=== PATIENT | female | born 1935 | race Caucasian/White ===

== ENCOUNTER 2018-02-04 16:42 | Observation (INO) | payer OTHER ==
--- NOTE | 2018-02-04 17:29 | PDOC ---
History of Present Illness - General Stated Complaint: ANXIETY Time Seen by Provider: 02/04/18 17:29 - History of Present Illness Initial Comments: 82 year old female with PMH of BPD (currently unmedicated) presenting with rapid breathing and generalized anxiety this morning. Stats that she woke up normally, ate some cookies and had a sparkling water. She attempted to go back to bed but noticed a rapid breathing rate along with generalized fear. She hasn' t seen a physician in 5 years because of getting similar symptoms whenever she attempt to leave her house. She has no fear of or ill event but fears that she will get a "panic attack" when she leaves her home. Denies any SI/HI/AH /VH. Denies any recent fevers,chills, nausea, vomiting, or diarrhea. However, she did vomit once while in the the ED here. 02/04/18 17:50 Past History - Past Medical History Allergies/Adverse Reactions: Allergies Allergy/AdvReac Type Severity Reaction Status Date / Time No Known Allergies Allergy Verified 02/04/18 17:19 Home Medications: Ambulatory Orders NK [No Known Home Medication] 02/04/18 Review of Systems - Review of Systems Constitutional: No: Chills, Diaphoresis HEENTM: No: Blurred Vision, Recent change in vision, Double Vision Respiratory: No: Cough, Shortness of Breath, SOB with Exertion Cardiac (ROS): No: Chest Pain, Edema, Irregular Heart Rate, Lightheadedness ABD/GI: No: Diarrhea, Nausea, Vomiting : No: Dysuria, Frequency, Hematuria Musculoskeletal: No: Back Pain, Joint Pain Integumentary: No: Bruising, Lesions, Lumps Neurological: No: Headache, Numbness, Paresthesia Psychiatric: Yes: Anxiety, Other (History of BPD). No: Depression Endocrine: No: Increased Hunger, Increased Thirst, Increased Urine Hematologic/Lymphatic: No: Anemia, Blood Clots *Physical Exam - Physical Exam General Appearance: Yes: Nourished, Appropriately Dressed. No: Apparent Distress HEENT: positive: EOMI, FABIAN, Normal ENT Inspection, Normal Voice Neck: positive: Trachea midline, Normal Thyroid, Supple. negative: Tender, Rigid Respiratory/Chest: positive: Lungs Clear, Normal Breath Sounds. negative: Chest Tender, Respiratory Distress, Accessory Muscle Use Cardiovascular: positive: Regular Rhythm, Regular Rate Gastrointestinal/Abdominal: positive: Normal Bowel Sounds, Flat, Soft. negative : Tender Musculoskeletal: positive: Normal Inspection. negative: CVA Tenderness, Decreased Range of Motion Extremity: positive: Normal Capillary Refill, Normal Inspection, Normal Range of Motion. 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 She was asymptomatic and felt well during our interview. She did not desat at any point during our exam or in the pre-hospital setting. Labs WNL including Troponin. CXR slightly abnormal demonstrating right medial basilar infiltrate; however patient afebrile, with normal white count, without cough, and otherwise well. We set up visiting home nursing with social work and will DC patient with strict return precautions and followup instructions. 02/04/18 20:11 *DC/Admit/Observation/Transfer Diagnosis at time of Disposition: Anxiety, Shortness of breath - Discharge Dispostion Disposition: HOME Condition at time of disposition: Improved Decision to Admit order: No - Referrals Referrals: [facility] [place] [Provider Group] - Patient Instructions Printed Discharge Instructions: DI for Anxiety -- Adult, Generalized Anxiety Disorder, DI for Shortness of Breath Additional Instructions: We believe that this episode was related to your anxiety. Please answer your phone when you are called by the home nursing service for your evaluation. If you can leave the house please follow up with our medical clinic on this sheet within 2-3 days. Please return to the ED if you have coughs, fevers, chills, shortness of breath, or have any new/ worsening symptoms. - Post Discharge Activity
[2018-02-04 18:07] LABS: BASO % 0.8 % (0-2.0); EOS % 1.6 % (0-4.5); HEMOGLOBIN 12.6 GM/dL (10.7-15.3); LYMPH % 17.3 % (8-40); MCHC 34.9 g/dl (32.0-36.0); MEAN CELL VOLUME 100.3 fl (80-96); MEAN PLT VOLUME 8.2 fl (7.5-11.1); MONO % 6.6 % (3.8-10.2); NEUT % 73.7 % (42.8-82.8); PLATELET COUNT 184 K/MM3 (134-434); RBC 3.59 M/mm3 (3.60-5.2); RDW 13.5 % (11.6-15.6); WHITE BLOOD COUNT 6.9 K/mm3 (4.0-10.0)
[2018-02-04 18:35] LABS: ALBUMIN 3.6 g/dl (3.4-5.0); ALK PHOS 113 U/L (45-117); ANION GAP 9 MMOL/L (8-16); BILIRUBIN,TOTAL 0.5 mg/dL (0.2-1); BLOOD UREA NITROGEN 15 mg/dL (7-18); CHLORIDE 109 mmol/L (98-107); CO2 24 mmol/L (21-32); CREATININE 0.8 mg/dL (0.55-1.3); GLUCOSE,RANDOM 148 mg/dL (74-106); POTASSIUM 3.6 mmol/L (3.5-5.1); SGOT/AST 28 U/L (15-37); SGPT/ALT 26 U/L (13-61); SODIUM 141 mmol/L (136-145)
--- NOTE | 2018-02-04 19:25 | PDOC ---
Attending Attestation - HPI HPI: 02/04/18 19:29 The patient is an 82 year old female LEXIE, with a past medical history of anxiety and bipolar disorder, who presents to the emergency department for evaluation of an anxiety attack with associated shortness of breath at 530am. The patient endorses 1 episode of emesis upon arrival to the emergency department. The patient reports not seeing a psychiatrist since 2016. She states this wan an atypical presentation of her anxiety attacks which prompted her activate EMS to visit the emergency department for further evaluation. The patient denies palpitations, diaphoresis, chest pain, abdominal pain, nausea , or vomiting. - Physicial Exam PE: Vitals: Triage Vital signs reviewed General Appearance: no acute distress, well nourished well developed, Head: Atraumatic, normocephalic Neck: Supple Chest Wall: Nontender Cardiac: Regular rate and rhythm, no murmurs, no rubs, no gallops, Lungs: Clear to auscultation bilateral, good air movement bilaterally, Abdomen: Soft, nondistended, nontender to palpation Extremities: Full range of motion to all extremities, no cyanosis, clubbing, or edema Skin: Warm and dry, no rashes or lesions, no petechiae Psych: normal mood, normal affect - Medical Decision Making The patient is an 82 year old female LEXIE, with a past medical history of anxiety and bipolar disorder, who presents to the emergency department for evaluation of an anxiety attack with associated shortness of breath at 530am. Plan: Chest X-ray Troponin Labs <Gera Jiménez - Last Filed: 02/04/18 19:29> - Resident Resident Name: Ora Patel - ED Attending Attestation I have performed the following: I have examined & evaluated the patient, The case was reviewed & discussed with the resident, I agree w/resident's findings & plan, Exceptions are as noted - Medical Decision Making Patient with long-standing history of untreated anxiety depression bipolar disorder. Presented to emergency department after apparent panic attack Labs EKG unremarkable chest x-ray with questionable findings at the right medial heart border however given no fever no cough no elevated white blood cell count no shift very low suspicion for acute infectious process Initial plan was to discharge patient home. We had contacted licensed clinical social worker for outpatient VNS visit. Patient denied any suicidality homicidality has been able to care for herself at home although she has not left her apartment in greater than 5 years and has not had any medical or psychiatric care greater than 5 years she has been eating drinking, paying her bills and is independent of ADLs After discussing discharge plan with patient patient had brief episode of catatonia stating she cannot leave from bed. This quickly resolved consistent with panic attack At this point we offered patient possible observation and psychiatric consultation. She wavered back and forth regarding this plan. We then walked patient around the emergency department while deciding and several times during this walk patient had episodes of brief panic attacks. At this point we will observe patient overnight in the emergency department for psychiatric consultation in the morning. I am unclear whether patient is at her baseline level of anxiety and depression and an unsure if patient is safe for discharge home or may required more intensive psychiatric evaluation. We'll place on observation for psychiatric evaluation. <Humberto Bonilla - Last Filed: 02/04/18 23:54> Heart Score/ECG Review - History History: Slightly suspicious - Electrocardiogram EKG: Non specific repolarization disturbance - Age Age: >/= 65 - Risk Factors Based on the list above the patient has:: No risk factors known - Troponin Troponin: </= normal limit - Score Heart Score - Total: 3 - ECG Impressions Comment:: 02/04/18 23:54 EKG performed at 1716. Temperature is normal sinus rhythm anterior fascicular block. No ST elevations biphasic T waves laterally. Interpreted by me. <Humberto Bonilla - Last Filed: 02/04/18 23:54> Attestations - Attestations Documentation prepared by Gera Jiménez, acting as medical delivery driver for Humberto Bonilla MD. <Gera Jiménez - Last Filed: 02/04/18 19:29>
--- NOTE | 2018-02-04 21:06 | PDOC ---
*Physical Exam - Vital Signs Last Vital Signs Temp Pulse Resp BP Pulse Ox 98.1 F 86 20 177/99 94 L 02/04/18 20:23 02/04/18 20:23 02/04/18 20:23 02/04/18 20:23 02/04/18 20:23 <Ora Patel - Last Filed: 02/05/18 01:56> - Vital Signs Last Vital Signs Temp Pulse Resp BP Pulse Ox 98.5 F 70 18 132/56 L 96 02/06/18 10:00 02/06/18 10:00 02/06/18 10:00 02/06/18 10:00 02/06/18 08:00 <Humberto Bonilla - Last Filed: 02/07/18 02:28> ED Treatment Course - LABORATORY CBC & Chemistry Diagram: 02/04/18 17:51 02/04/18 17:51 - ADDITIONAL ORDERS Additional order review: Laboratory Results 02/04/18 02/04/18 18:20 17:51 Sodium 141 Potassium 3.6 Chloride 109 H Carbon Dioxide 24 Anion Gap 9 BUN 15 Creatinine 0.8 Creat Clearance w eGFR > 60 Random Glucose 148 H Calcium 9.0 Total Bilirubin 0.5 AST 28 ALT 26 Alkaline Phosphatase 113 Troponin I < 0.02 Total Protein 7.0 Albumin 3.6 TSH 1.17 02/04/18 17:51 RBC 3.59 L MCV 100.3 H MCHC 34.9 RDW 13.5 MPV 8.2 Neutrophils % 73.7 Lymphocytes % 17.3 Monocytes % 6.6 Eosinophils % 1.6 Basophils % 0.8 - RADIOLOGY Radiology Studies Ordered: Category Date Time Status CXRPORT [CHEST X-RAY PORTABLE*] [RAD] Stat Radiology 02/04/18 19:27 Completed <Ora Patel - Last Filed: 02/05/18 01:56> - LABORATORY CBC & Chemistry Diagram: 02/05/18 06:30 02/05/18 06:30 - ADDITIONAL ORDERS Additional order review: 02/04/18 17:51 RBC 3.59 L MCV 100.3 H MCHC 34.9 RDW 13.5 MPV 8.2 Neutrophils % 73.7 Lymphocytes % 17.3 Monocytes % 6.6 Eosinophils % 1.6 Basophils % 0.8 - Medications Given in the ED: ED Medications Discontinued Medications Generic Name Dose Route Start Last Admin Trade Name Rory PRN Reason Stop Dose Admin Amlodipine Besylate 2.5 mg 02/05/18 10:00 02/06/18 10:34 Norvasc - PO 2.5 mg DAILY FERNANDO Administration Heparin Sodium (Porcine) 5,000 unit 02/05/18 06:00 02/06/18 05:13 Heparin - SQ 5,000 unit TID FERNANDO Administration Ceftriaxone Sodium 1,000 mg/ 50 mls @ 100 mls/hr 02/04/18 21:50 02/04/18 22: 04 Dextrose IVPB 02/04/18 22:19 100 mls/hr ONCE ONE Administration Azithromycin 500 mg/ Dextrose 250 mls @ 250 mls/hr 02/04/18 21:50 02/04/18 22 :35 IVPB 02/04/18 22:49 250 mls/hr ONCE ONE Administration Insulin Aspart 1 vial 02/05/18 07:00 02/06/18 12:02 Novolog Vial Sliding Scale - SQ 2 units ACHS FERNANDO Administration Protocol Lisinopril 20 mg 02/05/18 01:52 02/05/18 09:21 Prinivil PO 20 mg DAILY FERNANDO Administration Lorazepam 2 mg 02/05/18 00:42 02/05/18 00:54 Ativan Injection - IVPUSH 02/05/18 00:43 Not Given ONCE ONE Lorazepam 1 mg 02/05/18 00:45 02/05/18 00:54 Ativan Injection - IVPUSH 02/05/18 00:46 1 mg ONCE ONE Administration Lorazepam 2 mg 02/05/18 00:59 02/06/18 01:04 Ativan - PO 2 mg BID PRN Administration ANXIETY <Humberto Bonilla - Last Filed: 02/07/18 02:28> Medical Decision Making - Medical Decision Making Upon discharge, patient was stating that she was unable to walk. I eventually was able to walk her but she was very short of breath with general tremulousness. Unclear if her SOB was due to anxiety or a harbinger of PNA. Regardless, patient does not feel well enough to go home and was nauseas/ vomiting continuously during our walk. Will treat with abx for PNA and admit for obs. 02/04/18 21:04 After speaking with medicine attending, we consulted psych and they will see her in the morning. Patient OK with this plan. Patient is an ED Obs pending psych eval. 02/04/18 23:35 While talking to the patient again she began making passive suicidal comments " I just want to end it all. I'm tired of it all." She does have a previous attempt 40 years ago during some post depression. She attempted to take her life via medication overdose. She began to become slightly agitateed as well and refused to sit back in her bed, perseverating about animals and their abilities to "lay down and just end it all". When asked if she wanted to kill herself, she said no. She also denied HI. Given 1 MG ativan. Patient over 8 hours in our ED so will convert to full Obs and psych eval pending with Des Moreno. 02/05/18 01:56 <Ora Patel - Last Filed: 02/05/18 01:56> *DC/Admit/Observation/Transfer - Discharge Dispostion Decision to Admit order: Yes <Ora Patel - Last Filed: 02/05/18 01:56> <Humberto Bonilla - Last Filed: 02/07/18 02:28> Diagnosis at time of Disposition: Anxiety, Shortness of breath - Discharge Dispostion Disposition: VNS/HOME HEALTH CARE Condition at time of disposition: Stable
[2018-02-04] MEDS ORDERED: AZITHROMYCIN IVPB 500 MG in DEXTROSE 5%-WATER - 250 ML IVPB ONE (21:50)
[2018-02-04] MEDS ORDERED: CEFTRIAXONE 1,000 MG in DEXTROSE 5%-WATER - 50 ML IVPB ONE (21:50)
[2018-02-04] MEDS ORDERED: CEFTRIAXONE 1 GM/50 ML BAG ONE (21:55)
[2018-02-04] MEDS ORDERED: AZITHROMYCIN IVPB 250 ML IVPB ONE (21:55)
[2018-02-05] MEDS ORDERED: LORazepam 2 MG/ML SDV VIAL ONE (00:48)
[2018-02-05] MEDS ORDERED: LORazepam 1 MG TABLET PO PRN (00:59)
--- NOTE | 2018-02-05 01:10 | PN ---
Teaching Attending Note Name of Resident: Erum Faith ATTENDING PHYSICIAN STATEMENT I saw and evaluated the patient. CHart, data, imaging reviewed. I reviewed the resident's note and discussed the case with the resident. I agree with the resident's findings and plan as documented. SUBJECTIVE: 82 year old female LEXIE, with a past history of anxiety and bipolar disorder who presented for anxiety attack with associated shortness of breath at 530am . Associated with multiple episodes of emesis. She was has not left her house in 5 years due to anxiety. Food was delivered to her. Denied pain, cough, or sputum production. OBJECTIVE: Last Vital Signs Temp Pulse Resp BP Pulse Ox 97.5 F L 76 18 172/92 99 02/04/18 23:49 02/04/18 23:49 02/04/18 23:49 02/04/18 23:49 02/04/18 23:49 general -appears anxious, nontoxic appearing heent- atraumatic, normocephalic neck supple cv -s1+s2+ rrr chest clear, no crackles or rales appreciated abdomen -soft, nt skin- multiple nevi on back noted Abnormal Lab Results 02/04/18 02/04/18 17:51 17:51 RBC 3.59 L MCV 100.3 H MCH 35.0 H Chloride 109 H Random Glucose 148 H cxr- reviewed ASSESSMENT AND PLAN: 82yo woman with severe anxiety disorder, bipolar disorder. Uncontrolled hypertension. -observation -psych consult -ativan 2mg po if severe anxiety -zofran for nausea/vomiting #HTN - uncontrolled -amlodipine, lisinopril -2g Na diet #Multiple Nevi on back -derm clinic referral dvt ppx -heparin sc
--- NOTE | 2018-02-05 01:22 | HP ---
CHIEF COMPLAINT: PCP: PSYCHIATRIST: Dr. Faith (In [facility], last seen in March 2016) HISTORY OF PRESENT ILLNESS: 82 y/o F with a PMHx of Bipolar Disorder with psychotic tendencies (Not on medication, Does not follow with Psych) presents with "Feeling Lousy." This morning when she went to lay down on the couch after drinking some coffee, she felt tired and started crying. She is not sure why she started crying but she was unable to stop and could not catch her breath. This is the first time this has happened to her so she called EMS. She has not been able to identify any triggers or relieving factors. During my interview, she was calm and very pleasant. Since arriving in the ED she has Vomited twice; It was brown, non bloody. Patient says she went to bed feeling fine after eating dinner yesterday. During her ED stay, patient was told she was going to be discharged, and shortly after complained she was unable to walk. She eventually was able to walk however, but complained of being very short of breath and did not feel well enough to go home. Psych (Dr. Sharp) was consulted and patient will be seen in the morning. Patient has not seen a physician in many years bc she states leaving her home triggers symptoms of Rapid breathing and anxiety which she feels will lead to panic attack. Denies any recent falls, Medication changes, infections, bug bites, new sexual partners. Denies any suicidal or homicidal ideations at this time. Denies any recent changes in mood, energy level, amount she sleeps nightly, speech pattern. 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71 Residence: Apartment with 3 cats Ambulation: has a can and walker perscribed, but refuses to use Family History: Dad: Malaria Mom: Negative Brother: Lung Cancer Allergies No Known Allergies Allergy (Verified 02/04/18 17:19) HOME MEDICATIONS: Home Medications Medication Instructions Recorded NK [No Known Home Medication] 02/04/18 REVIEW OF SYSTEMS CONSTITUTIONAL: Absent: fever, chills, diaphoresis, generalized weakness, malaise, loss of appetite, weight change HEENT: Absent: rhinorrhea, nasal congestion, throat pain, throat swelling, difficulty swallowing, mouth swelling, ear pain, eye pain, visual changes CARDIOVASCULAR: Absent: chest pain, syncope, palpitations, irregular heart rate, lightheadedness , peripheral edema RESPIRATORY: Absent: cough, shortness of breath, dyspnea with exertion, orthopnea, wheezing, stridor, hemoptysis GASTROINTESTINAL: Present: nausea, vomiting Absent: abdominal pain, abdominal distension, diarrhea, constipation, melena, hematochezia GENITOURINARY: Absent: dysuria, frequency, urgency, hesitancy, hematuria, flank pain, genital pain MUSCULOSKELETAL: Absent: myalgia, arthralgia, joint swelling, back pain, neck pain SKIN: Absent: rash, itching, pallor HEMATOLOGIC/IMMUNOLOGIC: Absent: easy bleeding, easy bruising, lymphadenopathy, frequent infections ENDOCRINE: Absent: unexplained weight gain, unexplained weight loss, heat intolerance, cold intolerance NEUROLOGIC: Present: bladder incontinence Absent: headache, focal weakness or paresthesias, dizziness, unsteady gait, seizure, mental status changes PSYCHIATRIC: Present: anxiety, Absent: depression, suicidal or homicidal ideation, hallucinations. PHYSICAL EXAMINATION Vital Signs - 24 hr 02/04/18 02/04/18 02/04/18 17:31 20:23 23:49 Temperature 98.1 F 98.1 F 97.5 F L Pulse Rate 96 H Pulse Rate [ 86 76 Right] Respiratory 20 20 18 Rate Blood Pressure 167/130 Blood Pressure 177/99 [Left Arm] Blood Pressure 172/92 [Right Arm] O2 Sat by Pulse 97 94 L 99 Oximetry (%) GENERAL: Awake, alert, and fully oriented, in no acute distress, lying comfortably. HEAD: NCAT EYES: PERRL, EOMI THROAT: Oropharynx clear without exudates. Moist mucous membranes. NECK: No JVD. LUNGS: Breath sounds equal, clear to auscultation bilaterally. No wheezes. HEART: Regular rate and rhythm, normal S1 and S2 without murmur. ABDOMEN: Soft, nontender, not distended, normoactive bowel sounds, no guarding. BACK: No CVA tenderness. EXTREMITIES: 2+ pulses. No calf tenderness. No peripheral edema. NEUROLOGICAL: Cranial nerves II-XII intact. Normal speech. PSYCHIATRIC: Cooperative. Good eye contact. Appropriate mood and affect. SKIN: Warm, dry, no rashes, Multiple nevi present throughout. Laboratory Results - last 24 hr 02/04/18 02/04/18 02/04/18 17:51 17:51 18:20 WBC 6.9 RBC 3.59 L Hgb 12.6 Hct 36.0 MCV 100.3 H MCH 35.0 H MCHC 34.9 RDW 13.5 Plt Count 184 MPV 8.2 Absolute Neuts (auto) 5.1 Neutrophils % 73.7 Lymphocytes % 17.3 Monocytes % 6.6 Eosinophils % 1.6 Basophils % 0.8 Nucleated RBC % 0 Sodium 141 Potassium 3.6 Chloride 109 H Carbon Dioxide 24 Anion Gap 9 BUN 15 Creatinine 0.8 Creat Clearance w eGFR > 60 Random Glucose 148 H Calcium 9.0 Total Bilirubin 0.5 AST 28 ALT 26 Alkaline Phosphatase 113 Troponin I < 0.02 Total Protein 7.0 Albumin 3.6 TSH 1.17 ASSESSMENT/PLAN: 82 y/o F with a PMHx of Bipolar Disorder with psychotic tendencies presents with Anxiety accompanied by vomiting. BP was 177/99 and she had multiple Nevi over her back on exam. BG was elevated at 148, Trop < 0.02, TSH 1.17. EKG was NSR. CXR revealed a Possible developing Right basilar infiltrate. 1. Anxiety - Psychiatry (Dr. Sharp) consulted - UTox, RPR, B12 pending - Ativan 2mg BID PRN for severe anxiety - Zofran 4mg Q6H PRN for nausea 2. Uncontrolled HTN - Started on Lisinopril 20mg, Norvasc 2.5mg - Lipid profile pending 3. Nevi - Would likely benefit from outpatient derm follow up 4. Elevated Blood Glucose - BGMs ISS ACHS - A1c pending - Continue to Monitor 5. FEN - PO Fluids - Lytes wnl, continue to monitor - Sodium controlled diet 6. PPx - DVT: Heparin TID Dispo: Med-Surg Obs Visit type - Emergency Visit Emergency Visit: Yes ED Registration Date: 02/04/18 Care time: The patient presented to the Emergency Department on the above date and was hospitalized for further evaluation of their emergent condition. - New Patient This patient is new to me today: Yes Date on this admission: 02/08/18 - Critical Care Critical Care patient: No Hospitalist Screening - Colonoscopy Questionnaire Colonoscopy Questionnaire: Colonoscopy Questionnaire - Patient: 50 - 75 years old and never had a screening colonoscopy: Unknown History of colon or rectal polyps, or CA: Unknown History of IBD, Crohn's disease or UC: Unknown History of abdominal radiation therapy as a child: Unknown - Relative: 1 with colon or rectal CA, or polyps at age 60 or younger: Unknown Colon or rectal CA diagnosed at age 45 or younger: Unknown Multiple relatives with colon or rectal CA: Unknown - Outcome: Screening Result: Negative Screen
[2018-02-05] MEDS ORDERED: LISINOPRIL 20 MG TABLET (FP) PO SCH ×2 (01:52→10:00)
[2018-02-05] MEDS ORDERED: ONDANSETRON 4 MG/2 ML VIAL IVPUSH PRN (01:59)
[2018-02-05] MEDS: HEPARIN NA (PORCINE) 5,000 UNITS/ML 1ML VIAL SQ SCH ×3 (06:52→22:11)
[2018-02-05] MEDS: INSULIN SLIDING SCALE (NOVOLOG) 1 VIAL SQ SCH ×4 (06:53→22:17)
[2018-02-05 07:16] LABS: BASO % 0.4 % (0-2.0); EOS % 0.4 % (0-4.5); HEMATOCRIT 35.3 % (32.4-45.2); HEMOGLOBIN 12.2 GM/dL (10.7-15.3); LYMPH % 21.8 % (8-40); MCH 34.7 pg (25.7-33.7); MCHC 34.5 g/dl (32.0-36.0); MEAN CELL VOLUME 100.4 fl (80-96); MEAN PLT VOLUME 8.3 fl (7.5-11.1); MONO % 7.5 % (3.8-10.2); NEUT % 69.9 % (42.8-82.8); PLATELET COUNT 166 K/MM3 (134-434); RBC 3.51 M/mm3 (3.60-5.2); RDW 13.1 % (11.6-15.6); WHITE BLOOD COUNT 8.5 K/mm3 (4.0-10.0)
--- NOTE | 2018-02-05 09:00 | CON.PSY ---
Psychiatry Consult Chief Complaint: Asked to see this patient, a 82 year old female who was brought to ER for an episode of panic attack. History of Present Problem: Patient states that she lives alone with her cats and has not ventured outside x 5 years. Groceries etc are delivered to her home. She has a hx of Bipolar disorder coexisting with panic attacks with agoraphobia Ms. Bradford recalls one hospitalization at [facility] when she was around 71 years of age for what she called' nervousness' She was last seen by a psychiatrist in 2016 but did not follow up due to her agoraphobia. She cries easily, admits to feeling 'depressed' as allher friends have , and she has a strained relationship with her daughter. Denies suicidal/homicidal ideation. No hx of suicidal attempt in the past. She wants to go home to take care of her pets. Symptoms: reports: Depressed Mood - Previous Psychiatric Treatment Outpatient: None, More than 6 mos ago Inpatient: None - Previous Substance Abuse Treatment Outpatient: None - Reason for Previous Treatment Reason for Previous Treatment: Biploar Illness, Anxiety or Panic Disorder - Family History Family History: Unable to Obtain - Current Medications Current Medications: Active Medications Amlodipine Besylate (Norvasc -) 2.5 mg PO DAILY [facility] Heparin Sodium (Porcine) (Heparin -) 5,000 unit SQ TID [facility] Last Admin: 02/05/18 06:52 Dose: Not Given Insulin Aspart (Novolog Vial Sliding Scale -) 1 vial SQ ACHS [facility]; Protocol Last Admin: 02/05/18 06:53 Dose: Not Given Lisinopril (Prinivil) 20 mg PO DAILY [facility] Lorazepam (Ativan -) 2 mg PO BID PRN PRN Reason: ANXIETY Ondansetron HCl (Zofran Injection) 4 mg IVPUSH Q6H PRN PRN Reason: NAUSEA AND/OR VOMITING - Allergies Allergies: Allergies Allergy/AdvReac Type Severity Reaction Status Date / Time No Known Allergies Allergy Verified 02/04/18 17:19 - Current Living Status Usual Living Arrangement: Alone - Current Mental Status Evaluation Appearance: Other (appropriate for the setting) - Affect Affect: Labile - Mood Mood: Depressed - Speech/Language Expressive: Coherent Receptive: Age Appropriate Comprehension of Spoken Words - Psychomotor Activity Psychomotor Activity: Normal - Thought Process Thought Process: Intact - Thought Content Hallucinations: Absent Delusions: Absent - Self Perception Self Perception: No Impairment - Cognition Attention: Alert Orientation: Time, Person, Place Memory, Immediate Recall: Impaired - Concentration Simple Calculations Intact: Yes - Insight Insight: Intact - Impulse Control Impulse Control: Good Control - Suicidal Ideation Suicidal Ideation: No - Homicidal Ideation Homicidal Ideation: No Assessment/Plan DX Bipolar illness Coexisting wth panic attacks/agoraphobia Loneliness Rec Agree with plan to have VNS services Patient needs mental health follow up She is psychiatrically stable for discharge
[2018-02-05] MEDS: amLODIPine BESYLATE 2.5 MG TABLET (FP) PO SCH (09:21)
[2018-02-05 09:43] LABS: ALBUMIN 3.4 g/dl (3.4-5.0); ALK PHOS 103 U/L (45-117); ANION GAP 10 MMOL/L (8-16); BILIRUBIN,TOTAL 0.5 mg/dL (0.2-1); BLOOD UREA NITROGEN 13 mg/dL (7-18); CALCIUM 9.2 mg/dL (8.5-10.1); CHLORIDE 108 mmol/L (98-107); CHOLESTEROL 205 mg/dL (50-200); CO2 24 mmol/L (21-32); CREATININE 0.7 mg/dL (0.55-1.3); GLUCOSE,RANDOM 107 mg/dL (74-106); HDL CHOLESTEROL 56 mg/dL (40-60); POTASSIUM 3.5 mmol/L (3.5-5.1); SGOT/AST 30 U/L (15-37); SGPT/ALT 24 U/L (13-61); SODIUM 142 mmol/L (136-145); TOT PROT 6.6 g/dl (6.4-8.2); TRIGLYCERIDES 76 mg/dL (0-150)
--- NOTE | 2018-02-05 12:10 | EKG ---
Test Reason : Blood Pressure : / mmHG Vent. Rate : 091 BPM Atrial Rate : 091 BPM P-R Int : 170 ms QRS Dur : 084 ms QT Int : 340 ms P-R-T Axes : 050 -54 083 degrees QTc Int : 418 ms NORMAL SINUS RHYTHM LEFT ANTERIOR FASCICULAR BLOCK MODERATE VOLTAGE CRITERIA FOR LVH, MAY BE NORMAL VARIANT NONSPECIFIC ST AND T WAVE ABNORMALITY ABNORMAL ECG WHEN COMPARED WITH ECG OF 05-SEP-2006 01:44, NO SIGNIFICANT CHANGE WAS FOUND Confirmed by LANCE ESCAMILLA, KELLE ([id number]) on 02/05/2018 12:10:01 PM Referred By: Confirmed By:KELLE LUCAS MD
[2018-02-05] MEDS ORDERED: HEMOQUE TEST 1 EACH EACH ONE (16:48)
--- NOTE | 2018-02-05 18:01 | PN ---
Teaching Attending Note Name of Resident: Malvin Branham ATTENDING PHYSICIAN STATEMENT I saw and evaluated the patient. I reviewed the resident's note and discussed the case with the resident. I agree with the resident's findings and plan as documented. SUBJECTIVE: no fever or chills. no pain, reports having high Bp in hospital setting . denies SI OBJECTIVE: NAD CV: RRR Lungs: CTAB Ext : no edema Abd: soft, NT, ND , NL BS ASSESSMENT AND PLAN: Unfortunate 82 y/o lady with h/o bipolar, depression, anxiety, and agoraphobia, who presented with SOb and palpitations , and vomiting 1- panic attack 2- depression 3- anxiety 4- agoraphobia 5- HTN plan : - case was d/w psych. no indication for inpatient psych - she was offered SSRI , she reported sensitivity to a lot of meds. in addition worry about compliance and abrupt cessation of those meds. - rn social services was notified to arrange for services - for HTN, she declined meds due to artificial increase in BP in public setting . will prescribe a BP cuff for monitoring - referral to PCP and psych
--- NOTE | 2018-02-05 20:57 | DS ---
Physical Exam: SUBJECTIVE: Patient seen and examined at bedside. Blunted affect, monotone, slow to respond to questions. Complains of inability to breathe inconsistent with presentation. OBJECTIVE: Vital Signs Period Temp Pulse Resp BP Sys/Mcmullen Pulse Ox Last 24 Hr 97.5 F-98.6 F 69-84 18-18 132-172/66-92 95-100 PHYSICAL EXAM GENERAL: The patient is awake, alert, and fully oriented, in no acute distress. HEAD: Normal with no signs of trauma. EYES: PERRL, extraocular movements intact, sclera anicteric, conjunctiva clear. ENT: Ears normal, nares patent, oropharynx clear without exudates, moist mucous membranes. NECK: Trachea midline, full range of motion, supple. LUNGS: Breath sounds equal, clear to auscultation bilaterally, no wheezes, no crackles, no accessory muscle use. HEART: Regular rate and rhythm, S1, S2 without murmur, rub or gallop. ABDOMEN: Soft, nontender, nondistended, normoactive bowel sounds, no guarding, no rebound, no hepatosplenomegaly, no masses. EXTREMITIES: 2+ pulses, warm, well-perfused, no edema. NEUROLOGICAL: Cranial nerves II through XII grossly intact. Normal speech, gait not observed. PSYCH: Normal mood, normal affect. SKIN: Warm, dry, normal turgor, no rashes or lesions noted. LABS Laboratory Results - last 24 hr 02/05/18 02/05/18 02/05/18 06:30 06:30 06:30 WBC 8.5 RBC 3.51 L Hgb 12.2 Hct 35.3 MCV 100.4 H MCH 34.7 H MCHC 34.5 RDW 13.1 Plt Count 166 MPV 8.3 Absolute Neuts (auto) 5.9 Neutrophils % 69.9 Lymphocytes % 21.8 D Monocytes % 7.5 Eosinophils % 0.4 Basophils % 0.4 Nucleated RBC % 0 Sodium 142 Potassium 3.5 Chloride 108 H Carbon Dioxide 24 Anion Gap 10 BUN 13 Creatinine 0.7 Creat Clearance w eGFR > 60 POC Glucometer Random Glucose 107 H Hemoglobin A1c % 5.9 Calcium 9.2 Phosphorus 3.0 Magnesium 2.0 Total Bilirubin 0.5 AST 30 ALT 24 Alkaline Phosphatase 103 Total Protein 6.6 Albumin 3.4 Triglycerides 76 Cholesterol 205 H Total LDL Cholesterol 138 H HDL Cholesterol 56 Vitamin B12 573 RPR Titer 02/05/18 02/05/18 02/05/18 06:30 06:30 06:51 WBC RBC Hgb Hct MCV MCH MCHC RDW Plt Count MPV Absolute Neuts (auto) Neutrophils % Lymphocytes % Monocytes % Eosinophils % Basophils % Nucleated RBC % Sodium Potassium Chloride Carbon Dioxide Anion Gap BUN Creatinine Creat Clearance w eGFR POC Glucometer 113.28087 Random Glucose Hemoglobin A1c % Calcium Phosphorus Magnesium Total Bilirubin AST ALT Alkaline Phosphatase Total Protein Albumin Triglycerides Cholesterol Total LDL Cholesterol HDL Cholesterol Vitamin B12 Cancelled RPR Titer Nonreactive 02/05/18 02/05/18 11:07 16:50 WBC RBC Hgb Hct MCV MCH MCHC RDW Plt Count MPV Absolute Neuts (auto) Neutrophils % Lymphocytes % Monocytes % Eosinophils % Basophils % Nucleated RBC % Sodium Potassium Chloride Carbon Dioxide Anion Gap BUN Creatinine Creat Clearance w eGFR POC Glucometer 144.71509 139.28173 Random Glucose Hemoglobin A1c % Calcium Phosphorus Magnesium Total Bilirubin AST ALT Alkaline Phosphatase Total Protein Albumin Triglycerides Cholesterol Total LDL Cholesterol HDL Cholesterol Vitamin B12 RPR Titer HOSPITAL COURSE: Date of Admission:02/04/18 82 y/o F with a PMHx of Bipolar Disorder with psychotic tendencies (Not on medication, Does not follow with Psych) presents with "Feeling Lousy." This morning when she went to lay down on the couch after drinking some coffee, she felt tired and started crying. She is not sure why she started crying but she was unable to stop and could not catch her breath. This is the first time this has happened to her so she called EMS. She has not been able to identify any triggers or relieving factors. Patient has not seen a physician in many years bc she states leaving her home triggers symptoms of rapid breathing and anxiety which she feels will lead to panic attack. Denies any suicidal/homicidal ideation. Psychiatry was consulted and deemed patient stable for discharge from their standpoint. PT was consulted and cleared patient for safe ambulation at home. Noted to have moderate hypertension on evaluation but refused any medications. Offered and accepted prescription of blood pressure cuff with instructions to measure at home and return to ED if systolic BP>160. Otherwise thorough evaluation including CXR, labs, EKG and clinical exam revealed no treatable organic medical conditions. Discharged with instructions for outpt primary care and psychiatry f/u. Date of Discharge: 09/21/18 Minutes to complete discharge: 40 Discharge Summary Reason For Visit: ANXIETY SHORTNESS OF BREATH (SHORT STAY) Current Active Problems Anxiety (Acute) Shortness of breath (Acute) Condition: Stable - Instructions Diet, Activity, Other Instructions: You were hospitalized for shortness of breath and palpitations. You were evaluated and underwent lab studies, imaging, and EKG which determined that your symptoms were not the result of a problem that can be treated medically in a hospital setting. We believe that this episode was related to your anxiety and depression. However, it was observed that your blood pressure was high, but you indicated that you did not want medication for it. Referrals/medical recommendations. We are arranging for you to have visiting nurse services including psychiatric care. Please answer your phone when you are called by the home nursing service for your evaluation. If you can leave the house, please follow up with our medical clinic and also with the psychiatrist on your discharge packet as soon as possible. Referrals have been made on your behalf. Additionally, we are prescribing you a blood pressure cuff to monitor your blood pressure at home. If the upper number is above 160 please come into the emergency room. Please return to the ED if you have coughs, fevers, chills, shortness of breath , or have any new/ worsening symptoms. Referrals: [facility] [place] [facility] [place] [Provider Group] - 1 Week Tayo Sharp MD [Staff Physician] - 1 Week Disposition: VNS/HOME HEALTH CARE - Home Medications Comprehensive Discharge Medication List: Ambulatory Orders Miscellaneous Medical Supply [Outpatient Order] [place] [facility] [place] new to me today: Yes Date on this admission: 02/05/18 Emergency Visit: Yes ED Registration Date: 02/04/18 Care time: The patient presented to the Emergency Department on the above date and was hospitalized for further evaluation of their emergent condition. Critical Care patient: No - Discharge Referral Referred to [facility] Med P.C.: No
[2018-02-05 21:23] LABS: COCAINE, UR NEGATIVE ng/ml (CUTOFF=300); METHADONE, UR NEGATIVE ng/ml (CUTOFF=300); OPIATES, URI NEGATIVE ng/ml (CUTOFF=300); PHENCYCLIDINE,URINE NEGATIVE ng/ml (CUTOFF=25); URINE AMPHETAMINES NEGATIVE ng/ml (CUTOFF=500); URINE BARBITURATES NEGATIVE ng/ml (CUTOFF=200); URINE BENZODIAZEPINES NEGATIVE ng/ml (CUTOFF=200)
[2018-02-05 21:45] VITALS: BMI 24.0
[2018-02-06] MEDS: HEPARIN NA (PORCINE) 5,000 UNITS/ML 1ML VIAL SQ SCH (05:13)
[2018-02-06] MEDS: INSULIN SLIDING SCALE (NOVOLOG) 1 VIAL SQ SCH ×2 (06:41→12:02)
[2018-02-06] MEDS: amLODIPine BESYLATE 2.5 MG TABLET (FP) PO SCH (10:34)
[2018-02-06 10:46] VITALS: BP 132/56; PULSE 70; TEMP 98.5
== END 2018-02-06 13:00 | disposition home health service (06) ==
LOC: JER 16:42 → JERBED 21:15 → UNDOADMOB 02-05 01:21 → J7W 02-05 18:45
PROVIDERS: ADMIT Internal Medicine; ATTEND Internal Medicine
PROC: 3E03329 Introduction of Other Anti-infective into Peripheral Vein, Percutaneous Approach (ICD-10-PCS; principal; 2018-02-04)
PROC: 3E03329 Introduction of Other Anti-infective into Peripheral Vein, Percutaneous Approach (ICD-10-PCS; 2018-02-04)
PROC: 3E033NZ Introduction of Analgesics, Hypnotics, Sedatives into Peripheral Vein, Percutaneous Approach (ICD-10-PCS; 2018-02-04)
PROC: 3E013VG Introduction of Insulin into Subcutaneous Tissue, Percutaneous Approach (ICD-10-PCS; 2018-02-04)
PROC: 3E033GC Introduction of Other Therapeutic Substance into Peripheral Vein, Percutaneous Approach (ICD-10-PCS; 2018-02-04)
DX: F41.9 Anxiety disorder, unspecified (principal); F31.9 Bipolar disorder, unspecified; F40.01 Agoraphobia with panic disorder; I10 Essential (primary) hypertension; D22.5 Melanocytic nevi of trunk; R73.9 Hyperglycemia, unspecified; J18.9 Pneumonia, unspecified organism; R45.851 Suicidal ideations
CPT/HCPCS: 36415; 71045-TC-FY; 80053; 80061; 80307; 82607; 82962; 83036; 83721; 83735; 84100; 84443; 84484; 85025; 86593; 93005; 93010; 96365; 96367; 96372; 96375; 97116-GP; 97161-GP; 99285-25; G0378; J1644

== ENCOUNTER 2018-02-15 09:55 | Emergency (ER) | payer OTHER ==
[2018-02-15 10:07] VITALS: BP 172/116; PULSE 109; TEMP 99; BMI 24.0
[2018-02-15] MEDS ORDERED: ALPRAZolam 0.25 MG TABLET PO ONE (11:14)
[2018-02-15] MEDS ORDERED: ALPRAZolam 0.25 MG TABLET ONE ×2 (12:00→12:27)
--- NOTE | 2018-02-15 13:13 | PDOC ---
Attending Attestation - Resident Resident Name: Marisa Jay - ED Attending Attestation I have performed the following: I have examined & evaluated the patient, The case was reviewed & discussed with the resident, I agree w/resident's findings & plan - HPI HPI: 02/15/18 13:08 82 YOF, with a significant past medical history of bipolar disorder (unmedicated ), anxiety, depression, agoraphobia, HTN, who presents to the emergency department with, anxiety. As per patient, her second telephone at home was not working thus, she called EMS for assistance when she could not get through with the company. She notes upon the arrival of EMS she was anxious and short of breath thus, EMS advised her to report to the ED for further evaluation. The patient was recently worked up at [facility] for her mood disorder, while in the ED she notes to be asymptomatic without any complaints. however did make threats to "tear down the ED" due to frustration from her nonworking phone, with aggressive gestures to staff members. no SI or HI. no VH or AH. She denies recent fevers, chills, headache or dizziness. She denies recent nausea, vomit, diarrhea or constipation. She denies recent dysuria, frequency, urgency or hematuria. She denies recent chest pain. Allergies: NKA Past surgical history: None reported. Social history: Nonsmoker. Denies EtOH use and recreational drug use. - Physicial Exam PE: 02/15/18 13:09 anxious. agitated, tangential. MMM, nl conjunctiva, anicteric; neck supple. lungs clear, tachy, abdomen soft nontender. HAYS x4, no focal neuro deficits. No peripheral edema. normal color for ethnicity, WWP. no SI or HI, cooperative and able to calm down. 02/15/18 13:13 - Medical Decision Making 02/15/18 13:10 Corrine Bradford 82 y/o F with a PMHx of Bipolar Disorder with psychotic tendencies (Not on medication, Does not follow with Psych), anxiety, depression , agoraphobia, HTN presenting with Was last seen and admitted 02/05/18 for evaluation and similar sx, no psych admission and offered meds/services vitals with hypertension and tachycardia, likely from anxiety . no fevers. however no meds, c/o bipolar flare and exacerbation due to her phone. did make verbal threat and aggressive gestures in ED, "to tear down the emergency department." no SI or HI, VH or AH. not safe to leave or get cleared, as she is tangential and extensive psych history with poor compliance or followup. will need psych clearance and assessment. gave dose of xanax for anxiety 1:00pm Call placed to Dr. Sharp, psychiatry commissioned defence [employer] officer, case was discussed. will come to see. EKG normal sinus rhythm, no interval abnormalities, narrow QRS, ST and T wave segments and morphology normal. Nonspecific T wave abnormalities in lateral leads, unchanged. normal QT interval. psych saw patient, no acute admission. f/u [facility] psych [facility]. compliance discussed SW involved, arrange for visits at home. referrals given. stable for discharge. as no acute pathology or emergent admit/requirements. 02/15/18 18:27
--- NOTE | 2018-02-15 13:25 | PDOC ---
History of Present Illness - General Chief Complaint: Psychiatric Stated Complaint: EVALUATION Time Seen by Provider: 02/15/18 10:10 History Source: Patient Exam Limitations: No Limitations - History of Present Illness Initial Comments: 02/15/18 13:11 Pt is an 82yo F with PMH of Bipolar disorder BIBA to ED. When asked what brings her to the ED pt states "absolutely nothing". Pt says she lives alone and has anxiety when she goes outside, so she is homebound. Pt said that she has 2 phones, they were both fully charged but one of them could not make calls (black ) and the other one could only make emergency calls (Red). This has been going on for about 2 weeks. When pt stepped outside on her balcony to use the black phone to call the [employer] to fix the red phone but for some reason it would not make the call. She then used the red phone which called 911. She states that when she told the dispatch she has bipolar they said they would send an ambulance and hung up. Pt then waited outside for the ambulance and when she told them she has bipolar, they advised her to be seen in the ED. She was at [facility] 3 days ago on Thursday and had workup done which came back fine. Pt says she has been having anxiety because she was recently seen here in the ED on 02/04 for an anxiety attack and was told that she would get home visits but her phone had not been working and she was not sure as to whether she was getting calls. She also looked at her dc paperwork and noticed that the contact number listed for her was wrong. She feels as if she is "going to go ballistic and start throwing things". She denies suiciidal and homicidal ideations and denies visual/auditory hallucinations. She admits to some SOB but denies chest pain, mayer, changes in vision, back pain, neck pain, abdominal pain, n/v/d, numbness/tingling, urinary symptoms. She has not seen a PCP in 5 years. She is not taking any medications. Pt says she just wants to get her phones fixed, go back home and pet her cats to calm her down. PMH: see hpi PSH: none Meds: none Allergies: nkda Social: denies Past History - Past Medical History Allergies/Adverse Reactions: Allergies Allergy/AdvReac Type Severity Reaction Status Date / Time No Known Allergies Allergy Verified 02/15/18 09:58 Home Medications: Ambulatory Orders Miscellaneous Medical Supply [Outpatient Order] [place] [facility] [place]emia: No Asthma: No Cancer: No CVA: No COPD: Yes CHF: No Dementia: No Diabetes: No GI Disorders: No Disorders: No HTN: Yes Hypercholesterolemia: Yes Liver Disease: No Psychiatric Problems: Yes (bipolar) Seizures: No Thyroid Disease: Yes - Surgical History Abdominal Surgery: No Appendectomy: No Cardiac Surgery: No Cholecystectomy: No Lung Surgery: No Neurologic Surgery: No Orthopedic Surgery: No - Immunization History Immunization Up to Date: Yes - Suicide/Smoking/Psychosocial Hx Smoking History: Never smoked Have you smoked in the past 12 months: No Hx Alcohol Use: No Drug/Substance Use Hx: No Substance Use Type: None Hx Substance Use Treatment: No Review of Systems - Review of Systems Constitutional: No: Chills, Fever, Loss of Appetite HEENTM: No: Eye Pain, Recent change in vision, Double Vision, Throat Pain, Mouth Pain Respiratory: Yes: Shortness of Breath. No: Cough, Hemoptysis Cardiac (ROS): No: Chest Pain, Lightheadedness, Palpitations, Syncope ABD/GI: No: Constipated, Diarrhea, Nausea, Vomiting, Abdominal cramping, Tarry Stools : No: Burning, Dysuria Musculoskeletal: No: Back Pain, Joint Pain, Joint Swelling, Muscle Weakness, Neck Pain Integumentary: No: Bruising, Erythema Neurological: No: Headache, Numbness, Tingling, Tremors, Weakness Psychiatric: Yes: Anxiety, Other (feeling like she is going to become combative) *Physical Exam - Vital Signs Last Vital Signs Temp Pulse Resp BP Pulse Ox 99.0 F 109 H 18 172/116 H 98 02/15/18 09:58 02/15/18 09:58 02/15/18 09:58 02/15/18 09:58 02/15/18 09:58 - Physical Exam General Appearance: Yes: Nourished, Appropriately Dressed. No: Apparent Distress, Alcohol on Breath, Intoxicated HEENT: positive: EOMI, FABIAN, Hearing Grossly Normal. negative: Pale Conjunctivae, Scleral Icterus (R), Scleral Icterus (L), Pharyngeal Erythema Neck: positive: Trachea midline, Supple. negative: Carotid bruit, Lymphadenopathy (R), Lymphadenopathy (L) Respiratory/Chest: positive: Lungs Clear, Normal Breath Sounds. negative: Decreased Breath Sounds, Crackles, Rales, Rhonchi Cardiovascular: positive: Regular Rhythm, S1, S2, Tachycardia. negative: Edema , JVD, Systolic Murmur Vascular Pulses: Carotid (R): 2+, Carotid (L): 2+, Dorsalis-Pedis (R): 2+, Doralis-Pedis (L): 2+ Gastrointestinal/Abdominal: positive: Normal Bowel Sounds, Soft. negative: Distended, Guarding, Rebound, Tenderness, Hernia Musculoskeletal: negative: CVA Tenderness, CVA Tenderness (R), CVA Tenderness (L ), Muscle Spasm, Vertebral Tenderness Extremity: positive: Normal Capillary Refill. negative: Coldness, Cyanosis, Swelling, Calf Tenderness, Erythema Integumentary: positive: Normal Color, Dry, Warm. negative: Cyanotic, Erythema , Pale, Cold, Swelling Neurologic: positive: environmental science professor II-XII NML intact, Fully Oriented, Alert, Normal Response, Motor Strength 5/5. negative: Normal Mood/Affect (pt anxious and becoming increasingly impatient), Sensory Deficit Deep Tendon Reflexes: Ankle (L): 2+, Ankle (R): 2+, Knee (L): 2+, Knee (R): 2+ ED Treatment Course - Medications Given in the ED: ED Medications Discontinued Medications Generic Name Dose Route Start Last Admin Trade Name Freq PRN Reason Stop Dose Admin Alprazolam 0.5 mg 02/15/18 11:14 02/15/18 12:30 Xanax - PO 02/15/18 11:15 0.5 mg ONCE ONE Administration Medical Decision Making - Medical Decision Making 02/15/18 20:20 82yo f with PMH of bipolar presenting to ED because she was brought here by ambulance. Vitals: hypertensive, tachycardic PE: benign DDx: anxiety, acs, lung pathology. Pt refusing testing however agreed to ekg. EKG: nsr, no amirah or depressions, no prolonged pr or qt. normal qrs, inverted t in v3-v6. Pt stated that she was going to start yelling at people and throwing things and advised me to leave the room. Pt started to throw things at nursing staff and Dr. Turner. Sitter and security were called and were talking to patient. Psychiatry was consulted due to patient's erratic behavior. Psychiatry cleared pt for d/c, stated that she did not have a psychiatric emergency. Pt hemodynamically stable and cleared for d/c home. phones started working again. given strict return precautions. *DC/Admit/Observation/Transfer Diagnosis at time of Disposition: Well adult - Discharge Dispostion Disposition: HOME Condition at time of disposition: Improved - Referrals - Patient Instructions - Post Discharge Activity
--- NOTE | 2018-02-15 14:49 | CON.PSY ---
Psychiatry Consult Chief Complaint: Patient known to Er, called Ambulance because [email or web address] Phone was not working. she apparantky became aggressive with staff. HAS BIPOLAR HISTORY AND APPEARS NOT TO FOLLOW UP WITH TRATMENT AT [facility]. Symptoms: reports: Irritability - Previous Psychiatric Treatment Outpatient: More than 6 mos ago Inpatient: One prior admission - Previous Substance Abuse Treatment Outpatient: None Inpatient: None - Reason for Previous Treatment Reason for Previous Treatment: Biploar Illness - Allergies Allergies: Allergies Allergy/AdvReac Type Severity Reaction Status Date / Time No Known Allergies Allergy Verified 02/15/18 09:58 - Current Living Status Usual Living Arrangement: Alone - Current Mental Status Evaluation Appearance: Well Groomed Attitude: Cooperative - Affect Affect: Full Range Appropriateness: Appropriate to Content - Mood Mood: Irritable - Speech/Language Expressive: Coherent - Psychomotor Activity Psychomotor Activity: Normal - Thought Process Thought Process: Intact - Thought Content Hallucinations: Absent Delusions: Absent - Self Perception Self Perception: No Impairment - Cognition Attention: Alert Orientation: Time Memory, Immediate Recall: Intact Memory, Remote with Promptin/3 - Concentration Serial Sevens Intact: No Simple Calculations Intact: Yes - Abstraction Proverb Interpretation: Intact Judgement: Minimally Impaired - Insight Insight: Intact - Impulse Control Impulse Control: Minimally Impaired - Suicidal Ideation Suicidal Ideation: No - Homicidal Ideation Homicidal Ideation: No Assessment/Plan 1) patient is not acutly manic or Depressed. 2) Does not need In patient psych admission. 3)Return Home. 4) [facility] at [facility]. 4) have cargo worker refer patient to office Of aging.
--- NOTE | 2018-02-16 10:45 | EKG ---
Test Reason : Blood Pressure : / mmHG Vent. Rate : 063 BPM Atrial Rate : 063 BPM P-R Int : 174 ms QRS Dur : 092 ms QT Int : 396 ms P-R-T Axes : 012 -43 -57 degrees QTc Int : 405 ms SINUS RHYTHM WITH PREMATURE ATRIAL COMPLEXES LEFT AXIS DEVIATION MINIMAL VOLTAGE CRITERIA FOR LVH, MAY BE NORMAL VARIANT ABNORMAL ECG Confirmed by Napoleon Solorzano MD ([id number]) on 02/16/2018 10:45:02 AM Referred By: Confirmed By:Napoleon Solorzano MD
== END 2018-02-15 15:20 | disposition home or self-care (01) ==
LOC: JER 09:55
DX: I10 Essential (primary) hypertension (principal); F31.9 Bipolar disorder, unspecified; F40.01 Agoraphobia with panic disorder
CPT/HCPCS: 93005; 93010; 99281-25

== ENCOUNTER 2018-05-18 14:39 | Emergency (ER) | payer OTHER ==
--- NOTE | 2018-05-18 14:53 | PDOC ---
History of Present Illness <Rosenda Card - Last Filed: 05/18/18 16:55> - General History Source: Patient Exam Limitations: No Limitations - History of Present Illness Initial Comments: 05/18/18 15:21 82 year old female with PMH bipolar disorder (non-compliant with medication) presented to ED for mechanical fall. Pt stated she was feeding the birds, walked over to the trash can, stepped in a puddle of water, and slipped and fell. She stated she hit her left mid back and left hip on a concrete wall. Pt denied head injury, LOC, vomiting, prodromal symptoms. Pt stated she was able to get her self off the ground without assistance and ambulated without assistance after the event. Pt complained of left lateral thoracic pain, left hip pain. Pt denied current chest pain, shortness of breath, midline back pain, neck pain, headache, laceration, ecchymoses. <Michelle Sawyer - Last Filed: 05/20/18 05:14> - General Chief Complaint: Injury Stated Complaint: FALL Time Seen by Provider: 05/18/18 14:53 Past History <Rosenda Card - Last Filed: 05/18/18 16:55> - Past Medical History Anemia: No Asthma: No Cancer: No CVA: No COPD: Yes CHF: No Dementia: No Diabetes: No GI Disorders: No Disorders: No HTN: Yes Hypercholesterolemia: Yes Liver Disease: No Psychiatric Problems: Yes (bipolar) Seizures: No Thyroid Disease: Yes - Surgical History Abdominal Surgery: No Appendectomy: No Cardiac Surgery: No Cholecystectomy: No Lung Surgery: No Neurologic Surgery: No Orthopedic Surgery: No - Immunization History Immunization Up to Date: Yes - Suicide/Smoking/Psychosocial Hx Smoking History: Never smoked Have you smoked in the past 12 months: No Hx Alcohol Use: No Drug/Substance Use Hx: No Substance Use Type: None Hx Substance Use Treatment: No <Michelle Sawyer - Last Filed: 05/20/18 05:14> - Past Medical History Allergies/Adverse Reactions: Allergies Allergy/AdvReac Type Severity Reaction Status Date / Time No Known Allergies Allergy Verified 02/15/18 09:58 Home Medications: Ambulatory Orders Miscellaneous Medical Supply [Outpatient Order] 1 each ASDIR #1 [facility] [place] 18 Review of Systems - Review of Systems Able to Perform ROS?: Yes Comments:: 05/18/18 15:25 General: denied fever, chills, night sweats, generalized weakness. HEENT: denied sore throat, rhinorrhea, ear pain. Heart: denied chest pain, palpitations, syncope, lower extremity swelling, diaphoresis. Respiratory: denied shortness of breath, cough, sputum production, hemoptysis. Abdomen: denied abdominal pain, nausea, vomiting, diarrhea, constipation, blood in stool. : denied dysuria, increased urinary frequency, hematuria, urinary incontinence , flank pain. Back: admitted to back pain. Hips: admitted to left hip pain. Musculoskeletal: denied joint pain, muscle pain, joint swelling. Neurological: denied headache, dizziness, numbness, tingling, weakness. Skin: denied rash, laceration, abrasion. <Michelle Sawyer - Last Filed: 05/20/18 05:14> *Physical Exam - Physical Exam Comments: 05/18/18 15:27 Constitutional: Well-nourished, Well-developed, appearing stated age. HEENT: head is normocephalic, atraumatic. no scalp hematoma. no facial tenderness. EOMI. PERRLA. Neck: supple. Full ROM. no midline c-spine tenderness. Heart: regular rhythm. no murmurs, rubs or gallops. Lungs: clear to auscultation bilaterally. no crackles, rhonchi or wheezing. no stridor. Abdomen: soft, nontender. normal bowel sounds. no rebound, guarding, masses. Back: tenderness to palpation of left lateral thoracic area. no midline t-spine or L-spine tenderness. Hips: no hip tenderness to palpation. pelvis stable. LE equal in length. no external rotation of LE. pt ambulated well without assistance. Extremities: Peripheral pulses intact. No lower extremity edema. Neurological: CN 2-12 grossly intact. Moves all four extremities. Psych: awake, alert, oriented x3. Follows commands. Answers questions appropriately. <Michelle Sawyer - Last Filed: 05/20/18 05:14> ED Treatment Course - Medications Given in the ED: ED Medications Discontinued Medications Generic Name Dose Route Start Last Admin Trade Name Freq PRN Reason Stop Dose Admin Acetaminophen 975 mg 05/18/18 15:30 05/18/18 15:46 Tylenol - PO 05/18/18 15:31 975 mg ONCE ONE Administration <Rosenda Card - Last Filed: 05/18/18 16:55> Medical Decision Making - Medical Decision Making 05/18/18 15:29 82 year old female with above PMH presented to ED for mechanical fall, complaining of left lateral back pain and left hip pain. Afebrile. No tachycardia. Mild hypertension. No hypoxia on room air. No tachypnea. Labs ordered: pt refused. Medications ordered: tylenol 975 mg PO Imaging ordered: CXR, left rib series, pelvix XR 05/18/18 16:57 No evidence of acute fracture on XRs. No evidence of pnuemothorax. No evidence of hip dislocation or pelvic fracture. - Pending official overread. Pt very anxious about not being home. Pt to be discharged. 05/20/18 05:13 Offical CXR read: deformity to left 7th rib Officail rib series report: deformity to left 7th rib, likely not acute. Official pelvis XR: negative for fracture/dislocation. <Michelle Sawyer - Last Filed: 05/20/18 05:14> *DC/Admit/Observation/Transfer - Discharge Dispostion Decision to Admit order: No <Rosenda Card - Last Filed: 05/18/18 16:55> - Discharge Dispostion Decision to Admit order: No <Michelle Sawyer - Last Filed: 05/20/18 05:14> Diagnosis at time of Disposition: Contusion, chest wall Qualifiers: Encounter type: initial encounter Laterality: left Qualified Code(s): S20.212A - Contusion of left front wall of thorax, initial encounter - Discharge Dispostion Disposition: HOME Condition at time of disposition: Good - Patient Instructions Printed Discharge Instructions: DI for Rib Contusion, How to Prevent Falls Additional Instructions: You were seen for a fall. Your X-rays did not show any fractures. A radiologist will read them officially tomorrow, if there are any concerns you will be called. Follow up with your primary care doctor in 1-2 days. Take ibuprofen over the counter for your pain, take as advised on labels. You can add tylenol for your pain, take as advised on over the counter label. Tylenol and ibuprofen are not the same medication. Return to the Emergency Department for shortness of breath, increasing pain, coughing up blood, chest pain, fever, increased coughing, coughing up phlegm or any other new, worsening or concerning symptoms.
[2018-05-18] MEDS ORDERED: ACETAMINOPHEN 325 MG TABLET (FP) PO ONE (15:30)
[2018-05-18] MEDS ORDERED: ACETAMINOPHEN 325 MG TABLET (FP) ONE (15:44)
== END 2018-05-18 17:00 | disposition home or self-care (01) ==
LOC: JER 14:39
DX: S20.222A Contusion of left back wall of thorax, initial encounter (principal); S20.212A Contusion of left front wall of thorax, initial encounter; M25.552 Pain in left hip; W01.0XXA Fall on same level from slipping, tripping and stumbling without subsequent striking against object, initial encounter; Y93.K9 Activity, other involving animal care; Y92.89 Other specified places as the place of occurrence of the external cause; Y99.8 Other external cause status; I10 Essential (primary) hypertension; J44.9 Chronic obstructive pulmonary disease, unspecified; F41.9 Anxiety disorder, unspecified
CPT/HCPCS: 71045-TC-FY; 71101-TC-LT-FY; 72170-TC-FY; 99281-25

== ENCOUNTER 2020-01-15 13:18 | Inpatient (IN) | payer OTHER ==
[2020-01-15] MEDS ORDERED: SODIUM CHLORIDE 1,796 ML IV ONE (14:02)
[2020-01-15] MEDS ORDERED: ACETAMINOPHEN 1000 MG/100 ML VIAL (NON FORMULARY) IVPB ONE (14:10)
[2020-01-15 14:23] LABS: BASO % 0.3 % (0-2.0); EOS % 4.3 % (0-4.5); HEMATOCRIT 38.3 % (32.4-45.2); LYMPH % 3.4 % (8-40); MCH 34.9 pg (25.7-33.7); MCHC 33.8 g/dl (32.0-36.0); MEAN CELL VOLUME 103.1 fl (80-96); MEAN PLT VOLUME 11.2 fl (7.5-11.1); MONO % 1.7 % (3.8-10.2); NEUT % 90.3 % (42.8-82.8); RBC 3.72 M/mm3 (3.60-5.2); RDW 14.6 % (11.6-15.6); WHITE BLOOD COUNT 22.9 K/mm3 (4.0-10.0)
[2020-01-15] MEDS ORDERED: ACETAMINOPHEN INJECTION 100 ML IVPB ONE (14:23)
[2020-01-15] MEDS ORDERED: VANCOMYCIN 1 GM in D5W (PRE-DOCKED) 1,000 MG/250 ML IVPB ONE (14:32)
[2020-01-15] MEDS ORDERED: PIPERACILLIN/TAZOB 3.375 GM 3.375 GM in DEXTROSE 5%-WATER - 50 ML IVPB ONE (14:32)
[2020-01-15 14:34] LABS: EPI CELLS >36 /uL (0-25.1); HYALINE CASTS 27 /uL (0-3.1); PH,URINE >= 9.0 (5.0-8.0); URINE APPEARANCE TURBID; URINE BACTERIA >9,000 /uL (0-1359); URINE BILIRUBIN 2+ (NEGATIVE); URINE COLOR ORANGE; URINE GLUCOSE (UA) NEGATIVE (NEGATIVE); URINE KETONE NEGATIVE (NEGATIVE); URINE LEUK ESTERASE 3+ (NEGATIVE); URINE NITRITE NEGATIVE (NEGATIVE); URINE PROTEIN 3+ (NEGATIVE); URINE WBC 9121 /uL (0-25.8)
[2020-01-15 14:41] LABS: VENOUS BASE EXCESS -0.1 mmol/L (-2-2); VENOUS PCO2 35.7 mmHg (38-52); VENOUS PH 7.438 (7.310-7.410)
[2020-01-15 14:46] LABS: ALBUMIN 2.1 g/dl (3.4-5.0); BILIRUBIN,TOTAL 1.4 mg/dL (0.2-1); BLOOD UREA NITROGEN 95.4 mg/dL (7-18); CALCIUM 9.1 mg/dL (8.5-10.1); CREATININE 2.9 mg/dL (0.55-1.3); PLATELET COUNT 27 K/MM3 (134-434); POTASSIUM 4.1 mmol/L (3.5-5.1)
[2020-01-15 14:50] LABS: ANISOCYTOSIS 1+; MACROCYTOSIS 1+; PLATELET ESTIMATE DECREASED
[2020-01-15 14:55] LABS: YEAST NON SEEN (NEGATIVE)
[2020-01-15] MEDS ORDERED: VANCOMYCIN 1 GRAM (PRE-DOCKED) 1,000 MG/250 ML BAG IVPB ONE (15:03)
[2020-01-15] MEDS ORDERED: PIPERACILLIN/TAZOB 3.375 GM 3.375 GM/50 ML BAG IVPB ONE (15:05)
--- NOTE | 2020-01-15 15:07 | PDOC ---
Documentation entered by Lucian Gunn SCRIBE, acting as scribe for Morgan Turner MD. Morgan Turner MD: This documentation has been prepared by the Velia ray Angel, SCRIBE, under my direction and personally reviewed by me in its entirety. I confirm that the documentation accurately reflects all work, treatment, procedures, and medical decision making performed by me. Attending Attestation - Resident Resident Name: [email or web address] - ED Attending Attestation I have performed the following: I have examined & evaluated the patient, The case was reviewed & discussed with the resident, I agree w/resident's findings & plan, Exceptions are as noted - HPI HPI: 01/15/20 14:38 84y F hx of bipolar disorder (non compliant) presented to the ED from [place] for hypoxia, fever, AMS. The patient is usually alert and speaks, however she was nonresponsive, history is limited due to her clinical status. Upon arrival, pt noted to be febrile. Pt unable to give a history. Information taken from [place] paperwork. - Physicial Exam PE: 01/15/20 14:50 GENERAL: The patient eyes closed, tremulous HEAD: Normocephalic, atraumatic. EYES: pupil 2-3mm symmetrically ENT: dry mucous membranes. NECK: Normal range of motion, supple LUNGS: rales of L base HEART: Regular rate and rhythm, normal S1 and S2 without murmur, rub or gallop. ABDOMEN: Soft, mild lower abdominal tenderness EXTREMITIES: cogwheel rigidty, tremulous, hyperreflexia, no LE edema NEUROLOGICAL: No facial assymetry, PSYCH: unable to assess SKIN: hot to touch, Dry, normal turgor, - Critical Care Time Total Critical Care Time: 45 Critical Care Statement: The care of this patient involved high complexity decision making to prevent further life threatening deterioration of the patient's condition and/or to evaluate & treat vital organ system(s) failure or risk of failure. - Medical Decision Making 01/15/20 14:51 ddx includes possible sepsis, ?NMS vs serotinin syndrome 01/15/20 14:53 Patient's blood work reviewed noted for a leukocytosis and thrombocytopenia with a platelet of 27 Patient's chemistry noted for DK, hypernatremia likely secondary to dehydration LA elevated w ill recheck after hydration/fluid resusitation trop elevated to 10 01/15/20 15:06 ct head pending for eval of AMS/bleed as pt is altered/plt 27 Discharge - Discharge Information Problems reviewed: Yes Clinical Impression/Diagnosis: NSTEMI (non-ST elevated myocardial infarction), Thrombocytopenia, Elevated liver enzymes Sepsis Qualifiers: Sepsis type: sepsis due to unspecified organism Sepsis acute organ dysfunction status: with acute organ dysfunction Severe sepsis acute organ dysfunction type: acute renal failure Acute renal failure type: unspecified Severe sepsis shock status: without septic shock Qualified Code(s): A41.9 - Sepsis, unspecified organism Pneumonia Qualifiers: Pneumonia type: due to unspecified organism Laterality: left Lung location: lower lobe of lung Qualified Code(s): J18.9 - Pneumonia, unspecified organism UTI (urinary tract infection) Qualifiers: Urinary tract infection type: site unspecified Hematuria presence: with hematuria Qualified Code(s): N39.0 - Urinary tract infection, site not specified Condition: Critical - Admission Yes - Follow up/Referral - Patient Discharge Instructions - Post Discharge Activity
--- NOTE | 2020-01-15 15:44 | PDOC ---
History of Present Illness - General Chief Complaint: SIRS, Suspected/Possible Stated Complaint: FEVER/AMS Time Seen by Provider: 01/15/20 14:02 - History of Present Illness Initial Comments: 84 yo female with PMH of HTN, Bipolar on Aripiprazole, Fluoxetine, Mirtazapine BIBEMS from [facility] for AMS. Patient is not alert and not oriented. Her halfway said she is wheelchair bound, tremulous, witha baseline of AOx1 with minimal verbal ability. Past History - Medical History Allergies/Adverse Reactions: Allergies Allergy/AdvReac Type Severity Reaction Status Date / Time No Known Allergies Allergy Verified 01/15/20 13:46 Home Medications: Ambulatory Orders Acetaminophen [Tylenol] 650 mg PO QID PRN 01/15/20 Amlodipine Besylate [Norvasc -] 10 mg PO DAILY 01/15/20 Aripiprazole [Abilify -] 5 mg PO DAILY 01/15/20 Fluoxetine HCl [Prozac -] 40 mg PO DAILY 01/15/20 Mirtazapine 23 mg PO HS 01/15/20 Anemia: No Asthma: No Cancer: No CVA: No COPD: Yes CHF: No Dementia: No Diabetes: No GI Disorders: No Disorders: No HTN: Yes Hypercholesterolemia: Yes Liver Disease: No Psychiatric Problems: Yes (bipolar) Seizures: No Thyroid Disease: Yes - Surgical History Abdominal Surgery: No Appendectomy: No Cardiac Surgery: No Cholecystectomy: No Lung Surgery: No Neurologic Surgery: No Orthopedic Surgery: No - Reproductive History Is Patient Now?: No - Immunization History Immunization Up to Date: Yes - Psycho-Social/Smoking History Smoking History: Smoker current status UNK Have you smoked in the past 12 months: No Information on smoking cessation initiated: No - Substance Abuse Hx (Audit-C & DAST Scrn) How often the patient has a drink containing alcohol: Never Score: In Men: 4 or > Positive; In Women: 3 or > Positive: 0 Screen Result (Pos requires Nsg. Audit-10AR): Negative In the last yr the pt used illegal drug/Rx for NonMed reason: No Score: Yes response is considered Positive: 0 Screen Result (Positive result requires Nsg. DAST-10): Negative Review of Systems - Review of Systems Able to Perform ROS?: No *Physical Exam - Vital Signs Last Vital Signs Temp Pulse Resp BP Pulse Ox 102.4 F H 91 H 22 H 119/94 91 L 01/15/20 13:43 01/15/20 13:43 01/15/20 13:43 01/15/20 13:43 01/15/20 13:43 - Physical Exam General Appearance: Yes: Nourished, Appropriately Dressed HEENT: positive: FABIAN. negative: Rhinorrhea Neck: positive: Rigid. negative: Tender Respiratory/Chest: positive: Lungs Clear, Normal Breath Sounds. negative: Chest Tender, Respiratory Distress, Crackles, Wheezing, Dullness Cardiovascular: positive: Regular Rhythm, Regular Rate, S1, S2. negative: Edema, JVD, Murmur, Bradycardia, Tachycardia, Irregularly Irregular Gastrointestinal/Abdominal: positive: Flat, Soft, Other (diffuse tenderness througout abdomen). negative: Tender Musculoskeletal: positive: Decreased Range of Motion, Other (tremulous and rigid) Extremity: positive: Normal Capillary Refill, Normal Inspection, Normal Range of Motion. negative: Pedal Edema, Swelling, Calf Tenderness, Erythema, Inflam mation Integumentary: positive: Normal Color, Dry, Warm Neurologic: positive: Respond to painful stimul. negative: Fully Oriented, Alert, Disoriented ED Treatment Course - LABORATORY CBC & Chemistry Diagram: 01/15/20 13:45 01/15/20 13:45 - ADDITIONAL ORDERS Additional order review: Laboratory Results 01/15/20 01/15/20 01/15/20 13:45 13:45 13:45 VBG pH 7.438 H POC VBG pCO2 35.7 L POC VBG pO2 62.9 H VBG HCO3 23.6 VBG O2 Sat ([place]anga) 93.0 H VBG Base Excess -0.1 Sodium Potassium Chloride Carbon Dioxide Anion Gap BUN Creatinine Est GFR (CKD-EPI)AfAm Est GFR (CKD-EPI)NonAf Random Glucose Lactic Acid 3.9 H* Calcium Ferritin 994.2 H Total Bilirubin AST ALT Alkaline Phosphatase LD Total 321 H Creatine Kinase 362 H Creatine Kinase Index 0.4 CK-MB (CK-2) 1.8 Troponin I C-Reactive Protein 26.9 H Total Protein Albumin Urine Color Urine Appearance Urine pH Ur Specific [place] Urine Protein Urine Glucose (UA) Urine Ketones Urine Blood Urine Nitrite Urine Bilirubin Urine Urobilinogen Ur Leukocyte Esterase Urine WBC (Auto) Urine Casts (Auto) U Pathogenic Cast Auto U Epithel Cells (Auto) Urine Bacteria (Auto) Urine Yeast (Auto) 01/15/20 01/15/20 13:45 13:05 VBG pH POC VBG pCO2 POC VBG pO2 VBG HCO3 VBG O2 Sat ([place]anga) VBG Base Excess Sodium 148 H Potassium 4.1 Chloride 115 H Carbon Dioxide 24 Anion Gap 9 BUN 95.4 H Creatinine 2.9 H Est GFR (CKD-EPI)AfAm 16.77 Est GFR (CKD-EPI)NonAf 14.47 Random Glucose 168 H Lactic Acid Calcium 9.1 Ferritin Total Bilirubin 1.4 H AST 50 H ALT 30 Alkaline Phosphatase 204 H LD Total Creatine Kinase Creatine Kinase Index CK-MB (CK-2) Troponin I 10.90 H* C-Reactive Protein Total Protein 6.0 L Albumin 2.1 L Urine Color [place] Urine Appearance Turbid Urine pH >= 9.0 H Ur Specific [place] 1.021 Urine Protein 3+ H Urine Glucose (UA) Negative Urine Ketones Negative Urine Blood 3+ H Urine Nitrite Negative Urine Bilirubin 2+ H Urine Urobilinogen 1.0 Ur Leukocyte Esterase 3+ H Urine WBC (Auto) 9121 Urine Casts (Auto) 27 U Pathogenic Cast Auto Non seen U Epithel Cells (Auto) >36 Urine Bacteria (Auto) >9,000 Urine Yeast (Auto) Non seen 01/15/20 13:45 RBC 3.72 MCV 103.1 H MCHC 33.8 RDW 14.6 D MPV 11.2 H D Neutrophils % 90.3 H Lymphocytes % 3.4 L D Monocytes % 1.7 L Eosinophils % 4.3 D Basophils % 0.3 - RADIOLOGY Radiology Studies Ordered: Category Date Time Status ABDOMEN & PELVIS CT W/O CONTR [CT] Stat CT Scan 01/15/20 14:[address] WITHOUT CONTRAST [CT] Stat CT Scan 01/15/20 14:[address] WITHOUT CONTRAST [CT] Stat CT Scan 01/15/20 14:34 Ordered - Medications Given in the ED: ED Medications Discontinued Medications Generic Name Dose Route Start Last Admin Trade Name Freq PRN Reason Stop Dose Admin Acetaminophen 1,000 mg 01/15/20 14:10 01/15/20 14:29 Ofirmev Injection - IVPB 01/15/20 14:11 1,000 mg ONCE ONE Administration Piperacillin Sod/Tazobactam 50 mls @ 100 mls/hr 01/15/20 14:32 01/15/20 15:11 Sod 3.375 gm/ Dextrose IVPB 01/15/20 15:01 100 mls/hr ONCE ONE Administration Protocol Vancomycin HCl 1,000 mg 01/15/20 14:32 01/15/20 15:11 Vancomycin (Pre-Docked) IVPB 01/15/20 14:33 1,000 mg ONCE ONE Administration Protocol Medical Decision Making - Medical Decision Making 84 yo female with PMH of HTN, Bipolar on Aripiprazole, Fluoxetine, Mirtazapine BIBEMS from [facility] for AMS. Vitals: febrile, tachycardic, tachypenic, 90% on RA PE: not alert, not oriented, rigid Labs WBC 22.9 LA 3.9 Troponin 10.9 Creatinine .9 Elevated CRP and Ferritin UA is positive bacteria, LE, protein, blood, WBC CT - Head- normal - Chest shows left lower lobe consolidation - Abd/Pelvis shows 1.4 cm stone and 0.5 cm stone in the right renal pelvis with partial obstruction Dr. Gustafson (neuro) consulted for Neuroleptic Malignant Syndrome vs Serotonin Syndrome and recommended treating the sepsis first before teasing out those diagnosis Dr. Bush (cardio)consulted and recommended not to place the pt on anti- coagulation due to thrombocytopenia Dr. Megan Patel consulted and said place patient NPO after midnight and he will see her in the morning. ICU will accept the patient. Discharge - Discharge Information Problems reviewed: Yes Clinical Impression/Diagnosis: NSTEMI (non-ST elevated myocardial infarction), Thrombocytopenia, Elevated liver enzymes Sepsis Qualifiers: Sepsis type: sepsis due to unspecified organism Sepsis acute organ dysfunction status: with acute organ dysfunction Severe sepsis acute organ dysfunction type: acute renal failure Acute renal failure type: unspecified Severe sepsis shock status: without septic shock Qualified Code(s): A41.9 - Sepsis, unspecified organism Pneumonia Qualifiers: Pneumonia type: due to unspecified organism Laterality: left Lung location: lower lobe of lung Qualified Code(s): J18.9 - Pneumonia, unspecified organism UTI (urinary tract infection) Qualifiers: Urinary tract infection type: site unspecified Hematuria presence: with hematuria Qualified Code(s): N39.0 - Urinary tract infection, site not specified Condition: Critical - Follow up/Referral - Patient Discharge Instructions - Post Discharge Activity
--- NOTE | 2020-01-15 18:23 | CONSULT ---
Consultation: REQUESTING PROVIDER: Dr. Helms CONSULT REQUEST: We have been asked to medically evaluate this patient for sepsis 2/2 infected R renal stone for further ICU monitoring. HISTORY OF PRESENT ILLNESS: 84F w/ pmhx of HTN, Bipolar on Aripiprazole, Fluoxetine, Mirtazapine BIBEMS from [facility] for AMS. History taken as per ED staff as pt does not communicate due to illness. Per ED, pt was seen by nursing staff at [place] unresponsive. At baseline, she is awake, alert to person and usually responds "yes" or "no". Her ability to converse is limited secondary to her underlying illness. Of note, pt is currently on Aripiprazole, Mirtazipine, and Fluoxetine which she takes at night. Upon arrival, pt was desatting to ~90s and placed on 3L NC. Rest of VS were wnl. Labs showed leukocytosis, thrombocytopenia (Pl 27), lactate 3.9, trops 10. CTAP showed 1.4 cm R renal pelvis calculus w/ partial obstruction; dilated rectum with stool. CT chest showed LLL bronchiectasis and consolidation, cannot r/o pna. CT head neg. Pt was given empiric IV abx coverage with Vanc/Zosyn. Uro made aware with recommendation to make NPO after midnight. Cardio was consulted, awaiting callback regarding need for AC for elevated trops in setting of low platelets. Additionally, neuro was consulted in setting of possible NMS vs. serotonin syndrome, although recommendation was to treat sepsis first. REVIEW OF SYSTEMS: Unable to obtain 2/2 acute illness. PHYSICAL EXAMINATION Vital Signs - 24 hr 01/15/20 01/15/20 01/15/20 13:43 14:02 17:00 Temperature 102.4 F H 102.4 F H Pulse Rate 91 H Pulse Rate [ 90 Right Radial] Respiratory 22 H 23 H Rate Blood Pressure 119/94 Blood Pressure 140/78 [Left Arm] O2 Sat by Pulse 91 L 95 Oximetry (%) 01/15/20 17:11 Temperature Pulse Rate Pulse Rate [ Right Radial] Respiratory Rate Blood Pressure Blood Pressure [Left Arm] O2 Sat by Pulse 94 L Oximetry (%) GENERAL: Tremulous. Eyes closed, non-responsive, withdraws to pain. HEENT: AT/NC. EOMI. Dry mucus membranes. NECK: Normal range of motion, supple without lymphadenopathy, JVD, or masses. LUNGS: Scattered rhonchi. HEART: RRR, normal S1, S2. ABDOMEN: Soft, mildly distended, +TTP in suprapubic region. Hypoactive BS. MUSCULOSKELETAL: Rigid, difficulty in passive ROM in b/l elbow/knee flexion. EXTREMITIES: No peripheral edema noted. NEUROLOGICAL: Cranial nerves II-XII intact. Normal speech. Normal gait. SKIN: Warm, dry, normal turgor, no rashes or lesions noted. Laboratory Results - last 24 hr 01/15/20 01/15/20 01/15/20 13:05 13:45 13:45 WBC 22.9 H RBC 3.72 Hgb 13.0 Hct 38.3 MCV 103.1 H MCH 34.9 H MCHC 33.8 RDW 14.6 D Plt Count 27 L* D MPV 11.2 H D Absolute Neuts (auto) 20.7 H Neutrophils % 90.3 H Neutrophils % (Manual) 84.0 H Band Neutrophils % 6.4 Lymphocytes % 3.4 L D Lymphocytes % (Manual) 6.4 L Monocytes % 1.7 L Monocytes % (Manual) 3 L Eosinophils % 4.3 D Eosinophils % (Manual) 0.0 Basophils % 0.3 Basophils % (Manual) 0.0 Myelocytes % (Man) 0 Promyelocytes % (Man) 0 Blast Cells % (Manual) 0 Nucleated RBC % 0 Metamyelocytes 0 Hypochromia 0 Platelet Estimate Decreased Polychromasia 0 Poikilocytosis 0 Anisocytosis 1+ Microcytosis 0 Macrocytosis 1+ VBG pH POC VBG pCO2 POC VBG pO2 VBG HCO3 VBG O2 Sat (Ganga) VBG Base Excess Sodium 148 H Potassium 4.1 Chloride 115 H Carbon Dioxide 24 Anion Gap 9 BUN 95.4 H Creatinine 2.9 H Est GFR (CKD-EPI)AfAm 16.77 Est GFR (CKD-EPI)NonAf 14.47 Random Glucose 168 H Lactic Acid Calcium 9.1 Ferritin Total Bilirubin 1.4 H AST 50 H ALT 30 Alkaline Phosphatase 204 H LD Total Creatine Kinase Creatine Kinase Index CK-MB (CK-2) Troponin I 10.90 H* C-Reactive Protein Total Protein 6.0 L Albumin 2.1 L Urine Color [place] Urine Appearance Turbid Urine pH >= 9.0 H Ur Specific Campbell 1.021 Urine Protein 3+ H Urine Glucose (UA) Negative Urine Ketones Negative Urine Blood 3+ H Urine Nitrite Negative Urine Bilirubin 2+ H Urine Urobilinogen 1.0 Ur Leukocyte Esterase 3+ H Urine WBC (Auto) 9121 Urine Casts (Auto) 27 U Pathogenic Cast Auto Non seen U Epithel Cells (Auto) >36 Urine Bacteria (Auto) >9,000 Urine Yeast (Auto) Non seen 01/15/20 01/15/20 01/15/20 13:45 13:45 13:45 WBC RBC Hgb Hct MCV MCH MCHC RDW Plt Count MPV Absolute Neuts (auto) Neutrophils % Neutrophils % (Manual) Band Neutrophils % Lymphocytes % Lymphocytes % (Manual) Monocytes % Monocytes % (Manual) Eosinophils % Eosinophils % (Manual) Basophils % Basophils % (Manual) Myelocytes % (Man) Promyelocytes % (Man) Blast Cells % (Manual) Nucleated RBC % Metamyelocytes Hypochromia Platelet Estimate Polychromasia Poikilocytosis Anisocytosis Microcytosis Macrocytosis VBG pH 7.438 H POC VBG pCO2 35.7 L POC VBG pO2 62.9 H VBG HCO3 23.6 VBG O2 Sat (Ganga) 93.0 H VBG Base Excess -0.1 Sodium Potassium Chloride Carbon Dioxide Anion Gap BUN Creatinine Est GFR (CKD-EPI)AfAm Est GFR (CKD-EPI)NonAf Random Glucose Lactic Acid 3.9 H* Calcium Ferritin 994.2 H Total Bilirubin AST ALT Alkaline Phosphatase LD Total 321 H Creatine Kinase 362 H Creatine Kinase Index 0.4 CK-MB (CK-2) 1.8 Troponin I C-Reactive Protein 26.9 H Total Protein Albumin Urine Color Urine Appearance Urine pH Ur Specific Campbell Urine Protein Urine Glucose (UA) Urine Ketones Urine Blood Urine Nitrite Urine Bilirubin Urine Urobilinogen Ur Leukocyte Esterase Urine WBC (Auto) Urine Casts (Auto) U Pathogenic Cast Auto U Epithel Cells (Auto) Urine Bacteria (Auto) Urine Yeast (Auto) ASSESSMENT/PLAN: 84F w/ pmhx of HTN, Bipolar on Aripiprazole, Fluoxetine, Mirtazapine BIBEMS from [facility] for AMS. Neuro #Acute Metabolic Encephalopathy 2/2 infection -Non-verbal, non-responsive, but withdraws to pain -Head CT neg for acute bleed/mass/fx -Neuro checks Pulm -No acute issues; satting at 99% on 3L NC Cardio #Elevated Troponins; trops ~10 #HTN -HD stable; given 2L IVf in ED; will cont with IV hydration in setting of sepsis -Cardio consulted for further mgmt of troponinemia -Will hold off on AC for now given significant thrombocytopenia -Hold home BP med Amlodipine 10 ID #Sepsis 2/2 Infected R Renal Pelvic stone; UA 3+ LE, WBC 9121 #Pneumonia -Given Vanc 1gm and Zosyn 3.375 in ED -Will continue Zosyn 3.375 Q6H IV; will check random Vanc level in AM given renal fxn -ID consulted -BCx/UCx ordered -CT chest findings showed LLL bronchiectasis and consolidation, cannot r/o pna Renal #Lactic Acidosis; 3.5 #DK, Cr 2.9 #Rhabdomyolysis; elevated CPK -IV hydration -recheck lactate, CPK, Cr Heme #Thrombocytopenia; ? etiology -PT/PTT/INR ordered -Will need IV Pl transfusion given severity Prophylaxis DVT: SCDs, hold AC for now in setting of thrombocytopenia GI: Protonix 40 IV FEN -NS @ 100 -recheck lytes in AM -NPO FULL CODE Dispo: We will continue to follow the patient. Thank you for this consultative opportunity. Visit type - Medication Review Med list reviewed for High Risk Meds patients 65 and older: Yes - Emergency Visit Emergency Visit: Yes ED Registration Date: 01/15/20 Care time: The patient presented to the Emergency Department on the above date and was hospitalized for further evaluation of their emergent condition. - New Patient This patient is new to me today: Yes Date on this admission: 01/15/20 - Critical Care Critical Care patient: Yes Total Critical Care Time (in minutes): 40 Critical Care Statement: The care of this patient involved high complexity decision making to prevent further life threatening deterioration of the patient's condition and/or to evaluate & treat vital organ system(s) failure or risk of failure. ATTENDING PHYSICIAN STATEMENT I saw and evaluated the patient. I reviewed the resident's note and discussed the case with the resident. I agree with the resident's findings and plan as documented. SUBJECTIVE: OBJECTIVE: ASSESSMENT AND PLAN:
--- NOTE | 2020-01-15 18:28 | CONSULT ---
Consult Consult Specialty:: UROLOGY Reason for Consultation:: Rt Renal stone - History of Present Illness Chief Complaint: 84 Y/O Female patient with Bipolar disease from [facility]. She is presented into ER with confusion fatigue fever 102.4. WBC 22.9 HB 13. BUN 95.[address]-Scan Rt Renal pelvis stone 1.4 cm with partial obstruction - Past Medical History ...: No - Alcohol/Substance Use Hx Alcohol Use: No - Smoking History Smoking history: Smoker current status UNK Have you smoked in the past 12 months: No - Social History Usual Living Arrangement: Alone Home Medications - Allergies Allergies/Adverse Reactions: Allergies Allergy/AdvReac Type Severity Reaction Status Date / Time No Known Allergies Allergy Verified 01/15/20 13:46 - Home Medications Home Medications: Ambulatory Orders Acetaminophen [Tylenol] 650 mg PO QID PRN 01/15/20 Amlodipine Besylate [Norvasc -] 10 mg PO DAILY 01/15/20 Aripiprazole [Abilify -] 5 mg PO DAILY 01/15/20 Fluoxetine HCl [Prozac -] 40 mg PO DAILY 01/15/20 Mirtazapine 23 mg PO HS 01/15/20 Physical Exam Vital Signs: Vital Signs Temperature 102.4 F H 01/15/20 14:02 Pulse Rate 90 01/15/20 17:00 Respiratory Rate 23 H 01/15/20 17:00 Blood Pressure 140/78 01/15/20 17:00 O2 Sat by Pulse Oximetry (%) 94 L 01/15/20 17:11 Labs: CBC, BMP 01/15/20 13:45 01/15/20 13:45 Assessment/Plan Rt Renal pelvis stone with partial obstruction complicated UTI-Urosepsis Plan: keep Zosyn and Vancomycin IVF ID consult Nephrology and cardiology consult NPO after midnight for Rt URS, LASER and jj stent insertion if her medical condition allow
[2020-01-15] MEDS: SODIUM CHLORIDE 1,000 ML IV SCH (18:43)
[2020-01-15 19:10] LABS: INR 1.15 (0.83-1.09); PROTHROMBIN TIME (PATIENT) 13.6 SEC (9.7-13.0)
[2020-01-15 19:13] LABS: ACTIVATED PTT 28.6 SECONDS (25.2-36.5)
[2020-01-15] MEDS ORDERED: ACETAMINOPHEN 1000 MG/100 ML VIAL (NON FORMULARY) IVPB PRN (23:10)
[2020-01-16] MEDS ORDERED: PIPERACILLIN/TAZOBACTAM 2.25 GM VIAL IVPB ONE ×4 (00:13→21:05)
[2020-01-16] MEDS ORDERED: DEXTROSE 5%-WATER - 50 ML IVPB ONE ×4 (00:13→21:05)
[2020-01-16] MEDS: PIPERACILLIN/TAZOB 2.25 GM 2.25 GM in DEXTROSE 5%-WATER - 50 ML IVPB SCH ×6 (00:16→21:05)
[2020-01-16] MEDS ORDERED: METOPROLOL TARTRATE 5 MG/5 ML VIAL IVPUSH ONE (04:32)
[2020-01-16 07:47] LABS: ALBUMIN 1.7 g/dl (3.4-5.0); BILIRUBIN,TOTAL 1.2 mg/dL (0.2-1); BLOOD UREA NITROGEN 86.9 mg/dL (7-18); CREATININE 1.8 mg/dL (0.55-1.3); MAGNESIUM 2.5 mg/dL (1.8-2.4); PHOSPHOROUS 3.3 mg/dL (2.5-4.9); POTASSIUM 4.6 mmol/L (3.5-5.1); TOT PROT 5.5 g/dl (6.4-8.2)
--- NOTE | 2020-01-16 09:12 | CON.CARD ---
Consult Consult Specialty:: Cardiology Referred by:: Pre-procedure CV evaluation Reason for Consultation:: Rapid afib, pre-procedure CV evaluation - History of Present Illness Chief Complaint: Sepsis source, infected stone History of Present Illness: 84 Y/O Female patient with Bipolar disease, HTN from [facility]. She is presented into ER with confusion fever 102.4, hypoxic respiratory failure WBC 22.9 HB 13. Plt 27 BUN 95.4 Creat 2.9, lactate 3.9, trops 10 CT-Scan Rt Renal pelvis stone 1.4 cm with partial obstruction Pt was given empiric IV abx coverage with Vanc/Zosyn. Uro made aware with r ecommendation to make NPO after midnight, now in rapid afib. - History Source History Provided By: Medical Record Limitations to Obtaining History: Clinical Condition - Past Medical History ...: No - Alcohol/Substance Use Hx Alcohol Use: No - Smoking History Smoking history: Smoker current status UNK Have you smoked in the past 12 months: No - Social History Usual Living Arrangement: Alone Home Medications - Allergies Allergies/Adverse Reactions: Allergies Allergy/AdvReac Type Severity Reaction Status Date / Time No Known Allergies Allergy Verified 01/15/20 13:46 - Home Medications Home Medications: Ambulatory Orders Acetaminophen [Tylenol] 650 mg PO QID PRN 01/15/20 Amlodipine Besylate [Norvasc -] 10 mg PO DAILY 01/15/20 Aripiprazole [Abilify -] 5 mg PO DAILY 01/15/20 Fluoxetine HCl [Prozac -] 40 mg PO DAILY 01/15/20 Mirtazapine 23 mg PO HS 01/15/20 Review of Systems Unable to obtain ROS, reason: Dementia, MS changes - Review of Systems Constitutional: reports: Fever Neurological: reports: Confusion Vital Signs: Vital Signs Temperature 97.6 F 01/16/20 06:00 Pulse Rate 106 H 01/16/20 06:00 Respiratory Rate 19 01/16/20 06:00 Blood Pressure 108/68 01/16/20 06:00 O2 Sat by Pulse Oximetry (%) 99 01/16/20 06:00 Constitutional: Yes: No Distress, Calm, Thin Neck: Yes: Supple Respiratory: Yes: Regular, Diminished, On Nasal O2 Gastrointestinal: Yes: Soft, Hypoactive Bowel Sounds Cardiovascular: Yes: Tachycardia, Pulse Irregular JVD: No Carotid Bruit: No Heart Sounds: Yes: S1, S2 Edema: No - Other Data Labs, Other Data: CBC, BMP 01/15/20 13:45 01/16/20 06:35 INR, PTT INR 1.15 (0.83-1.09) H 01/15/20 18:37 Troponin, BNP 01/15/20 01/15/20 01/16/20 13:45 18:20 00:00 Troponin I 10.90 H* 10.40 H* 6.99 H* 01/16/20 06:35 Troponin I 4.43 H* Troponin, BNP 01/15/20 01/15/20 01/16/20 13:45 18:20 00:00 Troponin I 10.90 H* 10.40 H* 6.99 H* 01/16/20 06:35 Troponin I 4.43 H* ECG: ST @ 101, LAD, PRWP Imaging - Results Cat Scan: Report Reviewed (LLL bronchiectasis vs PNA, 1.4 cm partially obstructing renal stone) Problem List - Problems (1) Paroxysmal atrial fibrillation with RVR Code(s): I48.0 - PAROXYSMAL ATRIAL FIBRILLATION (2) NSTEMI (non-ST elevated myocardial infarction) Code(s): I21.4 - NON-ST ELEVATION (NSTEMI) MYOCARDIAL INFARCTION (3) Pneumonia Code(s): J18.9 - PNEUMONIA, UNSPECIFIED ORGANISM Qualifiers: Pneumonia type: due to unspecified organism Laterality: left Lung location: lower lobe of lung Qualified Code(s): J18.9 - Pneumonia, unspecified organism (4) Sepsis Code(s): A41.9 - SEPSIS, UNSPECIFIED ORGANISM Qualifiers: Sepsis type: sepsis due to unspecified organism Sepsis acute organ dysfunction status: with acute organ dysfunction Severe sepsis acute organ dysfunction type: acute renal failure Acute renal failure type: unspecified Severe sepsis shock status: without septic shock Qualified Code(s): A41.9 - Sepsis, unspecified organism; R65.20 - Severe sepsis without septic shock; N17.9 - Acute kidney failure, unspecified (5) Thrombocytopenia Code(s): D69.6 - THROMBOCYTOPENIA, UNSPECIFIED (6) UTI (urinary tract infection) Code(s): N39.0 - URINARY TRACT INFECTION, SITE NOT SPECIFIED Qualifiers: Urinary tract infection type: site unspecified Hematuria presence: with hematuria Qualified Code(s): N39.0 - Urinary tract infection, site not specified; R31.9 - Hematuria, unspecified Assessment/Plan 1. CAD NSTEMI in context of 2. Paroxysmal afib with RVR 3. Sepsis source with partially obstructive right renal pelvis stone, possible LLL PNA 4. Toxic metabolic encephelopathy 5. Acute on CKD 6. HTN 1. Trops are declining with supportive care, IV Lopressor as hemodynamics tolerate for rate-control, check ECG 2. Given obstructive nature of renal stone and ongoing sepsis source, would prefer percutaneous nephrostomy by IR as less invasive option if possible once rate-controlled with Rt URS, LASER and jj stent insertion once clinically stable 3. Continue empiric abx per C&S 4. Echo to assess ventricular and valve fxn 5. Antiplatelets and anticoagulation on hold pending recovery of PLT>50 6. FIO2 to maintain saO2>90% 7. Thank you for consultative opportunity
[2020-01-16 09:33] LABS: BASO % 0.3 % (0-2.0); HEMATOCRIT 42.1 % (32.4-45.2); HEMOGLOBIN 13.6 GM/dL (10.7-15.3); LYMPH % 5.6 % (8-40); MCHC 32.4 g/dl (32.0-36.0); MEAN CELL VOLUME 108.1 fl (80-96); MEAN PLT VOLUME 10.1 fl (7.5-11.1); MONO % 3.7 % (3.8-10.2); NEUT % 89.4 % (42.8-82.8); RDW 15.6 % (11.6-15.6); WHITE BLOOD COUNT 15.9 K/mm3 (4.0-10.0)
--- NOTE | 2020-01-16 09:44 | PN ---
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 (short form) - Note 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: ID consult dictated Problem List - Problems (1) Sepsis Code(s): A41.9 - SEPSIS, UNSPECIFIED ORGANISM Qualifiers: Sepsis type: sepsis due to unspecified organism Sepsis acute organ dysfunction status: with acute organ dysfunction Severe sepsis acute organ dysfunction type: acute renal failure Acute renal failure type: unspecified Severe sepsis shock status: without septic shock Qualified Code(s): A41.9 - Sepsis, unspecified organism; R65.20 - Severe sepsis without septic shock; N17.9 - Acute kidney failure, unspecified (2) Gram-negative bacteremia Code(s): R78.81 - BACTEREMIA (3) UTI (urinary tract infection) Code(s): N39.0 - URINARY TRACT INFECTION, SITE NOT SPECIFIED Qualifiers: Urinary tract infection type: site unspecified Hematuria presence: with hematuria Qualified Code(s): N39.0 - Urinary tract infection, site not specified; R31.9 - Hematuria, unspecified (4) Obstructive uropathy Code(s): N13.9 - OBSTRUCTIVE AND REFLUX UROPATHY, UNSPECIFIED (5) Pneumonia Code(s): J18.9 - PNEUMONIA, UNSPECIFIED ORGANISM Qualifiers: Pneumonia type: due to unspecified organism Laterality: left Lung location: lower lobe of lung Qualified Code(s): J18.9 - Pneumonia, unspecified organism (6) Thrombocytopenia Code(s): D69.6 - THROMBOCYTOPENIA, UNSPECIFIED (7) Paroxysmal atrial fibrillation with RVR Code(s): I48.0 - PAROXYSMAL ATRIAL FIBRILLATION (8) Elevated troponin Code(s): R79.89 - OTHER SPECIFIED ABNORMAL FINDINGS OF BLOOD CHEMISTRY
[2020-01-16] MEDS ORDERED: PANTOPRAZOLE SODIUM 40 MG VIAL IVPUSH SCH (10:00)
[2020-01-16] MEDS ORDERED: PNEUMOC 13-VAL CONJ-DIP CRM/PF 0.5 ML DISP.SYRIN IM ONE (10:00)
[2020-01-16] MEDS: MUPIROCIN 2% TOPICAL OINTMENT FOR DECOLONIZATION NS SCH ×2 (10:00→21:06)
--- NOTE | 2020-01-16 10:12 | PN ---
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 (short form) - Note 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: UROLOGY NOTE 84 Y/O F with Rt Renal stone and sepsis. WBC 15.9 HB 13.6 BUN 86 S.Creat 1.8 Platelet 13 very low Plan: will do jj stent insertion OR PCN when her medical condition allow.
[2020-01-16] MEDS ORDERED: PT OWN MED DRAWER 7, Y5N ONE (10:23)
--- NOTE | 2020-01-16 10:26 | CONSULT ---
Admitting History and Physical - Admission History of Present Illness: Per EMR- 84 yo female with PMH of HTN, Bipolar on Aripiprazole, Fluoxetine, Mirtazapine BIBEMS from [facility] for AMS. Patient is not alert and not oriented. Her halfway said she is wheelchair bound, tremulous, witha baseline of AOx1 with minimal verbal ability. Per nursing note-Received patient from the ED s/p urosepsis/PNA and elevated troponins, patient asleep, non-verbal at baseline, wheelchair bound, localizes to pain, not opening eyes or following commands Selected Entries 01/15/20 01/15/20 01/15/20 13:43 14:02 16:52 Breakfast Temperature 102.4 F H 102.4 F H 98.9 F Pulse Rate 91 H 96 H Pulse Rate [ Right Radial] Blood Pressure 119/94 116/57 L Blood Pressure [Left Arm] 01/15/20 01/15/20 01/16/20 17:00 18:27 00:00 Breakfast Temperature 100.8 F H Pulse Rate 77 Pulse Rate [ 90 96 H Right Radial] Blood Pressure 116/57 L Blood Pressure 140/78 138/92 [Left Arm] 01/16/20 01/16/20 01/16/20 02:00 04:00 04:37 Breakfast Temperature 97.5 F L Pulse Rate 70 140 H 140 H Pulse Rate [ Right Radial] Blood Pressure 105/72 115/68 115/68 Blood Pressure [Left Arm] 01/16/20 01/16/20 05:44 06:00 Breakfast NPO Temperature 97.6 F Pulse Rate 106 H Pulse Rate [ Right Radial] Blood Pressure 108/68 Blood Pressure [Left Arm] Laboratory Tests 01/15/20 01/15/20 01/16/20 13:45 14:00 09:00 WBC 22.9 H 15.9 H COVID-19 (KATHARINA) Not detected NPO Pt on reg diet/thin liquid at mo. ID imp-gram negative bacteremia secondary to UTI obstructive uropathy possible pneumonia thrombocytopenia secondary to infection most likely This is my first consult with this pt. History Source: Medical Record Limitations to Obtaining History: Clinical Condition - Past Medical History ...: No - Smoking History Smoking history: Smoker current status UNK Have you smoked in the past 12 months: No - Alcohol/Substance Use Hx Alcohol Use: No History - Admission Reason For Visit: SEPSIS,PNEUMONIA - Diagnostics CT Scan: Report Reviewed - General Mental Status: Confused Attention: Moderate Impairment Head/Neck Control: Fair - Hearing Hearing: Functional Speech Evaluation - Communication Primary Language: BELARUSIAN Communication: Yes: Non-Communicable Oral Expression Ability: Yes: Non-Verbal - Language/Auditory Comprehension Follows: Yes: 1 Stage Simple Commands (follows occasional commands, intermittently eg stick out tongue) Observation: Able to respond to yes/no queries: Yes (occasional nod) - Swallow Evaluation/Bedside Assessment Oral Secretions: Yes: Dryness (tonue coated, dry) Dentition: Yes: Edentulous Lingual Movement: Symmetric, Reduced Protrusion Laryngeal Movement: Able to Palpate, Labored,delay initiation Rate of Intake: Slow/Holding Labial Seal: WFL Oral Prep Time: Increased Coughing/Throat Clear: Yes (water) Recommendations - Speech Evaluation, Impression/Plan Impression: Delayed swallow onset. Cough response with water. Swallow fairly brisk, once triggered, but untimely, with aspiration on thin liquids - Disposition Discharge to: Longterm Facility - Dysphagia Impressions/Plan Swallowing Skills: Impaired Dysphagia Impressions: Moderate Impairment, Ongoing Evaluation, Suspect Aspiration *Silent aspiration: cannot be R/O at bedside Dysphagia Treatment Plan: Small Bites, Chin Tuck/Down, Clear Pocket Food, Trial Feedings, Facilitative Feeding, Safe Rate, 1/2 tsp. at a time, Elevate HOB during feed, Other (feed slowly, 1/2 tsp at a time) Recommendations: Modified Barium Swallow (if cough, congestion fever), Other (mouth care) - Recommendations Diet Consistency: Dysphagia Pureed Medication Administration: Crushed with applesauce Liquids: [place] Thick Supplement: Magic Cup, Ensure Pudding
[2020-01-16 10:28] LABS: ANISOCYTOSIS 2+; MACROCYTOSIS 2+; PLATELET ESTIMATE DECREASED
--- NOTE | 2020-01-16 10:40 | PN ---
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 (short form) - Note 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: ID consult dictated imp/reccd gram negative bacteremia secondary to UTI obstructive uropathy possible pneumonia thrombocytopenia secondary to infection most likely DK positive troponins new afib schizo-affective disorder would continue zosyn adjusted for DK continue IVF urology to see- need to relieve obstruction-?PCN cardiology evaluation
[2020-01-16] MEDS ORDERED: METOPROLOL TARTRATE 5 MG/5 ML VIAL IVPUSH PRN (10:47)
[2020-01-16 10:50] LABS: PLATELET COUNT 13 K/MM3 (134-434)
--- NOTE | 2020-01-16 11:18 | EKG ---
Test Reason : Blood Pressure : / mmHG Vent. Rate : 101 BPM Atrial Rate : 101 BPM P-R Int : 150 ms QRS Dur : 080 ms QT Int : 334 ms P-R-T Axes : 052 -53 021 degrees QTc Int : 433 ms SINUS TACHYCARDIA POSSIBLE LEFT ATRIAL ENLARGEMENT LEFT AXIS DEVIATION INFERIOR INFARCT , AGE UNDETERMINED ANTERIOR INFARCT , AGE UNDETERMINED ABNORMAL ECG WHEN COMPARED WITH ECG OF 15-FEB-2018 11:41, VENT. RATE HAS INCREASED Confirmed by JAILENE ESCAMILLA, SARAH ([id number]) on 01/16/2020 11:17:55 AM Referred By: Confirmed By:SARAH DENT MD
--- NOTE | 2020-01-16 13:09 | PN ---
Teaching Attending Note Name of Resident: Quinn Garcia ATTENDING PHYSICIAN STATEMENT I saw and evaluated the patient. I reviewed the resident's note and discussed the case with the resident. I agree with the resident's findings and plan as documented. SUBJECTIVE: Pt seen and examined in the ICU. Urine and blood cultures growing gram negative rods. No pressors. Platelets low. OBJECTIVE: Vital Signs Period Temp Pulse Resp BP Sys/Mcmullen Pulse Ox Last 24 Hr 97.5 F-102.4 F 70-140 14-23 105-140/57-94 91-99 Intake & Output 01/13/20 01/14/20 01/15/20 01/16/20 23:59 23:59 23:59 23:59 Intake Total 2095 750 Balance 2095 750 Weight 57.776 kg 57.776 kg Gen: lethargic Heart: RRR Lung: decreased breath sounds at the bases Abd: soft, TTP R abdomen Ext: no edema CBC, BMP 01/16/20 09:00 01/16/20 06:35 Active Medications Acetaminophen (Ofirmev Injection -) 1,000 mg IVPB Q6H PRN PRN Reason: PAIN LEVEL 7 - 10 Stop: 01/16/20 23:11 Chlorhexidine Gluconate (Hibiclens For Decolonization -) 1 applic TP HS FERNANDO Sodium Chloride (Normal Saline -) 1,000 mls @ 100 mls/hr IV ASDIR FERNANDO Last Admin: 01/15/20 18:43 Dose: 100 mls/hr Documented by: Piperacillin Sod/Tazobactam (Sod 2.25 gm/ Dextrose) 50 mls @ 100 mls/hr IVPB Q6H-IV FERNANDO; Protocol Last Admin: 01/16/20 10:38 Dose: 100 mls/hr Documented by: Metoprolol Tartrate (Lopressor Injection -) 5 mg IVPUSH Q4H PRN PRN Reason: TACHYCARDIA Mupirocin (Bactroban Ointment (For Decolonization) -) 1 applic NS BID [facility] Stop: 01/21/20 09:59 Last Admin: 01/16/20 10:00 Dose: 1 applic Documented by: Pantoprazole Sodium (Protonix Iv) 40 mg IVPUSH DAILY FERNANDO Last Admin: 01/16/20 10:38 Dose: 40 mg Documented by: Pneumococcal 13-Valent Conj Vacc (Prevnar 13 Syringe -) 0.5 ml IM .ONCE ONE Stop: 01/16/20 10:01 ASSESSMENT AND PLAN: UTI/Nephrolithiasis Gram Negative Bacteremia Sepsis Acute on Chronic Renal Failure Thrombocytopenia Acute NSTEMI Paroxysmal Atrial Fibrillation HTN - IV antibiotics - f/u cultures - IVF - monitor urine output, creatinine - transfuse PRBC - monitor CBC, coags, fibrinogen level - rate control - DVT prophylaxis - continue ICU monitoring
[2020-01-16 13:44] LABS: BASO % 0.1 % (0-2.0); EOS % 0.3 % (0-4.5); HEMATOCRIT 39.4 % (32.4-45.2); HEMOGLOBIN 12.8 GM/dL (10.7-15.3); LYMPH % 3.7 % (8-40); MCH 34.2 pg (25.7-33.7); MCHC 32.5 g/dl (32.0-36.0); MEAN PLT VOLUME 9.8 fl (7.5-11.1); MONO % 3.2 % (3.8-10.2); NEUT % 92.7 % (42.8-82.8); RBC 3.75 M/mm3 (3.60-5.2); RDW 15.2 % (11.6-15.6); WHITE BLOOD COUNT 14.8 K/mm3 (4.0-10.0)
[2020-01-16 14:29] LABS: PLATELET COUNT 14 K/MM3 (134-434)
[2020-01-16 15:16] LABS: ANISOCYTOSIS 1+; MACROCYTOSIS 1+; PLATELET ESTIMATE DECREASED
--- NOTE | 2020-01-16 17:49 | EKG ---
Test Reason : Blood Pressure : / mmHG Vent. Rate : 107 BPM Atrial Rate : 084 BPM P-R Int : 000 ms QRS Dur : 078 ms QT Int : 302 ms P-R-T Axes : 000 -49 -03 degrees QTc Int : 403 ms ATRIAL FIBRILLATION WITH RAPID VENTRICULAR RESPONSE LEFT AXIS DEVIATION INFERIOR INFARCT (CITED ON OR BEFORE 15-JAN-2020) ANTERIOR INFARCT (CITED ON OR BEFORE 15-JAN-2020) ABNORMAL ECG WHEN COMPARED WITH ECG OF 15-JAN-2020 15:02, ATRIAL FIBRILLATION HAS REPLACED SINUS RHYTHM Confirmed by SARAH DENT MD ([id number]) on 01/16/2020 5:49:02 PM Referred By: [facility] Confirmed By:SARAH DENT MD
--- NOTE | 2020-01-16 18:45 | PN ---
Physical Exam: SUBJECTIVE: Patient seen and examined. Plts 2 units transfused. NPO after midnight for possible intervention OBJECTIVE: Vital Signs Period Temp Pulse Resp BP Sys/Mcmullen Pulse Ox Last 24 Hr 97.5 F-100.8 F 70-140 14-23 105-138/57-92 94-100 GENERAL: somnolent. non-verbal, non-responsive. withdraws to pain HEENT: NC/AT, PERRL, Dry mucus membranes. LUNGS: decreased breath sounds b/l bases, no wheezes, no crackles, no accessory muscle use. HEART: Regular rate and rhythm, S1, S2 without murmur, rub or gallop. ABDOMEN: Soft, nondistended, normoactive bowel sounds, TTP in suprapubic region EXTREMITIES: 2+ pulses, warm, well-perfused, no edema. Laboratory Results - last 24 hr 01/15/20 01/15/20 01/15/20 14:00 18:20 18:20 WBC RBC Hgb Hct MCV MCH MCHC RDW Plt Count MPV Absolute Neuts (auto) Neutrophils % Neutrophils % (Manual) Band Neutrophils % Lymphocytes % Lymphocytes % (Manual) Monocytes % Monocytes % (Manual) Eosinophils % Eosinophils % (Manual) Basophils % Basophils % (Manual) Myelocytes % (Man) Promyelocytes % (Man) Blast Cells % (Manual) Nucleated RBC % Metamyelocytes Hypochromia Platelet Estimate Polychromasia Poikilocytosis Anisocytosis Microcytosis Macrocytosis PT with INR INR PTT (Actin FS) Fibrinogen Sodium Potassium Chloride Carbon Dioxide Anion Gap BUN Creatinine Est GFR (CKD-EPI)AfAm Est GFR (CKD-EPI)NonAf Random Glucose Lactic Acid 2.0 Calcium Phosphorus Magnesium Total Bilirubin AST ALT Alkaline Phosphatase Creatine Kinase Creatine Kinase Index CK-MB (CK-2) Troponin I 10.40 H* Total Protein Albumin Random Vancomycin COVID-19 (KATHARINA) Not detected Blood Type Antibody Screen 01/15/20 01/16/20 01/16/20 18:37 00:00 00:00 WBC RBC Hgb Hct MCV MCH MCHC RDW Plt Count MPV Absolute Neuts (auto) Neutrophils % Neutrophils % (Manual) Band Neutrophils % Lymphocytes % Lymphocytes % (Manual) Monocytes % Monocytes % (Manual) Eosinophils % Eosinophils % (Manual) Basophils % Basophils % (Manual) Myelocytes % (Man) Promyelocytes % (Man) Blast Cells % (Manual) Nucleated RBC % Metamyelocytes Hypochromia Platelet Estimate Polychromasia Poikilocytosis Anisocytosis Microcytosis Macrocytosis PT with INR 13.60 H INR 1.15 H PTT (Actin FS) 28.6 Fibrinogen Sodium Potassium Chloride Carbon Dioxide Anion Gap BUN Creatinine Est GFR (CKD-EPI)AfAm Est GFR (CKD-EPI)NonAf Random Glucose Lactic Acid 2.0 Calcium Phosphorus Magnesium Total Bilirubin AST ALT Alkaline Phosphatase Creatine Kinase 356 H Creatine Kinase Index 1.1 CK-MB (CK-2) 4.1 H Troponin I 6.99 H* Total Protein Albumin Random Vancomycin COVID-19 (KATHARINA) Blood Type Antibody Screen 01/16/20 01/16/20 01/16/20 06:35 09:00 09:50 WBC 15.9 H RBC 3.90 Hgb 13.6 Hct 42.1 MCV 108.1 H MCH 35.0 H MCHC 32.4 RDW 15.6 Plt Count 13 L* D MPV 10.1 Absolute Neuts (auto) 14.2 H Neutrophils % 89.4 H Neutrophils % (Manual) 84.6 H Band Neutrophils % 9.6 Lymphocytes % 5.6 L D Lymphocytes % (Manual) 3.9 L D Monocytes % 3.7 L D Monocytes % (Manual) 0 L D Eosinophils % 1.0 Eosinophils % (Manual) 0.0 Basophils % 0.3 Basophils % (Manual) 0.0 Myelocytes % (Man) 0 Promyelocytes % (Man) 0 Blast Cells % (Manual) 0 Nucleated RBC % 0 Metamyelocytes 2 D Hypochromia 0 Platelet Estimate Decreased Polychromasia 1+ Poikilocytosis 0 Anisocytosis 2+ Microcytosis 0 Macrocytosis 2+ PT with INR INR PTT (Actin FS) Fibrinogen Sodium 149 H Potassium 4.6 Chloride 120 H Carbon Dioxide 21 Anion Gap 8 BUN 86.9 H Creatinine 1.8 H Est GFR (CKD-EPI)AfAm 29.85 Est GFR (CKD-EPI)NonAf 25.76 Random Glucose 126 H Lactic Acid Calcium 8.0 L Phosphorus 3.3 Magnesium 2.5 H Total Bilirubin 1.2 H AST 44 H ALT 26 Alkaline Phosphatase 151 H Creatine Kinase 259 H Creatine Kinase Index 1.5 CK-MB (CK-2) 4.1 H Troponin I 4.43 H* Total Protein 5.5 L Albumin 1.7 L Random Vancomycin 9.6 COVID-19 (KATHARINA) Blood Type Antibody Screen 01/16/20 01/16/20 01/16/20 11:30 11:30 13:14 WBC RBC Hgb Hct MCV MCH MCHC RDW Plt Count MPV Absolute Neuts (auto) Neutrophils % Neutrophils % (Manual) Band Neutrophils % Lymphocytes % Lymphocytes % (Manual) Monocytes % Monocytes % (Manual) Eosinophils % Eosinophils % (Manual) Basophils % Basophils % (Manual) Myelocytes % (Man) Promyelocytes % (Man) Blast Cells % (Manual) Nucleated RBC % Metamyelocytes Hypochromia Platelet Estimate Polychromasia Poikilocytosis Anisocytosis Microcytosis Macrocytosis PT with INR INR PTT (Actin FS) Fibrinogen > 500.0 H Sodium Potassium Chloride Carbon Dioxide Anion Gap BUN Creatinine Est GFR (CKD-EPI)AfAm Est GFR (CKD-EPI)NonAf Random Glucose Lactic Acid Calcium Phosphorus Magnesium Total Bilirubin AST ALT Alkaline Phosphatase Creatine Kinase Creatine Kinase Index CK-MB (CK-2) Troponin I Total Protein Albumin Random Vancomycin COVID-19 (KATHARINA) Blood Type A POSITIVE A POSITIVE Antibody Screen Negative 01/16/20 13:14 WBC 14.8 H RBC 3.75 Hgb 12.8 Hct 39.4 MCV 105.0 H MCH 34.2 H MCHC 32.5 RDW 15.2 Plt Count 14 L* MPV 9.8 Absolute Neuts (auto) 13.7 H Neutrophils % 92.7 H Neutrophils % (Manual) 88.2 H Band Neutrophils % 6.9 Lymphocytes % 3.7 L D Lymphocytes % (Manual) 2.0 L D Monocytes % 3.2 L Monocytes % (Manual) 3 L D Eosinophils % 0.3 Eosinophils % (Manual) 0.0 Basophils % 0.1 Basophils % (Manual) 0.0 Myelocytes % (Man) 0 Promyelocytes % (Man) 0 Blast Cells % (Manual) 0 Nucleated RBC % 0 Metamyelocytes 0 D Hypochromia 0 Platelet Estimate Decreased Polychromasia 0 Poikilocytosis 0 Anisocytosis 1+ Microcytosis 0 Macrocytosis 1+ PT with INR INR PTT (Actin FS) Fibrinogen Sodium Potassium Chloride Carbon Dioxide Anion Gap BUN Creatinine Est GFR (CKD-EPI)AfAm Est GFR (CKD-EPI)NonAf Random Glucose Lactic Acid Calcium Phosphorus Magnesium Total Bilirubin AST ALT Alkaline Phosphatase Creatine Kinase Creatine Kinase Index CK-MB (CK-2) Troponin I Total Protein Albumin Random Vancomycin COVID-19 (KATHARINA) Blood Type Antibody Screen Active Medications Generic Name Dose Route Start Last Admin Trade Name Rory PRN Reason Stop Dose Admin Acetaminophen 1,000 mg 01/15/20 23:10 Ofirmev Injection - IVPB 01/16/20 23:11 Q6H PRN PAIN LEVEL 7 - 10 Chlorhexidine Gluconate 1 applic 01/16/20 22:00 Hibiclens For Decolonization - TP HS FERNANDO Sodium Chloride 1,000 mls @ 100 mls/hr 01/15/20 18:30 01/15/20 18:43 Normal Saline - IV 100 mls/hr ASDIR FERNANDO Administration Piperacillin Sod/Tazobactam 50 mls @ 100 mls/hr 01/16/20 10:30 01/16/20 16:00 Sod 2.25 gm/ Dextrose IVPB 100 mls/hr Q6H-IV FERNANDO Administration Protocol Metoprolol Tartrate 5 mg 01/16/20 10:47 Lopressor Injection - IVPUSH Q4H PRN TACHYCARDIA Mupirocin 1 applic 01/16/20 10:00 01/16/20 10:00 Bactroban Ointment (For Decolonization) - NS 01/21/20 09:59 1 applic BID FERNANDO Administration Pantoprazole Sodium 40 mg 01/16/20 10:00 01/16/20 10:38 Protonix Iv IVPUSH 40 mg DAILY FERNANDO Administration Pneumococcal 13-Valent Conj Vacc 0.5 ml 01/16/20 10:00 Prevnar 13 Syringe - IM 01/16/20 10:01 .ONCE ONE ASSESSMENT/PLAN: 84 F PMH HTN & Bipolar disorder (Aripiprazole, Fluoxetine, Mirtazapine) was brought in by EMS from [facility] for AMS. Neuro #Acute Metabolic Encephalopathy 2/2 UTI -somnolent. Non-verbal/responsive. Minimal withdrawal to pain -CTH: no acute findings; cerebral atrophy; old LEFT parietal infarct; chronic deepw bird matter periventricular ischemic changes -Neuro checks Pulm -No acute issues -Chest CT: Left lower lobe bronchiectasis and consolidation Cardio #Elevated Troponins; trops ~10 #HTN #paroxysmal afib w/ RVR #NSTEMI -EKG: afib w/ RVR, L axis deviation. Inferior & anterior infract (cited on/before 01/15/2020). ST & T wave abnormality, consider lateral ischemia -trops downtrending from 10.9 to 4.43 -IV lopressor for rate control as BP can tolerate -defer AC currently given thrombocytopenia -continue holding home Amlodipine 10 -cardio consult appreciated. Echo to assess ventricular and valve function ID #Sepsis 2/2 Infected R Renal Pelvic stone; UA 3+ LE, WBC 9121, >9000 bacteria #Pneumonia: -Chest CT: Left lower lobe bronchiectasis and consolidation -CTAP: 1.4 cm partially obstructing calculus Right renal pelvis -s/p Vanc 1gm and Zosyn 3.375 in ED. -ID consult appreciated. c/w Zosyn 3.375 Q6H IV -ucx: proteus species, >100.000 CFU -blood culture pending. gram negative bacilli Renal #Lactic Acidosis resolved #DK. Improving Cr downtrended from 2.9 to 1.8 #Rhabdomyolysis: CPK downtrended. continue IV hydration #Nephrolithiasis: CTAP: 1.4 cm partially obstructing calculus Right renal pelvis -consulted IR for evaluation for percutaneous nephrostomy Heme #Thrombocytopenia. 2 units platelets given today. Repeat Plt: 94 Prophylaxis DVT: SCDs, hold AC in setting of thrombocytopenia GI: Protonix 40 IV FEN -NS @ 100 -recheck lytes in AM -NPO for possible procedure in AM DISPO maintain ICU FULL CODE ATTENDING PHYSICIAN STATEMENT I saw and evaluated the patient. I reviewed the resident's note and discussed the case with the resident. I agree with the resident's findings and plan as documented. SUBJECTIVE: OBJECTIVE: ASSESSMENT AND PLAN:
--- NOTE | 2020-01-16 18:59 | CONS ---
DATE OF CONSULTATION: DATE OF DICTATION: 01/16/2020 INFECTIOUS DISEASE CONSULTATION HISTORY OF PRESENT ILLNESS: This is an 84-year-old woman who was admitted from the group home where she was found unresponsive. She was brought to the ER, where she had a fever of 102.4. At baseline, she is awake and alert and answers questions intermittently. She was noted to have obstructive uropathy. She had a CAT scan of her chest, abdomen, and pelvis. Questions of possibility of pneumonia was noted on the CAT scan of the chest which showed a left lower lobe bronchiectasis consolidation. She has 1.4-cm partially obstructing in the right renal pelvis. Urinalysis was noted. She was noted to have pyuria. She was started on vancomycin and Zosyn and admitted to the ICU. I am asked to see her for further evaluation. PAST MEDICAL HISTORY: She is currently awake. She opens her eyes, but she is not speaking. Her past medical history is notable for psychiatric illness which is notable schizoaffective disorder, and she has a history of hypertension. Her smoking status is unknown. Her medications include amlodipine, Abilify, Prozac, and mirtazapine at the group home. She has no known drug allergies. REVIEW OF SYSTEMS: Limited by the fact that the patient is nonverbal. PHYSICAL EXAMINATION: Vital Signs: Current temperature is 97.6, T-max was 102.4, pulse of 106, blood pressure 108/68, respiratory rate 19. She is saturating 99% on room air. HEENT: Normocephalic. Eyes are anicteric. She has some tremor throughout her body. Heart: Regular rate and rhythm. Lungs: Diminished breath sounds at the bases. Abdomen: Soft, nontender. Extremities: Without edema. LABORATORY: Notable for admission white count of 22.9, this morning was 15.9, platelets of 13,000. She has an INR of 1. Her BUN and creatinine are 86 and 1.8 on admission, were 95 and 2.9. She had troponins that peaked at 10.9, and this morning are 4.4. She has evidence as well of a CK that is elevated at 259. Mildly elevated LFTs with AST of 44, ALT of 26, and alkaline phosphatase of 151. Her albumin is 1.7. Blood cultures are growing gram-negative bacillus and urine culture is growing proteus. IMPRESSION: In summary, this is an 84-year-old woman admitted with gram-negative bacteremia secondary to urinary tract infection, obstructive uropathy, possible pneumonia, thrombocytopenia secondary to infection, most likely acute kidney injury positive troponins, new atrial fibrillation and schizoaffective disorder. Would continue Zosyn adjusted for her acute kidney injury. Would continue intravenous fluids. She appears hemodynamically stable and does not require pressors. Urology to see, do we need to relieve her obstruction with percutaneous nephrostomy. Cardiology evaluation pending. Patient was seen in the intensive care unit. MARGUERITE SIMON M.D. [id number]
[2020-01-16] MEDS: SODIUM CHLORIDE 1,000 ML IV SCH (19:00)
[2020-01-16] MEDS ORDERED: CHLORHEXIDINE GLUCONATE 4% CLEANSER FOR DECOLONIZATION TP SCH (22:00)
[2020-01-16 22:10] LABS: BASO % 0.2 % (0-2.0); EOS % 1.4 % (0-4.5); HEMATOCRIT 32.9 % (32.4-45.2); HEMOGLOBIN 10.9 GM/dL (10.7-15.3); LYMPH % 5.1 % (8-40); MCH 34.4 pg (25.7-33.7); MEAN CELL VOLUME 104.1 fl (80-96); MEAN PLT VOLUME 9.7 fl (7.5-11.1); MONO % 3.2 % (3.8-10.2); NEUT % 90.1 % (42.8-82.8); PLATELET COUNT 94 K/MM3 (134-434); RBC 3.16 M/mm3 (3.60-5.2); WHITE BLOOD COUNT 11.4 K/mm3 (4.0-10.0)
[2020-01-16 22:40] LABS: ANISOCYTOSIS 1+; MACROCYTOSIS 1+; PLATELET ESTIMATE DECREASED
[2020-01-17] MEDS ORDERED: DEXTROSE 5%-WATER - 50 ML IVPB ONE ×4 (01:02→23:01)
[2020-01-17] MEDS ORDERED: PIPERACILLIN/TAZOBACTAM 2.25 GM VIAL IVPB ONE ×4 (01:02→23:00)
[2020-01-17] MEDS: PIPERACILLIN/TAZOB 2.25 GM 2.25 GM in DEXTROSE 5%-WATER - 50 ML IVPB SCH ×5 (01:18→23:03)
[2020-01-17] MEDS ORDERED: VANCOMYCIN 750 MG in DEXTROSE 5%-WATER - 250 ML IVPB ONE (01:40)
--- NOTE | 2020-01-17 04:45 | HOSP ---
Physical Examination Vital Signs: Vital Signs Temperature 98 F 01/17/20 02:00 Pulse Rate 81 01/17/20 02:00 Respiratory Rate 20 01/17/20 02:00 Blood Pressure 130/90 01/17/20 02:00 O2 Sat by Pulse Oximetry (%) 95 01/17/20 02:00 Eyes: Yes: Conjunctiva Clear, PERRL HENT: Yes: Atraumatic, Normocephalic Neck: Yes: Supple Cardiovascular: Yes: Regular Rate and Rhythm, S1, S2 Respiratory: Yes: Regular, Diminished, On Nasal O2 Gastrointestinal: Yes: WNL, Soft Renal/: Yes: العلي Present Extremities: Yes: WNL Edema: No Labs: CBC, BMP 01/16/20 21:15 01/16/20 06:35 Hospitalist Encounter Assessment: 84 F PMH HTN & Bipolar disorder (Aripiprazole, Fluoxetine, Mirtazapine) was b rought in by EMS from [facility] for AMS. Admitted to ICU for acute metabolic encephalopathy 2/2 sepsis. Patient is being treated for urosepsis with R Renal Pelvic stone and DK, urine cultures + for proteus; also for possible LL PNA. Patient on IV Zosyn and being followed by ID. Patient is going for percutaneous nephrostomy with IR tomorrow morning and currently NPO. Patient has had bouts of Afib with RVR, cardiology on board, being given IV lopressor q4 for rate control. Patient is now stable for transfer to [facility] for further monitoring and care. Visit type - Medication Review Med list reviewed for High Risk Meds patients 65 and older: Yes - Emergency Visit Emergency Visit: Yes ED Registration Date: 01/15/20 Care time: The patient presented to the Emergency Department on the above date and was hospitalized for further evaluation of their emergent condition. - New Patient This patient is new to me today: No - Critical Care Critical Care patient: Yes Total Critical Care Time (in minutes): 35 Critical Care Statement: The care of this patient involved high complexity decision making to prevent further life threatening deterioration of the patient's condition and/or to evaluate & treat vital organ system(s) failure or risk of failure.
[2020-01-17] MEDS ORDERED: METOPROLOL TARTRATE 5 MG/5 ML VIAL IVPUSH PRN (05:02)
[2020-01-17] MEDS: SODIUM CHLORIDE 1,000 ML IV SCH ×2 (06:47→18:41)
--- NOTE | 2020-01-17 08:09 | PN ---
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 (short form) - Note 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: 84F w/ pmhx of HTN, Bipolar on Aripiprazole, Fluoxetine, Mirtazapine BIBEMS from [facility] for AMS and sepsis 2/2 infected R renal stone- patient currently on IV zosyn going for percutaneous nephrostomy tube today gen: NAD; AOx2 CV: RRR s1 s2 no MRG LUNGS CTA B/L no rales, rhonchi wheezing abd; soft nt nd +BS : kline draining clear urine patient is currently;y rate controlled on abx- and is medically stable for downgrade to tele
[2020-01-17] MEDS: PANTOPRAZOLE SODIUM 40 MG VIAL IVPUSH SCH (09:37)
[2020-01-17] MEDS: MUPIROCIN 2% TOPICAL OINTMENT FOR DECOLONIZATION NS SCH ×2 (09:38→23:03)
--- NOTE | 2020-01-17 11:28 | PN ---
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, [employer] - Note 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: Selected Entries 01/16/20 01/16/20 01/16/20 00:00 02:00 04:00 Supper Temperature 97.5 F L Pulse Rate 77 70 140 H Blood Pressure 116/57 L 105/72 115/68 01/16/20 01/16/20 01/16/20 04:37 06:00 08:00 Supper Temperature 97.6 F 98.6 F Pulse Rate 140 H 106 H 105 H Blood Pressure 115/68 108/68 108/91 01/16/20 01/16/20 01/16/20 10:00 12:00 14:00 Supper Temperature Pulse Rate 120 H 108 H 110 H Blood Pressure 117/73 112/87 124/68 01/16/20 01/16/20 01/16/20 14:15 16:00 19:07 Supper Temperature Pulse Rate 112 H 106 H 102 H Blood Pressure 117/72 93/59 L 117/68 01/16/20 01/16/20 01/16/20 20:07 20:19 22:00 Supper NPO Temperature 97.7 F Pulse Rate 79 77 Blood Pressure 130/67 117/58 L 01/17/20 01/17/20 01/17/20 00:00 02:00 04:00 Supper Temperature 98 F Pulse Rate 72 81 74 Blood Pressure 120/65 130/90 133/70 01/17/20 05:43 Supper Temperature 98.4 F Pulse Rate 82 Blood Pressure 139/81 Laboratory Tests 01/15/20 13:45 WBC 22.9 H Pt remains NPO Seen on telemetry,pending nephrostomy tube placement More alert, said luis Consider puree/omayraar once alert and stable after tube placement To reassess tomorrow
--- NOTE | 2020-01-17 12:23 | PN ---
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 (short form) - Note 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: PULMONARY Pt nonverbal. No fevers recorded. Vital Signs Period Temp Pulse Resp BP Sys/Mcmullen Pulse Ox Last 24 Hr 97.7 F-98.4 F 72-112 12-21 93-139/58-90 93-100 Gen: more alert, awake Heart: RRR Lung: scattered rhonchi Abd: soft, nontender Ext: no edema CBC, BMP 01/16/20 21:15 01/16/20 06:35 Active Medications Chlorhexidine Gluconate (Hibiclens For Decolonization -) 1 applic TP HS FERNANDO Sodium Chloride (Normal Saline -) 1,000 mls @ 100 mls/hr IV ASDIR FERNANDO Last Admin: 01/17/20 06:47 Dose: 100 mls/hr Documented by: Piperacillin Sod/Tazobactam (Sod 2.25 gm/ Dextrose) 50 mls @ 100 mls/hr IVPB Q6H-IV FERNANDO; Protocol Last Admin: 01/17/20 09:38 Dose: 100 mls/hr Documented by: Metoprolol Tartrate (Lopressor Injection -) 5 mg IVPUSH Q4H PRN PRN Reason: TACHYCARDIA Mupirocin (Bactroban Ointment (For Decolonization) -) 1 applic NS BID [facility] Stop: 01/21/20 09:59 Last Admin: 01/17/20 09:38 Dose: 1 applic Documented by: Pantoprazole Sodium (Protonix Iv) 40 mg IVPUSH DAILY [facility] Last Admin: 01/17/20 09:37 Dose: 40 mg Documented by: A/P UTI/Nephrolithiasis Gram Negative Bacteremia Sepsis Acute on Chronic Renal Failure Thrombocytopenia Acute NSTEMI Paroxysmal Atrial Fibrillation HTN - continue antibiotics - for nephrostomy tube placement - IVF - monitor urine output, creatinine - monitor CBC, coags - rate control - DVT prophylaxis
--- NOTE | 2020-01-17 12:30 | ECHO ---
Version: 1 Name: RUY ROMO Exam: Adult Echocardiogram Study Date: 01/17/2020, 10:36 AM Age: 84 Years MMode/2D Measurements & Calculations IVSd: 0.94 cm LVIDs: 2.47 cm LVIDd: 3.8 cm LVPWd: 0.97 cm LAV (MOD-bp): 36.0 ml ACS: 1.32 cm Ao root diam: 2.38 cm LVOT diam: 1.98 cm LA dimension: 2.7 cm Doppler Measurements & Calculations MV E max dread: 75.0 cm/sec Med E/e': 14.0 MV A max dread: 106.6 cm/sec Med Peak E' Dread: 5.4 cm/sec MV E/A: 0.70 Lat E/e': 11.2 Lat Peak E' Dread: 6.7 cm/sec Ao max P.4 mmHg HEVER(I,D): 2.6 cm Ao mean P.2 mmHg LV V1 mean: 64.2 cm/sec Ao V2 max: 126.2 cm/sec LV V1 mean P.92 mmHg Procedure A complete two-dimensional transthoracic echocardiogram was performed (2D, M-mode, Doppler and color flow Doppler). Left Ventricle The left ventricular size, thickness and function are normal. Ejection Fraction = 60%. The transmitr al spectral Doppler flow pattern is suggestive of impaired LV relaxation. The left ventricular wall mot ion is normal. Right Ventricle The right ventricle is normal in size and function. Atria Normal left and right atrial size and function. Mitral Valve The mitral valve is normal in structure and function. There is trace to mild mitral regurgitation. Tricuspid Valve The tricuspid valve is normal in structure and function. There is trace tricuspid regurgitation. The re was insufficient TR detected to calculate RV systolic pressure. Aortic Valve The aortic valve is normal in structure and function. Pulmonic Valve The pulmonic valve is normal in structure and function. Great Vessels The aortic root is normal size. Pericardium/Pleura There is no pericardial effusion. There is no pleural effusion. Tech Comments TDS. Patient unresponsive to commands. Scanned supine. Summary Statements The left ventricular size, thickness and function are normal Ejection Fraction = 60%. There is trace to mild mitral regurgitation. There is trace tricuspid regurgitation. MD Napoleon Solorzano 01/17/2020, 12:29 PM Ordering Physician: Juan Garcia Referring Physician: JUAN GARCIA Performed By: Glendy Wood
--- NOTE | 2020-01-17 14:48 | PN ---
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, Physician History of Present Illness: 84 Y/O Female patient with Bipolar disease, HTN from [facility]. She is presented into ER with confusion fever 102.4, hypoxic respiratory failure WBC 22.9 HB 13. Plt 27 BUN 95.4 Creat 2.9, lactate 3.9, trops 10 CT-Scan Rt Renal pelvis stone 1.4 cm with partial obstruction Pt was given empiric IV abx coverage with Vanc/Zosyn. Uro made aware with recommendation to make NPO after midnight, now in rapid afib. - Current Medication List Current Medications: Active Medications Chlorhexidine Gluconate (Hibiclens For Decolonization -) 1 applic TP HS FERNANDO Sodium Chloride (Normal Saline -) 1,000 mls @ 100 mls/hr IV ASDIR [facility] Last Admin: 01/17/20 06:47 Dose: 100 mls/hr Documented by: Piperacillin Sod/Tazobactam (Sod 2.25 gm/ Dextrose) 50 mls @ 100 mls/hr IVPB Q6H-IV FERNANDO; Protocol Last Admin: 01/17/20 09:38 Dose: 100 mls/hr Documented by: Metoprolol Tartrate (Lopressor Injection -) 5 mg IVPUSH Q4H PRN PRN Reason: TACHYCARDIA Mupirocin (Bactroban Ointment (For Decolonization) -) 1 applic NS BID [facility] Stop: 01/21/20 09:59 Last Admin: 01/17/20 09:38 Dose: 1 applic Documented by: Pantoprazole Sodium (Protonix Iv) 40 mg IVPUSH DAILY [facility] Last Admin: 01/17/20 09:37 Dose: 40 mg Documented by: - Objective Vital Signs: Vital Signs Temperature 98.4 F 01/17/20 05:43 Pulse Rate 94 H 01/17/20 14:26 Respiratory Rate 22 H 01/17/20 14:26 Blood Pressure 149/63 01/17/20 14:26 O2 Sat by Pulse Oximetry (%) 92 L 01/17/20 14:26 Eyes: Yes: WNL, Conjunctiva Clear, EOM Intact HENT: Yes: WNL, Atraumatic, Normocephalic Neck: Yes: WNL, Supple, Trachea Midline Cardiovascular: Yes: WNL, Regular Rate and Rhythm Respiratory: Yes: WNL, Regular, CTA Bilaterally Gastrointestinal: Yes: WNL, Normal Bowel Sounds Genitourinary: Yes: WNL Musculoskeletal: Yes: WNL Extremities: Yes: WNL Edema: No Integumentary: Yes: WNL Labs: CBC, BMP 01/16/20 21:15 01/16/20 06:35 INR, PTT INR 1.15 (0.83-1.09) H 01/15/20 18:37 Fibrinogen > 500.0 mg/dL (238-498) H 01/16/20 13:14 Problem List - Problems (1) Elevated liver enzymes Code(s): R74.8 - ABNORMAL LEVELS OF OTHER SERUM ENZYMES (2) NSTEMI (non-ST elevated myocardial infarction) Code(s): I21.4 - NON-ST ELEVATION (NSTEMI) MYOCARDIAL INFARCTION (3) Paroxysmal atrial fibrillation with RVR Code(s): I48.0 - PAROXYSMAL ATRIAL FIBRILLATION (4) Pneumonia Code(s): J18.9 - PNEUMONIA, UNSPECIFIED ORGANISM Qualifiers: Pneumonia type: due to unspecified organism Laterality: left Lung location: lower lobe of lung Qualified Code(s): J18.9 - Pneumonia, unspecified organism (5) Sepsis Code(s): A41.9 - SEPSIS, UNSPECIFIED ORGANISM Qualifiers: Sepsis type: sepsis due to unspecified organism Sepsis acute organ d ysfunction status: with acute organ dysfunction Severe sepsis acute organ dysfunction type: acute renal failure Acute renal failure type: unspecified Severe sepsis shock status: without septic shock Qualified Code(s): A41.9 - Sepsis, unspecified organism; R65.20 - Severe sepsis without septic shock; N17.9 - Acute kidney failure, unspecified (6) Thrombocytopenia Code(s): D69.6 - THROMBOCYTOPENIA, UNSPECIFIED (7) UTI (urinary tract infection) Code(s): N39.0 - URINARY TRACT INFECTION, SITE NOT SPECIFIED Qualifiers: Urinary tract infection type: site unspecified Hematuria presence: with hematuria Qualified Code(s): N39.0 - Urinary tract infection, site not specified; R31.9 - Hematuria, unspecified (8) Anxiety Code(s): F41.9 - ANXIETY DISORDER, UNSPECIFIED (9) Contusion, chest wall Code(s): S20.219A - CONTUSION OF UNSPECIFIED FRONT WALL OF THORAX, INIT ENCNTR Qualifiers: Encounter type: initial encounter Laterality: left Qualified Code(s): S20.212A - Contusion of left front wall of thorax, initial encounter (10) Shortness of breath Code(s): R06.02 - SHORTNESS OF BREATH (11) Well adult Code(s): HUP5129 - Assessment/Plan Assessment/Plan 1. CAD NSTEMI in context of 2. Paroxysmal afib with RVR 3. Sepsis source with partially obstructive right renal pelvis stone, possible LLL PNA 4. Toxic metabolic encephelopathy 5. Acute on CKD 6. HTN 1. Trops are declining with supportive care, IV Lopressor as hemodynamics tolerate for rate-control, check ECG 2. Given obstructive nature of renal stone and ongoing sepsis source, would prefer percutaneous nephrostomy by IR as less invasive option if possible once rate-controlled with Rt URS, LASER and jj stent insertion once clinically stable 3. Continue empiric abx per C&S 4. Echo to assess ventricular and valve fxn 5. Antiplatelets and anticoagulation on hold pending recovery of PLT>50 6. FIO2 to maintain saO2>90% cc time spent 36 min
--- NOTE | 2020-01-17 17:09 | PN ---
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 (short form) - Note 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: alert nonverbal Vital Signs Period Temp Pulse Resp BP Sys/Mcmullen Pulse Ox Last 24 Hr 97.7 F-98.4 F 72-102 12-22 117-149/58-94 92-100 cor-rrr llulngs decreased bs at bases abd soft,nt ext no edema +PCN with bloody urine kline with bloody urine CBC, BMP 01/16/20 21:15 01/16/20 06:35 Microbiology 01/16/20 20:49 Urine For Antigen Detection Legionella Antigen - Final 01/16/20 20:49 Urine For Antigen Detection Streptococcus pneumoniae Antigen (M - Final 01/15/20 13:05 Urine - Urine - Catheterized Urine Culture - Final Proteus Mirabilis 01/15/20 13:45 Blood - Peripheral Venous Blood Culture - Preliminary Proteus Species 01/15/20 13:55 Blood - Peripheral Venous Blood Culture - Preliminary Proteus Species imp/reccd gram negative bacteremia secondary to UTI-proteus- awaiting sensitivities obstructive uropathy possible pneumonia thrombocytopenia secondary to infection most likely DK positive troponins new afib schizo-affective disorder continue zosyn s/p pcn today f/u labs in am f/u cultures in am
[2020-01-17] MEDS: CHLORHEXIDINE GLUCONATE 4% CLEANSER FOR DECOLONIZATION TP SCH (23:03)
--- NOTE | 2020-01-18 00:23 | PN ---
DATE OF VISIT: DATE OF DICTATION: 01/17/2020 The patient is an 84-year-old female who came in urosepsis secondary to right hydronephrosis caused by a large right mid ureteral stone. The CAT scan had revealed a 1.4-cm obstructing right upper ureteral stone. The patient's urine and blood cultures were both positive for Proteus mirabilis. Due to the patient's very Graves condition, an interventional radiology consultation was called, and a right percutaneous nephrostomy tube was placed. The patient presently feels better. Now that the obstruction is relieved, will able to perform the laser lithotripsy when patient is medically stable. Will follow with you. Delmy [id number]
[2020-01-18] MEDS ORDERED: PIPERACILLIN/TAZOBACTAM 2.25 GM VIAL IVPB ONE ×2 (03:17→09:38)
[2020-01-18] MEDS ORDERED: DEXTROSE 5%-WATER - 50 ML IVPB ONE ×2 (03:17→09:38)
[2020-01-18] MEDS: PIPERACILLIN/TAZOB 2.25 GM 2.25 GM in DEXTROSE 5%-WATER - 50 ML IVPB SCH ×2 (04:01→09:45)
[2020-01-18] MEDS: PANTOPRAZOLE SODIUM 40 MG VIAL IVPUSH SCH (09:45)
[2020-01-18] MEDS: SODIUM CHLORIDE 1,000 ML IV SCH (09:46)
[2020-01-18] MEDS: MUPIROCIN 2% TOPICAL OINTMENT FOR DECOLONIZATION NS SCH ×2 (09:46→21:43)
[2020-01-18 10:33] LABS: HEMATOCRIT 34.7 % (32.4-45.2); HEMOGLOBIN 11.7 GM/dL (10.7-15.3); MCH 35.3 pg (25.7-33.7); MCHC 33.8 g/dl (32.0-36.0); MEAN CELL VOLUME 104.5 fl (80-96); PLATELET COUNT 52 K/MM3 (134-434); RBC 3.32 M/mm3 (3.60-5.2); RDW 15.2 % (11.6-15.6); WHITE BLOOD COUNT 9.4 K/mm3 (4.0-10.0)
--- NOTE | 2020-01-18 10:55 | PN ---
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, NEUROLOGY DIRECTOR - Note 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: Selected Entries 01/17/20 01/17/20 01/18/20 15:49 22:44 02:00 Lunch NPO Supper 0 Temperature 98.7 F Pulse Rate 85 Blood Pressure 130/95 01/18/20 05:36 Lunch Supper Temperature 98.9 F Pulse Rate 105 H Blood Pressure 148/94 Laboratory Tests 01/16/20 01/18/20 09:00 10:00 WBC 15.9 H 9.4 Puree/nectar ordered
[2020-01-18 11:07] LABS: ALBUMIN 1.8 g/dl (3.4-5.0); BILIRUBIN,TOTAL 2.3 mg/dL (0.2-1); BLOOD UREA NITROGEN 54.1 mg/dL (7-18); CALCIUM 8.2 mg/dL (8.5-10.1); MAGNESIUM 2.1 mg/dL (1.8-2.4); PHOSPHOROUS 2.7 mg/dL (2.5-4.9); TOT PROT 5.3 g/dl (6.4-8.2)
--- NOTE | 2020-01-18 11:28 | PN ---
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, Physician History of Present Illness: 84 Y/O Female patient with Bipolar disease, HTN from [facility]. She is presented into ER with confusion fever 102.4, hypoxic respiratory failure WBC 22.9 HB 13. Plt 27 BUN 95.4 Creat 2.9, lactate 3.9, trops 10 CT-Scan Rt Renal pelvis stone 1.4 cm with partial obstruction Pt was given empiric IV abx coverage with Vanc/Zosyn. Uro made aware with recommendation to make NPO after midnight, now in rapid afib. - Current Medication List Current Medications: Active Medications Chlorhexidine Gluconate (Hibiclens For Decolonization -) 1 applic TP HS [facility] Last Admin: 01/17/20 23:03 Dose: Not Given Documented by: Sodium Chloride (Normal Saline -) 1,000 mls @ 100 mls/hr IV ASDIR [facility] Last Admin: 01/18/20 09:46 Dose: 100 mls/hr Documented by: Piperacillin Sod/Tazobactam (Sod 2.25 gm/ Dextrose) 50 mls @ 100 mls/hr IVPB Q6H-IV [facility]ERNANDO; Protocol Last Admin: 01/18/20 09:45 Dose: 100 mls/hr Documented by: Metoprolol Tartrate (Lopressor Injection -) 5 mg IVPUSH Q4H PRN PRN Reason: TACHYCARDIA Mupirocin (Bactroban Ointment (For Decolonization) -) 1 applic NS BID [facility] Stop: 01/21/20 09:59 Last Admin: 01/18/20 09:46 Dose: Not Given Documented by: Pantoprazole Sodium (Protonix Iv) 40 mg IVPUSH DAILY [facility] Last Admin: 01/18/20 09:45 Dose: 40 mg Documented by: - Objective Vital Signs: Vital Signs Temperature 98.9 F 01/18/20 05:36 Pulse Rate 105 H 01/18/20 05:36 Respiratory Rate 20 01/18/20 05:36 Blood Pressure 148/94 01/18/20 05:36 O2 Sat by Pulse Oximetry (%) 95 01/18/20 05:36 Eyes: Yes: WNL, Conjunctiva Clear, EOM Intact HENT: Yes: WNL, Atraumatic, Normocephalic Neck: Yes: WNL, Supple, Trachea Midline Cardiovascular: Yes: Pulse Irregular Respiratory: Yes: WNL, Regular, CTA Bilaterally Gastrointestinal: Yes: WNL, Normal Bowel Sounds Genitourinary: Yes: WNL Musculoskeletal: Yes: WNL Extremities: Yes: WNL Edema: No Integumentary: Yes: WNL Labs: CBC, BMP 01/18/20 10:00 01/18/20 10:00 INR, PTT INR 1.15 (0.83-1.09) H 01/15/20 18:37 Fibrinogen > 500.0 mg/dL (238-498) H 01/16/20 13:14 Problem List - Problems (1) Elevated liver enzymes Code(s): R74.8 - ABNORMAL LEVELS OF OTHER SERUM ENZYMES (2) NSTEMI (non-ST elevated myocardial infarction) Code(s): I21.4 - NON-ST ELEVATION (NSTEMI) MYOCARDIAL INFARCTION (3) Paroxysmal atrial fibrillation with RVR Code(s): I48.0 - PAROXYSMAL ATRIAL FIBRILLATION (4) Pneumonia Code(s): J18.9 - PNEUMONIA, UNSPECIFIED ORGANISM Qualifiers: Pneumonia type: due to unspecified organism Laterality: left Lung loca tion: lower lobe of lung Qualified Code(s): J18.9 - Pneumonia, unspecified organism (5) Sepsis Code(s): A41.9 - SEPSIS, UNSPECIFIED ORGANISM Qualifiers: Sepsis type: sepsis due to unspecified organism Sepsis acute organ dysfunction status: with acute organ dysfunction Severe sepsis acute organ dysfunction type: acute renal failure Acute renal failure type: unspecified Severe sepsis shock status: without septic shock Qualified Code(s): A41.9 - Sepsis, unspecified organism; R65.20 - Severe sepsis without septic shock; N17.9 - Acute kidney failure, unspecified (6) Thrombocytopenia Code(s): D69.6 - THROMBOCYTOPENIA, UNSPECIFIED (7) UTI (urinary tract infection) Code(s): N39.0 - URINARY TRACT INFECTION, SITE NOT SPECIFIED Qualifiers: Urinary tract infection type: site unspecified Hematuria presence: with hematuria Qualified Code(s): N39.0 - Urinary tract infection, site not specified; R31.9 - Hematuria, unspecified (8) Anxiety Code(s): F41.9 - ANXIETY DISORDER, UNSPECIFIED (9) Contusion, chest wall Code(s): S20.219A - CONTUSION OF UNSPECIFIED FRONT WALL OF THORAX, INIT ENCNTR Qualifiers: Encounter type: initial encounter Laterality: left Qualified Code(s): S20.212A - Contusion of left front wall of thorax, initial encounter (10) Shortness of breath Code(s): R06.02 - SHORTNESS OF BREATH (11) Well adult Code(s): [id number] - Assessment/Plan Assessment/Plan 1. CAD NSTEMI in context of 2. Paroxysmal afib with RVR 3. Sepsis source with partially obstructive right renal pelvis stone, possible LLL PNA 4. Toxic metabolic encephelopathy 5. Acute on CKD 6. HTN 7.ECHO nl EF 8.Schizo affective ds, Non-verbal 1. Trops are declining with supportive care, IV Lopressor as hemodynamics tolerate for rate-control, check ECG 2. Given obstructive nature of renal stone and ongoing sepsis source, would prefer percutaneous nephrostomy by IR as less invasive option if possible once rate-controlled with Rt URS, LASER and jj stent insertion once clinically stable 3. Continue empiric abx per C&S 4. Antiplatelets and anticoagulation on hold pending recovery of PLT>50 5. Due to Schizo affective ds, and patient being non-verbal she is a poor candidate for invasive cardiac w/u e.g. stress test c. cath.
[2020-01-18 11:38] LABS: ANISOCYTOSIS 2+; MACROCYTOSIS 2+; PLATELET ESTIMATE DECREASED
[2020-01-18] MEDS ORDERED: SODIUM CHLORIDE 0.45% 1,000 ML IV SCH ×2 (12:15→12:32)
--- NOTE | 2020-01-18 12:28 | PN ---
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, Physician History of Present Illness: PULMONARY AWAKE,COMFORTABLE,-RESP DISTRESS - Current Medication List Current Medications: Active Medications Chlorhexidine Gluconate (Hibiclens For Decolonization -) 1 applic TP HS [facility] Last Admin: 01/17/20 23:03 Dose: Not Given Documented by: Piperacillin Sod/Tazobactam (Sod 2.25 gm/ Dextrose) 50 mls @ 100 mls/hr IVPB Q6H-IV FERNANDO; Protocol Last Admin: 01/18/20 09:45 Dose: 100 mls/hr Documented by: Sodium Chloride (1/2 Normal Saline) 1,000 mls @ 100 mls/hr IV ASDIR FERNANDO Metoprolol Tartrate (Lopressor Injection -) 5 mg IVPUSH Q4H PRN PRN Reason: TACHYCARDIA Mupirocin (Bactroban Ointment (For Decolonization) -) 1 applic NS BID [facility] Stop: 01/21/20 09:59 Last Admin: 01/18/20 09:46 Dose: Not Given Documented by: Pantoprazole Sodium (Protonix Iv) 40 mg IVPUSH DAILY [facility] Last Admin: 01/18/20 09:45 Dose: 40 mg Documented by: - Objective Vital Signs: Vital Signs Temperature 99.1 F 01/18/20 10:00 Pulse Rate 89 01/18/20 10:00 Respiratory Rate 01/18/20 10:00 Blood Pressure 137/78 01/18/20 10:00 O2 Sat by Pulse Oximetry (%) 95 01/18/20 10:00 Constitutional: Yes: Well Nourished, Calm Eyes: Yes: WNL HENT: Yes: WNL Neck: Yes: WNL Cardiovascular: Yes: Pulse Irregular, S1, S2 Respiratory: Yes: Rhonchi (SCATTERED RHONCHI) Gastrointestinal: Yes: Normal Bowel Sounds, Soft Extremities: Yes: WNL Edema: No Labs: CBC, BMP 01/18/20 10:00 01/18/20 10:00 INR, PTT INR 1.15 (0.83-1.09) H 01/15/20 18:37 Fibrinogen > 500.0 mg/dL (238-498) H 01/16/20 13:14 Assessment/Plan A/P UTI/Nephrolithiasis Gram Negative Bacteremia Sepsis Acute on Chronic Renal Failure Thrombocytopenia Acute NSTEMI Paroxysmal Atrial Fibrillation HTN - antibiotics - S/P nephrostomy tube placement - IVF - monitor urine output, creatinine - monitor CBC, coags - rate control - DVT prophylaxis DR CARBAJAL
--- NOTE | 2020-01-18 12:32 | PN ---
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, Physician - Current Medication List Current Medications: Active Medications Chlorhexidine Gluconate (Hibiclens For Decolonization -) 1 applic TP HS [facility] Last Admin: 01/17/20 23:03 Dose: Not Given Documented by: Piperacillin Sod/Tazobactam (Sod 2.25 gm/ Dextrose) 50 mls @ 100 mls/hr IVPB Q6H-IV FERNANDO; Protocol Last Admin: 01/18/20 09:45 Dose: 100 mls/hr Documented by: Sodium Chloride (1/2 Normal Saline) 1,000 mls @ 100 mls/hr IV ASDIR [facility] Metoprolol Tartrate (Lopressor Injection -) 5 mg IVPUSH Q4H PRN PRN Reason: TACHYCARDIA Mupirocin (Bactroban Ointment (For Decolonization) -) 1 applic NS BID [facility] Stop: 01/21/20 09:59 Last Admin: 01/18/20 09:46 Dose: Not Given Documented by: Pantoprazole Sodium (Protonix Iv) 40 mg IVPUSH DAILY [facility] Last Admin: 01/18/20 09:45 Dose: 40 mg Documented by: - Objective Vital Signs: Vital Signs Temperature 99.1 F 01/18/20 10:00 Pulse Rate 89 01/18/20 10:00 Respiratory Rate 20 01/18/20 10:00 Blood Pressure 137/78 01/18/20 10:00 O2 Sat by Pulse Oximetry (%) 95 01/18/20 10:00 Labs: CBC, BMP 01/18/20 10:00 01/18/20 10:00 INR, PTT INR 1.15 (0.83-1.09) H 01/15/20 18:37 Fibrinogen > 500.0 mg/dL (238-498) H 01/16/20 13:14 Assessment/Plan A/P UTI/Nephrolithiasis Gram Negative Bacteremia Sepsis Acute on Chronic Renal Failure Thrombocytopenia Acute NSTEMI Paroxysmal Atrial Fibrillation HTN - continue antibiotics - for nephrostomy tube placement - IVF - monitor urine output, creatinine - monitor CBC, coags - rate control - DVT prophylaxis
[2020-01-18] MEDS ORDERED: ACETAMINOPHEN 1000 MG/100 ML VIAL (NON FORMULARY) IVPB ONE (12:33)
--- NOTE | 2020-01-18 13:06 | PN ---
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 (short form) - Note 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: 84 y/o F w/ pmhx of HTN, Bipolar on Aripiprazole, Fluoxetine, Mirtazapine BIBEMS from [facility] for AMS and sepsis 2/2 infected R renal stone- patient currently on IV zosyn and is s/p percutaneous nephrostomy tube called for ICU evaluation of patient for close monitoring of hypernatremia. Upon examination, pt's vital signs were stable, afebrile, satting 94% on 2L NC. Patient initially seen in ICU for mgmt of septic stone requiring perc nephrost guanako given thrombocytopenia but subsequently was downgraded to tele once pt's Afib w rvr was rate controlled. Patient AO X 2 Chest exam: b/l crackles at bases, irregular rhythm on cardio exam Abd- tender to deep palpation of lower abdomen b/l, nephrostomy tube draining Ext- trace pitting edema b/l Plan: Hypernatremia- likely 2/2 IV NS resuscitation - will switch to 1/2NS @ 100/hr, will obtain stat BMP, spoke with renal (Dr. Murphy) who will see patient and agrees with plan. Can rpt BMP q6h. Ordered CXR to eval for worsening fluid overload vs PNA. F/u cxr showing new Lt infiltrate with fluid and atelectasis at left base. Increased markings at Rt base with pulm and pleural findings increased on Lt >Rt. Pt is on zosyn for her pneumonia
--- NOTE | 2020-01-18 13:17 | PN ---
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, KAIAKO KURA TUARUA - Note 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: Selected Entries 01/18/20 01/18/20 01/18/20 02:00 05:36 10:00 Breakfast Diet Tolerated Temperature 98.7 F 98.9 F 99.1 F Pulse Rate 85 105 H 89 Blood Pressure 130/95 148/94 137/78 01/18/20 12:23 Breakfast 25% Diet Tolerated Fair Temperature Pulse Rate Blood Pressure Laboratory Tests 01/16/20 01/18/20 01/18/20 09:00 10:00 10:00 WBC 15.9 H 9.4 Sodium 162 H* On puree/nectar. Accepted little for breakfastr, mainly liquids, with good tolerance
--- NOTE | 2020-01-18 13:36 | CONSULT ---
Consult Consult Specialty:: Nephrology Reason for Consultation:: hypernatremia - History of Present Illness Chief Complaint: initially presented with altered mental status History of Present Illness: Pt is an 84 year old female with pmhx of htn and bipolar who presented with altered mental status. She was found to have sepsis secondary to and infected ri [facility] kidney stone. She is s/p right nephrostmy. SHe was found to be hypernatremic on her bloodwork and I was called to evaluate her. She is unable to give history. I reviewed the chart. She did have gram neg bacteremia and an NSTEMI. - History Source History Provided By: Medical Record - Past Medical History Cardio/Vascular: Yes: HTN ...: No Psych: Yes: Bipolar - Alcohol/Substance Use Hx Alcohol Use: No - Smoking History Smoking history: Smoker current status UNK Have you smoked in the past 12 months: No - Social History Usual Living Arrangement: Alone Home Medications - Allergies Allergies/Adverse Reactions: Allergies Allergy/AdvReac Type Severity Reaction Status Date / Time No Known Allergies Allergy Verified 01/15/20 13:46 - Home Medications Home Medications: Ambulatory Orders Acetaminophen [Tylenol] 650 mg PO QID PRN 01/15/20 Amlodipine Besylate [Norvasc -] 10 mg PO DAILY 01/15/20 Aripiprazole [Abilify -] 5 mg PO DAILY 01/15/20 Fluoxetine HCl [Prozac -] 40 mg PO DAILY 01/15/20 Mirtazapine 23 mg PO HS 01/15/20 Family Medical History Family History: Unable to Obtain Review of Systems Unable to obtain ROS, reason: not verbal Physical Exam Vital Signs: Vital Signs Temperature 99.1 F 01/18/20 10:00 Pulse Rate 89 01/18/20 10:00 Respiratory Rate 20 01/18/20 10:00 Blood Pressure 137/78 01/18/20 10:00 O2 Sat by Pulse Oximetry (%) 95 01/18/20 10:00 Constitutional: Yes: Calm Eyes: Yes: Conjunctiva Clear HENT: Yes: Atraumatic Cardiovascular: Yes: S1, S2 Respiratory: Yes: On Nasal O2 Gastrointestinal: Yes: Soft Renal/: Yes: العلي Present, Other (right nephrostomy) Musculoskeletal: Yes: Muscle Weakness Edema: No Neurological: Yes: Other (awake, non verbal) Labs: CBC, BMP 01/18/20 10:00 01/18/20 10:00 Imaging - Results Chest X-ray: Report Reviewed Problem List - Problems (1) DK (acute kidney injury) Code(s): N17.9 - ACUTE KIDNEY FAILURE, UNSPECIFIED (2) Hypernatremia Code(s): E87.0 - HYPEROSMOLALITY AND HYPERNATREMIA (3) NSTEMI (non-ST elevated myocardial infarction) Code(s): I21.4 - NON-ST ELEVATION (NSTEMI) MYOCARDIAL INFARCTION Assessment/Plan Current Medications Generic Name Dose Route Start Last Admin Trade Name Freq PRN Reason Stop Dose Admin Chlorhexidine Gluconate 1 applic 01/17/20 22:00 01/17/20 23:03 Hibiclens For Decolonization - TP Not Given HS FERNANDO Piperacillin Sod/Tazobactam 50 mls @ 100 mls/hr 01/17/20 09:00 01/18/20 09:45 Sod 2.25 gm/ Dextrose IVPB 100 mls/hr Q6H-IV FERNANDO Administration Protocol Sodium Chloride 1,000 mls @ 42 mls/hr 01/18/20 12:32 1/2 Normal Saline IV ASDIR FERNANDO Metoprolol Tartrate 5 mg 01/17/20 05:02 Lopressor Injection - IVPUSH Q4H PRN TACHYCARDIA Mupirocin 1 applic 01/17/20 10:00 01/18/20 09:46 Bactroban Ointment (For Decolonization) - NS 01/21/20 09:59 Not Given BID FERNANDO Pantoprazole Sodium 40 mg 01/17/20 10:00 01/18/20 09:45 Protonix Iv IVPUSH 40 mg DAILY FERNANDO Administration Laboratory Tests 02/05/18 01/15/20 01/16/20 06:30 13:45 06:35 Sodium 149 H BUN 86.9 H Creatinine 0.7 2.9 H 1.8 H 01/18/20 10:00 Sodium 162 H* BUN 54.1 H Creatinine 1.0 Microbiology 01/15/20 13:55 Blood - Peripheral Venous Blood Culture - Final Proteus Mirabilis 01/15/20 13:45 Blood - Peripheral Venous Blood Culture - Final Proteus Mirabilis 01/15/20 13:05 Urine - Urine - Catheterized Urine Culture - Final Proteus Mirabilis Impression 1. dk 2. hypernatremia 3. hypokalemia 4. sepsis 5. nstemi 6. gram neg bacteremia 7. htn 8. a-fib 9. thrombocytopenia Plan - change fluids to 1/2 ns - repeat bmp now to confirm findings - cont to monito rbp - cont oxygen - call with repeat labs - renal function improving - cont to follow repeat cultures - check mag - add potassium to fluids
--- NOTE | 2020-01-18 13:46 | PN ---
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 (short form) - Note 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: alert speaking today! Vital Signs Period Temp Pulse Resp BP Sys/Mcmullen Pulse Ox Last 24 Hr 98.1 F-99.1 F 72-105 19-22 130-149/63-95 92-100 cor-rrr lungs clear abd soft,nt kline clear urine PCN bloody urine ext no edema CBC, BMP 01/18/20 10:00 01/18/20 10:00 Microbiology 01/15/20 13:45 Blood - Peripheral Venous Blood Culture - Final Proteus Mirabilis 01/15/20 13:55 Blood - Peripheral Venous Blood Culture - Final Proteus Mirabilis 01/16/20 20:49 Urine For Antigen Detection Legionella Antigen - Final 01/16/20 20:49 Urine For Antigen Detection Streptococcus pneumoniae Antigen (M - Final 01/15/20 13:05 Urine - Urine - Catheterized Urine Culture - Final Proteus Mirabilis imp/reccd PROTEUS bacteremia secondary to UTI- obstructive uropathy -s/p PCN p thrombocytopenia secondary to infection DK resolved positive troponins new afib schizo-affective disorder switch to ceftriaxone
--- NOTE | 2020-01-18 13:49 | PN ---
Teaching Attending Note Name of Resident: Herbert Page ATTENDING PHYSICIAN STATEMENT I saw and evaluated the patient. I reviewed the resident's note and discussed the case with the resident. I agree with the resident's findings and plan as documented. SUBJECTIVE: Seen and examined at bedside. Patient is alert and oriented x0 and is making n onsensical speech. Bibasilar crackles bilaterally. No labs were drawn yesterday. This morning patient noted to be saturating 80% on room air, tachycardic to 105 with stable blood pressure. Labs this morning significant for sodium of 162 in the setting of normal saline running for the last several days, potassium of 3, improving white count and creatinine, and platelets of 52 down from 94. Nephrostomy tube placed yesterday without complication. ICU consulted due to worsening hypernatremia. OBJECTIVE Last Vital Signs Temp Pulse Resp BP Pulse Ox 99.1 F 89 20 137/78 95 01/18/20 10:00 01/18/20 10:00 01/18/20 10:00 01/18/20 10:00 01/18/20 10:00 PE: Per resident note Labs/Imaging: reviewed ASSESSMENT/PLAN 84-year-old male history of hypertension bipolar disorder admitted for severe sepsis to ICU in the setting of infected kidney stone and possible pneumonia. #Severe sepsis: Proteus bacteremia In setting of infected obstructing kidney stone 1.4cm and possible pneumonia. Patient is now hemodynamically stable with improving white count status post Zosyn, right nephrostomy, and العلي catheter. Troponin downtrending, DK resolved, continuing thrombocytopenia Switch fluids to D5 half NS given hypernatremia Urology on board, stent when stable #hypoxia Given bibasilar crackles suspects patient is fluid overloaded Switching to D5 half NS due to hypernatremia Check chest x-ray Patient may require Lasix now the creatinine improved and blood pressure stabilized #Hypernatremia Likely iatrogenic due to normal saline in setting of impaired kidney function due to sepsis and obstructive uropathy Every 4 hour basic metabolic panel ICU consulted for readmission Switch to D5 half NS Nephrology on board: Pending recommendations #Thrombocytopenia Likely in the setting of severe sepsis. Patient's platelets were normal in 2018 Trend CBC Platelet transfusion to greater than 50 may be required prior to stent placement #New onset atrial fibrillation In the setting of sepsis PRN IV metoprolol May require outpatient Holter monitoring to determine need for anticoagulation in the future #Prerenal and postrenal DK: Resolved
--- NOTE | 2020-01-18 14:22 | PN ---
Physical Exam: SUBJECTIVE: Patient seen and examined. Pt. able to answer yes and no at baseline but currently only saying "yes" to certain questions. It appears Pt. does understand questions and follows some commands. Events over the last 48 hours noted. Attempted to wean O2 this AM from 1.5 L NC, per RN Pt. desaturated to ~80% and O2 had to be titrated up to 4 L. OBJECTIVE: Vital Signs Period Temp Pulse Resp BP Sys/Mcmullen Pulse Ox Last 24 Hr 98.1 F-99.1 F 72-105 19-22 130-149/63-95 92-100 GENERAL: The patient is awake, alert, in no acute distress. HEAD: Normal with no signs of trauma. EYES: PERRL, sclera anicteric, conjunctiva clear. ENT: Ears normal, nares patent, oropharynx clear without exudates, dry mucous membranes. NECK: Trachea midline, full range of motion, supple. LUNGS: Breath sounds equal, clear to auscultation bilaterally, no wheezes, no crackles, no accessory muscle use. HEART: Regular rate and rhythm, S1, S2 without murmur, rub or gallop. ABDOMEN: Soft, nontender, nondistended, normoactive bowel sounds, no guarding, no rebound. العلي noted to have red urine and clots. Nephrostomy tube noted to have 100ml of serosanguinous drainage EXTREMITIES: 2+ dorsal pedal pulses, warm, no calf tendernesswell-perfused, no edema. NEUROLOGICAL: Limited as Pt. did not follow commands, gait not observed. PSYCH: Normal mood, normal affect. SKIN: Warm, dry Laboratory Results - last 24 hr 01/18/20 01/18/20 10:00 10:00 WBC 9.4 RBC 3.32 L Hgb 11.7 Hct 34.7 MCV 104.5 H MCH 35.3 H MCHC 33.8 RDW 15.2 Plt Count 52 L D MPV 11.0 D Neutrophils % No Result Required. Neutrophils % (Manual) 87.0 H Band Neutrophils % 4.0 Lymphocytes % No Result Required. Lymphocytes % (Manual) 8.0 D Monocytes % (Manual) 1 L Eosinophils % (Manual) 0.0 D Basophils % (Manual) 0.0 Myelocytes % (Man) 0 Promyelocytes % (Man) 0 Blast Cells % (Manual) 0 Nucleated RBC % 0 Metamyelocytes 0 Hypochromia 0 Platelet Estimate Decreased Polychromasia 1+ Poikilocytosis 0 Anisocytosis 2+ Microcytosis 0 Macrocytosis 2+ Sodium 162 H* Potassium 3.0 L Chloride 132 H Carbon Dioxide 23 Anion Gap 8 BUN 54.1 H Creatinine 1.0 Est GFR (CKD-EPI)AfAm 60.76 Est GFR (CKD-EPI)NonAf 52.42 Random Glucose 136 H Calcium 8.2 L Phosphorus 2.7 Magnesium 2.1 Total Bilirubin 2.3 H AST 36 ALT 24 Alkaline Phosphatase 113 Total Protein 5.3 L Albumin 1.8 L Active Medications Generic Name Dose Route Start Last Admin Trade Name Freq PRN Reason Stop Dose Admin Chlorhexidine Gluconate 1 applic 01/17/20 22:00 01/17/20 23:03 Hibiclens For Decolonization - TP Not Given HS FERNANDO Potassium Chloride 10 meq/ 1,005 mls @ 65 mls/hr 01/18/20 13:40 Sodium Chloride IVPB ASDIR FERNANDO Potassium Chloride 10 meq in 100 mls @ 100 mls/hr 01/18/20 13:45 Potassium Chloride 10 Meq Premix Ivpb - IVPB 01/18/20 14:44 Q60M FERNANDO Ceftriaxone Sodium 2 gm in 50 mls @ 100 mls/hr 01/18/20 14:00 Ceftriaxone 2 Gm-D5w Bag IVPB DAILY [facility] Protocol Metoprolol Tartrate 5 mg 01/17/20 05:02 Lopressor Injection - IVPUSH Q4H PRN TACHYCARDIA Mupirocin 1 applic 01/17/20 10:00 01/18/20 09:46 Bactroban Ointment (For Decolonization) - NS 01/21/20 09:59 Not Given BID FERNANDO Pantoprazole Sodium 40 mg 01/17/20 10:00 01/18/20 09:45 Protonix Iv IVPUSH 40 mg DAILY FERNANDO Administration ASSESSMENT/PLAN: Pt. is an 84 y.o. F w/ PMHx. of HTN, Major Depression, and Schizoaffective disorder (Aripiprazole, Fluoxetine, Mirtazapine) was brought in by EMS from [facility] for AMS. #Acute Metabolic Encephalopathy 2/2 Severe Sepsis 2/2 UTI -CTH: no acute findings; cerebral atrophy; old LEFT parietal infarct; chronic periventricular ischemic changes -Neuro checks -c/w Ceftriaxone -D/c IVF as Pt. is volume overloaded -CTAP: 1.4 cm partially obstructing calculus Right renal pelvis -s/p Vanc 1gm and Zosyn 3.375 in ED. -ID consult appreciated -ucx: proteus species, >100.000 CFU -blood culture growing Proteus in 2 sets, f/u Rpt. BCx. #Hypoxia 2/2/ Aspiration PNA? -c/w supplemental O2 to keep saturation above 90% -Chest CT: Left lower lobe bronchiectasis and consolidation -CXR showing small left pleural effusion and Left Lobe consolidaiton -will consider switching to Zosyn in AM, ID consult appreciated. #New Onset Paroxysmal afib w/ RVR #NSTEMI #HTN -Troponin down trending -will d/w CArdiology restarting AC and antiplatelets in AM -Platelets were less than 50k therefore they were not started. Pt. had platelets at 52 k yesterday, but there was hematuria and serosangiunous drainage in the nephrostomy bag therefore AC was not restarted. -EKG: afib w/ RVR, L axis deviation. Inferior & anterior infract (cited on/before 01/15/2020). ST & T wave abnormality, consider lateral ischemia -trops downtrending from 10.9 to 4.43, f/u AM -IV lopressor for rate control as BP can tolerate -defer AC currently given thrombocytopenia -continue holding home Amlodipine 10 -cardio consult appreciated--> not a candidate for stress or cardiac cath\\ #Hypernatremia Iatrogenic in etiology. DC IVF Placed NGT to give free water. Given 500cc bolus x 1, as Pt. is volume overloaded we decided not to give more IVF fluids to correct sodium BMP Q8-12H, correct Na by no more than 8 points/24 period NA: 163 Renal consult appreciated #DK- now resolved s/p IVF #Thrombocytopenia. 2 units platelets given today. Repeat Plt: 94 -->54k today likely secondary to severe sepsis. Will do hepatic workup if Platelets continue to downtrend. Prophylaxis DVT: SCDs, hold AC in setting of thrombocytopenia GI: Protonix 40 IV FEN -D/c IVF, encourage PO intake via NGT. -releted potassium, check magnesium and replete if needed -Dysphagia puree DISPO Telemetry, Pt. rejected as readmission to ICU c/w monitor on TELE Visit type - Emergency Visit Emergency Visit: Yes ED Registration Date: 01/15/20 Care time: The patient presented to the Emergency Department on the above date and was hospitalized for further evaluation of their emergent condition. - New Patient This patient is new to me today: Yes Date on this admission: 01/18/20 - Critical Care Critical Care patient: No - Discharge Referral Referred to [facility] Med P.C[facility] No - Medication Review Med list reviewed for High Risk Meds patients 65 and older: Yes ATTENDING PHYSICIAN STATEMENT I saw and evaluated the patient. I reviewed the resident's note and discussed the case with the resident. I agree with the resident's findings and plan as documented. SUBJECTIVE: OBJECTIVE: ASSESSMENT AND PLAN:
[2020-01-18 14:26] LABS: BLOOD UREA NITROGEN 54.1 mg/dL (7-18); CALCIUM 8.1 mg/dL (8.5-10.1)
[2020-01-18 14:32] LABS: POTASSIUM 2.9 mmol/L (3.5-5.1)
[2020-01-18] MEDS ORDERED: KCL 10 MEQ IVPB 10 MEQ/100 ML INFUS.BAG IVPB SCH (15:00)
[2020-01-18] MEDS ORDERED: POTASSIUM CHLORIDE 10 MEQ in SODIUM CHLORIDE 0.45% 1,000 ML IVPB SCH (15:00)
[2020-01-18] MEDS ORDERED: DEXTROSE 5%-WATER 100 ML IVPB ONE (15:21)
[2020-01-18] MEDS: CEFTRIAXONE 2 GM in DEXTROSE 5%-WATER 100 ML IVPB SCH (15:21)
[2020-01-18 15:45] VITALS: BMI 25.0
[2020-01-18] MEDS ORDERED: POTASSIUM CHLORIDE ORAL LIQUID 20 MEQ/15 ML PO ONE (16:18)
[2020-01-18 17:19] LABS: ALBUMIN 1.6 g/dl (3.4-5.0); BILIRUBIN,TOTAL 2.6 mg/dL (0.2-1); BLOOD UREA NITROGEN 55.7 mg/dL (7-18); CALCIUM 8.2 mg/dL (8.5-10.1); CREATININE 1.1 mg/dL (0.55-1.3); TOT PROT 4.9 g/dl (6.4-8.2)
[2020-01-18 17:30] LABS: POTASSIUM 2.9 mmol/L (3.5-5.1)
[2020-01-18 20:02] LABS: BLOOD UREA NITROGEN 53.4 mg/dL (7-18); CALCIUM 7.9 mg/dL (8.5-10.1); CREATININE 1.1 mg/dL (0.55-1.3); POTASSIUM 3.9 mmol/L (3.5-5.1)
[2020-01-18] MEDS: CHLORHEXIDINE GLUCONATE 4% CLEANSER FOR DECOLONIZATION TP SCH (21:43)
[2020-01-18 22:10] LABS: BLOOD UREA NITROGEN 53.9 mg/dL (7-18); CALCIUM 8.1 mg/dL (8.5-10.1); CREATININE 1.2 mg/dL (0.55-1.3); POTASSIUM 3.7 mmol/L (3.5-5.1)
[2020-01-19 00:13] LABS: ALBUMIN 1.6 g/dl (3.4-5.0); BILIRUBIN,TOTAL 2.2 mg/dL (0.2-1); BLOOD UREA NITROGEN 50.1 mg/dL (7-18); CALCIUM 8.4 mg/dL (8.5-10.1); CREATININE 1.1 mg/dL (0.55-1.3); POTASSIUM 3.7 mmol/L (3.5-5.1); TOT PROT 4.9 g/dl (6.4-8.2)
[2020-01-19 03:43] LABS: BLOOD UREA NITROGEN 48.4 mg/dL (7-18); CALCIUM 8.2 mg/dL (8.5-10.1); POTASSIUM 3.5 mmol/L (3.5-5.1)
[2020-01-19] MEDS ORDERED: POTASSIUM CHLORIDE 10 MEQ in SODIUM CHLORIDE 0.45% 1,000 ML IVPB SCH (05:00)
[2020-01-19 06:52] LABS: BASO % 0.3 % (0-2.0); EOS % 0.6 % (0-4.5); HEMOGLOBIN 10.5 GM/dL (10.7-15.3); LYMPH % 7.8 % (8-40); MCH 34.1 pg (25.7-33.7); MCHC 32.9 g/dl (32.0-36.0); MEAN CELL VOLUME 103.4 fl (80-96); MEAN PLT VOLUME 10.9 fl (7.5-11.1); MONO % 3.3 % (3.8-10.2); PLATELET COUNT 56 K/MM3 (134-434); RBC 3.09 M/mm3 (3.60-5.2); RDW 15.2 % (11.6-15.6); WHITE BLOOD COUNT 11.2 K/mm3 (4.0-10.0)
--- NOTE | 2020-01-19 07:14 | EKG ---
Test Reason : Blood Pressure : / mmHG Vent. Rate : 094 BPM Atrial Rate : 094 BPM P-R Int : 154 ms QRS Dur : 084 ms QT Int : 334 ms P-R-T Axes : 037 -59 005 degrees QTc Int : 417 ms SINUS RHYTHM WITH PREMATURE VENTRICULAR COMPLEXES LEFT AXIS DEVIATION INFERIOR INFARCT (CITED ON OR BEFORE 15-JAN-2020) CANNOT RULE OUT ANTERIOR INFARCT (CITED ON OR BEFORE 15-JAN-2020) ABNORMAL ECG WHEN COMPARED WITH ECG OF 16-JAN-2020 11:32, SINUS RHYTHM HAS REPLACED ATRIAL FIBRILLATION Confirmed by MD SOLOMON, CHRIS ([id number]) on 01/18/2020 1:09:35 PM Referred By: Keya STAUFFER Confirmed By:CHRIS CARBAJAL MD
[2020-01-19 07:20] LABS: ALBUMIN 1.7 g/dl (3.4-5.0); BILIRUBIN,TOTAL 2.5 mg/dL (0.2-1); CALCIUM 8.2 mg/dL (8.5-10.1); MAGNESIUM 1.9 mg/dL (1.8-2.4); PHOSPHOROUS 2.9 mg/dL (2.5-4.9); POTASSIUM 3.4 mmol/L (3.5-5.1)
--- NOTE | 2020-01-19 07:48 | PN ---
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, Physician History of Present Illness: pulmonary awake,alert,comfortable,+cough - Current Medication List Current Medications: Active Medications Chlorhexidine Gluconate (Hibiclens For Decolonization -) 1 applic TP HS [facility] Last Admin: 01/18/20 21:43 Dose: Not Given Documented by: Ceftriaxone Sodium 2 gm/ (Dextrose) 100 mls @ 200 mls/hr IVPB DAILY [facility]; Protocol Last Admin: 01/18/20 15:21 Dose: 200 mls/hr Documented by: Potassium Chloride 10 meq/ (Sodium Chloride) 1,005 mls @ 100 mls/hr IVPB Q13H [facility] Metoprolol Tartrate (Lopressor Injection -) 5 mg IVPUSH Q4H PRN PRN Reason: TACHYCARDIA Mupirocin (Bactroban Ointment (For Decolonization) -) 1 applic NS BID [facility] Stop: 01/21/20 09:59 Last Admin: 01/18/20 21:43 Dose: Not Given Documented by: Pantoprazole Sodium (Protonix Iv) 40 mg IVPUSH DAILY [facility] Last Admin: 01/18/20 09:45 Dose: 40 mg Documented by: - Objective Vital Signs: Vital Signs Temperature 99 F 01/19/20 06:00 Pulse Rate 90 01/19/20 06:00 Respiratory Rate 20 01/19/20 06:00 Blood Pressure 136/66 01/19/20 06:00 O2 Sat by Pulse Oximetry (%) 89 L 01/19/20 06:00 Constitutional: Yes: Well Nourished, Calm Eyes: Yes: WNL HENT: Yes: WNL Neck: Yes: WNL Cardiovascular: Yes: Regular Rate and Rhythm, S1, S2 Respiratory: Yes: Rales (crackles on left) Gastrointestinal: Yes: Normal Bowel Sounds, Soft Extremities: Yes: WNL Edema: No Labs: CBC, BMP 01/19/20 05:30 INR, PTT INR 1.15 (0.83-1.09) H 01/15/20 18:37 Fibrinogen > 500.0 mg/dL (238-498) H 01/16/20 13:14 - ....Imaging Chest X-ray: Report Reviewed, Image Reviewed Assessment/Plan Assessment/Plan A/P UTI/Nephrolithiasis Gram Negative Bacteremia Sepsis Acute on Chronic Renal Failure Thrombocytopenia Acute NSTEMI Paroxysmal Atrial Fibrillation HTN Pneumonia Hypernatremia - O2 as needed - antibiotics - S/P nephrostomy tube placement - IVF - monitor urine output, creatinine - monitor CBC, coags,lytes,na - rate control - DVT prophylaxis - f/u chest x-rays DR CARBAJAL
--- NOTE | 2020-01-19 07:50 | PN ---
Physical Exam: SUBJECTIVE: Patient seen and examined at bedside. Pt found to be desatting in the 80s this afternoon. Pt oxygen therapy escalated to ventimask. Daughter notified. OBJECTIVE: Vital Signs Period Temp Pulse Resp BP Sys/Mcmullen Pulse Ox Last 24 Hr 97.8 F-100.2 F 74-91 20-22 129-150/63-90 89-95 GENERAL: The patient is awake, alert, in no acute distress. HEAD: Normal with no signs of trauma. EYES: PERRL, sclera anicteric, conjunctiva clear. ENT: Ears normal, nares patent, oropharynx clear without exudates, dry mucous membranes. NECK: Trachea midline, full range of motion, supple. LUNGS: Breath sounds equal, clear to auscultation bilaterally, no wheezes, no crackles, no accessory muscle use. HEART: Regular rate and rhythm, S1, S2 without murmur, rub or gallop. ABDOMEN: Soft, nontender, nondistended, normoactive bowel sounds, no guarding, no rebound. العلي noted to have red urine and clots. Nephrostomy tube noted to have 100ml of serosanguinous drainage EXTREMITIES: 2+ dorsal pedal pulses, warm, no calf tendernesswell-perfused, no edema. NEUROLOGICAL: Limited as Pt. did not follow commands, gait not observed. PSYCH: Normal mood, normal affect. SKIN: Warm, dry Laboratory Results - last 24 hr 01/18/20 01/18/20 01/18/20 10:00 10:00 13:50 WBC 9.4 RBC 3.32 L Hgb 11.7 Hct 34.7 MCV 104.5 H MCH 35.3 H MCHC 33.8 RDW 15.2 Plt Count 52 L D MPV 11.0 D Neutrophils % No Result Required. Neutrophils % (Manual) 87.0 H Band Neutrophils % 4.0 Lymphocytes % No Result Required. Lymphocytes % (Manual) 8.0 D Monocytes % (Manual) 1 L Eosinophils % (Manual) 0.0 D Basophils % (Manual) 0.0 Myelocytes % (Man) 0 Promyelocytes % (Man) 0 Blast Cells % (Manual) 0 Nucleated RBC % 0 Metamyelocytes 0 Hypochromia 0 Platelet Estimate Decreased Polychromasia 1+ Poikilocytosis 0 Anisocytosis 2+ Microcytosis 0 Macrocytosis 2+ Sodium 162 H* 163 H* Potassium 3.0 L 2.9 L* Chloride 132 H 133 H Carbon Dioxide 23 24 Anion Gap 8 6 L BUN 54.1 H 54.1 H Creatinine 1.0 1.0 Est GFR (CKD-EPI)AfAm 60.76 60.76 Est GFR (CKD-EPI)NonAf 52.42 52.42 Random Glucose 136 H 120 H Calcium 8.2 L 8.1 L Phosphorus 2.7 Magnesium 2.1 Total Bilirubin 2.3 H AST 36 ALT 24 Alkaline Phosphatase 113 Total Protein 5.3 L Albumin 1.8 L 01/18/20 01/18/20 01/18/20 16:00 18:15 21:00 WBC RBC Hgb Hct MCV MCH MCHC RDW Plt Count MPV Neutrophils % Neutrophils % (Manual) Band Neutrophils % Lymphocytes % Lymphocytes % (Manual) Monocytes % (Manual) Eosinophils % (Manual) Basophils % (Manual) Myelocytes % (Man) Promyelocytes % (Man) Blast Cells % (Manual) Nucleated RBC % Metamyelocytes Hypochromia Platelet Estimate Polychromasia Poikilocytosis Anisocytosis Microcytosis Macrocytosis Sodium 161 H* 160 H 161 H* Potassium 2.9 L* 3.9 3.7 Chloride 132 H 131 H 132 H Carbon Dioxide 25 24 25 Anion Gap 4 L 5 L 5 L BUN 55.7 H 53.4 H 53.9 H Creatinine 1.1 1.1 1.2 Est GFR (CKD-EPI)AfAm 54.15 54.15 48.74 Est GFR (CKD-EPI)NonAf 46.72 46.72 42.05 Random Glucose 109 H 118 H 108 H Calcium 8.2 L 7.9 L 8.1 L Phosphorus Magnesium 2.0 Total Bilirubin 2.6 H AST 47 H ALT 27 Alkaline Phosphatase 120 H Total Protein 4.9 L Albumin 1.6 L 01/18/20 01/19/20 01/19/20 22:54 03:00 05:30 WBC RBC Hgb Hct MCV MCH MCHC RDW Plt Count MPV Neutrophils % Neutrophils % (Manual) Band Neutrophils % Lymphocytes % Lymphocytes % (Manual) Monocytes % (Manual) Eosinophils % (Manual) Basophils % (Manual) Myelocytes % (Man) Promyelocytes % (Man) Blast Cells % (Manual) Nucleated RBC % Metamyelocytes Hypochromia Platelet Estimate Polychromasia Poikilocytosis Anisocytosis Microcytosis Macrocytosis Sodium 159 H 160 H 157 H Potassium 3.7 3.5 3.4 L Chloride 130 H 131 H 128 H Carbon Dioxide 24 23 24 Anion Gap 5 L 6 L 5 L BUN 50.1 H 48.4 H 47.0 H Creatinine 1.1 1.0 1.0 Est GFR (CKD-EPI)AfAm 54.15 60.76 60.76 Est GFR (CKD-EPI)NonAf 46.72 52.42 52.42 Random Glucose 104 108 H 103 Calcium 8.4 L 8.2 L 8.2 L Phosphorus 2.9 Magnesium 1.9 Total Bilirubin 2.2 H 2.5 H AST 52 H 53 H ALT 30 33 Alkaline Phosphatase 125 H 123 H Total Protein 4.9 L 5.0 L Albumin 1.6 L 1.7 L Active Medications Generic Name Dose Route Start Last Admin Trade Name Freq PRN Reason Stop Dose Admin Chlorhexidine Gluconate 1 applic 01/17/20 22:00 01/18/20 21:43 Hibiclens For Decolonization - TP Not Given HS FERNANDO Ceftriaxone Sodium 2 gm/ 100 mls @ 200 mls/hr 01/18/20 15:15 01/18/20 15:21 Dextrose IVPB 200 mls/hr DAILY FERNANDO Administration Protocol Potassium Chloride 10 meq/ 1,005 mls @ 100 mls/hr 01/19/20 05:00 Sodium Chloride IVPB Q13H FERNANDO Metoprolol Tartrate 5 mg 01/17/20 05:02 Lopressor Injection - IVPUSH Q4H PRN TACHYCARDIA Mupirocin 1 applic 01/17/20 10:00 01/18/20 21:43 Bactroban Ointment (For Decolonization) - NS 01/21/20 09:59 Not Given BID FERNANDO Pantoprazole Sodium 40 mg 01/17/20 10:00 01/18/20 09:45 Protonix Iv IVPUSH 40 mg DAILY FERNANDO Administration ASSESSMENT/PLAN: 84 y.o. F w/ PMHx. of HTN, Major Depression, and Schizoaffective disorder (Aripiprazole, Fluoxetine, Mirtazapine) was brought in by EMS from [facility] for AMS. #Acute Metabolic Encephalopathy; in setting of UTI infection -CTH: no acute findings; cerebral atrophy; old LEFT parietal infarct; chronic periventricular ischemic changes -Neuro checks -Per ID, cont with Ceftriaxone 2gm QD (received IV Vanc/Zosyn in ED) -CTAP: 1.4 cm partially obstructing calculus Right renal pelvis -BCx/UCx +Proteus mirabilis; repeat cultures pending #Hypoxia 2/2 Aspiration PNA vs. ? PE -Pt found to be hypoxic today on NC and ventimask; escalated to NRB and now satting well at 97-98% -Given pt is hypoxic and not currently on AC due to thrombocytopenia; will obtain CTA chest to r/o PE. If CTA+ for PE, will need to consult heme regarding AC recommendation in setting of thrombocytopenia (Lovenox vs. Heparin gtt, which can be easily discontinued in case of spontaneous bleed) -Chest CT: Left lower lobe bronchiectasis and consolidation -CXR showing small left pleural effusion and Left Lobe consolidation #Hypernatremia; likely iatrogenic -Placed NGT to give free water. Given 500cc bolus x 1, will continue with 250cc q4h -BMP Q8H, correct Na by no more than 8 points/24 period -Na today 157 -Per renal, change to D5W w/ IV KCl #New Onset Paroxysmal afib w/ RVR; Now NSR. Cont to monitor on tele. Metoprolol 5 mg Q4H IVP PRN for rate control. #NSTEMI; Trops trending down. Not currently on AC in setting of thrombocytopenia. Cardio recs appreciated. #HTN -EKG: afib w/ RVR, L axis deviation. Inferior & anterior infract (cited on/before 01/15/2020). ST & T wave abnormality, consider lateral ischemia -trops downtrending from 10.9 to 4.43, f/u AM -IV lopressor for rate control as BP can tolerate -defer AC currently given thrombocytopenia -continue holding home Amlodipine 10 -cardio consult appreciated--> not a candidate for stress or cardiac cath #DK; Resolved. #Thrombocytopenia; Stable. Pl 56k today (up from 52k yesterday) -s/p 2 units platelets this admission -likely 2/2 severe sepsis. Will do hepatic workup if Platelets continue to downtrend. #Prophylaxis DVT: SCDs, hold AC in setting of thrombocytopenia GI: Protonix 40 IV #FEN -250cc q4h of free water -recheck lytes in AM -Dysphagia puree Dispo -Telemetry, Pt. rejected as readmission to ICU -c/w monitor on TELE Visit type - Emergency Visit Emergency Visit: Yes ED Registration Date: 01/15/20 Care time: The patient presented to the Emergency Department on the above date and was hospitalized for further evaluation of their emergent condition. - New Patient This patient is new to me today: No - Critical Care Critical Care patient: No - Discharge Referral Referred to [facility] Med [facility] No - Medication Review Med list reviewed for High Risk Meds patients 65 and older: Yes ATTENDING PHYSICIAN STATEMENT I saw and evaluated the patient. I reviewed the resident's note and discussed the case with the resident. I agree with the resident's findings and plan as documented. SUBJECTIVE: OBJECTIVE: ASSESSMENT AND PLAN:
[2020-01-19] MEDS ORDERED: POTASSIUM CHLORIDE ORAL LIQUID 20 MEQ/15 ML PO ONE (08:15)
[2020-01-19] MEDS ORDERED: DEXTROSE 5%-WATER 100 ML IVPB ONE (09:33)
--- NOTE | 2020-01-19 09:59 | PN ---
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, OUTSIDE [employer]ES REPRESENTATIVE - Note 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: Selected Entries 01/18/20 01/18/20 01/18/20 02:00 05:36 09:00 Breakfast Supper 0 Temperature Pulse Rate Blood Pressure O2 Sat by Pulse 92 L 95 95 Oximetry (%) Oxygen Delivery Nasal Cannula Method Oxygen Flow 3 Rate 01/18/20 01/18/20 01/18/20 10:00 12:23 15:00 Breakfast 25% 25% Supper Temperature Pulse Rate Blood Pressure O2 Sat by Pulse 95 Oximetry (%) Oxygen Delivery Method Oxygen Flow Rate 01/18/20 01/18/20 01/19/20 21:00 22:00 02:00 Breakfast Supper Temperature 99 F Pulse Rate 91 H Blood Pressure 150/90 O2 Sat by Pulse 95 95 90 L Oximetry (%) Oxygen Delivery Nasal Cannula Method Oxygen Flow 5 Rate 01/19/20 06:00 Breakfast Supper Temperature 99 F Pulse Rate 90 Blood Pressure 136/66 O2 Sat by Pulse 89 L Oximetry (%) Oxygen Delivery Method Oxygen Flow Rate Laboratory Tests 01/18/20 01/19/20 10:00 05:30 WBC 9.4 11.2 H Alert, Pt pulled out ngt, wehich was used for free water only. Pt readily accepted liquids via cup, cough response with thin water, c/w aspiration. However, accepted/tolerated 2 ahsan hn without difficulty. Educated nursing/manager rail/rd re feeding recommendations REC-2 ahsan HN 4 daily, nectar thick liquid, encourage po intake/sufficient hydration po monitor tolerance
[2020-01-19] MEDS: MUPIROCIN 2% TOPICAL OINTMENT FOR DECOLONIZATION NS SCH ×2 (10:12→21:41)
[2020-01-19] MEDS: PANTOPRAZOLE SODIUM 40 MG VIAL IVPUSH SCH (11:11)
[2020-01-19] MEDS: CEFTRIAXONE 2 GM in DEXTROSE 5%-WATER 100 ML IVPB SCH (11:12)
--- NOTE | 2020-01-19 12:31 | PN ---
Teaching Attending Note Name of Resident: Lisbet Bullard ATTENDING PHYSICIAN STATEMENT I saw and evaluated the patient. I reviewed the resident's note and discussed the case with the resident. I agree with the resident's findings and plan as documented. SUBJECTIVE: Seen and examined at bedside. Patient is alert and oriented x0. Sodium down to 157. Nursing reports NG tube has come out. Will replace. Platelets have started to trend up. OBJECTIVE Last Vital Signs Temp Pulse Resp BP Pulse Ox 99 F 90 20 136/66 89 L 01/19/20 06:00 01/19/20 06:00 01/19/20 06:00 01/19/20 06:00 01/19/20 06:00 PE: Per resident note Labs/Imaging: reviewed ASSESSMENT/PLAN 84-year-old male history of hypertension bipolar disorder admitted for severe sepsis to ICU in the setting of infected kidney stone and possible pneumonia. #Severe sepsis: Proteus bacteremia In setting of infected obstructing kidney stone 1.4cm and possible pneumonia. Patient is now hemodynamically stable with improving white count status post Zosyn, right nephrostomy, and العلي catheter. Troponin downtrending, DK resolved, continuing thrombocytopenia Switch fluids to D5 half NS given hypernatremia Urology on board, stent when stable #Hypernatremia Likely iatrogenic due to normal saline in setting of impaired kidney function due to sepsis and obstructive uropathy Every 8 hour basic metabolic panel free water via NGT 250mL q4h standing Nephrology on board: Pending recommendations #hypoxia Given bibasilar crackles suspects patient is fluid overloaded now receiving free water via NGT rather than IVF #Thrombocytopenia: improving Likely in the setting of severe sepsis. Patient's platelets were normal in 2018 Trend CBC Platelet transfusion to greater than 50 may be required prior to stent placement #New onset atrial fibrillation In the setting of sepsis PRN IV metoprolol May require outpatient Holter monitoring to determine need for anticoagulation in the future #Prerenal and postrenal DK: Resolved
--- NOTE | 2020-01-19 13:43 | PN ---
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, Physician History of Present Illness: 84 Y/O Female patient with Bipolar disease, HTN from [facility]. She is presented into ER with confusion fever 102.4, hypoxic respiratory failure WBC 22.9 HB 13. Plt 27 BUN 95.4 Creat 2.9, lactate 3.9, trops 10 CT-Scan Rt Renal pelvis stone 1.4 cm with partial obstruction Pt was given empiric IV abx coverage with Vanc/Zosyn. Uro made aware with recommendation to make NPO after midnight, now in rapid afib. - Current Medication List Current Medications: Active Medications Chlorhexidine Gluconate (Hibiclens For Decolonization -) 1 applic TP HS [facility] Last Admin: 01/18/20 21:43 Dose: Not Given Documented by: Ceftriaxone Sodium 2 gm/ (Dextrose) 100 mls @ 200 mls/hr IVPB DAILY [facility]; Protocol Last Admin: 01/19/20 11:12 Dose: 200 mls/hr Documented by: Potassium Chloride 10 meq/ (Sodium Chloride) 1,005 mls @ 100 mls/hr IVPB Q13H [facility] Last Admin: 01/19/20 09:11 Dose: 100 mls/hr Documented by: Metoprolol Tartrate (Lopressor Injection -) 5 mg IVPUSH Q4H PRN PRN Reason: TACHYCARDIA Mupirocin (Bactroban Ointment (For Decolonization) -) 1 applic NS BID [facility] Stop: 01/21/20 09:59 Last Admin: 01/19/20 10:12 Dose: Not Given Documented by: Pantoprazole Sodium (Protonix Iv) 40 mg IVPUSH DAILY [facility] Last Admin: 01/19/20 11:11 Dose: 40 mg Documented by: - Objective Vital Signs: Vital Signs Temperature 98.8 F 01/19/20 09:00 Pulse Rate 90 01/19/20 09:00 Respiratory Rate 20 01/19/20 09:00 Blood Pressure 140/64 01/19/20 09:00 O2 Sat by Pulse Oximetry (%) 92 L 01/19/20 09:00 Eyes: Yes: WNL, Conjunctiva Clear, EOM Intact HENT: Yes: WNL, Atraumatic, Normocephalic Neck: Yes: WNL, Supple, Trachea Midline Cardiovascular: Yes: WNL, Regular Rate and Rhythm Respiratory: Yes: WNL, Regular, CTA Bilaterally Gastrointestinal: Yes: WNL, Normal Bowel Sounds Genitourinary: Yes: WNL Musculoskeletal: Yes: WNL Extremities: Yes: WNL Edema: No Integumentary: Yes: WNL Labs: CBC, BMP 01/19/20 05:30 01/19/20 05:30 INR, PTT INR 1.15 (0.83-1.09) H 01/15/20 18:37 Fibrinogen > 500.0 mg/dL (238-498) H 01/16/20 13:14 Problem List - Problems (1) Elevated liver enzymes Code(s): R74.8 - ABNORMAL LEVELS OF OTHER SERUM ENZYMES (2) NSTEMI (non-ST elevated myocardial infarction) Code(s): I21.4 - NON-ST ELEVATION (NSTEMI) MYOCARDIAL INFARCTION (3) Paroxysmal atrial fibrillation with RVR Code(s): I48.0 - PAROXYSMAL ATRIAL FIBRILLATION (4) Pneumonia Code(s): J18.9 - PNEUMONIA, UNSPECIFIED ORGANISM Qualifiers: Pneumonia type: due to unspecified organism Laterality: left Lung location: lower lobe of lung Qualified Code(s): J18.9 - Pneumonia, unspecified organism (5) Sepsis Code(s): A41.9 - SEPSIS, UNSPECIFIED ORGANISM Qualifiers: Sepsis type: sepsis due to unspecified organism Sepsis acute organ dysfunction status: with acute organ dysfunction Severe sepsis acute organ dysfunction type: acute renal failure Acute renal failure type: unspecified Severe sepsis shock status: without septic shock Qualified Code(s): A41.9 - Sepsis, unspecified organism; R65.20 - Severe sepsis without septic shock; N17.9 - Acute kidney failure, unspecified (6) Thrombocytopenia Code(s): D69.6 - THROMBOCYTOPENIA, UNSPECIFIED (7) UTI (urinary tract infection) Code(s): N39.0 - URINARY TRACT INFECTION, SITE NOT SPECIFIED Qualifiers: Urinary tract infection type: site unspecified Hematuria presence: with hematuria Qualified Code(s): N39.0 - Urinary tract infection, site not specified; R31.9 - Hematuria, unspecified (8) Anxiety Code(s): F41.9 - ANXIETY DISORDER, UNSPECIFIED (9) Contusion, chest wall Code(s): S20.219A - CONTUSION OF UNSPECIFIED FRONT WALL OF THORAX, INIT ENCNTR Qualifiers: Encounter type: initial encounter Laterality: left Qualified Code(s): S20.212A - Contusion of left front wall of thorax, initial encounter (10) Shortness of breath Code(s): R06.02 - SHORTNESS OF BREATH (11) Well adult Code(s): [id number] - Assessment/Plan Assessment/Plan 1. CAD NSTEMI in context of 2. Paroxysmal afib with RVR 3. Sepsis source with partially obstructive right renal pelvis stone, possible LLL PNA 4. Toxic metabolic encephelopathy 5. Acute on CKD 6. HTN 7.ECHO nl EF 8.Schizo affective ds, Non-verbal 1. Trops are declining with supportive care, IV Lopressor as hemodynamics tolerate for rate-control, check ECG 2. Given obstructive nature of renal stone and ongoing sepsis source, would prefer percutaneous nephrostomy by IR as less invasive option if possible once rate-controlled with Rt URS, LASER and jj stent insertion once clinically stable 3. Continue empiric abx per C&S 4. Antiplatelets and anticoagulation on hold pending recovery of PLT>50 5. Due to Schizo affective ds, and patient being non-verbal she is a poor candidate for invasive cardiac w/u e.g. stress test c. cath. Will d/c telemetry
--- NOTE | 2020-01-19 15:29 | EKG ---
Test Reason : Blood Pressure : / mmHG Vent. Rate : 089 BPM Atrial Rate : 089 BPM P-R Int : 164 ms QRS Dur : 078 ms QT Int : 364 ms P-R-T Axes : 050 -55 -42 degrees QTc Int : 442 ms NORMAL SINUS RHYTHM LEFT AXIS DEVIATION INFERIOR INFARCT (CITED ON OR BEFORE 15-JAN-2020) POSSIBLE ANTERIOR INFARCT (CITED ON OR BEFORE 15-JAN-2020) ABNORMAL ECG WHEN COMPARED WITH ECG OF 18-JAN-2020 11:56, PREMATURE VENTRICULAR COMPLEXES ARE NO LONGER PRESENT INVERTED T WAVES HAVE REPLACED NONSPECIFIC T WAVE ABNORMALITY IN INFERIOR LEADS NONSPECIFIC T WAVE ABNORMALITY, IMPROVED IN LATERAL LEADS Confirmed by MISTY CANTU MD ([id number]) on 01/19/2020 3:28:41 PM Referred By: Confirmed By:MISTY CANTU MD
--- NOTE | 2020-01-19 16:17 | PN ---
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, Physician History of Present Illness: Pt seen and examined at bedside. She remains confused. - Current Medication List Current Medications: Active Medications Chlorhexidine Gluconate (Hibiclens For Decolonization -) 1 applic TP HS [facility] Last Admin: 01/18/20 21:43 Dose: Not Given Documented by: Ceftriaxone Sodium 2 gm/ (Dextrose) 100 mls @ 200 mls/hr IVPB DAILY [facility]; Protocol Last Admin: 01/19/20 11:12 Dose: 200 mls/hr Documented by: Potassium Chloride 10 meq/ (Sodium Chloride) 1,005 mls @ 100 mls/hr IVPB Q13H [facility] Last Admin: 01/19/20 09:11 Dose: 100 mls/hr Documented by: Metoprolol Tartrate (Lopressor Injection -) 5 mg IVPUSH Q4H PRN PRN Reason: TACHYCARDIA Mupirocin (Bactroban Ointment (For Decolonization) -) 1 applic NS BID [facility] Stop: 01/21/20 09:59 Last Admin: 01/19/20 10:12 Dose: Not Given Documented by: Pantoprazole Sodium (Protonix Iv) 40 mg IVPUSH DAILY [facility] Last Admin: 01/19/20 11:11 Dose: 40 mg Documented by: - Objective Vital Signs: Vital Signs Temperature 97.9 F 01/19/20 13:42 Pulse Rate 103 H 01/19/20 13:42 Respiratory Rate 24 H 01/19/20 13:42 Blood Pressure 140/74 01/19/20 13:42 O2 Sat by Pulse Oximetry (%) 96 01/19/20 13:42 Constitutional: Yes: Calm Eyes: Yes: Conjunctiva Clear HENT: Yes: Atraumatic Neck: Yes: Supple Cardiovascular: Yes: S1, S2 Respiratory: Yes: On Venti-Mask Gastrointestinal: Yes: Soft Genitourinary: Yes: العلي Present, Other (nephrostomy) Musculoskeletal: Yes: Muscle Weakness Edema: No Neurological: Yes: Confusion Labs: CBC, BMP 01/19/20 05:30 01/19/20 05:30 INR, PTT INR 1.15 (0.83-1.09) H 01/15/20 18:37 Fibrinogen > 500.0 mg/dL (238-498) H 01/16/20 13:14 Problem List - Problems (1) DK (acute kidney injury) Code(s): N17.9 - ACUTE KIDNEY FAILURE, UNSPECIFIED (2) Hypernatremia Code(s): E87.0 - HYPEROSMOLALITY AND HYPERNATREMIA (3) NSTEMI (non-ST elevated myocardial infarction) Code(s): I21.4 - NON-ST ELEVATION (NSTEMI) MYOCARDIAL INFARCTION Assessment/Plan Current Medications Generic Name Dose Route Start Last Admin Trade Name Freq PRN Reason Stop Dose Admin Chlorhexidine Gluconate 1 applic 01/17/20 22:00 01/18/20 21:43 Hibiclens For Decolonization - TP Not Given HS [facility]ERNANDO Ceftriaxone Sodium 2 gm/ 100 mls @ 200 mls/hr 01/18/20 15:15 01/19/20 11:12 Dextrose IVPB 200 mls/hr DAILY [facility]ERNA[facility]O Administration Protocol Potassium Chloride 10 meq/ 1,005 mls @ 100 mls/hr 01/19/20 05:00 01/19/20 09:11 Sodium Chloride IVPB 100 mls/hr Q13H [facility] Administration Metoprolol Tartrate 5 mg 01/17/20 05:02 Lopressor Injection - IVPUSH Q4H PRN TACHYCARDIA Mupirocin 1 applic 01/17/20 10:00 01/19/20 10:12 Bactroban Ointment (For Decolonization) - NS 01/21/20 09:59 Not Given BID FERNANDO Pantoprazole Sodium 40 mg 01/17/20 10:00 01/19/20 11:11 Protonix Iv IVPUSH 40 mg DAILY [facility] Administration Impression 1. dk 2. hypernatremia 3. hypokalemia 4. sepsis 5. nstemi 6. gram neg bacteremia 7. htn 8. a-fib 9. thrombocytopenia Plan - cont with free water - avoid saline - change fluids to d5w with potassium - replace potassium - monitor volume status - cont abx - renal function improved - no evidence of polyuria - cont to monitor sodium
[2020-01-19] MEDS ORDERED: DEXTROSE 5%-WATER - 1,000 ML with POTASSIUM CHLORIDE 20 MEQ IVPB SCH (17:00)
[2020-01-19] MEDS ORDERED: POTASSIUM CHLORIDE 20 MEQ in DEXTROSE 5%-WATER - 1,000 ML IVPB SCH (17:00)
[2020-01-19] MEDS: ZINC SULFATE 220 MG CAPSULE (FP) PO SCH (18:47)
[2020-01-19 20:14] LABS: BLOOD UREA NITROGEN 47.4 mg/dL (7-18); CALCIUM 7.8 mg/dL (8.5-10.1); CREATININE 1.1 mg/dL (0.55-1.3); POTASSIUM 4.2 mmol/L (3.5-5.1)
[2020-01-19] MEDS: CHLORHEXIDINE GLUCONATE 4% CLEANSER FOR DECOLONIZATION TP SCH (21:41)
[2020-01-19] MEDS: ASCORBIC ACID 250 MG TABLET (FP) PO SCH (21:47)
--- NOTE | 2020-01-20 08:00 | PN ---
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, Physician History of Present Illness: PULMONARY DYSPNEIC,TACHYPNEIC,HYPOXIC ON 1OO%NRM,. CHEST CT EXTENSIVE BILATERAL GROUND GLASS INFILTRATES. TMAX 100.3 - Current Medication List Current Medications: Active Medications Ascorbic Acid (Vitamin C -) 250 mg PO BID [facility] Last Admin: 01/19/20 21:47 Dose: 250 mg Documented by: Chlorhexidine Gluconate (Hibiclens For Decolonization -) 1 applic TP HS [facility] Last Admin: 01/19/20 21:41 Dose: Not Given Documented by: Ceftriaxone Sodium 2 gm/ (Dextrose) 100 mls @ 200 mls/hr IVPB DAILY [facility]; Protocol Last Admin: 01/19/20 11:12 Dose: 200 mls/hr Documented by: Potassium Chloride 20 meq/ (Dextrose) 1,010 mls @ 50 mls/hr IVPB Q20H [facility] Last Admin: 01/19/20 18:44 Dose: 50 mls/hr Documented by: Azithromycin (Zithromax 500mg Ivpb (Pre-Docked)) 500 mg in 250 mls @ 250 mls/hr IVPB DAILY [facility] Metoprolol Tartrate (Lopressor Injection -) 5 mg IVPUSH Q4H PRN PRN Reason: TACHYCARDIA Mupirocin (Bactroban Ointment (For Decolonization) -) 1 applic NS BID [facility] Stop: 01/21/20 09:59 Last Admin: 01/19/20 21:41 Dose: Not Given Documented by: Pantoprazole Sodium (Protonix Iv) 40 mg IVPUSH DAILY [facility] Last Admin: 01/19/20 11:11 Dose: 40 mg Documented by: Zinc Sulfate (Orazinc -) 220 mg PO DAILY [facility] Last Admin: 01/19/20 18:47 Dose: Not Given Documented by: - Objective Vital Signs: Vital Signs Temperature 100.3 F H 01/20/20 06:00 Pulse Rate 89 01/20/20 06:00 Respiratory Rate 20 01/20/20 06:00 Blood Pressure 143/66 01/20/20 06:00 O2 Sat by Pulse Oximetry (%) 96 01/20/20 06:00 Constitutional: Yes: Well Nourished, Moderate Distress Eyes: Yes: WNL HENT: Yes: WNL Neck: Yes: WNL Cardiovascular: Yes: Regular Rate and Rhythm, S1, S2 Respiratory: Yes: Rales, Tachypnea, Other (PAXTON CRACKLES) Gastrointestinal: Yes: Normal Bowel Sounds, Soft Extremities: Yes: WNL Edema: No Labs: Laboratory Tests 01/20/20 08:10 Sodium 153 H BUN 38.9 H Creatinine 0.9 Ferritin 1698.3 H LD Total 248 H C-Reactive Protein 12.6 H Assessment/Plan Assessment/Plan A/P acute hypoxemic respiratory failure BILATERAL PNEUMONIA Suspected COVID-19 UTI/Nephrolithiasis Gram Negative Bacteremia Sepsis Acute on Chronic Renal Failure Thrombocytopenia Acute NSTEMI Paroxysmal Atrial Fibrillation HTN Pneumonia Hypernatremia improving - O2to maintainn O2sat 90% or greater - HFOT - antibiotics as per ID - medrol - monitor inflammatory markers - S/P nephrostomy tube placement - IVF - monitor urine output, creatinine - monitor CBC, coags,lytes,na - rate control - DVT prophylaxis - f/u chest x-rays - icu evaluation - Covid pcr pending DR CARBAJAL
[2020-01-20] MEDS ORDERED: DEXTROSE 5%-WATER 100 ML IVPB ONE ×3 (09:15→20:33)
[2020-01-20 09:35] LABS: BASO % 0.2 % (0-2.0); EOS % 0.8 % (0-4.5); HEMATOCRIT 26.7 % (32.4-45.2); HEMOGLOBIN 8.8 GM/dL (10.7-15.3); LYMPH % 5.6 % (8-40); MCH 33.9 pg (25.7-33.7); MCHC 32.8 g/dl (32.0-36.0); MEAN CELL VOLUME 103.4 fl (80-96); MONO % 2.3 % (3.8-10.2); NEUT % 91.1 % (42.8-82.8); PLATELET COUNT 55 K/MM3 (134-434); RBC 2.58 M/mm3 (3.60-5.2); WHITE BLOOD COUNT 11.8 K/mm3 (4.0-10.0)
[2020-01-20] MEDS: ASCORBIC ACID 250 MG TABLET (FP) PO SCH ×2 (09:50→21:45)
[2020-01-20] MEDS: PANTOPRAZOLE SODIUM 40 MG VIAL IVPUSH SCH (09:50)
[2020-01-20] MEDS: ZINC SULFATE 220 MG CAPSULE (FP) PO SCH (09:50)
[2020-01-20] MEDS: MUPIROCIN 2% TOPICAL OINTMENT FOR DECOLONIZATION NS SCH ×2 (09:50→21:44)
[2020-01-20] MEDS: CEFTRIAXONE 2 GM in DEXTROSE 5%-WATER 100 ML IVPB SCH (09:50)
[2020-01-20] MEDS ORDERED: AZITHROMYCIN IVPB 500 MG/250 ML BAG IVPB SCH (10:00)
[2020-01-20 10:04] LABS: ALBUMIN 1.4 g/dl (3.4-5.0); BILIRUBIN,TOTAL 2.4 mg/dL (0.2-1); BLOOD UREA NITROGEN 38.9 mg/dL (7-18); CALCIUM 7.7 mg/dL (8.5-10.1); CREATININE 0.9 mg/dL (0.55-1.3); MAGNESIUM 1.8 mg/dL (1.8-2.4); PHOSPHOROUS 2.7 mg/dL (2.5-4.9); POTASSIUM 3.8 mmol/L (3.5-5.1); TOT PROT 4.5 g/dl (6.4-8.2)
--- NOTE | 2020-01-20 10:47 | PN ---
Teaching Attending Note Name of Resident: Erum Faith ATTENDING PHYSICIAN STATEMENT I saw and evaluated the patient. I reviewed the resident's note and discussed the case with the resident. I agree with the resident's findings and plan as documented. SUBJECTIVE: Seen and examined at bedside. Remains ANO x0 with muffled speech. Temperature increasing to 100 and 0.3 this morning. Now on nonrebreather. CT scan from yesterday shows no PE but multiple bilateral upper lobe infiltrates possibly concerning for COVID as well as small pleural effusion. Given thrombocytopenia and fluid overload will not give steroids or anticoagulation at this time. Pending COVID test. Will give 20 IV Lasix to address fluid overload OBJECTIVE Last Vital Signs Temp Pulse Resp BP Pulse Ox 97.8 F 83 17 127/62 96 01/20/20 10:00 01/20/20 10:01/20/20 10:01/20/20 10:01/20/20 06:00 PE: Per resident note Labs/Imaging: reviewed ASSESSMENT/PLAN 84-year-old male history of hypertension bipolar disorder admitted for severe sepsis to ICU in the setting of infected kidney stone and possible pneumonia. #Severe sepsis: Proteus bacteremia In setting of infected obstructing kidney stone 1.4cm and possible pneumonia. Patient is now hemodynamically stable with improving white count status post Zosyn, right nephrostomy, and العلي catheter. Fevers are increasing since patient was downgraded to ceftriaxone from Zosyn. There may be a component of aspiration pneumonia. Will discuss switching back to Zosyn with ID -Troponin downtrending, DK resolved, continuing thrombocytopenia Urology on board, stent when stable #Hypernatremia Likely iatrogenic due to normal saline in setting of impaired kidney function due to sepsis and obstructive uropathy Every 8 hour basic metabolic panel free water via NGT 250mL q4h standing Nephrology on board: appreciate recs -lasix IV 20mg daily #hypoxia Given bibasilar crackles suspects patient is fluid overloaded start lasix IV 20mg daily #Thrombocytopenia: improving Likely in the setting of severe sepsis. Patient's platelets were normal in 2018 Trend CBC Platelet transfusion to greater than 50 may be required prior to stent placement #New onset atrial fibrillation In the setting of sepsis PRN IV metoprolol May require outpatient Holter monitoring to determine need for anticoagulation in the future #Prerenal and postrenal DK: Resolved
--- NOTE | 2020-01-20 10:48 | PN ---
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, SHOE DESIGNER - Note 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: Selected Entries 01/18/20 01/18/20 01/18/20 02:00 05:36 09:00 Breakfast Supper 0 Temperature Pulse Rate Blood Pressure O2 Sat by Pulse 92 L 95 95 Oximetry (%) Oxygen Delivery Nasal Cannula Method Oxygen Flow 3 Rate 01/18/20 01/18/20 01/18/20 10:00 12:23 15:00 Breakfast 25% 25% Supper Temperature Pulse Rate Blood Pressure O2 Sat by Pulse 95 Oximetry (%) Oxygen Delivery Method Oxygen Flow Rate 01/18/20 01/18/20 01/19/20 21:00 22:00 02:00 Breakfast Supper Temperature 99 F Pulse Rate 91 H Blood Pressure 150/90 O2 Sat by Pulse 95 95 90 L Oximetry (%) Oxygen Delivery Nasal Cannula Method Oxygen Flow 5 Rate 01/19/20 06:00 Breakfast Supper Temperature 99 F Pulse Rate 90 Blood Pressure 136/66 O2 Sat by Pulse 89 L Oximetry (%) Oxygen Delivery Method Oxygen Flow Rate Laboratory Tests 01/18/20 01/19/20 10:00 05:30 WBC 9.4 11.2 H Alert, Pt pulled out ngt, which was used for free water only. Yesterday, pt readily accepted liquids via cup, cough response with thin water, c/w aspiration. However, accepted/tolerated 2 ahsan hn without difficulty. 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 loss insurance claim adjuster/rd re feeding recommendations REC-2 ahsan HN 4 daily, nectar thick liquid, encourage po intake/sufficient hydration po monitor tolerance Selected Entries 01/19/20 01/19/20 01/19/20 02:00 06:00 09:00 Breakfast Diet Tolerated Lunch Temperature 99 F 99 F 98.8 F Pulse Rate 91 H 90 90 Blood Pressure 150/90 136/66 140/64 01/19/20 01/19/20 01/19/20 10:50 13:42 15:39 Breakfast 0 Diet Tolerated Refused Well Lunch 75% Temperature 97.9 F Pulse Rate 103 H Blood Pressure 140/74 01/19/20 01/19/20 01/20/20 18:13 22:00 02:00 Breakfast Diet Tolerated Lunch Temperature 100.4 F H 100 F H 99.8 F H Pulse Rate 96 H 94 H 91 H Blood Pressure 121/64 125/56 L 01/20/20 01/20/20 06:00 10:00 Breakfast Diet Tolerated Lunch Temperature 100.3 F H 97.8 F Pulse Rate 89 83 Blood Pressure Laboratory Tests 01/18/20 01/19/20 01/20/20 10:00 05:30 08:10 WBC 9.4 11.2 H 11.8 H Dysphagia puree/nectar ordered. Tolerated puree well yesterday lunchtime Per nursing notes-ngt tube replaced by resident Anitagotalib,awaiting cxr results,in afternoon pt o2 sat low on 5lo2 pt placed on 100% non breather ,o2 sat in 98- 100%. Placement of NGT confirmed and free water 250ml given.Remained HOB 30 degree. o2 sat 98% with 100% NRB. CXR noted Continue trial of puree, nectar, 2 calHN. Educated staff re: better acceptance of thick liquid and aspiration risk on thin
[2020-01-20] MEDS: FUROSEMIDE 40 MG/4 ML INJECTABLE VIAL IVPUSH SCH (10:53)
[2020-01-20 11:31] LABS: ANISOCYTOSIS 1+; MACROCYTOSIS 1+; PLATELET ESTIMATE DECREASED
--- NOTE | 2020-01-20 12:06 | PN ---
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, Physician History of Present Illness: 84 Y/O Female patient with Bipolar disease, HTN from [facility]. She is presented into ER with confusion fever 102.4, hypoxic respiratory failure WBC 22.9 HB 13. Plt 27 BUN 95.4 Creat 2.9, lactate 3.9, trops 10 CT-Scan Rt Renal pelvis stone 1.4 cm with partial obstruction Pt was given empiric IV abx coverage with Vanc/Zosyn. Uro made aware with recommendation to make NPO after midnight, now in rapid afib. - Current Medication List Current Medications: Active Medications Ascorbic Acid (Vitamin C -) 250 mg PO BID [facility] Last Admin: 01/20/20 09:50 Dose: 250 mg Documented by: Chlorhexidine Gluconate (Hibiclens For Decolonization -) 1 applic TP HS [facility] Last Admin: 01/19/20 21:41 Dose: Not Given Documented by: Furosemide (Lasix Injection -) 20 mg IVPUSH DAILY [facility] Last Admin: 01/20/20 10:53 Dose: 20 mg Documented by: Ceftriaxone Sodium 2 gm/ (Dextrose) 100 mls @ 200 mls/hr IVPB DAILY [facility]; Protocol Last Admin: 01/20/20 09:50 Dose: 200 mls/hr Documented by: Potassium Chloride 20 meq/ (Dextrose) 1,010 mls @ 50 mls/hr IVPB Q20H [facility] Last Admin: 01/19/20 18:44 Dose: 50 mls/hr Documented by: Azithromycin (Zithromax 500mg Ivpb (Pre-Docked)) 500 mg in 250 mls @ 250 mls/hr IVPB DAILY [facility] Last Admin: 01/20/20 10:52 Dose: 250 mls/hr Documented by: Metoprolol Tartrate (Lopressor Injection -) 5 mg IVPUSH Q4H PRN PRN Reason: TACHYCARDIA Mupirocin (Bactroban Ointment (For Decolonization) -) 1 applic NS BID [facility] Stop: 01/21/20 09:59 Last Admin: 01/20/20 09:50 Dose: Not Given Documented by: Pantoprazole Sodium (Protonix Iv) 40 mg IVPUSH DAILY [facility] Last Admin: 01/20/20 09:50 Dose: 40 mg Documented by: Zinc Sulfate (Orazinc -) 220 mg PO DAILY [facility] Last Admin: 01/20/20 09:50 Dose: 220 mg Documented by: - Objective Vital Signs: Vital Signs Temperature 97.8 F 01/20/20 10:00 Pulse Rate 83 01/20/20 10:00 Respiratory Rate 17 01/20/20 10:00 Blood Pressure 127/62 01/20/20 10:00 O2 Sat by Pulse Oximetry (%) 93 L 01/20/20 09:00 Eyes: Yes: WNL, Conjunctiva Clear, EOM Intact HENT: Yes: WNL, Atraumatic, Normocephalic Neck: Yes: WNL, Supple, Trachea Midline Cardiovascular: Yes: WNL, Regular Rate and Rhythm Respiratory: Yes: WNL, Regular, CTA Bilaterally Gastrointestinal: Yes: WNL, Normal Bowel Sounds Genitourinary: Yes: WNL Musculoskeletal: Yes: WNL Extremities: Yes: WNL Edema: No Integumentary: Yes: WNL Labs: CBC, BMP 01/20/20 08:10 01/20/20 08:10 INR, PTT INR 1.15 (0.83-1.09) H 01/15/20 18:37 Fibrinogen > 500.0 mg/dL (238-498) H 01/16/20 13:14 Problem List - Problems (1) Elevated liver enzymes Code(s): R74.8 - ABNORMAL LEVELS OF OTHER SERUM ENZYMES (2) NSTEMI (non-ST elevated myocardial infarction) Code(s): I21.4 - NON-ST ELEVATION (NSTEMI) MYOCARDIAL INFARCTION (3) Paroxysmal atrial fibrillation with RVR Code(s): I48.0 - PAROXYSMAL ATRIAL FIBRILLATION (4) Pneumonia Code(s): J18.9 - PNEUMONIA, UNSPECIFIED ORGANISM Qualifiers: Pneumonia type: due to unspecified organism Laterality: left Lung location: lower lobe of lung Qualified Code(s): J18.9 - Pneumonia, unspecified organism (5) Sepsis Code(s): A41.9 - SEPSIS, UNSPECIFIED ORGANISM Qualifiers: Sepsis type: sepsis due to unspecified organism Sepsis acute organ dysfunction status: with acute organ dysfunction Severe sepsis acute organ dysfunction type: acute renal failure Acute renal failure type: unspecified Severe sepsis shock status: without septic shock Qualified Code(s): A41.9 - Sepsis, unspecified organism; R65.20 - Severe sepsis without septic shock; N17.9 - Acute kidney failure, unspecified (6) Thrombocytopenia Code(s): D69.6 - THROMBOCYTOPENIA, UNSPECIFIED (7) UTI (urinary tract infection) Code(s): N39.0 - URINARY TRACT INFECTION, SITE NOT SPECIFIED Qualifiers: Urinary tract infection type: site unspecified Hematuria presence: with hematuria Qualified Code(s): N39.0 - Urinary tract infection, site not specified; R31.9 - Hematuria, unspecified (8) Anxiety Code(s): F41.9 - ANXIETY DISORDER, UNSPECIFIED (9) Contusion, chest wall Code(s): S20.219A - CONTUSION OF UNSPECIFIED FRONT WALL OF THORAX, INIT ENCNTR Qualifiers: Encounter type: initial encounter Laterality: left Qualified Code(s): S20.212A - Contusion of left front wall of thorax, initial encounter (10) Shortness of breath Code(s): R06.02 - SHORTNESS OF BREATH (11) Well adult Code(s): [id number] - Assessment/Plan Assessment/Plan 1. CAD NSTEMI in context of 2. Paroxysmal afib with RVR 3. Sepsis source with partially obstructive right renal pelvis stone, possible LLL PNA 4. Toxic metabolic encephelopathy 5. Acute on CKD 6. HTN 7.ECHO nl EF 8.Schizo affective ds, Non-verbal 1. Trops are declining with supportive care, IV Lopressor as hemodynamics tolerate for rate-control, check ECG 2. Given obstructive nature of renal stone and ongoing sepsis source, would prefer percutaneous nephrostomy by IR as less invasive option if possible once rate-controlled with Rt URS, LASER and jj stent insertion once clinically stable 3. Continue empiric abx per C&S 4. Antiplatelets and anticoagulation on hold pending recovery of PLT>50 5. Due to Schizo affective ds, and patient being non-verbal she is a poor candidate for invasive cardiac w/u e.g. stress test c. cath. Will d/c telemetry
[2020-01-20] MEDS ORDERED: methylPREDNISolone NA SUCC 40 MG/1 ML VIAL IVPUSH ONE ×2 (12:21→12:45)
--- NOTE | 2020-01-20 12:53 | PN ---
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, Physician History of Present Illness: Pt seen and examined at bedside. She remains confused. Her oxygen requirements have increased. - Current Medication List Current Medications: Active Medications Ascorbic Acid (Vitamin C -) 250 mg PO BID [facility] Last Admin: 01/20/20 09:50 Dose: 250 mg Documented by: Chlorhexidine Gluconate (Hibiclens For Decolonization -) 1 applic TP HS [facility] Last Admin: 01/19/20 21:41 Dose: Not Given Documented by: Furosemide (Lasix Injection -) 20 mg IVPUSH DAILY [facility] Last Admin: 01/20/20 10:53 Dose: 20 mg Documented by: Ceftriaxone Sodium 2 gm/ (Dextrose) 100 mls @ 200 mls/hr IVPB DAILY [facility]; Protocol Last Admin: 01/20/20 09:50 Dose: 200 mls/hr Documented by: Potassium Chloride 20 meq/ (Dextrose) 1,010 mls @ 50 mls/hr IVPB Q20H [facility] Last Admin: 01/19/20 18:44 Dose: 50 mls/hr Documented by: Azithromycin (Zithromax 500mg Ivpb (Pre-Docked)) 500 mg in 250 mls @ 250 mls/hr IVPB DAILY [facility] Last Admin: 01/20/20 10:52 Dose: 250 mls/hr Documented by: Methylprednisolone Sodium Succinate (Solu-Medrol -) 32 mg IVPUSH BID [facility] Metoprolol Tartrate (Lopressor Injection -) 5 mg IVPUSH Q4H PRN PRN Reason: TACHYCARDIA Mupirocin (Bactroban Ointment (For Decolonization) -) 1 applic NS BID [facility] Stop: 01/21/20 09:59 Last Admin: 01/20/20 09:50 Dose: Not Given Documented by: Pantoprazole Sodium (Protonix Iv) 40 mg IVPUSH DAILY [facility] Last Admin: 01/20/20 09:50 Dose: 40 mg Documented by: Zinc Sulfate (Orazinc -) 220 mg PO DAILY [facility] Last Admin: 01/20/20 09:50 Dose: 220 mg Documented by: - Objective Vital Signs: Vital Signs Temperature 97.8 F 01/20/20 10:00 Pulse Rate 83 01/20/20 10:00 Respiratory Rate 17 01/20/20 10:00 Blood Pressure 127/62 01/20/20 10:00 O2 Sat by Pulse Oximetry (%) 93 L 01/20/20 09:00 Constitutional: Yes: Calm Eyes: Yes: Conjunctiva Clear HENT: Yes: Atraumatic Neck: Yes: Supple Cardiovascular: Yes: S1, S2 Respiratory: Yes: On Venti-Mask Gastrointestinal: Yes: Soft Genitourinary: Yes: العلي Present, Other (right nephrostomy) Musculoskeletal: Yes: Muscle Weakness Edema: Yes Edema: LLE: Trace, RLE: Trace Neurological: Yes: Confusion, Lethargy Labs: CBC, BMP 01/20/20 08:10 01/20/20 08:10 INR, PTT INR 1.15 (0.83-1.09) H 01/15/20 18:37 Fibrinogen > 500.0 mg/dL (238-498) H 01/16/20 13:14 Problem List - Problems (1) DK (acute kidney injury) Code(s): N17.9 - ACUTE KIDNEY FAILURE, UNSPECIFIED (2) Hypernatremia Code(s): E87.0 - HYPEROSMOLALITY AND HYPERNATREMIA (3) NSTEMI (non-ST elevated myocardial infarction) Code(s): I21.4 - NON-ST ELEVATION (NSTEMI) MYOCARDIAL INFARCTION Assessment/Plan Current Medications Generic Name Dose Route Start Last Admin Trade Name Freq PRN Reason Stop Dose Admin Ascorbic Acid 250 mg 01/19/20 22:00 01/20/20 09:50 Vitamin C - PO 250 mg BID [facility] Administration Chlorhexidine Gluconate 1 applic 01/17/20 22:00 01/19/20 21:41 Hibiclens For Decolonization - TP Not Given HS [facility] Furosemide 20 mg 01/20/20 10:45 01/20/20 10:53 Lasix Injection - IVPUSH 20 mg DAILY [facility] Administration Ceftriaxone Sodium 2 gm/ 100 mls @ 200 mls/hr 01/18/20 15:15 01/20/20 09:50 Dextrose IVPB 200 mls/hr DAILY [facility] Administration Protocol Potassium Chloride 20 meq/ 1,010 mls @ 50 mls/hr 01/19/20 17:00 01/19/20 18:44 Dextrose IVPB 50 mls/hr Q20H [facility] Administration Azithromycin 500 mg in 250 mls @ 250 mls/hr 01/20/20 10:00 01/20/20 10:52 Zithromax 500mg Ivpb (Pre-Docked) IVPB 250 mls/hr DAILY [facility] Administration Methylprednisolone Sodium Succinate 32 mg 01/21/20 10:00 Solu-Medrol - IVPUSH BID [facility] Metoprolol Tartrate 5 mg 01/17/20 05:02 Lopressor Injection - IVPUSH Q4H PRN TACHYCARDIA Mupirocin 1 applic 01/17/20 10:00 01/20/20 09:50 Bactroban Ointment (For Decolonization) - NS 01/21/20 09:59 Not Given BID [facility] Pantoprazole Sodium 40 mg 01/17/20 10:00 01/20/20 09:50 Protonix Iv IVPUSH 40 mg DAILY [facility] Administration Zinc Sulfate 220 mg 01/19/20 18:15 01/20/20 09:50 Orazinc - PO 220 mg DAILY [facility] Administration Impression 1. dk 2. hypernatremia 3. hypokalemia 4. sepsis 5. nstemi 6. gram neg bacteremia 7. htn 8. a-fib 9. thrombocytopenia Plan - cont free water via ng tube - d/c all fluids - replace potassium - can start lasix and monitor lytes - check covid pcr and igm - discussed with medical team - monitor pulse ox - cont abx - renal function improved - no evidence of polyuria
[2020-01-20] MEDS ORDERED: POTASSIUM CHLORIDE ORAL LIQUID 20 MEQ/15 ML PO ONE (12:54)
--- NOTE | 2020-01-20 13:05 | PN ---
Physical Exam: SUBJECTIVE: Patient seen and examined this AM. Alerted os desaturation to 82% this afternoon, placed on hiflo + NRB. OBJECTIVE: Vital Signs Period Temp Pulse Resp BP Sys/Mcmullen Pulse Ox Last 24 Hr 97.8 F-100.4 F 83-103 17-24 121-150/56-74 93-96 GENERAL: Awake, NAD, minimally verbal HEAD: NCAT ENT: dry mucous membranes NECK: Supple LUNGS: Diminished breath sounds at the bases, Crackles in the lower lobes L>R, no wheezes,s HEART: Regular rate and rhythm, S1, S2 ABDOMEN: Soft, nontender, nondistended, + bowel sounds, no guarding EXTREMITIES: no edema. NEUROLOGICAL: Awake but does not follow commands SKIN: Warm, dry Laboratory Results - last 24 hr 01/19/20 01/20/20 01/20/20 18:00 08:10 08:10 WBC 11.8 H RBC 2.58 L Hgb 8.8 L Hct 26.7 L D MCV 103.4 H MCH 33.9 H MCHC 32.8 RDW 15.0 Plt Count 55 L MPV 10.0 Absolute Neuts (auto) 10.8 H Neutrophils % 91.1 H Neutrophils % (Manual) 92.0 H Band Neutrophils % 0.0 Lymphocytes % 5.6 L D Lymphocytes % (Manual) 6.0 L D Monocytes % 2.3 L Monocytes % (Manual) 0 L D Eosinophils % 0.8 Eosinophils % (Manual) 2.0 D Basophils % 0.2 Basophils % (Manual) 0.0 Myelocytes % (Man) 0 Promyelocytes % (Man) 0 Blast Cells % (Manual) 0 Nucleated RBC % 0 Metamyelocytes 0 Hypochromia 0 Platelet Estimate Decreased Polychromasia 0 Poikilocytosis 0 Anisocytosis 1+ Microcytosis 0 Macrocytosis 1+ Sodium 155 H 153 H Potassium 4.2 3.8 Chloride 128 H 125 H Carbon Dioxide 21 24 Anion Gap 6 L 4 L BUN 47.4 H 38.9 H Creatinine 1.1 0.9 Est GFR (CKD-EPI)AfAm 54.15 69.01 Est GFR (CKD-EPI)NonAf 46.72 59.55 Random Glucose 159 H 150 H Calcium 7.8 L 7.7 L Phosphorus 2.7 Magnesium 1.8 Ferritin 1698.3 H Total Bilirubin 2.4 H AST 52 H ALT 38 Alkaline Phosphatase 140 H LD Total 248 H C-Reactive Protein 12.6 H Total Protein 4.5 L Albumin 1.4 L Microbiology 01/18/20 10:05 Blood - Peripheral Venous Blood Culture - Preliminary NO GROWTH OBTAINED AFTER 48 HOURS, INCUBATION TO CONTINUE FOR 3 DAYS. 01/18/20 10:00 Blood - Peripheral Venous Blood Culture - Preliminary NO GROWTH OBTAINED AFTER 48 HOURS, INCUBATION TO CONTINUE FOR 3 DAYS. 01/17/20 14:58 Urine - Urine Nephrostomy Tube Right Urine Culture - Final NO GROWTH OBTAINED 01/15/20 13:45 Blood - Peripheral Venous Blood Culture - Final Proteus Mirabilis 01/15/20 13:55 Blood - Peripheral Venous Blood Culture - Final Proteus Mirabilis 01/16/20 20:49 Urine For Antigen Detection Legionella Antigen - Final 01/16/20 20:49 Urine For Antigen Detection Streptococcus pneumoniae Antigen (M - Final 01/15/20 13:05 Urine - Urine - Catheterized Urine Culture - Final Proteus Mirabilis Active Medications Ascorbic Acid (Vitamin C -) 250 mg PO BID [facility] Last Admin: 01/20/20 09:50 Dose: 250 mg Documented by: Chlorhexidine Gluconate (Hibiclens For Decolonization -) 1 applic TP HS [facility] Last Admin: 01/19/20 21:41 Dose: Not Given Documented by: Furosemide (Lasix Injection -) 20 mg IVPUSH DAILY [facility] Last Admin: 01/20/20 10:53 Dose: 20 mg Documented by: Ceftriaxone Sodium 2 gm/ (Dextrose) 100 mls @ 200 mls/hr IVPB DAILY [facility]; Protocol Last Admin: 01/20/20 09:50 Dose: 200 mls/hr Documented by: Potassium Chloride 20 meq/ (Dextrose) 1,010 mls @ 50 mls/hr IVPB Q20H [facility] Last Admin: 01/19/20 18:44 Dose: 50 mls/hr Documented by: Azithromycin (Zithromax 500mg Ivpb (Pre-Docked)) 500 mg in 250 mls @ 250 mls/hr IVPB DAILY [facility] Last Admin: 01/20/20 10:52 Dose: 250 mls/hr Documented by: Methylprednisolone Sodium Succinate (Solu-Medrol -) 32 mg IVPUSH BID [facility] Metoprolol Tartrate (Lopressor Injection -) 5 mg IVPUSH Q4H PRN PRN Reason: TACHYCARDIA Mupirocin (Bactroban Ointment (For Decolonization) -) 1 applic NS BID [facility] Stop: 01/21/20 09:59 Last Admin: 01/20/20 09:50 Dose: Not Given Documented by: Pantoprazole Sodium (Protonix Iv) 40 mg IVPUSH DAILY [facility] Last Admin: 01/20/20 09:50 Dose: 40 mg Documented by: Zinc Sulfate (Orazinc -) 220 mg PO DAILY [facility] Last Admin: 01/20/20 09:50 Dose: 220 mg Documented by: ASSESSMENT/PLAN: 84 y.o. F w/ PMHx. of HTN, Major Depression, and Schizoaffective disorder (Aripiprazole, Fluoxetine, Mirtazapine) was brought in by EMS from [facility] for A[facility]. #Hypoxia -In the setting of CT findings suggestive of covid-19 pneumonitis -Desaturation while on NRB, Escalated to Hiflo + NRB -Give IV Lasix 20mg for concerns of fluid overload -Start Medrol 1mg/kg today only, 0.5mg/kg BID starting tmrw -Reconsult ICU -Will hold off on AC give concerns for thrombocytopenia -Palliative care consult #Acute Metabolic Encephalopathy; in setting of Severe sepsis from proteus bacteremia -CTH: no acute findings; cerebral atrophy; old LEFT parietal infarct; chronic periventricular ischemic changes -Neuro checks -Will discuss broadening ABx coverage to cover HCAPs with ID -Urology consulted, appreciate rec's #Hypernatremia; likely iatrogenic -NGT for free water 250cc q4h -BMP Q8H, correct Na by no more than 8 points/24 period -Na today down trending -Nephrology consulted, appreciate rec's #New Onset Paroxysmal afib w/ RVR; Now NSR -In the setting of sepsis -Continue IV Metoprolol 5mg Q4H PRN for rate control. -AC held in the setting of thrombocytopenia -Cardio Consulted, appreciate rec's #NSTEMI -Trops trending down. #HTN -Home dose antihypertensives held #DK; Resolved. #Thrombocytopenia; Stable -s/p 2 units platelets this admission -likely 2/2 severe sepsis. Will do hepatic workup if Platelets continue to downtrend. #Prophylaxis DVT: SCDs, hold AC in setting of thrombocytopenia GI: Protonix 40 IV #FEN -250cc q4h of free water -recheck lytes in AM -Dysphagia puree Dispo -Tele Visit type - Emergency Visit Emergency Visit: Yes ED Registration Date: 01/15/20 Care time: The patient presented to the Emergency Department on the above date and was hospitalized for further evaluation of their emergent condition. - New Patient This patient is new to me today: Yes Date on this admission: 01/20/20 - Critical Care Critical Care patient: No - Discharge Referral Referred to [facility] No - Medication Review Med list reviewed for High Risk Meds patients 65 and older: Yes ATTENDING PHYSICIAN STATEMENT I saw and evaluated the patient. I reviewed the resident's note and discussed the case with the resident. I agree with the resident's findings and plan as documented. SUBJECTIVE: OBJECTIVE: ASSESSMENT AND PLAN:
[2020-01-20] MEDS ORDERED: VANCOMYCIN 1 GRAM (PRE-DOCKED) 1,000 MG/250 ML BAG IVPB SCH (13:45)
[2020-01-20] MEDS ORDERED: PIPERACILLIN/TAZOBACTAM 4.5 GM VIAL IVPB ONE ×2 (14:17→20:33)
--- NOTE | 2020-01-20 15:22 | PN ---
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 (short form) - Note 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: S: ICU consulted for patient due to profound hypoxia to 80's on NRB. Spoke with IM seniore resident prior to seeing patient and recommended high flow o2 with NRB for profound hypoxia until I arrive to see patient. Upon presentation to bedside, pt having labored breathing satting 100% on HF/NRB combo. O: Pt is AOX0 which is unchanged from time of admission. Cardio- RRR, nl s1,s2 crackles b/l upper lobes and lower lobe decreased breaths sounds no leg edema b/l A: Acute worsening hypoxia 2/2 HCAP vs COVID PNA P: - reswab for covid pending - continue BIPAP/HF combo to maintain Sa02 >90% - CXR ordered - changed abx to Vanc/zosyn renally dosed to Rx HCAP and dc'd cef/azithro. ID agrees with these changes. - Spoke with daughter who is in [place] but is on her way here. She would like patient to be DNR/DNI and just to keep her comfortable. Signed paper is in chart. - Given pt's change in code status will keep patient on tele - Thank you for this consultative opportunity.
[2020-01-20] MEDS: PIPERACILLIN/TAZOB 4.5 GM 4.5 GM in DEXTROSE 5%-WATER 100 ML IVPB SCH ×2 (15:56→20:49)
--- NOTE | 2020-01-20 16:57 | PN ---
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 (short form) - Note 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: d/w ICU resident now profoundly hypoxic chest cta no PE but multifocal pneumonia, ?covid changes pcr repeated Vital Signs Period Temp Pulse Resp BP Sys/Mcmullen Pulse Ox Last 24 Hr 97.8 F-100.4 F 83-106 17-20 120-150/56-66 93-99 cor-rrr lungs bilateral rhonchi abd firm, distended +PCN +kline ext no edema CBC, BMP 01/20/20 08:10 01/20/20 08:10 Microbiology 01/18/20 10:05 Blood - Peripheral Venous Blood Culture - Preliminary NO GROWTH OBTAINED AFTER 48 HOURS, INCUBATION TO CONTINUE FOR 3 DAYS. 01/18/20 10:00 Blood - Peripheral Venous Blood Culture - Preliminary NO GROWTH OBTAINED AFTER 48 HOURS, INCUBATION TO CONTINUE FOR 3 DAYS. 01/17/20 14:58 Urine - Urine Nephrostomy Tube Right Urine Culture - Final NO GROWTH OBTAINED 01/15/20 13:45 Blood - Peripheral Venous Blood Culture - Final Proteus Mirabilis 01/15/20 13:55 Blood - Peripheral Venous Blood Culture - Final Proteus Mirabilis 01/16/20 20:49 Urine For Antigen Detection Legionella Antigen - Final 01/16/20 20:49 Urine For Antigen Detection Streptococcus pneumoniae Antigen (M - Final 01/15/20 13:05 Urine - Urine - Catheterized Urine Culture - Final Proteus Mirabilis Active Medications Ascorbic Acid (Vitamin C -) 250 mg PO BID [facility] Last Admin: 01/20/20 09:50 Dose: 250 mg Documented by: Chlorhexidine Gluconate (Hibiclens For Decolonization -) 1 applic TP HS [facility] Last Admin: 01/19/20 21:41 Dose: Not Given Documented by: Furosemide (Lasix Injection -) 20 mg IVPUSH DAILY [facility] Last Admin: 01/20/20 10:53 Dose: 20 mg Documented by: Vancomycin HCl 1,000 mg/ (Dextrose) 250 mls @ 200 mls/hr IVPB Q24H [facility]; Protocol Piperacillin Sod/Tazobactam (Sod 4.5 gm/ Dextrose) 100 mls @ 200 mls/hr IVPB Q6H-IV [facility]; Protocol Last Admin: 01/20/20 15:56 Dose: 200 mls/hr Documented by: Methylprednisolone Sodium Succinate (Solu-Medrol -) 32 mg IVPUSH BID [facility] Metoprolol Tartrate (Lopressor Injection -) 5 mg IVPUSH Q4H PRN PRN Reason: TACHYCARDIA Mupirocin (Bactroban Ointment (For Decolonization) -) 1 applic NS BID [facility] Stop: 01/21/20 09:59 Last Admin: 01/20/20 09:50 Dose: Not Given Documented by: Pantoprazole Sodium (Protonix Iv) 40 mg IVPUSH DAILY [facility] Last Admin: 01/20/20 09:50 Dose: 40 mg Documented by: Zinc Sulfate (Orazinc -) 220 mg PO DAILY [facility] Last Admin: 01/20/20 09:50 Dose: 220 mg Documented by: imp/reccd resp failure- agree with coverage for HAP vanco/zosyn covid pcr pending steroids added PROTEUS bacteremia secondary to UTI- obstructive uropathy -s/p PCN p thrombocytopenia secondary to infection DK resolved positive troponins new afib schizo-affective disorder dnr/dni noted continue current antibiotic management overall prognosis is poor
--- NOTE | 2020-01-20 17:57 | PN ---
DATE OF VISIT: DATE OF DICTATION: 01/20/2020 She is an 84-year-old female who came in with urosepsis due to an obstructing right renal stone. She underwent an emergency percutaneous nephrostomy. She improved medically. This is a right side 1.5 cm obstructing right ureteral stone. The percutaneous is patent, the urine is clear presently. Her urine cultures rule out Proteus mirabilis. Her latest labs reveal a white count of 11.8, hemoglobin and hematocrit 8.8 over 26.7. Her PT/INR are 13.6/1.15. Her BUN and creatinine are 38.9 over 0.9. Her T-max 100.3, blood pressure 127/62, respirations 17. Presently the patient appears to be comfortable. Will need a cystoscopy and a laser lithotripsy when medically stable. This could be done while in the hospital or as an outpatient. Will follow with you. Recommend repeating the ultrasound prior to any discharge. Delmy [id number] MTDD
[2020-01-20] MEDS: CHLORHEXIDINE GLUCONATE 4% CLEANSER FOR DECOLONIZATION TP SCH (21:44)
[2020-01-21] MEDS ORDERED: PIPERACILLIN/TAZOBACTAM 4.5 GM VIAL IVPB ONE ×4 (00:47→22:35)
[2020-01-21] MEDS ORDERED: DEXTROSE 5%-WATER 100 ML IVPB ONE ×4 (00:47→22:35)
[2020-01-21] MEDS: PIPERACILLIN/TAZOB 4.5 GM 4.5 GM in DEXTROSE 5%-WATER 100 ML IVPB SCH ×4 (02:08→22:47)
--- NOTE | 2020-01-21 06:38 | PN ---
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, Physician History of Present Illness: PULMONARY MORE ALERT,COMFORTABLE ON 100%NRM,HFOT,O2 SAT 94% - Current Medication List Current Medications: Active Medications Ascorbic Acid (Vitamin C -) 250 mg PO BID [facility] Last Admin: 01/20/20 21:45 Dose: 250 mg Documented by: Chlorhexidine Gluconate (Hibiclens For Decolonization -) 1 applic TP HS [facility] Last Admin: 01/20/20 21:44 Dose: Not Given Documented by: Furosemide (Lasix Injection -) 20 mg IVPUSH DAILY [facility] Last Admin: 01/20/20 10:53 Dose: 20 mg Documented by: Vancomycin HCl 1,000 mg/ (Dextrose) 250 mls @ 200 mls/hr IVPB Q24H [facility]; Protocol Piperacillin Sod/Tazobactam (Sod 4.5 gm/ Dextrose) 100 mls @ 200 mls/hr IVPB Q6H-IV [facility]; Protocol Last Admin: 01/21/20 02:08 Dose: 200 mls/hr Documented by: Methylprednisolone Sodium Succinate (Solu-Medrol -) 32 mg IVPUSH BID [facility] Metoprolol Tartrate (Lopressor Injection -) 5 mg IVPUSH Q4H PRN PRN Reason: TACHYCARDIA Mupirocin (Bactroban Ointment (For Decolonization) -) 1 applic NS BID [facility] Stop: 01/21/20 09:59 Last Admin: 01/20/20 21:44 Dose: Not Given Documented by: Pantoprazole Sodium (Protonix Iv) 40 mg IVPUSH DAILY [facility] Last Admin: 01/20/20 09:50 Dose: 40 mg Documented by: Zinc Sulfate (Orazinc -) 220 mg PO DAILY [facility] Last Admin: 01/20/20 09:50 Dose: 220 mg Documented by: - Objective Vital Signs: Vital Signs Temperature 98.2 F 01/21/20 05:28 Pulse Rate 87 01/21/20 05:28 Respiratory Rate 22 H 01/21/20 05:28 Blood Pressure 136/69 01/21/20 05:28 O2 Sat by Pulse Oximetry (%) 93 L 01/21/20 05:36 Constitutional: Yes: Well Nourished, Calm Eyes: Yes: WNL HENT: Yes: WNL Neck: Yes: WNL Cardiovascular: Yes: Regular Rate and Rhythm, S1, S2 Respiratory: Yes: Rales (BILATERAL CRACKLES) Gastrointestinal: Yes: Normal Bowel Sounds, Soft Extremities: Yes: WNL Edema: No Labs: Laboratory Tests 01/21/20 01/21/20 05:42 05:42 D-Dimer 3958 H Ferritin 2120.2 H C-Reactive Protein 17.3 H Assessment/Plan Assessment/Plan A/P acute hypoxemic respiratory failure BILATERAL PNEUMONIA Suspected COVID-19 UTI/Nephrolithiasis Gram Negative Bacteremia Sepsis Acute on Chronic Renal Failure Thrombocytopenia Acute NSTEMI Paroxysmal Atrial Fibrillation HTN Pneumonia Hypernatremia improving - O2to maintainn O2sat 90% or greater - HFOT - antibiotics as per ID - medrol - monitor inflammatory markers - S/P nephrostomy tube placement - IVF - monitor urine output, creatinine - monitor CBC, coags,lytes,na - rate control - DVT prophylaxis - f/u chest x-rays - Covid pcr pending - AC DR CARBAJAL
[2020-01-21 07:52] LABS: BASO % 0.1 % (0-2.0); HEMATOCRIT 29.3 % (32.4-45.2); HEMOGLOBIN 9.8 GM/dL (10.7-15.3); LYMPH % 5.1 % (8-40); MCH 35.3 pg (25.7-33.7); MCHC 33.4 g/dl (32.0-36.0); MEAN CELL VOLUME 105.7 fl (80-96); MEAN PLT VOLUME 11.8 fl (7.5-11.1); MONO % 1.3 % (3.8-10.2); NEUT % 93.5 % (42.8-82.8); PLATELET COUNT 57 K/MM3 (134-434); RBC 2.78 M/mm3 (3.60-5.2); RDW 14.9 % (11.6-15.6); WHITE BLOOD COUNT 12.5 K/mm3 (4.0-10.0)
[2020-01-21 08:15] LABS: ALBUMIN 1.3 g/dl (3.4-5.0); BILIRUBIN,TOTAL 1.7 mg/dL (0.2-1); BLOOD UREA NITROGEN 37.6 mg/dL (7-18); CALCIUM 7.8 mg/dL (8.5-10.1); CREATININE 1.1 mg/dL (0.55-1.3); MAGNESIUM 2.1 mg/dL (1.8-2.4); PHOSPHOROUS 3.9 mg/dL (2.5-4.9)
[2020-01-21] MEDS ORDERED: methylPREDNISolone NA SUCC 40 MG/1 ML VIAL IVPUSH SCH (10:00)
--- NOTE | 2020-01-21 10:26 | PN ---
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, Physician History of Present Illness: 84 Y/O Female patient with Bipolar disease, HTN from [facility]. She is presented into ER with confusion fever 102.4, hypoxic respiratory failure WBC 22.9 HB 13. Plt 27 BUN 95.4 Creat 2.9, lactate 3.9, trops 10 CT-Scan Rt Renal pelvis stone 1.4 cm with partial obstruction Pt was given empiric IV abx coverage with Vanc/Zosyn. Uro made aware with recommendation to make NPO after midnight, now in rapid afib. - Current Medication List Current Medications: Active Medications Ascorbic Acid (Vitamin C -) 250 mg PO BID [facility] Last Admin: 01/20/20 21:45 Dose: 250 mg Documented by: Chlorhexidine Gluconate (Hibiclens For Decolonization -) 1 applic TP HS [facility] Last Admin: 01/20/20 21:44 Dose: Not Given Documented by: Furosemide (Lasix Injection -) 20 mg IVPUSH DAILY [facility] Last Admin: 01/20/20 10:53 Dose: 20 mg Documented by: Vancomycin HCl 1,000 mg/ (Dextrose) 250 mls @ 200 mls/hr IVPB Q24H [facility]; Protocol Piperacillin Sod/Tazobactam (Sod 4.5 gm/ Dextrose) 100 mls @ 200 mls/hr IVPB Q6H-IV [facility]; Protocol Last Admin: 01/21/20 02:08 Dose: 200 mls/hr Documented by: Methylprednisolone Sodium Succinate (Solu-Medrol -) 32 mg IVPUSH BID [facility] Metoprolol Tartrate (Lopressor Injection -) 5 mg IVPUSH Q4H PRN PRN Reason: TACHYCARDIA Pantoprazole Sodium (Protonix Iv) 40 mg IVPUSH DAILY [facility] Last Admin: 01/20/20 09:50 Dose: 40 mg Documented by: Zinc Sulfate (Orazinc -) 220 mg PO DAILY [facility] Last Admin: 01/20/20 09:50 Dose: 220 mg Documented by: - Objective Vital Signs: Vital Signs Temperature 98.2 F 01/21/20 05:28 Pulse Rate 73 01/21/20 08:46 Respiratory Rate 22 H 01/21/20 05:28 Blood Pressure 136/69 01/21/20 05:28 O2 Sat by Pulse Oximetry (%) 98 01/21/20 08:46 Eyes: Yes: WNL, Conjunctiva Clear, EOM Intact HENT: Yes: WNL, Atraumatic, Normocephalic Neck: Yes: WNL, Supple, Trachea Midline Cardiovascular: Yes: WNL, Regular Rate and Rhythm Respiratory: Yes: Diminished Gastrointestinal: Yes: WNL, Normal Bowel Sounds Genitourinary: Yes: WNL Musculoskeletal: Yes: WNL Extremities: Yes: WNL Edema: No Integumentary: Yes: WNL Labs: CBC, BMP 01/21/20 05:42 01/21/20 05:42 INR, PTT INR 1.15 (0.83-1.09) H 01/15/20 18:37 Fibrinogen > 500.0 mg/dL (238-498) H 01/16/20 13:14 Problem List - Problems (1) Elevated liver enzymes Code(s): R74.8 - ABNORMAL LEVELS OF OTHER SERUM ENZYMES (2) NSTEMI (non-ST elevated myocardial infarction) Code(s): I21.4 - NON-ST ELEVATION (NSTEMI) MYOCARDIAL INFARCTION (3) Paroxysmal atrial fibrillation with RVR Code(s): I48.0 - PAROXYSMAL ATRIAL FIBRILLATION (4) Pneumonia Code(s): J18.9 - PNEUMONIA, UNSPECIFIED ORGANISM Qualifiers: Pneumonia type: due to unspecified organism Laterality: left Lung location: lower lobe of lung Qualified Code(s): J18.9 - Pneumonia, unspecified organism (5) Sepsis Code(s): A41.9 - SEPSIS, UNSPECIFIED ORGANISM Qualifiers: Sepsis type: sepsis due to unspecified organism Sepsis acute organ dysfunction status: with acute organ dysfunction Severe sepsis acute organ dysfunction type: acute renal failure Acute renal failure type: unspecified Severe sepsis shock status: without septic shock Qualified Code(s): A41.9 - Sepsis, unspecified organism; R65.20 - Severe sepsis without septic shock; N17.9 - Acute kidney failure, unspecified (6) Thrombocytopenia Code(s): D69.6 - THROMBOCYTOPENIA, UNSPECIFIED (7) UTI (urinary tract infection) Code(s): N39.0 - URINARY TRACT INFECTION, SITE NOT SPECIFIED Qualifiers: Urinary tract infection type: site unspecified Hematuria presence: with hematuria Qualified Code(s): N39.0 - Urinary tract infection, site not specified; R31.9 - Hematuria, unspecified (8) Anxiety Code(s): F41.9 - ANXIETY DISORDER, UNSPECIFIED (9) Contusion, chest wall Code(s): S20.219A - CONTUSION OF UNSPECIFIED FRONT WALL OF THORAX, INIT ENCNTR Qualifiers: Encounter type: initial encounter Laterality: left Qualified Code(s): S20.212A - Contusion of left front wall of thorax, initial encounter (10) Shortness of breath Code(s): R06.02 - SHORTNESS OF BREATH (11) Well adult Code(s): [id number] - Assessment/Plan Assessment/Plan 1. CAD NSTEMI in context of 2. Paroxysmal afib with RVR 3. Sepsis source with partially obstructive right renal pelvis stone, possible LLL PNA 4. Toxic metabolic encephelopathy 5. Acute on CKD 6. HTN 7.ECHO nl EF 8.Schizo affective ds, Non-verbal 1. Trops are declining with supportive care, IV Lopressor as hemodynamics tolerate for rate-control, check ECG 2. Given obstructive nature of renal stone and ongoing sepsis source, would prefer percutaneous nephrostomy by IR as less invasive option if possible once r ate-controlled with Rt URS, LASER and jj stent insertion once clinically stable 3. Continue empiric abx per C&S 4. Antiplatelets and anticoagulation on hold pending recovery of PLT>50 5. Due to Schizo affective ds, and patient being non-verbal she is a poor candidate for invasive cardiac w/u e.g. stress test c. cath. Will d/c telemetry
[2020-01-21] MEDS: FUROSEMIDE 40 MG/4 ML INJECTABLE VIAL IVPUSH SCH (10:40)
[2020-01-21] MEDS: ZINC SULFATE 220 MG CAPSULE (FP) PO SCH (10:40)
[2020-01-21] MEDS: PANTOPRAZOLE SODIUM 40 MG VIAL IVPUSH SCH (10:41)
[2020-01-21] MEDS: ASCORBIC ACID 250 MG TABLET (FP) PO SCH ×2 (10:44→22:47)
[2020-01-21 11:32] LABS: ANISOCYTOSIS 0; MACROCYTOSIS 0; PLATELET ESTIMATE DECREASED
--- NOTE | 2020-01-21 12:01 | PN ---
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 (short form) - Note 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: sitting ullp in bed alert smiling +conversant today still with high flow oxygen Vital Signs Period Temp Pulse Resp BP Sys/Mcmullen Pulse Ox Last 24 Hr 97.6 F-100.5 F 73-106 20-22 110-136/50-75 91-99 cor-rrr lungs decreased bs at bases abd soft,nt +PCN ext no edema CBC, BMP 01/21/20 05:42 01/21/20 05:42 Microbiology 01/18/20 10:00 Blood - Peripheral Venous Blood Culture - Preliminary NO GROWTH OBTAINED AFTER 72 HOURS, INCUBATION TO CONTINUE FOR 2 DAYS. 01/18/20 10:05 Blood - Peripheral Venous Blood Culture - Preliminary NO GROWTH OBTAINED AFTER 72 HOURS, INCUBATION TO CONTINUE FOR 2 DAYS. 01/17/20 14:58 Urine - Urine Nephrostomy Tube Right Urine Culture - Final NO GROWTH OBTAINED 01/15/20 13:45 Blood - Peripheral Venous Blood Culture - Final Proteus Mirabilis 01/15/20 13:55 Blood - Peripheral Venous Blood Culture - Final Proteus Mirabilis 01/16/20 20:49 Urine For Antigen Detection Legionella Antigen - Final 01/16/20 20:49 Urine For Antigen Detection Streptococcus pneumoniae Antigen (M - Final 01/15/20 13:05 Urine - Urine - Catheterized Urine Culture - Final Proteus Mirabilis imp/reccd resp failure- pneumonia vanco/zosyn covid pcr pending steroids added PROTEUS bacteremia secondary to UTI- obstructive uropathy -s/p PCN thrombocytopenia secondary to infection DK resolved positive troponins new afib schizo-affective disorder dnr/dni noted cllinically ilmproved today f/u covid pcr
--- NOTE | 2020-01-21 13:39 | PN ---
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, Physician History of Present Illness: Seen and examined at the bedside awake and alert on high flow O2 no complaints denies any pain, fever, chills, N/V/D - Current Medication List Current Medications: Active Medications Ascorbic Acid (Vitamin C -) 250 mg PO BID [facility] Last Admin: 01/21/20 10:44 Dose: 250 mg Documented by: Chlorhexidine Gluconate (Hibiclens For Decolonization -) 1 applic TP HS [facility] Last Admin: 01/20/20 21:44 Dose: Not Given Documented by: Furosemide (Lasix Injection -) 20 mg IVPUSH DAILY [facility] Last Admin: 01/21/20 10:40 Dose: 20 mg Documented by: Vancomycin HCl 1,000 mg/ (Dextrose) 250 mls @ 200 mls/hr IVPB Q24H [facility]; Protocol Piperacillin Sod/Tazobactam (Sod 4.5 gm/ Dextrose) 100 mls @ 200 mls/hr IVPB Q6H-IV [facility]; Protocol Last Admin: 01/21/20 09:39 Dose: 200 mls/hr Documented by: Methylprednisolone Sodium Succinate (Solu-Medrol -) 35 mg IVPUSH BID [facility] Metoprolol Tartrate (Lopressor Injection -) 5 mg IVPUSH Q4H PRN PRN Reason: TACHYCARDIA Pantoprazole Sodium (Protonix Iv) 40 mg IVPUSH DAILY [facility] Last Admin: 01/21/20 10:41 Dose: 40 mg Documented by: Zinc Sulfate (Orazinc -) 220 mg PO DAILY [facility] Last Admin: 01/21/20 10:40 Dose: 220 mg Documented by: - Objective Vital Signs: Vital Signs Temperature 97.6 F 01/21/20 10:00 Pulse Rate 96 H 01/21/20 10:00 Respiratory Rate 01/21/20 10:00 Blood Pressure 130/74 01/21/20 10:00 O2 Sat by Pulse Oximetry (%) 94 L 01/21/20 10:00 Constitutional: Yes: No Distress HENT: Yes: Atraumatic Neck: Yes: Supple Cardiovascular: Yes: Regular Rate and Rhythm Respiratory: Yes: On Nasal O2 Gastrointestinal: Yes: Soft Extremities: No: Cyanosis Edema: Yes Labs: CBC, BMP 01/21/20 05:42 01/21/20 05:42 INR, PTT INR 1.15 (0.83-1.09) H 01/15/20 18:37 Fibrinogen > 500.0 mg/dL (238-498) H 01/16/20 13:14 Assessment/Plan Impression 1. sebastien 2. hypernatremia 3. hypokalemia 4. sepsis 5. nstemi 6. gram neg bacteremia 7. htn 8. a-fib 9. thrombocytopenia Plan Renal function improved and stable. Continue 1500cc of free water divided throughout the day via NGT Continue lasix daily for edema management. Continue antibiotics as per primary team Trend renal function and electrolytes daily Adithya Ovalles DO
--- NOTE | 2020-01-21 14:03 | PN ---
Physical Exam: SUBJECTIVE: Patient seen and examined at bedside, on NRB/HFOT, COVID pending, high concern. On Abx coverage. VSS. OBJECTIVE: Vital Signs Period Temp Pulse Resp BP Sys/Mcmullen Pulse Ox Last 24 Hr 97.6 F-100.5 F 73-106 20-22 110-136/50-75 91-98 GENERAL: Awake, mild distress, Cannot talk due to HFOT/Aerosol mask HEENT NC/AT, neck supple, EOMI, no JVD LUNGS: no accessory M use, decreased air entry b/l, poor inspiratory effort HEART: Regular rate and rhythm, S1, S2 without murmur, rub or gallop. ABDOMEN: Soft, NT, mildly distended, BS+ EXTREMITIES: no LE edema PSYCH: Flat affect. SKIN: Warm, dry, normal turgor, no rashes or lesions noted Laboratory Results - last 24 hr 01/21/20 01/21/20 01/21/20 05:42 05:42 05:42 WBC 12.5 H RBC 2.78 L Hgb 9.8 L Hct 29.3 L MCV 105.7 H MCH 35.3 H MCHC 33.4 RDW 14.9 Plt Count 57 L MPV 11.8 H D Absolute Neuts (auto) 11.7 H Neutrophils % 93.5 H Neutrophils % (Manual) 95.0 H Band Neutrophils % 2.0 Lymphocytes % 5.1 L Lymphocytes % (Manual) 3.0 L D Monocytes % 1.3 L Monocytes % (Manual) 0 L Eosinophils % 0.0 D Eosinophils % (Manual) 0.0 D Basophils % 0.1 Basophils % (Manual) 0.0 Myelocytes % (Man) 0 Promyelocytes % (Man) 0 Blast Cells % (Manual) 0 Nucleated RBC % 0 Metamyelocytes 0 Hypochromia 0 Platelet Estimate Decreased Platelet Comment Present Polychromasia 0 Poikilocytosis 0 Anisocytosis 0 Microcytosis 0 Macrocytosis 0 D-Dimer Sodium 149 H Potassium 4.0 Chloride 119 H Carbon Dioxide 21 Anion Gap 8 BUN 37.6 H Creatinine 1.1 Est GFR (CKD-EPI)AfAm 54.15 Est GFR (CKD-EPI)NonAf 46.72 Random Glucose 178 H Calcium 7.8 L Phosphorus 3.9 Magnesium 2.1 Ferritin 2120.2 H Total Bilirubin 1.7 H AST 32 ALT 27 Alkaline Phosphatase 123 H LD Total 302 H C-Reactive Protein 17.3 H Total Protein 5.0 L Albumin 1.3 L 01/21/20 05:42 WBC RBC Hgb Hct MCV MCH MCHC RDW Plt Count MPV Absolute Neuts (auto) Neutrophils % Neutrophils % (Manual) Band Neutrophils % Lymphocytes % Lymphocytes % (Manual) Monocytes % Monocytes % (Manual) Eosinophils % Eosinophils % (Manual) Basophils % Basophils % (Manual) Myelocytes % (Man) Promyelocytes % (Man) Blast Cells % (Manual) Nucleated RBC % Metamyelocytes Hypochromia Platelet Estimate Platelet Comment Polychromasia Poikilocytosis Anisocytosis Microcytosis Macrocytosis D-Dimer 3958 H Sodium Potassium Chloride Carbon Dioxide Anion Gap BUN Creatinine Est GFR (CKD-EPI)AfAm Est GFR (CKD-EPI)NonAf Random Glucose Calcium Phosphorus Magnesium Ferritin Total Bilirubin AST ALT Alkaline Phosphatase LD Total C-Reactive Protein Total Protein Albumin Active Medications Generic Name Dose Route Start Last Admin Trade Name Freq PRN Reason Stop Dose Admin Ascorbic Acid 250 mg 01/19/20 22:00 01/21/20 10:44 Vitamin C - PO 250 mg BID [facility] Administration Chlorhexidine Gluconate 1 applic 01/17/20 22:00 01/20/20 21:44 Hibiclens For Decolonization - TP Not Given HS [facility] Furosemide 20 mg 01/20/20 10:45 01/21/20 10:40 Lasix Injection - IVPUSH 20 mg DAILY [facility] Administration Vancomycin HCl 1,000 mg/ 250 mls @ 200 mls/hr 01/20/20 13:30 Dextrose IVPB Q24H [facility] Protocol Piperacillin Sod/Tazobactam 100 mls @ 200 mls/hr 01/20/20 15:00 01/21/20 09:39 Sod 4.5 gm/ Dextrose IVPB 200 mls/hr Q6H-IV [facility] Administration Protocol Methylprednisolone Sodium Succinate 35 mg 01/21/20 10:52 Solu-Medrol - IVPUSH BID [facility] Metoprolol Tartrate 5 mg 01/17/20 05:02 Lopressor Injection - IVPUSH Q4H PRN TACHYCARD[facility] Pantoprazole Sodium 40 mg 01/17/20 10:00 01/21/20 10:41 Protonix Iv IVPUSH 40 mg DAILY [facility] Administration Zinc Sulfate 220 mg 01/19/20 18:15 01/21/20 10:40 Orazinc - PO 220 mg DAILY [facility] Administration ASSESSMENT/PLAN: 84 F Acute hypoxemic respiratory failure BILATERAL PNEUMONIA Suspected COVID-19 pneumonitis Sepsis 2/2 UTI Gram Negative Bacteremia DK on CKD Thrombocytopenia Acute NSTEMI Paroxysmal Atrial Fibrillation HTN Pneumonia Hypernatremia improving Plan: Continue HFOT/NRB as needed to titrate sat >92% HOB elevation, Lasix PRN for dyspnea, follow COVID Cont. Zosyn, IV steroids added for cytokine storm If COVID positive discuss overall prognosis with family/NOK DVT ppx: SCD for now d/t thrombocytopenia Visit type - Emergency Visit Emergency Visit: Yes ED Registration Date: 01/15/20 Care time: The patient presented to the Emergency Department on the above date and was hospitalized for further evaluation of their emergent condition. - New Patient This patient is new to me today: Yes Date on this admission: 01/21/20 - Critical Care Critical Care patient: No - Discharge Referral Referred to [facility] No - Medication Review Med list reviewed for High Risk Meds patients 65 and older: Yes
[2020-01-21] MEDS: CHLORHEXIDINE GLUCONATE 4% CLEANSER FOR DECOLONIZATION TP SCH (22:38)
[2020-01-21] MEDS: methylPREDNISolone NA SUCC 40 MG/1 ML VIAL IVPUSH SCH (22:47)
[2020-01-21] MEDS: VANCOMYCIN 1 GRAM (PRE-DOCKED) 1,000 MG/250 ML BAG IVPB SCH (23:41)
[2020-01-22] MEDS ORDERED: PIPERACILLIN/TAZOBACTAM 4.5 GM VIAL IVPB ONE ×4 (03:17→21:39)
[2020-01-22] MEDS ORDERED: DEXTROSE 5%-WATER 100 ML IVPB ONE ×4 (03:17→21:39)
[2020-01-22] MEDS: PIPERACILLIN/TAZOB 4.5 GM 4.5 GM in DEXTROSE 5%-WATER 100 ML IVPB SCH ×4 (03:30→22:09)
--- NOTE | 2020-01-22 07:00 | PN ---
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, Physician History of Present Illness: pulmonary awake,comfortable on hfot,o2 sat 95% - Current Medication List Current Medications: Active Medications Ascorbic Acid (Vitamin C -) 250 mg PO BID [facility] Last Admin: 01/21/20 22:47 Dose: 250 mg Documented by: Chlorhexidine Gluconate (Hibiclens For Decolonization -) 1 applic TP HS [facility] Last Admin: 01/21/20 22:38 Dose: Not Given Documented by: Furosemide (Lasix Injection -) 20 mg IVPUSH DAILY [facility] Last Admin: 01/21/20 10:40 Dose: 20 mg Documented by: Vancomycin HCl (Vancomycin (Pre-Docked)) 1,000 mg in 250 mls @ 166.667 mls/hr IVPB Q24H [facility]; Protocol Last Admin: 01/21/20 23:41 Dose: 166.667 mls/hr Documented by: Piperacillin Sod/Tazobactam (Sod 4.5 gm/ Dextrose) 100 mls @ 200 mls/hr IVPB Q6H-IV [facility]; Protocol Last Admin: 01/22/20 03:30 Dose: 200 mls/hr Documented by: Methylprednisolone Sodium Succinate (Solu-Medrol -) 35 mg IVPUSH BID [facility] Last Admin: 01/21/20 22:47 Dose: 35 mg Documented by: Metoprolol Tartrate (Lopressor Injection -) 5 mg IVPUSH Q4H PRN PRN Reason: TACHYCARDIA Pantoprazole Sodium (Protonix Iv) 40 mg IVPUSH DAILY [facility] Last Admin: 01/21/20 10:41 Dose: 40 mg Documented by: Zinc Sulfate (Orazinc -) 220 mg PO DAILY [facility] Last Admin: 01/21/20 10:40 Dose: 220 mg Documented by: - Objective Vital Signs: Vital Signs Temperature 97.5 F L 01/22/20 06:00 Pulse Rate 77 01/22/20 06:00 Respiratory Rate 20 01/22/20 06:00 Blood Pressure 143/74 01/22/20 06:00 O2 Sat by Pulse Oximetry (%) 97 01/22/20 06:00 Constitutional: Yes: Well Nourished, Calm Eyes: Yes: WNL HENT: Yes: WNL Neck: Yes: WNL Cardiovascular: Yes: Pulse Irregular, S1, S2 Respiratory: Yes: Rhonchi (few rhonchi) Gastrointestinal: Yes: Normal Bowel Sounds, Soft Extremities: Yes: WNL Edema: Yes Labs: CBC, BMP 01/21/20 05:42 01/21/20 05:42 INR, PTT INR 1.15 (0.83-1.09) H 01/15/20 18:37 Fibrinogen > 500.0 mg/dL (238-498) H 01/16/20 13:14 Assessment/Plan Assessment/Plan A/P acute hypoxemic respiratory failure BILATERAL PNEUMONIA Suspected COVID-19 UTI/Nephrolithiasis Gram Negative Bacteremia Sepsis Acute on Chronic Renal Failure Thrombocytopenia Acute NSTEMI Paroxysmal Atrial Fibrillation HTN Pneumonia Hypernatremia improving - O2to maintainn O2sat 90% or greater - HFOT - antibiotics as per ID - medrol - monitor inflammatory markers - S/P nephrostomy tube placement - IVF - monitor urine output, creatinine - monitor CBC, coags,lytes,na - rate control - DVT prophylaxis - f/u chest x-rays - Covid pcr negative - AC DR CARBAJAL
--- NOTE | 2020-01-22 08:42 | PN ---
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, Physician History of Present Illness: 84 Y/O Female patient with Bipolar disease, HTN from [facility]. She is presented into ER with confusion fever 102.4, hypoxic respiratory failure WBC 22.9 HB 13. Plt 27 BUN 95.4 Creat 2.9, lactate 3.9, trops 10 CT-Scan Rt Renal pelvis stone 1.4 cm with partial obstruction Pt was given empiric IV abx coverage with Vanc/Zosyn. Uro made aware with recommendation to make NPO after midnight, now in rapid afib. - Current Medication List Current Medications: Active Medications Ascorbic Acid (Vitamin C -) 250 mg PO BID [facility] Last Admin: 01/21/20 22:47 Dose: 250 mg Documented by: Chlorhexidine Gluconate (Hibiclens For Decolonization -) 1 applic TP HS [facility] Last Admin: 01/21/20 22:38 Dose: Not Given Documented by: Furosemide (Lasix Injection -) 20 mg IVPUSH DAILY [facility] Last Admin: 01/21/20 10:40 Dose: 20 mg Documented by: Vancomycin HCl (Vancomycin (Pre-Docked)) 1,000 mg in 250 mls @ 166.667 mls/hr IVPB Q24H [facility]; Protocol Last Admin: 01/21/20 23:41 Dose: 166.667 mls/hr Documented by: Piperacillin Sod/Tazobactam (Sod 4.5 gm/ Dextrose) 100 mls @ 200 mls/hr IVPB Q6H-IV [facility]; Protocol Last Admin: 01/22/20 03:30 Dose: 200 mls/hr Documented by: Methylprednisolone Sodium Succinate (Solu-Medrol -) 35 mg IVPUSH BID [facility] Last Admin: 01/21/20 22:47 Dose: 35 mg Documented by: Metoprolol Tartrate (Lopressor Injection -) 5 mg IVPUSH Q4H PRN PRN Reason: TACHYCARDIA Pantoprazole Sodium (Protonix Iv) 40 mg IVPUSH DAILY [facility] Last Admin: 01/21/20 10:41 Dose: 40 mg Documented by: Zinc Sulfate (Orazinc -) 220 mg PO DAILY [facility] Last Admin: 01/21/20 10:40 Dose: 220 mg Documented by: - Objective Vital Signs: Vital Signs Temperature 97.5 F L 01/22/20 06:00 Pulse Rate 67 01/22/20 08:10 Respiratory Rate 20 20 06:00 Blood Pressure 143/74 01/22/20 06:00 O2 Sat by Pulse Oximetry (%) 95 01/22/20 08:10 Eyes: Yes: WNL, Conjunctiva Clear, EOM Intact HENT: Yes: WNL, Atraumatic, Normocephalic Neck: Yes: WNL, Supple, Trachea Midline Cardiovascular: Yes: WNL, Regular Rate and Rhythm Respiratory: Yes: WNL, Regular, CTA Bilaterally Gastrointestinal: Yes: WNL, Normal Bowel Sounds Genitourinary: Yes: WNL Musculoskeletal: Yes: WNL Extremities: Yes: WNL Edema: No Integumentary: Yes: WNL Labs: CBC, BMP 01/21/20 05:42 01/21/20 05:42 INR, PTT INR 1.15 (0.83-1.09) H 01/15/20 18:37 Fibrinogen > 500.0 mg/dL (238-498) H 01/16/20 13:14 Problem List - Problems (1) Elevated liver enzymes Code(s): R74.8 - ABNORMAL LEVELS OF OTHER SERUM ENZYMES (2) NSTEMI (non-ST elevated myocardial infarction) Code(s): I21.4 - NON-ST ELEVATION (NSTEMI) MYOCARDIAL INFARCTION (3) Paroxysmal atrial fibrillation with RVR Code(s): I48.0 - PAROXYSMAL ATRIAL FIBRILLATION (4) Pneumonia Code(s): J18.9 - PNEUMONIA, UNSPECIFIED ORGANISM Qualifiers: Pneumonia type: due to unspecified organism Laterality: left Lung location: lower lobe of lung Qualified Code(s): J18.9 - Pneumonia, unspecified organism (5) Sepsis Code(s): A41.9 - SEPSIS, UNSPECIFIED ORGANISM Qualifiers: Sepsis type: sepsis due to unspecified organism Sepsis acute organ dysfunc tion status: with acute organ dysfunction Severe sepsis acute organ dysfu nction type: acute renal failure Acute renal failure type: unspecified Severe sepsis shock status: without septic shock Qualified Code(s): A41.9 - Sepsis, unspecified organism; R65.20 - Severe sepsis without septic shock; N17.9 - Acute kidney failure, unspecified (6) Thrombocytopenia Code(s): D69.6 - THROMBOCYTOPENIA, UNSPECIFIED (7) UTI (urinary tract infection) Code(s): N39.0 - URINARY TRACT INFECTION, SITE NOT SPECIFIED Qualifiers: Urinary tract infection type: site unspecified Hematuria presence: with hematuria Qualified Code(s): N39.0 - Urinary tract infection, site not specified; R31.9 - Hematuria, unspecified (8) Anxiety Code(s): F41.9 - ANXIETY DISORDER, UNSPECIFIED (9) Contusion, chest wall Code(s): S20.219A - CONTUSION OF UNSPECIFIED FRONT WALL OF THORAX, INIT ENCNTR Qualifiers: Encounter type: initial encounter Laterality: left Qualified Code(s): S20.212A - Contusion of left front wall of thorax, initial encounter (10) Shortness of breath Code(s): R06.02 - SHORTNESS OF BREATH (11) Well adult Code(s): [id number] - Assessment/Plan Assessment/Plan 1. CAD NSTEMI in context of 2. Paroxysmal afib with RVR 3. Sepsis source with partially obstructive right renal pelvis stone, possible LLL PNA 4. Toxic metabolic encephelopathy 5. Acute on CKD 6. HTN 7.ECHO nl EF 8.Schizo affective ds, Non-verbal 1. Trops are declining with supportive care, IV Lopressor as hemodynamics tolerate for rate-control, check ECG 2. Given obstructive nature of renal stone and ongoing sepsis source, would prefer percutaneous nephrostomy by IR as less invasive option if possible once rate-controlled with Rt URS, LASER and jj stent insertion once clinically stable 3. Continue empiric abx per C&S 4. Antiplatelets and anticoagulation on hold pending recovery of PLT>50 5. Due to Schizo affective ds, and patient being non-verbal she is a poor candidate for invasive cardiac w/u e.g. stress test c. cath. Will d/c telemetry
--- NOTE | 2020-01-22 09:27 | PN ---
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 (short form) - Note 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: sitting up in bed alert +conversant today still with high flow oxygen Vital Signs Period Temp Pulse Resp BP Sys/Mcmullen Pulse Ox Last 24 Hr 97.5 F-97.7 F 67-86 18-20 115-143/60-74 95-100 cor-rrr lungs decreased bs at bases abd soft, kline and dpcn clear urine ext no edema CBC, BMP 01/22/20 12:34 01/22/20 12:34 Microbiology 01/18/20 10:05 Blood - Peripheral Venous Blood Culture - Preliminary NO GROWTH OBTAINED AFTER 96 HOURS, INCUBATION TO CONTINUE FOR 1 DAYS. 01/18/20 10:00 Blood - Peripheral Venous Blood Culture - Preliminary NO GROWTH OBTAINED AFTER 96 HOURS, INCUBATION TO CONTINUE FOR 1 DAYS. 01/17/20 14:58 Urine - Urine Nephrostomy Tube Right Urine Culture - Final NO GROWTH OBTAINED 01/15/20 13:45 Blood - Peripheral Venous Blood Culture - Final Proteus Mirabilis 01/15/20 13:55 Blood - Peripheral Venous Blood Culture - Final Proteus Mirabilis 01/16/20 20:49 Urine For Antigen Detection Legionella Antigen - Final 01/16/20 20:49 Urine For Antigen Detection Streptococcus pneumoniae Antigen (M - Final 01/15/20 13:05 Urine - Urine - Catheterized Urine Culture - Final Proteus Mirabilis covid pcr negative covid antibody -positive Active Medications Ascorbic Acid (Vitamin C -) 250 mg PO BID [facility] Last Admin: 01/22/20 09:57 Dose: 250 mg Documented by: Chlorhexidine Gluconate (Hibiclens For Decolonization -) 1 applic TP HS [facility] Last Admin: 01/21/20 22:38 Dose: Not Given Documented by: Furosemide (Lasix Injection -) 20 mg IVPUSH DAILY [facility] Last Admin: 01/22/20 09:58 Dose: 20 mg Documented by: Vancomycin HCl (Vancomycin (Pre-Docked)) 1,000 mg in 250 mls @ 166.667 mls/hr IVPB Q24H [facility]; Protocol Last Admin: 01/21/20 23:41 Dose: 166.667 mls/hr Documented by: Piperacillin Sod/Tazobactam (Sod 4.5 gm/ Dextrose) 100 mls @ 200 mls/hr IVPB Q6H-IV [facility]; Protocol Last Admin: 01/22/20 14:02 Dose: 200 mls/hr Documented by: Methylprednisolone Sodium Succinate (Solu-Medrol -) [address] [facility] Last Admin: 01/22/20 09:57 Dose: 35 mg Documented by: Metoprolol Tartrate (Lopressor Injection -) 5 mg IVPUSH Q4H PRN PRN Reason: TACHYCARDIA Pantoprazole Sodium (Protonix Iv) [address] [facility] Last Admin: 01/22/20 09:57 Dose: 40 mg Documented by: Zinc Sulfate (Orazinc -) [address] [facility] Last Admin: 01/22/20 09:57 Dose: 220 mg Documented by: imp/reccd resp failure- pneumonia vanco/zosyn covid pcr pending steroids added PROTEUS bacteremia secondary to UTI- obstructive uropathy -s/p PCN thrombocytopenia secondary to infection DK resolved positive troponins new afib schizo-affective disorder dnr/dni noted suspect leukocytosis is due to steroids as she is clinically improving
[2020-01-22] MEDS: methylPREDNISolone NA SUCC 40 MG/1 ML VIAL IVPUSH SCH ×2 (09:57→22:09)
[2020-01-22] MEDS: ASCORBIC ACID 250 MG TABLET (FP) PO SCH ×2 (09:57→22:10)
[2020-01-22] MEDS: ZINC SULFATE 220 MG CAPSULE (FP) PO SCH (09:57)
[2020-01-22] MEDS: PANTOPRAZOLE SODIUM 40 MG VIAL IVPUSH SCH (09:57)
[2020-01-22] MEDS: FUROSEMIDE 40 MG/4 ML INJECTABLE VIAL IVPUSH SCH (09:58)
[2020-01-22 12:50] LABS: BASO % 0.3 % (0-2.0); EOS % 0.1 % (0-4.5); HEMATOCRIT 30.2 % (32.4-45.2); HEMOGLOBIN 9.9 GM/dL (10.7-15.3); LYMPH % 2.4 % (8-40); MCH 34.8 pg (25.7-33.7); MEAN CELL VOLUME 105.6 fl (80-96); MEAN PLT VOLUME 11.6 fl (7.5-11.1); MONO % 1.5 % (3.8-10.2); NEUT % 95.7 % (42.8-82.8); PLATELET COUNT 83 K/MM3 (134-434); RBC 2.86 M/mm3 (3.60-5.2); RDW 14.9 % (11.6-15.6); WHITE BLOOD COUNT 22.2 K/mm3 (4.0-10.0)
--- NOTE | 2020-01-22 13:12 | PN ---
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, Physician History of Present Illness: Seen and examined at the bedside awake and alert on high flow O2 no overnight events - Current Medication List Current Medications: Active Medications Ascorbic Acid (Vitamin C -) 250 mg PO BID [facility] Last Admin: 01/22/20 09:57 Dose: 250 mg Documented by: Chlorhexidine Gluconate (Hibiclens For Decolonization -) 1 applic TP HS [facility] Last Admin: 01/21/20 22:38 Dose: Not Given Documented by: Furosemide (Lasix Injection -) 20 mg IVPUSH DAILY [facility] Last Admin: 01/22/20 09:58 Dose: 20 mg Documented by: Vancomycin HCl (Vancomycin (Pre-Docked)) 1,000 mg in 250 mls @ 166.667 mls/hr IVPB Q24H [facility]; Protocol Last Admin: 01/21/20 23:41 Dose: 166.667 mls/hr Documented by: Piperacillin Sod/Tazobactam (Sod 4.5 gm/ Dextrose) 100 mls @ 200 mls/hr IVPB Q6H-IV [facility]; Protocol Last Admin: 01/22/20 09:57 Dose: 200 mls/hr Documented by: Methylprednisolone Sodium Succinate (Solu-Medrol -) 35 mg IVPUSH BID [facility] Last Admin: 01/22/20 09:57 Dose: 35 mg Documented by: Metoprolol Tartrate (Lopressor Injection -) 5 mg IVPUSH Q4H PRN PRN Reason: TACHYCARDIA Pantoprazole Sodium (Protonix Iv) 40 mg IVPUSH DAILY [facility] Last Admin: 01/22/20 09:57 Dose: 40 mg Documented by: Zinc Sulfate (Orazinc -) 220 mg PO DAILY [facility] Last Admin: 01/22/20 09:57 Dose: 220 mg Documented by: - Objective Vital Signs: Vital Signs Temperature 97.6 F 01/22/20 10:00 Pulse Rate 73 01/22/20 10:00 Respiratory Rate 18 01/22/20 10:00 Blood Pressure 136/71 01/22/20 10:00 O2 Sat by Pulse Oximetry (%) 98 01/22/20 12:38 Constitutional: Yes: No Distress, Calm HENT: Yes: Atraumatic Neck: Yes: Supple Cardiovascular: Yes: Regular Rate and Rhythm Respiratory: Yes: Regular, Diminished Extremities: No: Cyanosis Edema: Yes Labs: CBC, BMP 01/22/20 12:34 INR, PTT INR 1.15 (0.83-1.09) H 01/15/20 18:37 Fibrinogen > 500.0 mg/dL (238-498) H 01/16/20 13:14 Assessment/Plan Impression 1. sebastien 2. hypernatremia 3. hypokalemia 4. sepsis 5. nstemi 6. gram neg bacteremia 7. htn 8. a-fib 9. thrombocytopenia Plan Todays labs pending Continue 1500cc of free water divided throughout the day via NGT Continue lasix daily for edema management. Continue antibiotics as per primary team Trend renal function and electrolytes daily Adithya Ovalles DO
[2020-01-22 13:15] LABS: ALBUMIN 1.4 g/dl (3.4-5.0); BILIRUBIN,TOTAL 1.1 mg/dL (0.2-1); BLOOD UREA NITROGEN 43.8 mg/dL (7-18); CALCIUM 7.8 mg/dL (8.5-10.1); CREATININE 1.2 mg/dL (0.55-1.3); POTASSIUM 3.6 mmol/L (3.5-5.1); TOT PROT 5.4 g/dl (6.4-8.2)
[2020-01-22 13:55] LABS: ANISOCYTOSIS 0; MACROCYTOSIS 0; PLATELET ESTIMATE DECREASED; TOXIC GRANULATION 2+
--- NOTE | 2020-01-22 14:35 | PN ---
Physical Exam: SUBJECTIVE: Patient seen and examined at bedside, O2 req. improving off NRB, COVID neg. x2 but antibodies positive, ?prev. exposure. VSS. OBJECTIVE: Vital Signs Period Temp Pulse Resp BP Sys/Mcmullen Pulse Ox Last 24 Hr 97.6 F-100.5 F 73-106 20-22 110-136/50-75 91-98 GENERAL: Awake, no distress, Aerosol mask attached HEENT NC/AT, neck supple, EOMI, no JVD LUNGS: no accessory M use, decreased air entry b/l, poor inspiratory effort HEART: Regular rate and rhythm, S1, S2 without murmur, rub or gallop. ABDOMEN: Soft, NT, mildly distended, BS+ EXTREMITIES: no LE edema PSYCH: Flat affect. SKIN: Warm, dry, normal turgor, no rashes or lesions noted Laboratory Results - last 24 hr 01/20/20 01/20/20 01/21/20 09:00 15:11 15:11 WBC RBC Hgb Hct MCV MCH MCHC RDW Plt Count MPV Absolute Neuts (auto) Neutrophils % Neutrophils % (Manual) Band Neutrophils % Lymphocytes % Lymphocytes % (Manual) Monocytes % Monocytes % (Manual) Eosinophils % Eosinophils % (Manual) Basophils % Basophils % (Manual) Myelocytes % (Man) Promyelocytes % (Man) Blast Cells % (Manual) Nucleated RBC % Metamyelocytes Hypochromia Toxic Granulation Platelet Estimate Polychromasia Poikilocytosis Anisocytosis Microcytosis Macrocytosis D-Dimer 2539 H Sodium Potassium Chloride Carbon Dioxide Anion Gap BUN Creatinine Est GFR (CKD-EPI)AfAm Est GFR (CKD-EPI)NonAf Random Glucose Calcium Magnesium Total Bilirubin AST ALT Alkaline Phosphatase Total Protein Albumin COVID-19 (KATHARINA) Not detected SARS-CoV-2 Ab Interp Reactive 01/22/20 01/22/20 12:34 12:34 WBC 22.2 H RBC 2.86 L Hgb 9.9 L Hct 30.2 L MCV 105.6 H MCH 34.8 H MCHC 33.0 RDW 14.9 Plt Count 83 L D MPV 11.6 H Absolute Neuts (auto) 21.2 H Neutrophils % 95.7 H Neutrophils % (Manual) 96.0 H Band Neutrophils % 0.0 Lymphocytes % 2.4 L D Lymphocytes % (Manual) 2.0 L D Monocytes % 1.5 L Monocytes % (Manual) 2 L D Eosinophils % 0.1 D Eosinophils % (Manual) 0.0 Basophils % 0.3 Basophils % (Manual) 0.0 Myelocytes % (Man) 0 Promyelocytes % (Man) 0 Blast Cells % (Manual) 0 Nucleated RBC % 0 Metamyelocytes 0 Hypochromia 0 Toxic Granulation 2+ Platelet Estimate Decreased Polychromasia 0 Poikilocytosis 0 Anisocytosis 0 Microcytosis 0 Macrocytosis 0 D-Dimer Sodium 142 Potassium 3.6 Chloride 111 H Carbon Dioxide 20 L Anion Gap 11 BUN 43.8 H Creatinine 1.2 Est GFR (CKD-EPI)AfAm 48.74 Est GFR (CKD-EPI)NonAf 42.05 Random Glucose 228 H Calcium 7.8 L Magnesium 2.0 Total Bilirubin 1.1 H AST 43 H ALT 34 Alkaline Phosphatase 152 H Total Protein 5.4 L Albumin 1.4 L COVID-19 (KATHARINA) SARS-CoV-2 Ab Interp Active Medications Generic Name Dose Route Start Last Admin Trade Name Freq PRN Reason Stop Dose Admin Ascorbic Acid 250 mg 01/19/20 22:00 01/22/20 09:57 Vitamin C - PO 250 mg BID [facility] Administration Chlorhexidine Gluconate 1 applic 01/17/20 22:00 01/21/20 22:38 Hibiclens For Decolonization - TP Not Given HS [facility] Furosemide 20 mg 01/20/20 10:45 01/22/20 09:58 Lasix Injection - IVPUSH 20 mg DAILY [facility] Administration Vancomycin HCl 1,000 mg in 250 mls @ 166.667 mls/hr 01/21/20 23:00 01/21/20 23:41 Vancomycin (Pre-Docked) IVPB 166.667 mls/hr Q24H [facility] Administration Protocol Piperacillin Sod/Tazobactam 100 mls @ 200 mls/hr 01/20/20 15:00 01/22/20 14:02 Sod 4.5 gm/ Dextrose IVPB 200 mls/hr Q6H-IV [facility] Administration Protocol Methylprednisolone Sodium Succinate 35 mg 01/21/20 10:52 01/22/20 09:57 Solu-Medrol - IVPUSH 35 mg BID [facility] Administration Metoprolol Tartrate 5 mg 01/17/20 05:02 Lopressor Injection - IVPUSH Q4H PRN TACHYCARDIA Pantoprazole Sodium 40 mg 01/17/20 10:00 01/22/20 09:57 Protonix Iv IVPUSH 40 mg DAILY [facility] Administration Zinc Sulfate 220 mg 01/19/20 18:15 01/22/20 09:57 Orazinc - PO 220 mg DAILY [facility] Administration ASSESSMENT/PLAN: 84 F Acute hypoxemic respiratory failure BILATERAL PNEUMONIA COVID negative Sepsis 2/2 UTI Gram Negative Bacteremia DK on CKD Thrombocytopenia Acute NSTEMI Paroxysmal Atrial Fibrillation HTN Pneumonia Hypernatremia improving Plan: Continue supplemental O2 as needed to titrate sat >92% HOB elevation, Lasix PRN for dyspnea, COVID neg. Cont. Zosyn, IV steroids added for cytokine storm, ?infection related or malignancy? DVT ppx: SCD for now d/t thrombocytopenia, restart Heparin SC when Plt >100 Visit type - Emergency Visit Emergency Visit: Yes ED Registration Date: 01/15/20 Care time: The patient presented to the Emergency Department on the above date and was hospitalized for further evaluation of their emergent condition. - New Patient This patient is new to me today: No - Critical Care Critical Care patient: No - Discharge Referral Referred to [facility] No - Medication Review Med list reviewed for High Risk Meds patients 65 and older: Yes
[2020-01-22] MEDS: CHLORHEXIDINE GLUCONATE 4% CLEANSER FOR DECOLONIZATION TP SCH (22:10)
[2020-01-22] MEDS: VANCOMYCIN 1 GRAM (PRE-DOCKED) 1,000 MG/250 ML BAG IVPB SCH (23:20)
[2020-01-23] MEDS ORDERED: DEXTROSE 5%-WATER 100 ML IVPB ONE ×4 (02:01→20:42)
[2020-01-23] MEDS ORDERED: PIPERACILLIN/TAZOBACTAM 4.5 GM VIAL IVPB ONE ×4 (02:01→20:42)
[2020-01-23] MEDS: PIPERACILLIN/TAZOB 4.5 GM 4.5 GM in DEXTROSE 5%-WATER 100 ML IVPB SCH ×4 (03:08→21:16)
--- NOTE | 2020-01-23 07:14 | PN ---
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, Physician History of Present Illness: PULMONARY AWAKE,COMFORTABLE ON HFOT SAT 95% - Current Medication List Current Medications: Active Medications Ascorbic Acid (Vitamin C -) 250 mg PO BID [facility] Last Admin: 01/22/20 22:10 Dose: 250 mg Documented by: Chlorhexidine Gluconate (Hibiclens For Decolonization -) 1 applic TP HS [facility] Last Admin: 01/22/20 22:10 Dose: Not Given Documented by: Furosemide (Lasix Injection -) 20 mg IVPUSH DAILY [facility] Last Admin: 01/22/20 09:58 Dose: 20 mg Documented by: Vancomycin HCl (Vancomycin (Pre-Docked)) 1,000 mg in 250 mls @ 166.667 mls/hr IVPB Q24H [facility]; Protocol Last Admin: 01/22/20 23:20 Dose: 166.667 mls/hr Documented by: Piperacillin Sod/Tazobactam (Sod 4.5 gm/ Dextrose) 100 mls @ 200 mls/hr IVPB Q6H-IV [facility]; Protocol Last Admin: 01/23/20 03:08 Dose: 200 mls/hr Documented by: Methylprednisolone Sodium Succinate (Solu-Medrol -) 35 mg IVPUSH BID [facility] Last Admin: 01/22/20 22:09 Dose: 35 mg Documented by: Metoprolol Tartrate (Lopressor Injection -) 5 mg IVPUSH Q4H PRN PRN Reason: TACHYCARDIA Pantoprazole Sodium (Protonix Iv) 40 mg IVPUSH DAILY [facility] Last Admin: 01/22/20 09:57 Dose: 40 mg Documented by: Zinc Sulfate (Orazinc -) 220 mg PO DAILY [facility] Last Admin: 01/22/20 09:57 Dose: 220 mg Documented by: - Objective Vital Signs: Vital Signs Temperature 98.1 F 01/23/20 01:00 Pulse Rate 76 01/23/20 01:00 Respiratory Rate 20 01/23/20 01:00 Blood Pressure 142/77 01/23/20 01:00 O2 Sat by Pulse Oximetry (%) 95 01/23/20 03:19 Constitutional: Yes: Well Nourished, Calm Eyes: Yes: WNL HENT: Yes: WNL Neck: Yes: WNL Cardiovascular: Yes: Regular Rate and Rhythm, S1, S2 Respiratory: Yes: Rales ([place] CRACKLES) Gastrointestinal: Yes: Normal Bowel Sounds, Soft Extremities: Yes: WNL Edema: No Labs: CBC, BMP Assessment/Plan Assessment/Plan A/P acute hypoxemic respiratory failure BILATERAL PNEUMONIA Suspected COVID-19 UTI/Nephrolithiasis Gram Negative Bacteremia Sepsis Acute on Chronic Renal Failure Thrombocytopenia Acute NSTEMI Paroxysmal Atrial Fibrillation HTN Pneumonia Hypernatremia improving - O2to maintainn O2sat 90% or greater - HFOT - antibiotics as per ID - medrol - monitor inflammatory markers - S/P nephrostomy tube placement - IVF - monitor urine output, creatinine - monitor CBC, coags,lytes,na - rate control - DVT prophylaxis - f/u chest x-rays - Repeat Covid pcr - COVID ANTIBODY + - AC DR SOLOMON CARBAJAL
--- NOTE | 2020-01-23 08:52 | PN ---
DATE OF VISIT: DATE OF DICTATION: 01/22/2020 This is an 84-year-old female who came in septic with right hydroureteronephrosis. She is status post a right percutaneous nephrostomy. Her white count is now 12,500. The BUN is 37 and creatinine 1.1. Her vital signs are stable at 97.6 temperature and blood pressure 136/71. Her output via the العلي is 1200 mL in 8 hours. The urine is clear. Her C&S of the urine reveals Proteus mirabilis. She is presently on Zosyn. She is presently more alert, comfortable. Will continue with antibiotics as per ID. Will monitor her urine output. Will follow her up when medically stable for a laser lithotripsy and removal of percutaneous tube. LIN JOLLY M.D. [id number]
--- NOTE | 2020-01-23 09:52 | PN ---
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, Physician History of Present Illness: 84 Y/O Female patient with Bipolar disease, HTN from [facility]. She is presented into ER with confusion fever 102.4, hypoxic respiratory failure WBC 22.9 HB 13. Plt 27 BUN 95.4 Creat 2.9, lactate 3.9, trops 10 CT-Scan Rt Renal pelvis stone 1.4 cm with partial obstruction Pt was given empiric IV abx coverage with Vanc/Zosyn. Uro made aware with recommendation to make NPO after midnight, now in rapid afib. - Current Medication List Current Medications: Active Medications Ascorbic Acid (Vitamin C -) 250 mg PO BID [facility] Last Admin: 01/22/20 22:10 Dose: 250 mg Documented by: Chlorhexidine Gluconate (Hibiclens For Decolonization -) 1 applic TP HS [facility] Last Admin: 01/22/20 22:10 Dose: Not Given Documented by: Furosemide (Lasix Injection -) 20 mg IVPUSH DAILY [facility] Last Admin: 01/22/20 09:58 Dose: 20 mg Documented by: Vancomycin HCl (Vancomycin (Pre-Docked)) 1,000 mg in 250 mls @ 166.667 mls/hr IVPB Q24H [facility]; Protocol Last Admin: 01/22/20 23:20 Dose: 166.667 mls/hr Documented by: Piperacillin Sod/Tazobactam (Sod 4.5 gm/ Dextrose) 100 mls @ 200 mls/hr IVPB Q6H-IV [facility]; Protocol Last Admin: 01/23/20 03:08 Dose: 200 mls/hr Documented by: Methylprednisolone Sodium Succinate (Solu-Medrol -) 35 mg IVPUSH BID [facility] Last Admin: 01/22/20 22:09 Dose: 35 mg Documented by: Metoprolol Tartrate (Lopressor Injection -) 5 mg IVPUSH Q4H PRN PRN Reason: TACHYCARDIA Pantoprazole Sodium (Protonix Iv) 40 mg IVPUSH DAILY [facility] Last Admin: 01/22/20 09:57 Dose: 40 mg Documented by: Zinc Sulfate (Orazinc -) 220 mg PO DAILY [facility] Last Admin: 01/22/20 09:57 Dose: 220 mg Documented by: - Objective Vital Signs: Vital Signs Temperature 98.3 F 01/23/20 06:00 Pulse Rate 83 01/23/20 08:13 Respiratory Rate 20 01/23/20 06:00 Blood Pressure 140/74 01/23/20 06:00 O2 Sat by Pulse Oximetry (%) 95 01/23/20 08:13 Eyes: Yes: WNL, Conjunctiva Clear, EOM Intact HENT: Yes: WNL, Atraumatic, Normocephalic Neck: Yes: WNL, Supple, Trachea Midline Cardiovascular: Yes: WNL, Regular Rate and Rhythm Respiratory: Yes: WNL, Regular, CTA Bilaterally Gastrointestinal: Yes: WNL, Normal Bowel Sounds Genitourinary: Yes: WNL Musculoskeletal: Yes: WNL Extremities: Yes: WNL Edema: No Integumentary: Yes: WNL Labs: CBC, BMP 01/22/20 12:34 01/22/20 12:34 INR, PTT INR 1.15 (0.83-1.09) H 01/15/20 18:37 Fibrinogen > 500.0 mg/dL (238-498) H 01/16/20 13:14 Problem List - Problems (1) Elevated liver enzymes Code(s): R74.8 - ABNORMAL LEVELS OF OTHER SERUM ENZYMES (2) NSTEMI (non-ST elevated myocardial infarction) Code(s): I21.4 - NON-ST ELEVATION (NSTEMI) MYOCARDIAL INFARCTION (3) Paroxysmal atrial fibrillation with RVR Code(s): I48.0 - PAROXYSMAL ATRIAL FIBRILLATION (4) Pneumonia Code(s): J18.9 - PNEUMONIA, UNSPECIFIED ORGANISM Qualifiers: Pneumonia type: due to unspecified organism Laterality: left Lung location: lower lobe of lung Qualified Code(s): J18.9 - Pneumonia, unspecified organism (5) Sepsis Code(s): A41.9 - SEPSIS, UNSPECIFIED ORGANISM Qualifiers: Sepsis type: sepsis due to unspecified organism Sepsis acute organ dysfunct ion status: with acute organ dysfunction Severe sepsis acute organ dysfunction type: acute renal failure Acute renal failure type: unspecified Severe sepsis shock status: without septic shock Qualified Code(s): A41.9 - Sepsis, unspecified organism; R65.20 - Severe sepsis without septic shock; N17.9 - Acute kidney failure, unspecified (6) Thrombocytopenia Code(s): D69.6 - THROMBOCYTOPENIA, UNSPECIFIED (7) UTI (urinary tract infection) Code(s): N39.0 - URINARY TRACT INFECTION, SITE NOT SPECIFIED Qualifiers: Urinary tract infection type: site unspecified Hematuria presence: with hematuria Qualified Code(s): N39.0 - Urinary tract infection, site not specified; R31.9 - Hematuria, unspecified (8) Anxiety Code(s): F41.9 - ANXIETY DISORDER, UNSPECIFIED (9) Contusion, chest wall Code(s): S20.219A - CONTUSION OF UNSPECIFIED FRONT WALL OF THORAX, INIT ENCNTR Qualifiers: Encounter type: initial encounter Laterality: left Qualified Code(s): S20.212A - Contusion of left front wall of thorax, initial encounter (10) Shortness of breath Code(s): R06.02 - SHORTNESS OF BREATH (11) Well adult Code(s): [id number] - Assessment/Plan Assessment/Plan 1. CAD NSTEMI in context of 2. Paroxysmal afib with RVR 3. Sepsis source with partially obstructive right renal pelvis stone, possible LLL PNA 4. Toxic metabolic encephelopathy 5. Acute on CKD 6. HTN 7.ECHO nl EF 8.Schizo affective ds, Non-verbal 1. Trops are declining with supportive care, IV Lopressor as hemodynamics tolerate for rate-control, check ECG 2. Given obstructive nature of renal stone and ongoing sepsis source, would prefer percutaneous nephrostomy by IR as less invasive option if possible once rate-controlled with Rt URS, LASER and jj stent insertion once clinically stable 3. Continue empiric abx per C&S 4. Antiplatelets and anticoagulation on hold pending recovery of PLT>50 5. Due to Schizo affective ds, and patient being non-verbal she is a poor candidate for invasive cardiac w/u e.g. stress test c. cath. Will d/c telemetry
--- NOTE | 2020-01-23 10:06 | PN ---
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 (short form) - Note 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: sitting up in bed alert +conversant today still with high flow oxygen Vital Signs Period Temp Pulse Resp BP Sys/Mcmullen Pulse Ox Last 24 Hr 97.5 F-98.3 F 76-86 20-20 115-142/60-77 94-100 cor-rrr lungs decreased bs at bases abd soft,nt +PCN +kline ext no edema CBC, BMP 01/22/20 12:34 01/22/20 12:34 Microbiology 01/18/20 10:05 Blood - Peripheral Venous Blood Culture - Preliminary NO GROWTH OBTAINED AFTER 96 HOURS, INCUBATION TO CONTINUE FOR 1 DAYS. 01/18/20 10:00 Blood - Peripheral Venous Blood Culture - Preliminary NO GROWTH OBTAINED AFTER 96 HOURS, INCUBATION TO CONTINUE FOR 1 DAYS. 01/17/20 14:58 Urine - Urine Nephrostomy Tube Right Urine Culture - Final NO GROWTH OBTAINED 01/15/20 13:45 Blood - Peripheral Venous Blood Culture - Final Proteus Mirabilis 01/15/20 13:55 Blood - Peripheral Venous Blood Culture - Final Proteus Mirabilis 01/16/20 20:49 Urine For Antigen Detection Legionella Antigen - Final 01/16/20 20:49 Urine For Antigen Detection Streptococcus pneumoniae Antigen (M - Final 01/15/20 13:05 Urine - Urine - Catheterized Urine Culture - Final Proteus Mirabilis covid pcr negative covid antibody -positive Active Medications Ascorbic Acid (Vitamin C -) 250 mg PO BID [facility] Last Admin: 01/22/20 22:10 Dose: 250 mg Documented by: Chlorhexidine Gluconate (Hibiclens For Decolonization -) 1 applic TP HS [facility] Last Admin: 01/22/20 22:10 Dose: Not Given Documented by: Furosemide (Lasix Injection -) 20 mg IVPUSH DAILY [facility] Last Admin: 01/22/20 09:58 Dose: 20 mg Documented by: Vancomycin HCl (Vancomycin (Pre-Docked)) 1,000 mg in 250 mls @ 166.667 mls/hr IVPB Q24H [facility]; Protocol Last Admin: 01/22/20 23:20 Dose: 166.667 mls/hr Documented by: Piperacillin Sod/Tazobactam (Sod 4.5 gm/ Dextrose) 100 mls @ 200 mls/hr IVPB Q6H-IV [facility]; Protocol Last Admin: 01/23/20 03:08 Dose: 200 mls/hr Documented by: Methylprednisolone Sodium Succinate (Solu-Medrol -) 35 mg IVPUSH BID [facility] Last Admin: 01/22/20 22:09 Dose: 35 mg Documented by: Metoprolol Tartrate (Lopressor Injection -) 5 mg IVPUSH Q4H PRN PRN Reason: TACHYCARDIA Pantoprazole Sodium (Protonix Iv) 40 mg IVPUSH DAILY [facility] Last Admin: 01/22/20 09:57 Dose: 40 mg Documented by: Zinc Sulfate (Orazinc -) 220 mg PO DAILY [facility] Last Admin: 01/22/20 09:57 Dose: 220 mg Documented by: imp/reccd resp failure- pneumonia vanco/zosyn covid pcr pending steroids added PROTEUS bacteremia secondary to UTI- obstructive uropathy -s/p PCN thrombocytopenia secondary to infection DK resolved positive troponins new afib schizo-affective disorder dnr/dni noted suspect leukocytosis is due to steroids as she is clinically improving
[2020-01-23] MEDS: methylPREDNISolone NA SUCC 40 MG/1 ML VIAL IVPUSH SCH ×2 (10:14→21:18)
[2020-01-23] MEDS: PANTOPRAZOLE SODIUM 40 MG VIAL IVPUSH SCH (10:14)
[2020-01-23] MEDS: ASCORBIC ACID 250 MG TABLET (FP) PO SCH ×2 (10:14→21:18)
[2020-01-23] MEDS: FUROSEMIDE 40 MG/4 ML INJECTABLE VIAL IVPUSH SCH (10:14)
[2020-01-23] MEDS: ZINC SULFATE 220 MG CAPSULE (FP) PO SCH (10:14)
--- NOTE | 2020-01-23 12:01 | PN ---
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, Physician History of Present Illness: Pt seen and examined at bedside. Her mental status is improved from thursday. - Current Medication List Current Medications: Active Medications Ascorbic Acid (Vitamin C -) 250 mg PO BID [facility] Last Admin: 01/23/20 10:14 Dose: 250 mg Documented by: Chlorhexidine Gluconate (Hibiclens For Decolonization -) 1 applic TP HS [facility] Last Admin: 01/22/20 22:10 Dose: Not Given Documented by: Furosemide (Lasix Injection -) 20 mg IVPUSH DAILY [facility] Last Admin: 01/23/20 10:14 Dose: 20 mg Documented by: Heparin Sodium (Porcine) (Heparin -) 5,000 unit SQ BID [facility] Vancomycin HCl (Vancomycin (Pre-Docked)) 1,000 mg in 250 mls @ 166.667 mls/hr IVPB Q24H [facility]; Protocol Last Admin: 01/22/20 23:20 Dose: 166.667 mls/hr Documented by: Piperacillin Sod/Tazobactam (Sod 4.5 gm/ Dextrose) 100 mls @ 200 mls/hr IVPB Q6H-IV [facility]; Protocol Last Admin: 01/23/20 10:13 Dose: 200 mls/hr Documented by: Methylprednisolone Sodium Succinate (Solu-Medrol -) 35 mg IVPUSH BID [facility] Last Admin: 01/23/20 10:14 Dose: 35 mg Documented by: Metoprolol Tartrate (Lopressor Injection -) 5 mg IVPUSH Q4H PRN PRN Reason: TACHYCARDIA Pantoprazole Sodium (Protonix Iv) 40 mg IVPUSH DAILY [facility] Last Admin: 01/23/20 10:14 Dose: 40 mg Documented by: Zinc Sulfate (Orazinc -) 220 mg PO DAILY [facility] Last Admin: 01/23/20 10:14 Dose: 220 mg Documented by: - Objective Vital Signs: Vital Signs Temperature 98 F 01/23/20 10:00 Pulse Rate 86 01/23/20 10:00 Respiratory Rate 20 01/23/20 10:00 Blood Pressure 151/76 01/23/20 10:00 O2 Sat by Pulse Oximetry (%) 96 01/23/20 11:30 Constitutional: Yes: Calm Eyes: Yes: Conjunctiva Clear HENT: Yes: Atraumatic Neck: Yes: Supple Cardiovascular: Yes: S1, S2 Respiratory: Yes: CTA Bilaterally, On Nasal O2 Gastrointestinal: Yes: Soft Genitourinary: Yes: العلي Present Edema: No Neurological: Yes: Confusion Labs: CBC, BMP 01/22/20 12:34 01/22/20 12:34 INR, PTT INR 1.15 (0.83-1.09) H 01/15/20 18:37 Fibrinogen > 500.0 mg/dL (238-498) H 01/16/20 13:14 Problem List - Problems (1) SEBASTIEN (acute kidney injury) Code(s): N17.9 - ACUTE KIDNEY FAILURE, UNSPECIFIED (2) Hypernatremia Code(s): E87.0 - HYPEROSMOLALITY AND HYPERNATREMIA (3) NSTEMI (non-ST elevated myocardial infarction) Code(s): I21.4 - NON-ST ELEVATION (NSTEMI) MYOCARDIAL INFARCTION Assessment/Plan Current Medications Generic Name Dose Route Start Last Admin Trade Name Freq PRN Reason Stop Dose Admin Ascorbic Acid 250 mg 01/19/20 22:00 01/23/20 10:14 Vitamin C - PO 250 mg BID [facility] Administration Chlorhexidine Gluconate 1 applic 01/17/20 22:00 01/22/20 22:10 Hibiclens For Decolonization - TP Not Given HS [facility] Furosemide 20 mg 01/20/20 10:45 01/23/20 10:14 Lasix Injection - IVPUSH 20 mg DAILY [facility] Administration Heparin Sodium (Porcine) 5,000 unit 01/23/20 12:00 Heparin - SQ BID [facility] Vancomycin HCl 1,000 mg in 250 mls @ 166.667 mls/hr 01/21/20 23:00 01/22/20 23:20 Vancomycin (Pre-Docked) IVPB 166.667 mls/hr Q24H [facility] Administration Protocol Piperacillin Sod/Tazobactam 100 mls @ 200 mls/hr 01/20/20 15:00 01/23/20 1 0:13 Sod 4.5 gm/ Dextrose IVPB 200 mls/hr Q6H-IV [facility] Administration Protocol Methylprednisolone Sodium Succinate 35 mg 01/21/20 10:52 01/23/20 10:14 Solu-Medrol - IVPUSH 35 mg BID [facility] Administration Metoprolol Tartrate 5 mg 01/17/20 05:02 Lopressor Injection - IVPUSH Q4H PRN TACHYCARDIA Pantoprazole Sodium 40 mg 01/17/20 10:00 01/23/20 10:14 Protonix Iv IVPUSH 40 mg DAILY [facility] Administration Zinc Sulfate 220 mg 01/19/20 18:15 01/23/20 10:14 Orazinc - PO 220 mg DAILY [facility] Administration Laboratory Tests 01/15/20 01/20/20 01/21/20 14:00 09:00 15:11 COVID-19 (KATHARINA) Not detected Not detected SARS-CoV-2 Ab Interp Reactive 01/23/20 10:00 COVID-19 (KATHARINA) Pending SARS-CoV-2 Ab Interp Impression 1. sebastien 2. hypernatremia 3. hypokalemia 4. sepsis 5. nstemi 6. gram neg bacteremia 7. htn 8. a-fib 9. thrombocytopenia Plan - sodium has improved - cont with free water and monitor lytes - cont lasix for volume managements - will monitor sodium and adjust free water dose as needed - follow repeat pcr, she does have covid abs - renal function stable
[2020-01-23 12:30] LABS: BASO % 0.5 % (0-2.0); HEMATOCRIT 30.6 % (32.4-45.2); HEMOGLOBIN 10.4 GM/dL (10.7-15.3); LYMPH % 1.7 % (8-40); MCH 35.1 pg (25.7-33.7); MCHC 33.9 g/dl (32.0-36.0); MEAN CELL VOLUME 103.4 fl (80-96); MEAN PLT VOLUME 11.9 fl (7.5-11.1); MONO % 1.1 % (3.8-10.2); NEUT % 96.7 % (42.8-82.8); PLATELET COUNT 82 K/MM3 (134-434); RBC 2.96 M/mm3 (3.60-5.2); RDW 14.5 % (11.6-15.6); WHITE BLOOD COUNT 24.4 K/mm3 (4.0-10.0)
[2020-01-23 12:59] LABS: ALBUMIN 1.4 g/dl (3.4-5.0); BILIRUBIN,TOTAL 1.9 mg/dL (0.2-1); BLOOD UREA NITROGEN 42.4 mg/dL (7-18); CALCIUM 7.5 mg/dL (8.5-10.1); CREATININE 1.1 mg/dL (0.55-1.3); POTASSIUM 3.2 mmol/L (3.5-5.1); TOT PROT 5.5 g/dl (6.4-8.2)
[2020-01-23] MEDS: HEPARIN NA (PORCINE) 5,000 UNITS/ML 1ML VIAL SQ SCH ×2 (13:04→21:18)
--- NOTE | 2020-01-23 13:08 | PN ---
Teaching Attending Note Name of Resident: Herbert Page ATTENDING PHYSICIAN STATEMENT I saw and evaluated the patient. I reviewed the resident's note and discussed the case with the resident. I agree with the resident's findings and plan as documented. SUBJECTIVE: Seen and examined at bedside. Still alert and oriented x0, though possibly sli ghtly more alert than Gerald. COVID antibodies are positive. Will repeat COVID test given high clinical suspicion. Restart DVT prophylaxis given improving platelets. Start NGT feeds OBJECTIVE Last Vital Signs Temp Pulse Resp BP Pulse Ox 97.8 F 83 17 127/62 96 01/20/20 10:00 01/20/20 10:00 01/20/20 10:00 01/20/20 10:00 01/20/20 06:00 PE: Per resident note Labs/Imaging: reviewed ASSESSMENT/PLAN 84-year-old male history of hypertension bipolar disorder admitted for severe sepsis to ICU in the setting of infected kidney stone and possible pneumonia. #Severe sepsis: Proteus bacteremia In setting of infected obstructing kidney stone 1.4cm and possible pneumonia. Patient is now hemodynamically stable with improving white count status post Zosyn, right nephrostomy, and العلي catheter. Fevers are increasing since patient was downgraded to ceftriaxone from Zosyn. There may be a component of aspiration pneumonia. Will discuss switching back to Zosyn with ID -Troponin downtrending, DK resolved, continuing thrombocytopenia Urology on board, stent when stable #Hypernatremia:improving Likely iatrogenic due to normal saline in setting of impaired kidney function due to sepsis and obstructive uropathy check daily labs Nephrology on board: appreciate recs -lasix IV 20mg daily #hypoxia Clinically high concern for covid given fevers, bilateral infiltrates, elevated inflammatory markers, and high degree of hypoxia -covid AB+ -recheck covid PCR start lasix IV 20mg daily #Thrombocytopenia: improving Likely in the setting of severe sepsis. Patient's platelets were normal in 2018 Trend CBC start dvt ppx #New onset atrial fibrillation In the setting of sepsis PRN IV metoprolol May require outpatient Holter monitoring to determine need for anticoagulation in the future #Prerenal and postrenal DK: Resolved
[2020-01-23 15:06] LABS: ANISOCYTOSIS 1+; MACROCYTOSIS 1+; PLATELET ESTIMATE DECREASED
[2020-01-23] MEDS: NYSTATIN POWDER 100,000 UNITS/GM - 15 GM TOPICAL POWDER TP SCH (16:49)
[2020-01-23] MEDS ORDERED: POTASSIUM CHLORIDE ORAL LIQUID 20 MEQ/15 ML NGT ONE (16:56)
--- NOTE | 2020-01-23 17:22 | PN ---
Physical Exam: SUBJECTIVE: Patient seen and examined. OBJECTIVE: Vital Signs Period Temp Pulse Resp BP Sys/Mcmullen Pulse Ox Last 24 Hr 98 F-98.8 F 76-90 20-20 132-151/74-77 94-98 GENERAL: The patient is awake, alert, in no acute distress. HEAD: Normal with no signs of trauma. EYES: PERRL, sclera anicteric, conjunctiva clear. ENT: Ears normal, nares patent, oropharynx clear without exudates, dry mucous membranes. NECK: Trachea midline, full range of motion, supple. LUNGS: Breath sounds equal, clear to auscultation bilaterally, no wheezes, no crackles, no accessory muscle use. HEART: Regular rate and rhythm, S1, S2 without murmur, rub or gallop. ABDOMEN: Soft, nontender, nondistended, normoactive bowel sounds, no guarding, no rebound. العلي noted with yellow urine. Nephrostomy tube noted to have 100ml of serosanguinous drainage EXTREMITIES: 2+ dorsal pedal pulses, warm, no calf tendernesswell-perfused, Trace edema. NEUROLOGICAL: Limited as Pt. did not follow commands, gait not observed. PSYCH: Normal mood, normal affect. SKIN: Warm, dry Laboratory Results - last 24 hr 01/23/20 01/23/20 01/23/20 11:33 11:33 11:33 WBC 24.4 H RBC 2.96 L Hgb 10.4 L Hct 30.6 L MCV 103.4 H MCH 35.1 H MCHC 33.9 RDW 14.5 Plt Count 82 L MPV 11.9 H Absolute Neuts (auto) 23.6 H Neutrophils % 96.7 H Neutrophils % (Manual) 97.0 H Band Neutrophils % 1.0 Lymphocytes % 1.7 L D Lymphocytes % (Manual) 1.0 L D Monocytes % 1.1 L Monocytes % (Manual) 1 L Eosinophils % 0.0 D Eosinophils % (Manual) 0.0 Basophils % 0.5 Basophils % (Manual) 0.0 Myelocytes % (Man) 0 Promyelocytes % (Man) 0 Blast Cells % (Manual) 0 Nucleated RBC % 0 Metamyelocytes 0 Hypochromia 0 Platelet Estimate Decreased Polychromasia 0 Poikilocytosis 0 Anisocytosis 1+ Microcytosis 0 Macrocytosis 1+ D-Dimer 3646 H Sodium 138 Potassium 3.2 L Chloride 109 H Carbon Dioxide 19 L Anion Gap 10 BUN 42.4 H Creatinine 1.1 Est GFR (CKD-EPI)AfAm 54.15 Est GFR (CKD-EPI)NonAf 46.72 Random Glucose 233 H Calcium 7.5 L Ferritin 1511.9 H Total Bilirubin 1.9 H AST 52 H ALT 60 Alkaline Phosphatase 175 H LD Total 376 H C-Reactive Protein 5.5 H Total Protein 5.5 L Albumin 1.4 L Active Medications Generic Name Dose Route Start Last Admin Trade Name Freq PRN Reason Stop Dose Admin Ascorbic Acid 250 mg 01/19/20 22:00 01/23/20 10:14 Vitamin C - PO 250 mg BID [facility] Administration Chlorhexidine Gluconate 1 applic 01/17/20 22:00 01/22/20 22:10 Hibiclens For Decolonization - TP Not Given HS [facility] Furosemide 20 mg 01/20/20 10:45 01/23/20 10:14 Lasix Injection - IVPUSH 20 mg DAILY [facility] Administration Heparin Sodium (Porcine) 5,000 unit 01/23/20 12:00 01/23/20 13:04 Heparin - SQ 5,000 unit BID [facility] Administration Vancomycin HCl 1,000 mg in 250 mls @ 166.667 mls/hr 01/21/20 23:00 01/22/20 23:20 Vancomycin (Pre-Docked) IVPB 166.667 mls/hr Q24H [facility] Administration Protocol Piperacillin Sod/Tazobactam 100 mls @ 200 mls/hr 01/20/20 15:00 01/23/20 14:14 Sod 4.5 gm/ Dextrose IVPB 200 mls/hr Q6H-IV [facility] Administration Protocol Methylprednisolone Sodium Succinate 35 mg 01/21/20 10:52 01/23/20 10:14 Solu-Medrol - IVPUSH 35 mg BID [facility] Administration Metoprolol Tartrate 5 mg 01/17/20 05:02 Lopressor Injection - IVPUSH Q4H PRN TACHYCARDIA Nystatin 1 applic 01/23/20 16:15 01/23/20 16:49 Nystop Powder - TP Not Given DAILY [facility] Pantoprazole Sodium 40 mg 01/17/20 10:00 01/23/20 10:14 Protonix Iv IVPUSH 40 mg DAILY [facility] Administration Zinc Sulfate 220 mg 01/19/20 18:15 01/23/20 10:14 Orazinc - PO 220 mg DAILY [facility] Administration ASSESSMENT/PLAN: Pt. is an 84 y.o. F w/ PMHx. of HTN, Major Depression, and Schizoaffective disorder (Aripiprazole, Fluoxetine, Mirtazapine) was brought in by EMS from [facility] for AMS. #Acute Metabolic Encephalopathy 2/2 Severe Sepsis 2/2 UTI -CTH: no acute findings; cerebral atrophy; old LEFT parietal infarct; chronic periventricular ischemic changes -Neuro checks -D/c IVF as Pt. is volume overloaded -CTAP: 1.4 cm partially obstructing calculus Right renal pelvis -s/p Vanc 1gm and Zosyn 3.375 in ED; now on Vanc and Zosyn -ID consult appreciated -UCx: proteus species, >100.000 CFU -blood culture growing Proteus in 2 sets, Rpt. BCx. Neg. to date #Hypoxia 2/2/ Aspiration PNA vs. COVID -c/w supplemental O2 to keep saturation above 90% -Chest CT: Left lower lobe bronchiectasis and consolidation -CXR showing small left pleural effusion and Left Lobe consolidaiton -c/w Vanc and Zosyn, ID consult appreciated. -COVID Abs positive, PCR neg x 2 f/u Rpt. however will treat as positive. -c/w Solumedrol BID (likely causing leukocytosis) -c/w IV Lasix for pleural effusion #New Onset Paroxysmal afib w/ RVR #NSTEMI #HTN -Troponin down trending -will d/w Cardiology restarting AC and antiplatelets in AM -Platelets were less than 50k therefore they were not started. Pt. had platelets at 52 k yesterday, but there was hematuria and serosangiunous drainage in the nephrostomy bag therefore AC was not restarted. -EKG: Afib w/ RVR, L axis deviation. Inferior & anterior infract (cited on/before 01/15/2020). ST & T wave abnormality, consider lateral ischemia -trops downtrending from 10.9 to 4.43 -IV lopressor for rate control as BP can tolerate -defer AC currently given thrombocytopenia -continue holding home Amlodipine 10 -cardio consult appreciated--> not a candidate for stress or cardiac cath #Hypernatremia- resolved -Iatrogenic in etiology. -DC IVF -Placed NGT to give free water -Neprhrology consult appreciated. Started on Tube feeds to 35ml/hr of free water #DK- now resolved s/p IVF #Thrombocytopenia. 2 units platelets given during this asdmittions. Repeat Plt: 83k-->82k today likely secondary to severe sepsis. Prophylaxis DVT: SCDs, hold AC in setting of thrombocytopenia GI: Protonix 40 IV FEN -D/c IVF, encourage PO intake via NGT. -releted potassium and magnesium, f/u in AM and replete if needed -Tube feeds started will trial PO in AM DISPO c/w monitor on TELE Visit type - Emergency Visit Emergency Visit: Yes ED Registration Date: 01/15/20 Care time: The patient presented to the Emergency Department on the above date and was hospitalized for further evaluation of their emergent condition. - New Patient This patient is new to me today: No - Critical Care Critical Care patient: No - Discharge Referral Referred to [facility] Med P.C.: No - Medication Review Med list reviewed for High Risk Meds patients 65 and older: Yes ATTENDING PHYSICIAN STATEMENT I saw and evaluated the patient. I reviewed the resident's note and discussed the case with the resident. I agree with the resident's findings and plan as documented. SUBJECTIVE: OBJECTIVE: ASSESSMENT AND PLAN:
[2020-01-23] MEDS ORDERED: PT OWN MED DRAWER 7, Y5N ONE (18:17)
[2020-01-23] MEDS: CHLORHEXIDINE GLUCONATE 4% CLEANSER FOR DECOLONIZATION TP SCH (22:48)
[2020-01-23] MEDS: VANCOMYCIN 1 GRAM (PRE-DOCKED) 1,000 MG/250 ML BAG IVPB SCH (23:22)
[2020-01-24] MEDS ORDERED: PIPERACILLIN/TAZOBACTAM 4.5 GM VIAL IVPB ONE ×4 (01:59→20:40)
[2020-01-24] MEDS ORDERED: DEXTROSE 5%-WATER 100 ML IVPB ONE ×4 (01:59→20:40)
[2020-01-24] MEDS: PIPERACILLIN/TAZOB 4.5 GM 4.5 GM in DEXTROSE 5%-WATER 100 ML IVPB SCH ×4 (02:32→21:00)
--- NOTE | 2020-01-24 07:48 | PN ---
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, Physician History of Present Illness: PULMONARY AWAKE,ON HFOT COMFORTABLE,-RESP DISTRESS - Current Medication List Current Medications: Active Medications Ascorbic Acid (Vitamin C -) 250 mg PO BID [facility] Last Admin: 01/23/20 21:18 Dose: 250 mg Documented by: Chlorhexidine Gluconate (Hibiclens For Decolonization -) 1 applic TP HS [facility] Last Admin: 01/23/20 22:48 Dose: Not Given Documented by: Furosemide (Lasix Injection -) 20 mg IVPUSH DAILY [facility] Last Admin: 01/23/20 10:14 Dose: 20 mg Documented by: Heparin Sodium (Porcine) (Heparin -) 5,000 unit SQ BID [facility] Last Admin: 01/23/20 21:18 Dose: 5,000 unit Documented by: Vancomycin HCl (Vancomycin (Pre-Docked)) 1,000 mg in 250 mls @ 166.667 mls/hr IVPB Q24H [facility]; Protocol Last Admin: 01/23/20 23:22 Dose: 166.667 mls/hr Documented by: Piperacillin Sod/Tazobactam (Sod 4.5 gm/ Dextrose) 100 mls @ 200 mls/hr IVPB Q6H-IV [facility]; Protocol Last Admin: 01/24/20 02:32 Dose: 200 mls/hr Documented by: Methylprednisolone Sodium Succinate (Solu-Medrol -) 35 mg IVPUSH BID [facility] Last Admin: 01/23/20 21:18 Dose: 35 mg Documented by: Metoprolol Tartrate (Lopressor Injection -) 5 mg IVPUSH Q4H PRN PRN Reason: TACHYCARDIA Nystatin (Nystop Powder -) 1 applic TP DAILY [facility] Last Admin: 01/23/20 16:49 Dose: Not Given Documented by: Pantoprazole Sodium (Protonix Iv) 40 mg IVPUSH DAILY [facility] Last Admin: 01/23/20 10:14 Dose: 40 mg Documented by: Zinc Sulfate (Orazinc -) 220 mg PO DAILY [facility] Last Admin: 01/23/20 10:14 Dose: 220 mg Documented by: - Objective Vital Signs: Vital Signs Temperature 98.2 F 01/24/20 05:54 Pulse Rate 80 01/24/20 05:54 Respiratory Rate 21 H 01/24/20 05:54 Blood Pressure 133/73 01/24/20 05:54 O2 Sat by Pulse Oximetry (%) 96 01/24/20 04:15 Constitutional: Yes: Well Nourished, Calm Eyes: Yes: WNL HENT: Yes: WNL Neck: Yes: WNL Cardiovascular: Yes: Regular Rate and Rhythm, S1, S2 Respiratory: Yes: Rales ( SCATTERED PAXTON CRACKLES) Gastrointestinal: Yes: Normal Bowel Sounds, Soft Extremities: Yes: WNL Edema: No Labs: CBC, BMP 01/23/20 11:33 01/23/20 11:33 INR, PTT INR 1.15 (0.83-1.09) H 01/15/20 18:37 Fibrinogen > 500.0 mg/dL (238-498) H 01/16/20 13:14 Laboratory Tests 01/24/20 01/24/20 01/24/20 05:50 05:50 05:50 WBC 19.6 H Hgb 9.0 L Hct 27.1 L Neutrophils % 95.5 H Lymphocytes % 3.1 L D D-Dimer 2591 H Ferritin 1400.2 H LD Total 289 H C-Reactive Protein 8.1 H Assessment/Plan Assessment/Plan A/P acute hypoxemic respiratory failure BILATERAL PNEUMONIA Suspected COVID-19 UTI/Nephrolithiasis Gram Negative Bacteremia Sepsis Acute on Chronic Renal Failure Thrombocytopenia Acute NSTEMI Paroxysmal Atrial Fibrillation HTN Pneumonia Hypernatremia improving - O2to maintain O2sat 90% or greater - HFOT - antibiotics as per ID - medrol same dose - monitor inflammatory markers - S/P nephrostomy tube placement - IVF - monitor urine output, creatinine - monitor CBC, coags,lytes,na - rate control - DVT prophylaxis - f/u chest x-rays - Repeat Covid pcr negative - COVID ANTIBODY + - DR CARBAJAL
[2020-01-24 08:11] LABS: BASO % 0.1 % (0-2.0); HEMATOCRIT 27.1 % (32.4-45.2); LYMPH % 3.1 % (8-40); MCH 34.3 pg (25.7-33.7); MCHC 33.4 g/dl (32.0-36.0); MEAN CELL VOLUME 102.9 fl (80-96); MEAN PLT VOLUME 10.8 fl (7.5-11.1); MONO % 1.3 % (3.8-10.2); NEUT % 95.5 % (42.8-82.8); PLATELET COUNT 51 K/MM3 (134-434); RBC 2.63 M/mm3 (3.60-5.2); RDW 14.3 % (11.6-15.6); WHITE BLOOD COUNT 19.6 K/mm3 (4.0-10.0)
[2020-01-24 08:48] LABS: ALBUMIN 1.3 g/dl (3.4-5.0); BILIRUBIN,TOTAL 1.9 mg/dL (0.2-1); BLOOD UREA NITROGEN 41.3 mg/dL (7-18); CALCIUM 7.3 mg/dL (8.5-10.1); CREATININE 1.1 mg/dL (0.55-1.3); POTASSIUM 3.6 mmol/L (3.5-5.1); TOT PROT 5.1 g/dl (6.4-8.2)
[2020-01-24] MEDS: ASCORBIC ACID 250 MG TABLET (FP) PO SCH ×2 (10:19→21:07)
[2020-01-24] MEDS: FUROSEMIDE 40 MG/4 ML INJECTABLE VIAL IVPUSH SCH (10:19)
[2020-01-24] MEDS: HEPARIN NA (PORCINE) 5,000 UNITS/ML 1ML VIAL SQ SCH ×2 (10:19→21:07)
[2020-01-24] MEDS: methylPREDNISolone NA SUCC 40 MG/1 ML VIAL IVPUSH SCH ×2 (10:19→21:06)
[2020-01-24] MEDS: PANTOPRAZOLE SODIUM 40 MG VIAL IVPUSH SCH (10:19)
[2020-01-24] MEDS: ZINC SULFATE 220 MG CAPSULE (FP) PO SCH (10:19)
[2020-01-24] MEDS: NYSTATIN POWDER 100,000 UNITS/GM - 15 GM TOPICAL POWDER TP SCH (10:21)
--- NOTE | 2020-01-24 11:21 | PN ---
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, FINANCIAL MANAGEMENT CONSULTANT - Note 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: Selected Entries 01/18/20 01/18/20 01/18/20 02:00 05:36 09:00 Breakfast Supper 0 Temperature Pulse Rate Blood Pressure O2 Sat by Pulse 92 L 95 95 Oximetry (%) Oxygen Delivery Nasal Cannula Method Oxygen Flow 3 Rate 01/18/20 01/18/20 01/18/20 10:00 12:23 15:00 Breakfast 25% 25% Supper Temperature Pulse Rate Blood Pressure O2 Sat by Pulse 95 Oximetry (%) Oxygen Delivery Method Oxygen Flow Rate 01/18/20 01/18/20 01/19/20 21:00 22:00 02:00 Breakfast Supper Temperature 99 F Pulse Rate 91 H Blood Pressure 150/90 O2 Sat by Pulse 95 95 90 L Oximetry (%) Oxygen Delivery Nasal Cannula Method Oxygen Flow 5 Rate 01/19/20 06:00 Breakfast Supper Temperature 99 F Pulse Rate 90 Blood Pressure 136/66 O2 Sat by Pulse 89 L Oximetry (%) Oxygen Delivery Method Oxygen Flow Rate Laboratory Tests 01/18/20 01/19/20 10:00 05:30 WBC 9.4 11.2 H Alert, Pt pulled out ngt, which was used for free water only. Yesterday, pt readily accepted liquids via cup, cough response with thin water, c/w aspiration. However, accepted/tolerated 2 ahsan hn without difficulty. Educated nursing/driver license technician/rd re feeding recommendations REC-2 ahsan HN 4 daily, nectar thick liquid, encourage po intake/sufficient hydration po monitor tolerance Selected Entries 01/19/20 01/19/20 01/19/20 02:00 06:00 09:00 Breakfast Diet Tolerated Lunch Temperature 99 F 99 F 98.8 F Pulse Rate 91 H 90 90 Blood Pressure 150/90 136/66 140/64 01/19/20 01/19/20 01/19/20 10:50 13:42 15:39 Breakfast 0 Diet Tolerated Refused Well Lunch 75% Temperature 97.9 F Pulse Rate 103 H Blood Pressure 140/74 01/19/20 01/19/20 01/20/20 18:13 22:00 02:00 Breakfast Diet Tolerated Lunch Temperature 100.4 F H 100 F H 99.8 F H Pulse Rate 96 H 94 H 91 H Blood Pressure 121/64 125/56 L 01/20/20 01/20/20 06:00 10:00 Breakfast Diet Tolerated Lunch Temperature 100.3 F H 97.8 F Pulse Rate 89 83 Blood Pressure Laboratory Tests 01/18/20 01/19/20 01/20/20 10:00 05:30 08:10 WBC 9.4 11.2 H 11.8 H Selected Entries 01/22/20 01/22/20 01/22/20 11:51 14:05 21:01 Breakfast 100% Diet Tolerated Well Well Well Lunch 75% 75% Skin Risk Level Supper Total Score - Skin Risk Assessment Temperature Pulse Rate Blood Pressure 01/22/20 01/23/20 01/23/20 21:03 10:47 22:00 Breakfast 100% Diet Tolerated Well Well Fair Lunch 75% Skin Risk Level Supper 50% 50% Total Score - Skin Risk Assessment Temperature Pulse Rate Blood Pressure 01/24/20 01/24/20 01/24/20 02:00 05:54 08:54 Breakfast Diet Tolerated Lunch Skin Risk Level High Risk Supper Total Score - 11 Skin Risk Assessment Temperature 97.5 F L 98.2 F 98.2 F Pulse Rate 84 80 79 Blood Pressure 143/69 133/73 139/73 Laboratory Tests 01/20/20 01/21/20 01/22/20 08:10 05:42 12:34 WBC 11.8 H 12.5 H 22.2 H 01/23/20 01/24/20 11:33 05:50 WBC 24.4 H 19.6 H Rec puree, nectar, 2 calHN. Educated staff re: better acceptance of thick liquid and aspiration risk on thin Diet upgraded to puree/no liquid restrictions on 01/22 but not given by staff. [place] continued. CXR increasing bilateral infiltrates Pt on hiflo, unable to be brought down for mbs REC-Puree/hiney thick liquid, when alert Aspiration precautions MBS when off high cameron GOC?
--- NOTE | 2020-01-24 11:31 | PN ---
Teaching Attending Note Name of Resident: Herbert Page ATTENDING PHYSICIAN STATEMENT I saw and evaluated the patient. I reviewed the resident's note and discussed the case with the resident. I agree with the resident's findings and plan as documented. SUBJECTIVE: Seen and examined at bedside. Slightly more alert today. Patient is been upgr aded to pure, with nectar liquids. Cleared by cardiology for transfer to regular floor. OBJ Last Vital Signs Temp Pulse Resp BP Pulse Ox 98.2 F 79 22 H 139/73 96 01/24/20 08:54 01/24/20 08:54 01/24/20 09:00 01/24/20 08:54 01/24/20 09:00 PE: Per resident note Labs/Imaging: reviewed ASSESSMENT/PLAN 84-year-old male history of hypertension bipolar disorder admitted for severe sepsis to ICU in the setting of infected kidney stone and possible pneumonia. #Severe sepsis: Proteus bacteremia In setting of infected obstructing kidney stone 1.4cm and possible pneumonia. Patient is now hemodynamically stable with improving white count status post Zosyn, right nephrostomy, and العلي catheter. Fevers are increasing since patient was downgraded to ceftriaxone from Zosyn. There may be a component of aspiration pneumonia. Will discuss switching back to Zosyn with ID -Troponin downtrending, DK resolved, continuing thrombocytopenia Urology on board, stent when stable #Hypernatremia:improving Likely iatrogenic due to normal saline in setting of impaired kidney function due to sepsis and obstructive uropathy check daily labs Nephrology on board: appreciate recs -lasix IV 20mg daily #hypoxia Clinically high concern for covid given fevers, bilateral infiltrates, elevated inflammatory markers, and high degree of hypoxia -covid AB+ -recheck covid PCR start lasix IV 20mg daily #Thrombocytopenia: improving Likely in the setting of severe sepsis. Patient's platelets were normal in 2018 Trend CBC start dvt ppx #New onset atrial fibrillation In the setting of sepsis PRN IV metoprolol May require outpatient Holter monitoring to determine need for anticoagulation in the future #Prerenal and postrenal DK: Resolved
[2020-01-24 13:02] LABS: ANISOCYTOSIS 0; MACROCYTOSIS 2+; OVALOCYTE 1+; PLATELET ESTIMATE DECREASED
--- NOTE | 2020-01-24 13:34 | PN ---
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, Physician History of Present Illness: Pt seen and examined at bedside. She is on hi-flow oxygen. - Current Medication List Current Medications: Active Medications Ascorbic Acid (Vitamin C -) 250 mg PO BID [facility] Last Admin: 01/24/20 10:19 Dose: 250 mg Documented by: Chlorhexidine Gluconate (Hibiclens For Decolonization -) 1 applic TP HS [facility] Last Admin: 01/23/20 22:48 Dose: Not Given Documented by: Furosemide (Lasix Injection -) 20 mg IVPUSH DAILY [facility] Last Admin: 01/24/20 10:19 Dose: 20 mg Documented by: Heparin Sodium (Porcine) (Heparin -) 5,000 unit SQ BID [facility] Last Admin: 01/24/20 10:19 Dose: 5,000 unit Documented by: Vancomycin HCl (Vancomycin (Pre-Docked)) 1,000 mg in 250 mls @ 166.667 mls/hr IVPB Q24H [facility]; Protocol Last Admin: 01/23/20 23:22 Dose: 166.667 mls/hr Documented by: Piperacillin Sod/Tazobactam (Sod 4.5 gm/ Dextrose) 100 mls @ 200 mls/hr IVPB Q6H-IV [facility]; Protocol Last Admin: 01/24/20 10:20 Dose: 200 mls/hr Documented by: Methylprednisolone Sodium Succinate (Solu-Medrol -) 35 mg IVPUSH BID [facility] Last Admin: 01/24/20 10:19 Dose: 35 mg Documented by: Metoprolol Tartrate (Lopressor Injection -) 5 mg IVPUSH Q4H PRN PRN Reason: TACHYCARDIA Nystatin (Nystop Powder -) 1 applic TP DAILY [facility] Last Admin: 01/24/20 10:21 Dose: 1 applic Documented by: Pantoprazole Sodium (Protonix Iv) 40 mg IVPUSH DAILY [facility] Last Admin: 01/24/20 10:19 Dose: 40 mg Documented by: Zinc Sulfate (Orazinc -) 220 mg PO DAILY [facility] Last Admin: 01/24/20 10:19 Dose: 220 mg Documented by: - Objective Vital Signs: Vital Signs Temperature 98.2 F 01/24/20 08:54 Pulse Rate 79 01/24/20 08:54 Respiratory Rate 22 H 01/24/20 09:00 Blood Pressure 139/73 01/24/20 08:54 O2 Sat by Pulse Oximetry (%) 96 09/08/20 09:00 Constitutional: Yes: Calm Eyes: Yes: Conjunctiva Clear HENT: Yes: Atraumatic Neck: Yes: Supple Cardiovascular: Yes: S1, S2 Respiratory: Yes: On Nasal O2 Gastrointestinal: Yes: Soft Genitourinary: Yes: العلي Present Musculoskeletal: Yes: Muscle Weakness Edema: No Integumentary: Yes: WNL Neurological: Yes: Confusion Labs: CBC, BMP 01/24/20 05:50 01/24/20 05:50 INR, PTT INR 1.15 (0.83-1.09) H 01/15/20 18:37 Fibrinogen > 500.0 mg/dL (238-498) H 01/16/20 13:14 Problem List - Problems (1) SEBASTIEN (acute kidney injury) Code(s): N17.9 - ACUTE KIDNEY FAILURE, UNSPECIFIED (2) Hypernatremia Code(s): E87.0 - HYPEROSMOLALITY AND HYPERNATREMIA (3) NSTEMI (non-ST elevated myocardial infarction) Code(s): I21.4 - NON-ST ELEVATION (NSTEMI) MYOCARDIAL INFARCTION Assessment/Plan Current Medications Generic Name Dose Route Start Last Admin Trade Name Freq PRN Reason Stop Dose Admin Ascorbic Acid 250 mg 01/19/20 22:00 01/24/20 10:19 Vitamin C - PO 250 mg BID [facility] Administration Chlorhexidine Gluconate 1 applic 01/17/20 22:00 01/23/20 22:48 Hibiclens For Decolonization - TP Not Given HS [facility] Furosemide 20 mg 01/20/20 10:45 01/24/20 10:19 Lasix Injection - IVPUSH 20 mg DAILY [facility] Administration Heparin Sodium (Porcine) 5,000 unit 01/23/20 12:00 01/24/20 10:19 Heparin - SQ 5,000 unit BID [facility] Administration Vancomycin HCl 1,000 mg in 250 mls @ 166.667 mls/hr 01/21/20 23:00 01/23/20 23:22 Vancomycin (Pre-Docked) IVPB 166.667 mls/hr Q24H [facility] Administration Protocol Piperacillin Sod/Tazobactam 100 mls @ 200 mls/hr 01/20/20 15:00 01/24/20 10:20 Sod 4.5 gm/ Dextrose IVPB 200 mls/hr Q6H-IV [facility] Administration Protocol Methylprednisolone Sodium Succinate 35 mg 01/21/20 10:52 01/24/20 10:19 Solu-Medrol - IVPUSH 35 mg BID [facility] Administration Metoprolol Tartrate 5 mg 01/17/20 05:02 Lopressor Injection - IVPUSH Q4H PRN TACHYCARDIA Nystatin 1 applic 01/23/20 16:15 01/24/20 10:21 Nystop Powder - TP 1 applic DAILY [facility] Administration Pantoprazole Sodium 40 mg 01/17/20 10:00 01/24/20 10:19 Protonix Iv IVPUSH 40 mg DAILY [facility] Administration Zinc Sulfate 220 mg 01/19/20 18:15 01/24/20 10:19 Orazinc - PO 220 mg DAILY [facility] Administration Laboratory Tests 01/15/20 01/20/20 01/21/20 14:00 09:00 15:11 COVID-19 ([facility]) Not detected Not detected SARS-CoV-2 Ab Interp Reactive 01/23/20 10:00 COVID-19 ([facility]) Not detected SARS-CoV-2 Ab Interp Impression 1. sebastien 2. hypernatremia 3. hypokalemia 4. sepsis 5. nstemi 6. gram neg bacteremia 7. htn 8. a-fib 9. thrombocytopenia Plan - sodium stable - cont lasix - monitor volume status - cxr report reviewed - monitor lytes - covid pcr neg x3 - cont lasix for volume management - renal function stable
--- NOTE | 2020-01-24 19:36 | PN ---
Physical Exam: SUBJECTIVE: Patient seen and examined. No acute events overnight. Pt. tolerating PO and still on Hi-Mike. Discussed with Dr. Garnett about the case and is recommending Renal US to evaluate if Pt. has obstruction above the nephrostomy site. Per RN nephrostomy tube has been draining well. OBJECTIVE: Vital Signs Period Temp Pulse Resp BP Sys/Mcmullen Pulse Ox Last 24 Hr 97.5 F-98.3 F 79-98 20-22 120-143/60-73 94-98 GENERAL: The patient is awake, alert, in no acute distress. HEAD: Normal with no signs of trauma. EYES: PERRL, sclera anicteric, conjunctiva clear. ENT: Ears normal, nares patent, oropharynx clear without exudates, dry mucous membranes. NECK: Trachea midline, full range of motion, supple. LUNGS: Breath sounds equal, clear to auscultation bilaterally, no wheezes, no crackles, no accessory muscle use. HEART: Regular rate and rhythm, S1, S2 without murmur, rub or gallop. ABDOMEN: Soft, nontender, nondistended, normoactive bowel sounds, no guarding, no rebound. العلي noted with yellow urine. Nephrostomy tube noted to have 100ml of serosanguinous drainage EXTREMITIES: 2+ dorsal pedal pulses, warm, no calf tendernesswell-perfused, Trace edema. NEUROLOGICAL: Limited as Pt. did not follow commands, gait not observed. PSYCH: Normal mood, normal affect. SKIN: Warm, dry Laboratory Results - last 24 hr 01/23/20 01/24/20 01/24/20 10:00 05:50 05:50 WBC 19.6 H RBC 2.63 L Hgb 9.0 L Hct 27.1 L MCV 102.9 H MCH 34.3 H MCHC 33.4 RDW 14.3 Plt Count 51 L D MPV 10.8 Absolute Neuts (auto) 18.7 H Neutrophils % 95.5 H Neutrophils % (Manual) 97.0 H Band Neutrophils % 0.0 Lymphocytes % 3.1 L D Lymphocytes % (Manual) 3.0 L D Monocytes % 1.3 L Monocytes % (Manual) 0 L D Eosinophils % 0.0 Eosinophils % (Manual) 0.0 Basophils % 0.1 Basophils % (Manual) 0.0 Myelocytes % (Man) 0 Promyelocytes % (Man) 0 Blast Cells % (Manual) 0 Nucleated RBC % 0 Metamyelocytes 0 Hypochromia 0 Platelet Estimate Decreased Polychromasia 0 Poikilocytosis 0 Anisocytosis 0 Microcytosis 0 Macrocytosis 2+ Ovalocytes 1+ D-Dimer 2591 H Sodium Potassium Chloride Carbon Dioxide Anion Gap BUN Creatinine Est GFR (CKD-EPI)AfAm Est GFR (CKD-EPI)NonAf Random Glucose Calcium Ferritin Total Bilirubin AST ALT Alkaline Phosphatase LD Total C-Reactive Protein Total Protein Albumin COVID-19 ([facility]) Not detected 01/24/20 05:50 WBC RBC Hgb Hct MCV MCH MCHC RDW Plt Count MPV Absolute Neuts (auto) Neutrophils % Neutrophils % (Manual) Band Neutrophils % Lymphocytes % Lymphocytes % (Manual) Monocytes % Monocytes % (Manual) Eosinophils % Eosinophils % (Manual) Basophils % Basophils % (Manual) Myelocytes % (Man) Promyelocytes % (Man) Blast Cells % (Manual) Nucleated RBC % Metamyelocytes Hypochromia Platelet Estimate Polychromasia Poikilocytosis Anisocytosis Microcytosis Macrocytosis Ovalocytes D-Dimer Sodium 140 Potassium 3.6 Chloride 110 H Carbon Dioxide 20 L Anion Gap 9 BUN 41.3 H Creatinine 1.1 Est GFR (CKD-EPI)AfAm 54.15 Est GFR (CKD-EPI)NonAf 46.72 Random Glucose 182 H Calcium 7.3 L Ferritin 1400.2 H Total Bilirubin 1.9 H AST 29 ALT 41 Alkaline Phosphatase 138 H LD Total 289 H C-Reactive Protein 8.1 H Total Protein 5.1 L Albumin 1.3 L COVID-19 ([facility]) Active Medications Generic Name Dose Route Start Last Admin Trade Name Rory PRN Reason Stop Dose Admin Ascorbic Acid 250 mg 01/19/20 22:00 01/24/20 10:19 Vitamin C - PO 250 mg BID [facility] Administration Chlorhexidine Gluconate 1 applic 01/17/20 22:00 01/23/20 22:48 Hibiclens For Decolonization - TP Not Given HS [facility] Furosemide 20 mg 01/20/20 10:45 01/24/20 10:19 Lasix Injection - IVPUSH 20 mg DAILY [facility] Administration Heparin Sodium (Porcine) 5,000 unit 01/23/20 12:00 01/24/20 10:19 Heparin - SQ 5,000 unit BID [facility] Administration Vancomycin HCl 1,000 mg in 250 mls @ 166.667 mls/hr 01/21/20 23:00 01/23/20 23:22 Vancomycin (Pre-Docked) IVPB 166.667 mls/hr Q24H [facility] Administration Protocol Piperacillin Sod/Tazobactam 100 mls @ 200 mls/hr 01/20/20 15:00 01/24/20 14:49 Sod 4.5 gm/ Dextrose IVPB 200 mls/hr Q6H-IV [facility] Administration Protocol Methylprednisolone Sodium Succinate 35 mg 01/21/20 10:52 01/24/20 10:19 Solu-Medrol - IVPUSH 35 mg BID [facility] Administration Metoprolol Tartrate 5 mg 01/17/20 05:02 Lopressor Injection - IVPUSH Q4H PRN TACHYCARDIA Nystatin 1 applic 01/23/20 16:15 01/24/20 10:21 Nystop Powder - TP 1 applic DAILY [facility] Administration Pantoprazole Sodium 40 mg 01/17/20 10:00 01/24/20 10:19 Protonix Iv IVPUSH 40 mg DAILY [facility] Administration Zinc Sulfate 220 mg 01/19/20 18:15 01/24/20 10:19 Orazinc - PO 220 mg DAILY [facility] Administration ASSESSMENT/PLAN: Pt. is an 84 y.o. F w/ PMHx. of HTN, Major Depression, and Schizoaffective disorder (Aripiprazole, Fluoxetine, Mirtazapine) was brought in by EMS from [facility] for AMS. #Acute Metabolic Encephalopathy 2/2 Severe Sepsis 2/2 UTI -CTH: no acute findings; cerebral atrophy; old LEFT parietal infarct; chronic periventricular ischemic changes -Neuro checks -D/c IVF as Pt. is volume overloaded -CTAP: 1.4 cm partially obstructing calculus Right renal pelvis -s/p Vanc 1gm and Zosyn 3.375 in ED; now on Vanc and Zosyn -ID consult appreciated -UCx: proteus species, >100.000 CFU -blood culture growing Proteus in 2 sets, Rpt. BCx. Neg. to date #Hypoxia 2/2/ Aspiration PNA vs. COVID vs. ARDS -c/w supplemental O2 to keep saturation above 90% -Chest CT: Left lower lobe bronchiectasis and consolidation, w/ interval development of small to moderate amount of free perihepatic intraperitoneal fluid. -CXR showing small left pleural effusion and Left Lobe consolidaiton -c/w Vanc and Zosyn, ID consult appreciated. -COVID Abs positive, PCR neg x 3, however will treat as positive. -c/w Solumedrol BID (likely causing leukocytosis?) -c/w IV Lasix for pleural effusion -f/u Renal US to evaluate for obstruction above nephrostomy site. -Pt. with continued oxygen requirement and worsening thrombocytopenia, we cannot rule out ARDS -f/u coagulation profile, cannot r/o DIC. Pt. had elevated fibrinogen, D-dimer and low platelets. I did not observe overt skin changes suspicious for DIC. #New Onset Paroxysmal afib w/ RVR #NSTEMI #HTN -Troponin down trending -will d/w Cardiology restarting AC and antiplatelets in AM -Platelets were less than 50k therefore they were not started. -EKG: Afib w/ RVR, L axis deviation. Inferior & anterior infract (cited on/before 01/15/2020). ST & T wave abnormality, consider lateral ischemia -trops downtrending from 10.9 to 4.43 -IV lopressor for rate control as BP can tolerate -defer AC currently given thrombocytopenia -continue holding home Amlodipine 10 -cardio consult appreciated--> not a candidate for stress or cardiac cath,--> can transfer off telemetry #Hypernatremia- resolved -Iatrogenic in etiology. -DC IVF -Placed NGT to give free water -Neprhrology consult appreciated. #DK- now resolved s/p IVF #Thrombocytopenia. 2 units platelets given during this asdmittions. Repeat Plt: 83k-->82k-->51k today likely secondary to severe sepsis. Prophylaxis DVT: SCDs, hold AC in setting of thrombocytopenia GI: Protonix 40 IV FEN -D/c IVF, encourage PO intake via NGT. -releted potassium and magnesium, f/u in AM and replete if needed -Dysphagia puree with honey thick liquids DISPO Transfer to M/S, Pt. must be on floor capable of managing Hi-Flow and monitoring pulse ox. Visit type - Emergency Visit Emergency Visit: Yes ED Registration Date: 01/15/20 Care time: The patient presented to the Emergency Department on the above date and was hospitalized for further evaluation of their emergent condition. - New Patient This patient is new to me today: No - Critical Care Critical Care patient: No - Discharge Referral Referred to [facility] Med P.C[facility] No - Medication Review Med list reviewed for High Risk Meds patients 65 and older: Yes ATTENDING PHYSICIAN STATEMENT I saw and evaluated the patient. I reviewed the resident's note and discussed the case with the resident. I agree with the resident's findings and plan as documented. SUBJECTIVE: OBJECTIVE: ASSESSMENT AND PLAN:
[2020-01-24] MEDS: CHLORHEXIDINE GLUCONATE 4% CLEANSER FOR DECOLONIZATION TP SCH (22:49)
[2020-01-24] MEDS: VANCOMYCIN 1 GRAM (PRE-DOCKED) 1,000 MG/250 ML BAG IVPB SCH (23:01)
--- NOTE | 2020-01-25 00:13 | PN ---
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, Physician Chief Complaint: Pt with eyes open; little response to verbal queries; on O2. History of Present Illness: Ms. Bradford is a 84 yr old white woman with PM hx of bipolar disorder (non compliant to medications) who now presented to the ED from [place] for hypoxia, fever, AMS. The patient is usually alert and speaks, however she was nonresponsive; history is limited due to her clinical status. Upon arrival, pt noted to be febrile. Pt unable to give a history. Information taken from [place] paperwork.WBC 22.9 HB 13. Plt 27 BUN 95.4 Creat 2.9, lactate 3.9, trops 10 CT-Scan Rt Renal pelvis stone 1.4 cm with partial obstruction Pt was given empiric IV abx coverage with Vanc/Zosyn. Uro made aware with recommendation to make NPO after midnight, now in rapid afib. - Current Medication List Current Medications: Active Medications Ascorbic Acid (Vitamin C -) 250 mg PO BID [facility] Last Admin: 01/24/20 21:07 Dose: 250 mg Documented by: Chlorhexidine Gluconate (Hibiclens For Decolonization -) 1 applic TP HS [facility] Last Admin: 01/24/20 22:49 Dose: Not Given Documented by: Furosemide (Lasix Injection -) 20 mg IVPUSH DAILY [facility] Last Admin: 01/24/20 10:19 Dose: 20 mg Documented by: Heparin Sodium (Porcine) (Heparin -) 5,000 unit SQ BID [facility] Last Admin: 01/24/20 21:07 Dose: 5,000 unit Documented by: Vancomycin HCl (Vancomycin (Pre-Docked)) 1,000 mg in 250 mls @ 166.667 mls/hr IVPB Q24H [facility]; Protocol Last Admin: 01/24/20 23:01 Dose: 166.667 mls/hr Documented by: Piperacillin Sod/Tazobactam (Sod 4.5 gm/ Dextrose) 100 mls @ 200 mls/hr IVPB Q6H-IV [facility]; Protocol Last Admin: 01/24/20 21:00 Dose: 200 mls/hr Documented by: Methylprednisolone Sodium Succinate (Solu-Medrol -) 35 mg IVPUSH BID [facility] Last Admin: 01/24/20 21:06 Dose: 35 mg Documented by: Metoprolol Tartrate (Lopressor Injection -) 5 mg IVPUSH Q4H PRN PRN Reason: TACHYCARDIA Nystatin (Nystop Powder -) 1 applic TP DAILY [facility] Last Admin: 01/24/20 10:21 Dose: 1 applic Documented by: Pantoprazole Sodium (Protonix Iv) 40 mg IVPUSH DAILY [facility] Last Admin: 01/24/20 10:19 Dose: 40 mg Documented by: Zinc Sulfate (Orazinc -) 220 mg PO DAILY [facility] Last Admin: 01/24/20 10:19 Dose: 220 mg Documented by: - Objective Vital Signs: Vital Signs Temperature 97.6 F 01/24/20 20:56 Pulse Rate 88 01/24/20 20:56 Respiratory Rate 22 H 01/24/20 20:56 Blood Pressure 122/61 01/24/20 20:56 O2 Sat by Pulse Oximetry (%) 99 01/24/20 21:02 Constitutional: Yes: Other (difficult to asertain emotions, given largely unresponsive to verbal queries) Eyes: Yes: WNL Neck: Yes: Decreased ROM Cardiovascular: Yes: S1, S2 Respiratory: Yes: Diminished Gastrointestinal: Yes: Soft Genitourinary: No: Anuria Musculoskeletal: Yes: Muscle Weakness Extremities: Yes: Cool Edema: No Peripheral Pulses WNL: Yes Integumentary: Yes: WNL Neurological: Yes: Other Psychiatric: Yes: Other (bipolar disease) Labs: CBC, BMP 01/24/20 05:50 01/24/20 05:50 INR, PTT INR 1.15 (0.83-1.09) H 01/15/20 18:37 Fibrinogen > 500.0 mg/dL (238-498) H 01/16/20 13:14 Abnormal Lab Results 01/28/20 01/28/20 01/28/20 11:05 11:05 11:05 WBC 30.9 H* RBC 2.97 L Hgb 10.0 L Hct 31.3 L MCV 105.2 H MCH 33.8 H D-Dimer Sodium 146 H Chloride 110 H BUN 53.2 H Creatinine 1.4 H Random Glucose 220 H Calcium 8.3 L Ferritin 1936.6 H Total Bilirubin 1.3 H Alkaline Phosphatase 160 H LD Total 342 H C-Reactive Protein 10.7 H Total Protein 5.9 L Albumin 1.5 L 01/28/20 11:05 WBC RBC Hgb Hct MCV MCH D-Dimer 2464 H Sodium Chloride BUN Creatinine Random Glucose Calcium Ferritin Total Bilirubin Alkaline Phosphatase LD Total C-Reactive Protein Total Protein Albumin - ....Imaging Chest X-ray: Image Reviewed EKG: Image Reviewed Assessment/Plan 1. CAD, NSTEMI in context of: 2. Paroxysmal afib with RVR 3. Sepsis source with partially obstructive right renal pelvis stone, possible LLL PNA 4. Toxic metabolic encephelopathy 5. Acute on CKD 6. HTN 7.ECHO nl EF 8.Schizo affective ds, Non-verbal 1. Troponin is declining with supportive care. IV Lopressor as hemodynamics tolerate for rate-control; check ECG 2. Given obstructive nature of renal stone and ongoing sepsis source, would prefer percutaneous nephrostomy by IR as less invasive option if possible once rate-controlled with Rt URS, LASER and jj stent insertion once clinically stable 3. Continue empiric abx per C&S 4. Antiplatelets and anticoagulation on hold pending recovery of PLT>50 5. Due to Schizo affective ds, and patient being non-verbal she is a poor candidate for invasive cardiac w/u e.g. stress test c. cath. Will d/c telemetry
[2020-01-25] MEDS ORDERED: PIPERACILLIN/TAZOBACTAM 4.5 GM VIAL IVPB ONE ×4 (02:15→21:34)
[2020-01-25] MEDS ORDERED: DEXTROSE 5%-WATER 100 ML IVPB ONE ×4 (02:16→21:34)
[2020-01-25] MEDS: PIPERACILLIN/TAZOB 4.5 GM 4.5 GM in DEXTROSE 5%-WATER 100 ML IVPB SCH ×4 (02:24→21:55)
--- NOTE | 2020-01-25 07:44 | PN ---
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, Physician History of Present Illness: pulmonary awake,comfortable on hfot o2 sat 97% - Current Medication List Current Medications: Active Medications Ascorbic Acid (Vitamin C -) 250 mg PO BID [facility] Last Admin: 01/24/20 21:07 Dose: 250 mg Documented by: Chlorhexidine Gluconate (Hibiclens For Decolonization -) 1 applic TP HS [facility] Last Admin: 01/24/20 22:49 Dose: Not Given Documented by: Furosemide (Lasix Injection -) 20 mg IVPUSH DAILY [facility] Last Admin: 01/24/20 10:19 Dose: 20 mg Documented by: Heparin Sodium (Porcine) (Heparin -) 5,000 unit SQ BID [facility] Last Admin: 01/24/20 21:07 Dose: 5,000 unit Documented by: Vancomycin HCl (Vancomycin (Pre-Docked)) 1,000 mg in 250 mls @ 166.667 mls/hr IVPB Q24H [facility]; Protocol Last Admin: 01/24/20 23:01 Dose: 166.667 mls/hr Documented by: Piperacillin Sod/Tazobactam (Sod 4.5 gm/ Dextrose) 100 mls @ 200 mls/hr IVPB Q6H-IV [facility]; Protocol Last Admin: 01/25/20 02:24 Dose: 200 mls/hr Documented by: Methylprednisolone Sodium Succinate (Solu-Medrol -) 35 mg IVPUSH BID [facility] Last Admin: 01/24/20 21:06 Dose: 35 mg Documented by: Metoprolol Tartrate (Lopressor Injection -) 5 mg IVPUSH Q4H PRN PRN Reason: TACHYCARDIA Nystatin (Nystop Powder -) 1 applic TP DAILY [facility] Last Admin: 01/24/20 10:21 Dose: 1 applic Documented by: Pantoprazole Sodium (Protonix Iv) 40 mg IVPUSH DAILY [facility] Last Admin: 01/24/20 10:19 Dose: 40 mg Documented by: Zinc Sulfate (Orazinc -) 220 mg PO DAILY [facility] Last Admin: 01/24/20 10:19 Dose: 220 mg Documented by: - Objective Vital Signs: Vital Signs Temperature 97.9 F 01/25/20 06:01 Pulse Rate 68 01/25/20 06:01 Respiratory Rate 20 01/25/20 06:01 Blood Pressure 139/61 01/25/20 06:01 O2 Sat by Pulse Oximetry (%) 100 01/25/20 06:01 Constitutional: Yes: Well Nourished, Calm Eyes: Yes: WNL HENT: Yes: WNL Neck: Yes: WNL Cardiovascular: Yes: Regular Rate and Rhythm, S1, S2 Respiratory: Yes: Diminished (por inspiratory effort) Gastrointestinal: Yes: Normal Bowel Sounds, Soft Extremities: Yes: WNL Edema: No Labs: CBC, BMP Laboratory Tests 01/25/20 01/25/20 01/25/20 10:50 10:50 10:50 WBC 23.5 H Hgb 9.4 L Hct 27.7 L Neutrophils % 95.4 H Lymphocytes % 2.9 L D-Dimer 3283 H Ferritin 1722.8 H C-Reactive Protein 8.3 H - ....Imaging Chest X-ray: Report Reviewed, Image Reviewed (iworseing mushtaq infiltrates) Assessment/Plan Assessment/Plan A/P acute hypoxemic respiratory failure BILATERAL PNEUMONIA Suspected COVID-19 UTI/Nephrolithiasis Gram Negative Bacteremia Sepsis Acute on Chronic Renal Failure Thrombocytopenia Acute NSTEMI Paroxysmal Atrial Fibrillation HTN Pneumonia Hypernatremia improving - O2to maintain O2sat 90% or greater - HFOT - antibiotics as per ID - medrol - monitor inflammatory markers - S/P nephrostomy tube placement - IVF - monitor urine output, creatinine - monitor CBC, coags,lytes,na - rate control - DVT prophylaxis - f/u chest x-rays - Repeat Covid pcr negative - COVID ANTIBODY + - AC DR CARBAJAL
--- NOTE | 2020-01-25 09:33 | PN ---
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, EDITOR BOOK - Note 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: Selected Entries 01/24/20 01/24/20 01/24/20 00:21 04:15 08:50 Lunch Skin Risk Level Supper Total Score - Skin Risk Assessment Temperature Pulse Rate Blood Pressure O2 Sat by Pulse Oximetry (%) Oxygen Delivery Method Fraction of 90 94 93 Inspired Oxygen (FIO2) 01/24/20 01/24/20 01/24/20 09:00 15:32 16:00 Lunch NPO Skin Risk Level Supper Total Score - Skin Risk Assessment Temperature Pulse Rate Blood Pressure O2 Sat by Pulse Oximetry (%) Oxygen Delivery Method Fraction of 94 94 Inspired Oxygen (FIO2) 01/24/20 01/24/20 01/24/20 21:00 21:02 23:00 Lunch Skin Risk Level Supper 25% Total Score - Skin Risk Assessment Temperature Pulse Rate Blood Pressure O2 Sat by Pulse Oximetry (%) Oxygen Delivery High Flow O2 Method Fraction of 94 Inspired Oxygen (FIO2) 01/25/20 01/25/20 01/25/20 01:10 02:00 05:19 Lunch Skin Risk Level Supper Total Score - Skin Risk Assessment Temperature 97.8 F Pulse Rate 87 Blood Pressure 129/60 O2 Sat by Pulse 98 95 99 Oximetry (%) Oxygen Delivery Method Fraction of 94 93 Inspired Oxygen (FIO2) 01/25/20 01/25/20 01/25/20 06:01 07:47 07:49 Lunch Skin Risk Level High Risk Supper Total Score - 11 Skin Risk Assessment Temperature 97.9 F 97.9 F Pulse Rate 68 68 Blood Pressure 139/61 132/59 L O2 Sat by Pulse 100 100 100 Oximetry (%) Oxygen Delivery Method Fraction of Inspired Oxygen (FIO2) Laboratory Tests 01/24/20 05:50 WBC 19.6 H Selected Entries 01/25/20 01/25/20 01/25/20 01:10 02:00 05:19 Breakfast Temperature 97.8 F Pulse Rate 87 Blood Pressure 129/60 O2 Sat by Pulse 98 95 99 Oximetry (%) Fraction of 94 93 Inspired Oxygen (FIO2) 01/25/20 01/25/20 01/25/20 06:01 07:47 07:49 Breakfast Temperature 97.9 F 97.9 F Pulse Rate 68 68 Blood Pressure 139/61 132/59 L O2 Sat by Pulse 100 100 100 Oximetry (%) Fraction of Inspired Oxygen (FIO2) 01/25/20 01/25/20 08:15 10:42 Breakfast 100% Temperature Pulse Rate Blood Pressure O2 Sat by Pulse 97 Oximetry (%) Fraction of 93 Inspired Oxygen (FIO2) Laboratory Tests 01/15/20 01/20/20 01/21/20 14:00 09:00 15:11 WBC COVID-19 (KATHARINA) Not detected Not detected SARS-CoV-2 Ab Interp Reactive 01/23/20 01/23/20 01/24/20 10:00 11:33 05:50 WBC 24.4 H 19.6 H COVID-19 (KATHARINA) Not detected SARS-CoV-2 Ab Interp 01/25/20 10:50 WBC 23.5 H COVID-19 (KATHARINA) SARS-CoV-2 Ab Interp CXR bilateral infiltrates Pt on hiflo, unable to be brought down for mbs Puree/nectar ordered REC-Puree/honey thick liquid, when alert Aspiration precautions MBS when off high [place]
[2020-01-25] MEDS: PANTOPRAZOLE SODIUM 40 MG VIAL IVPUSH SCH (10:10)
[2020-01-25] MEDS: HEPARIN NA (PORCINE) 5,000 UNITS/ML 1ML VIAL SQ SCH ×2 (10:10→21:57)
[2020-01-25] MEDS: FUROSEMIDE 40 MG/4 ML INJECTABLE VIAL IVPUSH SCH (10:10)
[2020-01-25] MEDS: methylPREDNISolone NA SUCC 40 MG/1 ML VIAL IVPUSH SCH ×2 (10:10→21:57)
[2020-01-25] MEDS: ASCORBIC ACID 250 MG TABLET (FP) PO SCH ×2 (10:12→22:10)
[2020-01-25] MEDS: ZINC SULFATE 220 MG CAPSULE (FP) PO SCH (10:12)
[2020-01-25] MEDS: NYSTATIN POWDER 100,000 UNITS/GM - 15 GM TOPICAL POWDER TP SCH (10:12)
--- NOTE | 2020-01-25 11:06 | PN ---
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, Physician History of Present Illness: 84 Y/O Female patient with Bipolar disease, HTN from [facility]. She is presented into ER with confusion fever 102.4, hypoxic respiratory failure WBC 22.9 HB 13. Plt 27 BUN 95.4 Creat 2.9, lactate 3.9, trops 10 CT-Scan Rt Renal pelvis stone 1.4 cm with partial obstruction Pt was given empiric IV abx coverage with Vanc/Zosyn. Uro made aware with recommendation to make NPO after midnight, now in rapid afib. - Current Medication List Current Medications: Active Medications Ascorbic Acid (Vitamin C -) 250 mg PO BID [facility] Last Admin: 01/25/20 10:12 Dose: 250 mg Documented by: Chlorhexidine Gluconate (Hibiclens For Decolonization -) 1 applic TP HS [facility] Last Admin: 01/24/20 22:49 Dose: Not Given Documented by: Furosemide (Lasix Injection -) 20 mg IVPUSH DAILY [facility] Last Admin: 01/25/20 10:10 Dose: 20 mg Documented by: Heparin Sodium (Porcine) (Heparin -) 5,000 unit SQ BID [facility] Last Admin: 01/25/20 10:10 Dose: 5,000 unit Documented by: Vancomycin HCl (Vancomycin (Pre-Docked)) 1,000 mg in 250 mls @ 166.667 mls/hr IVPB Q24H [facility]; Protocol Last Admin: 01/24/20 23:01 Dose: 166.667 mls/hr Documented by: Piperacillin Sod/Tazobactam (Sod 4.5 gm/ Dextrose) 100 mls @ 200 mls/hr IVPB Q6H-IV [facility]; Protocol Last Admin: 01/25/20 09:18 Dose: 200 mls/hr Documented by: Methylprednisolone Sodium Succinate (Solu-Medrol -) 35 mg IVPUSH BID [facility] Last Admin: 01/25/20 10:10 Dose: 35 mg Documented by: Metoprolol Tartrate (Lopressor Injection -) 5 mg IVPUSH Q4H PRN PRN Reason: TACHYCARDIA Nystatin (Nystop Powder -) 1 applic TP DAILY [facility] Last Admin: 01/25/20 10:12 Dose: 1 applic Documented by: Pantoprazole Sodium (Protonix Iv) 40 mg IVPUSH DAILY [facility] Last Admin: 01/25/20 10:10 Dose: 40 mg Documented by: Zinc Sulfate (Orazinc -) 220 mg PO DAILY [facility] Last Admin: 01/25/20 10:12 Dose: 220 mg Documented by: - Objective Vital Signs: Vital Signs Temperature 97.9 F 01/25/20 07:47 Pulse Rate 68 01/25/20 07:47 Respiratory Rate 20 01/25/20 07:49 Blood Pressure 132/59 L 01/25/20 07:47 O2 Sat by Pulse Oximetry (%) 97 01/25/20 08:15 Eyes: Yes: WNL, Conjunctiva Clear, EOM Intact HENT: Yes: WNL, Atraumatic, Normocephalic Neck: Yes: WNL, Supple, Trachea Midline Cardiovascular: Yes: WNL, Regular Rate and Rhythm Respiratory: Yes: WNL, Regular, CTA Bilaterally Gastrointestinal: Yes: WNL, Normal Bowel Sounds Genitourinary: Yes: WNL Musculoskeletal: Yes: WNL Extremities: Yes: WNL Edema: No Integumentary: Yes: WNL Labs: CBC, BMP 01/24/20 05:50 01/24/20 05:50 INR, PTT INR 1.15 (0.83-1.09) H 01/15/20 18:37 Fibrinogen > 500.0 mg/dL (238-498) H 01/16/20 13:14 Problem List - Problems (1) Elevated liver enzymes Code(s): R74.8 - ABNORMAL LEVELS OF OTHER SERUM ENZYMES (2) NSTEMI (non-ST elevated myocardial infarction) Code(s): I21.4 - NON-ST ELEVATION (NSTEMI) MYOCARDIAL INFARCTION (3) Paroxysmal atrial fibrillation with RVR Code(s): I48.0 - PAROXYSMAL ATRIAL FIBRILLATION (4) Pneumonia Code(s): J18.9 - PNEUMONIA, UNSPECIFIED ORGANISM Qualifiers: Pneumonia type: due to unspecified organism Laterality: left Lung location: lower lobe of lung Qualified Code(s): J18.9 - Pneumonia, unspecified organism (5) Sepsis Code(s): A41.9 - SEPSIS, UNSPECIFIED ORGANISM Qualifiers: Sepsis type: sepsis due to unspecified organism Sepsis acute organ dysfunction status: with acute organ dysfunction Severe sepsis acute organ dysfunction type: acute renal failure Acute renal failure type: unspecified Severe sepsis shock status: without septic shock Qualified Code(s): A41.9 - Sepsis, unspecified organism; R65.20 - Severe sepsis without septic shock; N17.9 - Acute kidney failure, unspecified (6) Thrombocytopenia Code(s): D69.6 - THROMBOCYTOPENIA, UNSPECIFIED (7) UTI (urinary tract infection) Code(s): N39.0 - URINARY TRACT INFECTION, SITE NOT SPECIFIED Qualifiers: Urinary tract infection type: site unspecified Hematuria presence: with hematuria Qualified Code(s): N39.0 - Urinary tract infection, site not specified; R31.9 - Hematuria, unspecified (8) Anxiety Code(s): F41.9 - ANXIETY DISORDER, UNSPECIFIED (9) Contusion, chest wall Code(s): S20.219A - CONTUSION OF UNSPECIFIED FRONT WALL OF THORAX, INIT ENCNTR Qualifiers: Encounter type: initial encounter Laterality: left Qualified Code(s): S20.212A - Contusion of left front wall of thorax, initial encounter (10) Shortness of breath Code(s): R06.02 - SHORTNESS OF BREATH (11) Well adult Code(s): FPF0580 - Assessment/Plan Assessment/Plan 1. CAD NSTEMI in context of 2. Paroxysmal afib with RVR 3. Sepsis source with partially obstructive right renal pelvis stone, possible LLL PNA 4. Toxic metabolic encephelopathy 5. Acute on CKD 6. HTN 7.ECHO nl EF 8.Schizo affective ds, Non-verbal 1. Trops are declining with supportive care, IV Lopressor as hemodynamics tolerate for rate-control, check ECG 2. Given obstructive nature of renal stone and ongoing sepsis source, would prefer percutaneous nephrostomy by IR as less invasive option if possible once rate-controlled with Rt URS, LASER and jj stent insertion once clinically stable 3. Continue empiric abx per C&S 4. Antiplatelets and anticoagulation on hold pending recovery of PLT>50 5. Due to Schizo affective ds, and patient being non-verbal she is a poor candidate for invasive cardiac w/u e.g. stress test c. cath. Will d/c telemetry
[2020-01-25 11:27] LABS: BASO % 0.2 % (0-2.0); EOS % 0.1 % (0-4.5); HEMATOCRIT 27.7 % (32.4-45.2); HEMOGLOBIN 9.4 GM/dL (10.7-15.3); LYMPH % 2.9 % (8-40); MCH 35.1 pg (25.7-33.7); MCHC 33.9 g/dl (32.0-36.0); MEAN CELL VOLUME 103.8 fl (80-96); MEAN PLT VOLUME 11.1 fl (7.5-11.1); MONO % 1.4 % (3.8-10.2); NEUT % 95.4 % (42.8-82.8); PLATELET COUNT 64 K/MM3 (134-434); RBC 2.67 M/mm3 (3.60-5.2); RDW 14.7 % (11.6-15.6); WHITE BLOOD COUNT 23.5 K/mm3 (4.0-10.0)
[2020-01-25 11:29] LABS: INR 1.21 (0.83-1.09); PROTHROMBIN TIME (PATIENT) 14.3 SEC (9.7-13.0)
[2020-01-25 11:31] LABS: ACTIVATED PTT 27.4 SECONDS (25.2-36.5)
--- NOTE | 2020-01-25 11:40 | PN ---
DATE OF VISIT: DATE OF DICTATION: 01/24/2020 Patient is an 84-year-old female who presented with urosepsis due to an obstructing right renal stone. The patient underwent an emergency percutaneous nephrostomy. She improved medically. On the right side there is a 1.5 cm obstructing ureteral stone. The percutaneous tube is patent. The urine is presently clear. PHYSICAL EXAMINATION: Vital Signs: Today the patient has a temperature of 98.2, a pulse of 79, blood pressure 139/73. Abdomen: Soft. Genitourinary: Her العلي is patent. Her percutaneous is patent. Her urine is clear. Her white count is 19,600. Hemoglobin is 9 and hematocrit 27.1. Random glucose was 51. BUN is 41.3 and creatinine 1.1. The patient's INR is 1.15. Her fibrinogen level is greater than 500. She still has acute renal injury as well as hyperosmolality with hypernatremia. Patient has been on vancomycin and Zosyn. Her COVID-19 is non-detected. Impression at present is hypernatremia, hypokalemia, sepsis with gram-negative bacteremia, thrombocytopenia and high blood pressure. The renal function is stable. Her last urine culture from the nephrostomy tube revealed no growth. Her first catheterized urine revealed Proteus mirabilis. The patient is presently afebrile at 98.2. Her blood pressure is 131/60. Respirations are 22 and regular. Her urine output is 800 mL from her العلي catheter and 180 from her percutaneous left nephrostomy. 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 There is no evidence of hydronephrosis or obstruction. There is a العلي catheter in a partially distended bladder without wall thickening. The left percutaneous is draining urine. There is no left ureteral jet. IMPRESSION: At present urologically patient is not obstructed and there is no need for emergent intervention at present. Delmy [id number]
[2020-01-25 12:17] LABS: ALBUMIN 1.3 g/dl (3.4-5.0); BILIRUBIN,TOTAL 1.6 mg/dL (0.2-1); BLOOD UREA NITROGEN 37.9 mg/dL (7-18); CALCIUM 7.7 mg/dL (8.5-10.1); CREATININE 1.1 mg/dL (0.55-1.3); PHOSPHOROUS 2.9 mg/dL (2.5-4.9); POTASSIUM 3.1 mmol/L (3.5-5.1); TOT PROT 5.4 g/dl (6.4-8.2)
--- NOTE | 2020-01-25 12:40 | PN ---
Teaching Attending Note Name of Resident: Brian Dodd ATTENDING PHYSICIAN STATEMENT I saw and evaluated the patient. I reviewed the resident's note and discussed the case with the resident. I agree with the resident's findings and plan as documented. SUBJECTIVE: Seen and examined at bedside. Patient alert and oriented x1, able to state her name for the first time this admission. Hemodynamically stable on high flow oxygen OBJ Last Vital Signs Temp Pulse Resp BP Pulse Ox 97.9 F 68 20 132/59 L 97 01/25/20 07:47 01/25/20 07:47 01/25/20 07:49 01/25/20 07:47 01/25/20 08:15 PE: Per resident note Labs/Imaging: reviewed ASSESSMENT/PLAN 84-year-old male history of hypertension bipolar disorder admitted for severe sepsis to ICU in the setting of infected kidney stone and possible pneumonia. #Severe sepsis: Proteus bacteremia In setting of infected obstructing kidney stone 1.4cm and possible pneumonia. Patient is now hemodynamically stable with improving white count status post Zosyn, right nephrostomy, and العلي catheter. Fevers are increasing since patient was downgraded to ceftriaxone from Zosyn. There may be a component of aspiration pneumonia. Will discuss switching back to Zosyn with ID -Troponin downtrending, DK resolved, continuing thrombocytopenia Urology on board, stent when stable #Hypernatremia:improving Likely iatrogenic due to normal saline in setting of impaired kidney function due to sepsis and obstructive uropathy check daily labs Nephrology on board: appreciate recs -lasix IV 20mg daily #hypoxia Clinically high concern for covid given fevers, bilateral infiltrates, elevated inflammatory markers, and high degree of hypoxia. Despite negative test x3 we are treating it is active COVID -covid AB+ -cont IV steroids -pulm on board holding AC given thrombocytopenia #Thrombocytopenia: improving Likely in the setting of severe sepsis. Patient's platelets were normal in 2018 Trend CBC start dvt ppx #New onset atrial fibrillation In the setting of sepsis PRN IV metoprolol May require outpatient Holter monitoring to determine need for anticoagulation in the future #Prerenal and postrenal DK: Resolved
[2020-01-25] MEDS ORDERED: POTASSIUM CHLORIDE ORAL LIQUID 20 MEQ/15 ML PO ONE (13:00)
[2020-01-25] MEDS: KCL 10 MEQ IVPB 10 MEQ/100 ML INFUS.BAG IVPB SCH ×3 (13:17→18:24)
--- NOTE | 2020-01-25 13:18 | PN ---
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, Physician History of Present Illness: Pt seen and examined at bedside. SHe is awake and appears more comfortable. - Current Medication List Current Medications: Active Medications Ascorbic Acid (Vitamin C -) 250 mg PO BID [facility] Last Admin: 01/25/20 10:12 Dose: 250 mg Documented by: Chlorhexidine Gluconate (Hibiclens For Decolonization -) 1 applic TP HS [facility] Last Admin: 01/24/20 22:49 Dose: Not Given Documented by: Furosemide (Lasix Injection -) 20 mg IVPUSH DAILY [facility] Last Admin: 01/25/20 10:10 Dose: 20 mg Documented by: Heparin Sodium (Porcine) (Heparin -) 5,000 unit SQ BID [facility] Last Admin: 01/25/20 10:10 Dose: 5,000 unit Documented by: Vancomycin HCl (Vancomycin (Pre-Docked)) 1,000 mg in 250 mls @ 166.667 mls/hr IVPB Q24H [facility]; Protocol Last Admin: 01/24/20 23:01 Dose: 166.667 mls/hr Documented by: Piperacillin Sod/Tazobactam (Sod 4.5 gm/ Dextrose) 100 mls @ 200 mls/hr IVPB Q6H-IV [facility]; Protocol Last Admin: 01/25/20 09:18 Dose: 200 mls/hr Documented by: Potassium Chloride (Potassium Chloride 10 Meq Premix Ivpb -) 10 meq in 100 mls @ 100 mls/hr IVPB Q60M [facility] Stop: 01/25/20 16:14 Methylprednisolone Sodium Succinate (Solu-Medrol -) 35 mg IVPUSH BID [facility] Last Admin: 01/25/20 10:10 Dose: 35 mg Documented by: Metoprolol Tartrate (Lopressor Injection -) 5 mg IVPUSH Q4H PRN PRN Reason: TACHYCARDIA Nystatin (Nystop Powder -) 1 applic TP DAILY [facility] Last Admin: 01/25/20 10:12 Dose: 1 applic Documented by: Pantoprazole Sodium (Protonix Iv) 40 mg IVPUSH DAILY [facility] Last Admin: 01/25/20 10:10 Dose: 40 mg Documented by: Zinc Sulfate (Orazinc -) 220 mg PO DAILY [facility] Last Admin: 01/25/20 10:12 Dose: 220 mg Documented by: - Objective Vital Signs: Vital Signs Temperature 97.9 F 09/09/20 07:47 Pulse Rate 68 01/25/20 07:47 Respiratory Rate 20 01/25/20 07:49 Blood Pressure 132/59 L 01/25/20 07:47 O2 Sat by Pulse Oximetry (%) 97 01/25/20 08:15 Constitutional: Yes: Calm Eyes: Yes: Conjunctiva Clear HENT: Yes: Atraumatic Neck: Yes: Supple Cardiovascular: Yes: S1, S2 Respiratory: Yes: CTA Bilaterally Gastrointestinal: Yes: Normal Bowel Sounds, Soft Genitourinary: Yes: WNL Musculoskeletal: Yes: WNL Edema: No Neurological: Yes: Confusion Labs: CBC, BMP 01/25/20 10:50 01/25/20 10:50 INR, PTT INR 1.21 (0.83-1.09) H 01/25/20 10:50 Fibrinogen 463.0 mg/dL (238-498) 01/25/20 10:50 Problem List - Problems (1) DK (acute kidney injury) Code(s): N17.9 - ACUTE KIDNEY FAILURE, UNSPECIFIED (2) Hypernatremia Code(s): E87.0 - HYPEROSMOLALITY AND HYPERNATREMIA (3) NSTEMI (non-ST elevated myocardial infarction) Code(s): I21.4 - NON-ST ELEVATION (NSTEMI) MYOCARDIAL INFARCTION Assessment/Plan Current Medications Generic Name Dose Route Start Last Admin Trade Name Freq PRN Reason Stop Dose Admin Ascorbic Acid 250 mg 01/19/20 22:00 01/25/20 10:12 Vitamin C - PO 250 mg BID [facility] Administration Chlorhexidine Gluconate 1 applic 01/17/20 22:00 01/24/20 22:49 Hibiclens For Decolonization - TP Not Given HS [facility] Furosemide 20 mg 01/20/20 10:45 01/25/20 10:10 Lasix Injection - IVPUSH 20 mg DAILY [facility] Administration Heparin Sodium (Porcine) 5,000 unit 01/23/20 12:00 01/25/20 10:10 Heparin - SQ 5,000 unit BID [facility] Administration Vancomycin HCl 1,000 mg in 250 mls @ 166.667 mls/hr 01/21/20 23:00 01/24/20 23:01 Vancomycin (Pre-Docked) IVPB 166.667 mls/hr Q24H [facility] Administration Protocol Piperacillin Sod/Tazobactam 100 mls @ 200 mls/hr 01/20/20 15:00 01/25/20 09:18 Sod 4.5 gm/ Dextrose IVPB 200 mls/hr Q6H-IV [facility] Administration Protocol Potassium Chloride 10 meq in 100 mls @ 100 mls/hr 01/25/20 13:15 Potassium Chloride 10 Meq Premix Ivpb - IVPB 01/25/20 16:14 Q60M [facility] Methylprednisolone Sodium Succinate 35 mg 01/21/20 10:52 01/25/20 10:10 Solu-Medrol - IVPUSH 35 mg BID [facility] Administration Metoprolol Tartrate 5 mg 01/17/20 05:02 Lopressor Injection - IVPUSH Q4H PRN TACHYCARDIA Nystatin 1 applic 01/23/20 16:15 01/25/20 10:12 Nystop Powder - TP 1 applic DAILY [facility] Administration Pantoprazole Sodium 40 mg 01/17/20 10:00 01/25/20 10:10 Protonix Iv IVPUSH 40 mg DAILY [facility] Administration Zinc Sulfate 220 mg 01/19/20 18:15 01/25/20 10:12 Orazinc - PO 220 mg DAILY [facility] Administration Impression 1. dk 2. hypernatremia 3. hypokalemia 4. sepsis 5. nstemi 6. gram neg bacteremia 7. htn 8. a-fib 9. thrombocytopenia Plan - replace potassium - cont to monitor lytes - repeat labs in am - hypokalemia likely from lasix - cont diuretics - monitor pulse ox and oxygen requirements
--- NOTE | 2020-01-25 13:52 | PN ---
Physical Exam: SUBJECTIVE: Patient seen and examined at bedside this morning. She is able to say her name today. Does not endorse acute complaints. OBJECTIVE: Vital Signs Period Temp Pulse Resp BP Sys/Mcmullen Pulse Ox Last 24 Hr 97.6 F-98.3 F 68-88 20-22 122-139/53-61 95-100 GENERAL: The patient is awake, alert, oriented only to self, in no acute distress. HEAD: Normocephalic, atraumatic. EYES: PERRL, extraocular movements intact, sclera anicteric, conjunctiva clear. ENT: Oropharynx clear, without erythema or exudates. Moist mucous membranes. NECK: Trachea midline. Supple. LUNGS: Breath sounds equal, faint crackles to auscultation bilaterally. No accessory muscle use. Remains on high flow oxygen. HEART: Regular rate and rhythm. S1, S2 without murmur, rub or gallop. ABDOMEN: Soft, nondistended, nontender to light and deep palpation x4 quadrants. Normoactive bowel sounds x4 quadrants. Nephrostomy tube in situ. EXTREMITIES: 2+ radial, dorsalis pedis pulses bilaterally. Warm, well-perfused. 1+ edema bilaterally. NEUROLOGICAL: Unable to evaluate- patient does not cooperate with exam. SKIN: Warm, dry. Laboratory Results - last 24 hr 01/25/20 01/25/20 01/25/20 10:50 10:50 10:50 WBC 23.5 H RBC 2.67 L Hgb 9.4 L Hct 27.7 L MCV 103.8 H MCH 35.1 H MCHC 33.9 RDW 14.7 Plt Count 64 L D MPV 11.1 Absolute Neuts (auto) 22.4 H Neutrophils % 95.4 H Lymphocytes % 2.9 L Monocytes % 1.4 L Eosinophils % 0.1 D Basophils % 0.2 Nucleated RBC % 0 PT with INR INR PTT (Actin FS) Fibrinogen D-Dimer 3283 H Sodium 144 Potassium 3.1 L Chloride 113 H Carbon Dioxide 21 Anion Gap 10 BUN 37.9 H Creatinine 1.1 Est GFR (CKD-EPI)AfAm 54.15 Est GFR (CKD-EPI)NonAf 46.72 Random Glucose 183 H Calcium 7.7 L Phosphorus 2.9 Magnesium 2.0 Ferritin 1722.8 H Total Bilirubin 1.6 H AST 30 ALT 39 Alkaline Phosphatase 143 H LD Total 319 H C-Reactive Protein 8.3 H Total Protein 5.4 L Albumin 1.3 L 01/25/20 01/25/20 10:50 10:50 WBC RBC Hgb Hct MCV MCH MCHC RDW Plt Count MPV Absolute Neuts (auto) Neutrophils % Lymphocytes % Monocytes % Eosinophils % Basophils % Nucleated RBC % PT with INR 14.30 H INR 1.21 H PTT (Actin FS) 27.4 Fibrinogen 463.0 D-Dimer Sodium Potassium Chloride Carbon Dioxide Anion Gap BUN Creatinine Est GFR (CKD-EPI)AfAm Est GFR (CKD-EPI)NonAf Random Glucose Calcium Phosphorus Magnesium Ferritin Total Bilirubin AST ALT Alkaline Phosphatase LD Total C-Reactive Protein Total Protein Albumin Active Medications Generic Name Dose Route Start Last Admin Trade Name Freq PRN Reason Stop Dose Admin Ascorbic Acid 250 mg 01/19/20 22:00 01/25/20 10:12 Vitamin C - PO 250 mg BID [facility] Administration Chlorhexidine Gluconate 1 applic 01/17/20 22:00 01/24/20 22:49 Hibiclens For Decolonization - TP Not Given HS [facility] Furosemide 20 mg 01/20/20 10:45 01/25/20 10:10 Lasix Injection - IVPUSH 20 mg DAILY [facility] Administration Heparin Sodium (Porcine) 5,000 unit 01/23/20 12:00 01/25/20 10:10 Heparin - SQ 5,000 unit BID [facility] Administration Vancomycin HCl 1,000 mg in 250 mls @ 166.667 mls/hr 01/21/20 23:00 01/24/20 23:01 Vancomycin (Pre-Docked) IVPB 166.667 mls/hr Q24H [facility] Administration Protocol Piperacillin Sod/Tazobactam 100 mls @ 200 mls/hr 01/20/20 15:00 01/25/20 09:18 Sod 4.5 gm/ Dextrose IVPB 200 mls/hr Q6H-IV [facility] Administration Protocol Potassium Chloride 10 meq in 100 mls @ 100 mls/hr 01/25/20 13:15 Potassium Chloride 10 Meq Premix Ivpb - IVPB 01/25/20 16:14 Q60M [facility] Methylprednisolone Sodium Succinate 35 mg 01/21/20 10:52 01/25/20 10:10 Solu-Medrol - IVPUSH 35 mg BID [facility] Administration Metoprolol Tartrate 5 mg 01/17/20 05:02 Lopressor Injection - IVPUSH Q4H PRN TACHYCARDIA Nystatin 1 applic 01/23/20 16:15 01/25/20 10:12 Nystop Powder - TP 1 applic DAILY [facility] Administration Pantoprazole Sodium 40 mg 01/17/20 10:00 01/25/20 10:10 Protonix Iv IVPUSH 40 mg DAILY [facility] Administration Zinc Sulfate 220 mg 01/19/20 18:15 01/25/20 10:12 Orazinc - PO 220 mg DAILY [facility] Administration ASSESSMENT/PLAN: Patient is an 84 year old female with history of hypertension, major depression, and schizoaffective disorder (Aripiprazole, Fluoxetine, Mirtazapine) presents for acute mental stats change. #Acute Metabolic Encephalopathy secondary to severe sepsis due to urinary tract infection -CT head without acute pathology. Cerebral atrophy, old left parietal infarct; chronic periventricular ischemic changes noted. -CT abdomen, pelvis with 1.4 cm partially obstructing calculus at right renal pelvis -UCx: proteus species, >100.000 CFU -Blood culture (01/14) growing Proteus in 2 sets. Repeat blood culture (01/17) negative for growth. -ID consult appreciated. Continue Vancomycin, Zosyn Hypoxia secondary to presumed COVID infection -Remains on High Flow oxygen, currently saturating well. -Chest CT: Left lower lobe bronchiectasis and consolidation -Chest radiograph revelas small left pleural effusion and left lobe consolidation -Continue Vancomycin, Zosyn, ID consult appreciated. -COVID Abs positive, PCR neg x 3 however will treat as positive. -Solumedrol 35mg IV BID -IV Lasix for pleural effusion New Onset Paroxysmal afib w/ RVR -Currently rate controlled. Consider IV lopressor for rate control as BP can tolerate -Defer AC at this time given thrombocytopenia NSTEMI -EKG reveals Afib w/ RVR, left axis deviation. Inferior & anterior infract (noted on prior study) -Troponin down-trending -Cardio consult appreciated; not a candidate for stress or cardiac cath Hypertension -Currently holding home Amlodipine in setting of sepsis. DK, Hypernatremia- resolved -DK in setting of sepsis. Hypernatremia likely Iatrogenic in etiology. -Neprhrology consult appreciated. Continue Lasix Thrombocytopenia -2 units platelets given during this admission. -Likely secondary to severe sepsis. Prophylaxis -Heparin 5000 units subq TID -Protonix 40mg IV daily FEN -No IV fluids indicated -Follow BMP -Puree dysphagia diet Disposition -Continue care in medical- surgical floor. Visit type - Emergency Visit Emergency Visit: Yes ED Registration Date: 01/15/20 Care time: The patient presented to the Emergency Department on the above date and was hospitalized for further evaluation of their emergent condition. - New Patient This patient is new to me today: Yes Date on this admission: 01/25/20 - Critical Care Critical Care patient: No - Discharge Referral Referred to [facility] No - Medication Review Med list reviewed for High Risk Meds patients 65 and older: Yes ATTENDING PHYSICIAN STATEMENT I saw and evaluated the patient. I reviewed the resident's note and discussed the case with the resident. I agree with the resident's findings and plan as documented. SUBJECTIVE: OBJECTIVE: ASSESSMENT AND PLAN:
[2020-01-25 14:18] LABS: PLATELET ESTIMATE DECREASED
[2020-01-25] MEDS: VANCOMYCIN 1 GRAM (PRE-DOCKED) 1,000 MG/250 ML BAG IVPB SCH (22:00)
[2020-01-25] MEDS: CHLORHEXIDINE GLUCONATE 4% CLEANSER FOR DECOLONIZATION TP SCH (22:10)
[2020-01-26] MEDS ORDERED: PIPERACILLIN/TAZOBACTAM 4.5 GM VIAL IVPB ONE ×3 (02:18→13:58)
[2020-01-26] MEDS ORDERED: DEXTROSE 5%-WATER 100 ML IVPB ONE ×3 (02:18→13:58)
[2020-01-26] MEDS: PIPERACILLIN/TAZOB 4.5 GM 4.5 GM in DEXTROSE 5%-WATER 100 ML IVPB SCH ×4 (03:19→21:00)
--- NOTE | 2020-01-26 07:29 | PN ---
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, Physician History of Present Illness: PULMONARY AWAKE ON 100%NRM,COMFORTABLE,--TACHYPNEA - Current Medication List Current Medications: Active Medications Ascorbic Acid (Vitamin C -) 250 mg PO BID [facility] Last Admin: 01/25/20 22:10 Dose: 250 mg Documented by: Chlorhexidine Gluconate (Hibiclens For Decolonization -) 1 applic TP HS [facility] Last Admin: 01/25/20 22:10 Dose: 1 applic Documented by: Furosemide (Lasix Injection -) 20 mg IVPUSH DAILY [facility] Last Admin: 01/25/20 10:10 Dose: 20 mg Documented by: Heparin Sodium (Porcine) (Heparin -) 5,000 unit SQ BID [facility] Last Admin: 01/25/20 21:57 Dose: 5,000 unit Documented by: Vancomycin HCl (Vancomycin (Pre-Docked)) 1,000 mg in 250 mls @ 166.667 mls/hr IVPB Q24H [facility]; Protocol Last Admin: 01/25/20 22:00 Dose: 166.667 mls/hr Documented by: Piperacillin Sod/Tazobactam (Sod 4.5 gm/ Dextrose) 100 mls @ 200 mls/hr IVPB Q6H-IV [facility]; Protocol Last Admin: 01/26/20 03:19 Dose: 200 mls/hr Documented by: Methylprednisolone Sodium Succinate (Solu-Medrol -) 35 mg IVPUSH BID [facility] Last Admin: 01/25/20 21:57 Dose: 35 mg Documented by: Metoprolol Tartrate (Lopressor Injection -) 5 mg IVPUSH Q4H PRN PRN Reason: TACHYCARDIA Nystatin (Nystop Powder -) 1 applic TP DAILY [facility] Last Admin: 01/25/20 10:12 Dose: 1 applic Documented by: Pantoprazole Sodium (Protonix Iv) 40 mg IVPUSH DAILY [facility] Last Admin: 01/25/20 10:10 Dose: 40 mg Documented by: Zinc Sulfate (Orazinc -) 220 mg PO DAILY [facility] Last Admin: 01/25/20 10:12 Dose: 220 mg Documented by: - Objective Vital Signs: Vital Signs Temperature 99.1 F 01/26/20 02:00 Pulse Rate 85 01/26/20 06:00 Respiratory Rate 20 01/26/20 06:00 Blood Pressure 139/68 01/26/20 06:00 O2 Sat by Pulse Oximetry (%) 98 01/26/20 04:09 Constitutional: Yes: Well Nourished, Calm Eyes: Yes: WNL HENT: Yes: WNL Neck: Yes: WNL Cardiovascular: Yes: Pulse Irregular, S1, S2 Respiratory: Yes: Diminished (POOR INSPIRSTORY EFFORT) Gastrointestinal: Yes: Normal Bowel Sounds, Soft Extremities: Yes: WNL Edema: No Labs: INR, PTT INR 1.21 (0.83-1.09) H 01/25/20 10:50 Fibrinogen 463.0 mg/dL (238-498) 01/25/20 10:50 Assessment/Plan Assessment/Plan A/P acute hypoxemic respiratory failure improving BILATERAL PNEUMONIA Suspected COVID-19 UTI/Nephrolithiasis Gram Negative Bacteremia Sepsis Acute on Chronic Renal Failure Thrombocytopenia Acute NSTEMI Paroxysmal Atrial Fibrillation HTN Pneumonia Hypernatremia improving - Titrate O2to maintain O2sat 90% or greater - antibiotics as per ID - medrol - monitor inflammatory markers - S/P nephrostomy tube placement - IVF - monitor urine output, creatinine - monitor CBC, coags,lytes,na - rate control - DVT prophylaxis - f/u chest x-rays - Repeat Covid pcr negative - COVID ANTIBODY + - AC DR CARBAJAL
[2020-01-26 07:37] LABS: HEMATOCRIT 25.6 % (32.4-45.2); HEMOGLOBIN 8.5 GM/dL (10.7-15.3); MCHC 33.2 g/dl (32.0-36.0); MEAN CELL VOLUME 102.5 fl (80-96); MEAN PLT VOLUME 10.6 fl (7.5-11.1); PLATELET COUNT 88 K/MM3 (134-434); RDW 14.7 % (11.6-15.6)
[2020-01-26 07:56] LABS: ALBUMIN 1.2 g/dl (3.4-5.0); BILIRUBIN,TOTAL 1.7 mg/dL (0.2-1); BLOOD UREA NITROGEN 40.4 mg/dL (7-18); CALCIUM 7.6 mg/dL (8.5-10.1); CREATININE 1.1 mg/dL (0.55-1.3); MAGNESIUM 2.1 mg/dL (1.8-2.4); PHOSPHOROUS 2.4 mg/dL (2.5-4.9)
[2020-01-26] MEDS: methylPREDNISolone NA SUCC 40 MG/1 ML VIAL IVPUSH SCH (10:02)
[2020-01-26] MEDS: PANTOPRAZOLE SODIUM 40 MG VIAL IVPUSH SCH (10:02)
[2020-01-26] MEDS: FUROSEMIDE 40 MG/4 ML INJECTABLE VIAL IVPUSH SCH (10:02)
[2020-01-26] MEDS: HEPARIN NA (PORCINE) 5,000 UNITS/ML 1ML VIAL SQ SCH (10:02)
[2020-01-26] MEDS: ASCORBIC ACID 250 MG TABLET (FP) PO SCH (10:02)
[2020-01-26] MEDS: ZINC SULFATE 220 MG CAPSULE (FP) PO SCH (10:02)
[2020-01-26] MEDS: NYSTATIN POWDER 100,000 UNITS/GM - 15 GM TOPICAL POWDER TP SCH (10:03)
--- NOTE | 2020-01-26 10:42 | PN ---
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, REHABILITATION COUNSELOR - Note 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: Selected Entries 01/24/20 01/24/20 01/24/20 00:21 04:15 08:50 Lunch Skin Risk Level Supper Total Score - Skin Risk Assessment Temperature Pulse Rate Blood Pressure O2 Sat by Pulse Oximetry (%) Oxygen Delivery Method Fraction of 90 94 93 Inspired Oxygen (FIO2) 01/24/20 01/24/20 01/24/20 09:00 15:32 16:00 Lunch NPO Skin Risk Level Supper Total Score - Skin Risk Assessment Temperature Pulse Rate Blood Pressure O2 Sat by Pulse Oximetry (%) Oxygen Delivery Method Fraction of 94 94 Inspired Oxygen (FIO2) 01/24/20 01/24/20 01/24/20 21:00 21:02 23:00 Lunch Skin Risk Level Supper 25% Total Score - Skin Risk Assessment Temperature Pulse Rate Blood Pressure O2 Sat by Pulse Oximetry (%) Oxygen Delivery High Flow O2 Method Fraction of 94 Inspired Oxygen (FIO2) 01/25/20 01/25/20 01/25/20 01:10 02:00 05:19 Lunch Skin Risk Level Supper Total Score - Skin Risk Assessment Temperature 97.8 F Pulse Rate 87 Blood Pressure 129/60 O2 Sat by Pulse 98 95 99 Oximetry (%) Oxygen Delivery Method Fraction of 94 93 Inspired Oxygen (FIO2) 01/25/20 01/25/20 01/25/20 06:01 07:47 07:49 Lunch Skin Risk Level High Risk Supper Total Score - 11 Skin Risk Assessment Temperature 97.9 F 97.9 F Pulse Rate 68 68 Blood Pressure 139/61 132/59 L O2 Sat by Pulse 100 100 100 Oximetry (%) Oxygen Delivery Method Fraction of Inspired Oxygen (FIO2) Laboratory Tests 01/24/20 05:50 WBC 19.6 H Selected Entries 01/25/20 01/25/20 01/25/20 01:10 02:00 05:19 Breakfast Temperature 97.8 F Pulse Rate 87 Blood Pressure 129/60 O2 Sat by Pulse 98 95 99 Oximetry (%) Fraction of 94 93 Inspired Oxygen (FIO2) 01/25/20 01/25/20 01/25/20 06:01 07:47 07:49 Breakfast Temperature 97.9 F 97.9 F Pulse Rate 68 68 Blood Pressure 139/61 132/59 L O2 Sat by Pulse 100 100 100 Oximetry (%) Fraction of Inspired Oxygen (FIO2) 01/25/20 01/25/20 08:15 10:42 Breakfast 100% Temperature Pulse Rate Blood Pressure O2 Sat by Pulse 97 Oximetry (%) Fraction of 93 Inspired Oxygen (FIO2) Laboratory Tests 01/15/20 01/20/20 01/21/20 14:00 09:00 15:11 WBC COVID-19 (KATHARINA) Not detected Not detected SARS-CoV-2 Ab Interp Reactive 01/23/20 01/23/20 01/24/20 10:00 11:33 05:50 WBC 24.4 H 19.6 H COVID-19 (KATHARINA) Not detected SARS-CoV-2 Ab Interp 01/25/20 10:50 WBC 23.5 H COVID-19 (KATHARINA) SARS-CoV-2 Ab Interp Selected Entries 01/25/20 01/25/20 01/25/20 02:00 06:01 07:47 Breakfast Lunch Skin Risk Level High Risk Supper Total Score - 11 Skin Risk Assessment Temperature 97.8 F 97.9 F 97.9 F Pulse Rate 87 68 68 Respiratory Rate Blood Pressure 129/60 139/61 132/59 L O2 Sat by Pulse Oximetry (%) Oxygen Delivery Method Fraction of Inspired Oxygen (FIO2) 01/25/20 01/25/20 01/25/20 10:42 14:36 14:37 Breakfast 75% Lunch 75% Skin Risk Level Supper Total Score - Skin Risk Assessment Temperature 98.2 F Pulse Rate 89 Respiratory Rate Blood Pressure 136/66 O2 Sat by Pulse Oximetry (%) Oxygen Delivery Method Fraction of Inspired Oxygen (FIO2) 01/25/20 01/25/20 01/25/20 18:34 19:04 22:00 Breakfast Lunch Skin Risk Level High Risk Supper 75% Total Score - 11 Skin Risk Assessment Temperature 98.1 F 98.2 F Pulse Rate 78 99 H Respiratory Rate Blood Pressure 135/79 133/75 O2 Sat by Pulse Oximetry (%) Oxygen Delivery Method Fraction of Inspired Oxygen (FIO2) 01/26/20 01/26/20 01/26/20 00:32 02:00 04:09 Breakfast Lunch Skin Risk Level Supper Total Score - Skin Risk Assessment Temperature 99.1 F Pulse Rate 89 Respiratory 20 Rate Blood Pressure 145/68 O2 Sat by Pulse 93 L 99 98 Oximetry (%) Oxygen Delivery Method Fraction of 95 95 Inspired Oxygen (FIO2) 01/26/20 01/26/20 01/26/20 06:00 07:58 07:59 Breakfast Lunch Skin Risk Level Supper Total Score - Skin Risk Assessment Temperature Pulse Rate 85 89 Respiratory 20 Rate Blood Pressure 139/68 O2 Sat by Pulse 97 97 Oximetry (%) Oxygen Delivery High Flow O2 Method Fraction of 95 Inspired Oxygen (FIO2) Laboratory Tests 01/24/20 01/25/20 01/26/20 05:50 10:50 05:21 WBC 19.6 H 23.5 H 20.0 H CXR bilateral infiltrates Pt on hiflo, unable to be brought down for mbs Overtly tolerating Puree/honey thick liquid Mouth care Feed only when alert Aspiration precautions Suggest MBS when off high cameron
[2020-01-26] MEDS ORDERED: SODIUM PHOSPHATE - 20 MM in DEXTROSE 5%-WATER - 250 ML IVPB ONE (12:02)
--- NOTE | 2020-01-26 12:04 | PN ---
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, Physician History of Present Illness: Pt seen and examined at bedside. No great change in status. She is on non rebreather. - Current Medication List Current Medications: Active Medications Ascorbic Acid (Vitamin C -) 250 mg PO BID [facility] Last Admin: 01/26/20 10:02 Dose: 250 mg Documented by: Chlorhexidine Gluconate (Hibiclens For Decolonization -) 1 applic TP HS [facility] Last Admin: 01/25/20 22:10 Dose: 1 applic Documented by: Furosemide (Lasix Injection -) 20 mg IVPUSH DAILY [facility] Last Admin: 01/26/20 10:02 Dose: 20 mg Documented by: Heparin Sodium (Porcine) (Heparin -) 5,000 unit SQ BID [facility] Last Admin: 01/26/20 10:02 Dose: 5,000 unit Documented by: Vancomycin HCl (Vancomycin (Pre-Docked)) 1,000 mg in 250 mls @ 166.667 mls/hr IVPB Q24H [facility]; Protocol Last Admin: 01/25/20 22:00 Dose: 166.667 mls/hr Documented by: Piperacillin Sod/Tazobactam (Sod 4.5 gm/ Dextrose) 100 mls @ 200 mls/hr IVPB Q6H-IV [facility]; Protocol Last Admin: 01/26/20 10:08 Dose: 200 mls/hr Documented by: Methylprednisolone Sodium Succinate (Solu-Medrol -) 35 mg IVPUSH BID [facility] Last Admin: 01/26/20 10:02 Dose: 35 mg Documented by: Metoprolol Tartrate (Lopressor Injection -) 5 mg IVPUSH Q4H PRN PRN Reason: TACHYCARDIA Nystatin (Nystop Powder -) 1 applic TP DAILY [facility] Last Admin: 01/26/20 10:03 Dose: 1 applic Documented by: Pantoprazole Sodium (Protonix Iv) 40 mg IVPUSH DAILY [facility] Last Admin: 01/26/20 10:02 Dose: 40 mg Documented by: Zinc Sulfate (Orazinc -) 220 mg PO DAILY [facility] Last Admin: 01/26/20 10:02 Dose: 220 mg Documented by: - Objective Vital Signs: Vital Signs Temperature 97.8 F 01/26/20 10:00 Pulse Rate 85 01/26/20 11:32 Respiratory Rate 20 01/26/20 10:00 Blood Pressure 143/72 01/26/20 10:00 O2 Sat by Pulse Oximetry (%) 95 01/26/20 11:32 Constitutional: Yes: Calm Eyes: Yes: Conjunctiva Clear HENT: Yes: Atraumatic Neck: Yes: Supple Cardiovascular: Yes: S1, S2 Respiratory: Yes: On Venti-Mask Gastrointestinal: Yes: Soft Genitourinary: Yes: العلي Present Musculoskeletal: Yes: Muscle Weakness Edema: No Neurological: Yes: Confusion Labs: CBC, BMP 01/26/20 05:21 01/26/20 06:00 INR, PTT INR 1.21 (0.83-1.09) H 01/25/20 10:50 Fibrinogen 463.0 mg/dL (238-498) 01/25/20 10:50 Problem List - Problems (1) SEBASTIEN (acute kidney injury) Code(s): N17.9 - ACUTE KIDNEY FAILURE, UNSPECIFIED (2) Hypernatremia Code(s): E87.0 - HYPEROSMOLALITY AND HYPERNATREMIA (3) NSTEMI (non-ST elevated myocardial infarction) Code(s): I21.4 - NON-ST ELEVATION (NSTEMI) MYOCARDIAL INFARCTION Assessment/Plan Current Medications Generic Name Dose Route Start Last Admin Trade Name Roldanq PRN Reason Stop Dose Admin Ascorbic Acid 250 mg 01/19/20 22:00 01/26/20 10:02 Vitamin C - PO 250 mg BID [facility] Administration Chlorhexidine Gluconate 1 applic 01/17/20 22:00 01/25/20 22:10 Hibiclens For Decolonization - TP 1 applic HS [facility] Administration Furosemide 20 mg 01/20/20 10:45 01/26/20 10:02 Lasix Injection - IVPUSH 20 mg DAILY [facility] Administration Heparin Sodium (Porcine) 5,000 unit 01/23/20 12:00 01/26/20 10:02 Heparin - SQ 5,000 unit BID [facility] Administration Vancomycin HCl 1,000 mg in 250 mls @ 166.667 mls/hr 01/21/20 23:00 01/25/20 22:00 Vancomycin (Pre-Docked) IVPB 166.667 mls/hr Q24H [facility] Administration Protocol Piperacillin Sod/Tazobactam 100 mls @ 200 mls/hr 01/20/20 15:00 01/26/20 10:08 Sod 4.5 gm/ Dextrose IVPB 200 mls/hr Q6H-IV [facility] Administration Protocol Sodium Phosphate 20 mm/ 256.6667 mls @ 62.5 mls/hr 01/26/20 12:02 Dextrose IVPB 01/26/20 16:08 ONCE ONE Methylprednisolone Sodium Succinate 35 mg 01/21/20 10:52 01/26/20 10:02 Solu-Medrol - IVPUSH 35 mg BID [facility] Administration Metoprolol Tartrate 5 mg 01/17/20 05:02 Lopressor Injection - IVPUSH Q4H PRN TACHYCARDIA Nystatin 1 applic 01/23/20 16:15 01/26/20 10:03 Nystop Powder - TP 1 applic DAILY [facility] Administration Pantoprazole Sodium 40 mg 01/17/20 10:00 01/26/20 10:02 Protonix Iv IVPUSH 40 mg DAILY [facility] Administration Zinc Sulfate 220 mg 01/19/20 18:15 01/26/20 10:02 Orazinc - PO 220 mg DAILY [facility] Administration Impression 1. sebastien 2. hypernatremia 3. hypokalemia 4. sepsis 5. nstemi 6. gram neg bacteremia 7. htn 8. a-fib 9. thrombocytopenia Plan - cont lasix - replace phos - monitor lytes - monitor pulse ox - potassium improved
--- NOTE | 2020-01-26 12:36 | PN ---
Teaching Attending Note Name of Resident: Brian Dodd ATTENDING PHYSICIAN STATEMENT I saw and evaluated the patient. I reviewed the resident's note and discussed the case with the resident. I agree with the resident's findings and plan as documented. SUBJECTIVE: Seen and examined at bedside. Condition stable. Patient's oxygen has been t itrated down to nonrebreather OBJ Last Vital Signs Temp Pulse Resp BP Pulse Ox 97.8 F 85 20 143/72 95 01/26/20 10:00 01/26/20 11:32 01/26/20 10:00 01/26/20 10:00 01/26/20 11:32 PE: Per resident note Labs/Imaging: reviewed ASSESSMENT/PLAN 84-year-old male history of hypertension bipolar disorder admitted for severe sepsis to ICU in the setting of infected kidney stone and possible pneumonia. #Severe sepsis: Proteus bacteremia In setting of infected obstructing kidney stone 1.4cm and possible pneumonia. Patient is now hemodynamically stable with improving white count status post Zosyn, right nephrostomy, and العلي catheter. Fevers are increasing since patient was downgraded to ceftriaxone from Zosyn. There may be a component of aspiration pneumonia. Will discuss switching back to Zosyn with ID -Troponin downtrending, DK resolved, continuing thrombocytopenia Urology on board, stent when stable #Hypernatremia:improving Likely iatrogenic due to normal saline in setting of impaired kidney function due to sepsis and obstructive uropathy check daily labs Nephrology on board: appreciate recs -lasix IV 20mg daily #hypoxia Clinically high concern for covid given fevers, bilateral infiltrates, elevated inflammatory markers, and high degree of hypoxia. Despite negative test x3 we are treating it is active COVID -covid AB+ -cont IV steroids -pulm on board holding AC given thrombocytopenia #Thrombocytopenia: improving Likely in the setting of severe sepsis. Patient's platelets were normal in 2018 Trend CBC start dvt ppx #New onset atrial fibrillation In the setting of sepsis PRN IV metoprolol May require outpatient Holter monitoring to determine need for anticoagulation in the future #Prerenal and postrenal DK: Resolved
--- NOTE | 2020-01-26 16:06 | PN ---
Physical Exam: SUBJECTIVE: Patient seen and examined at bedside. Patient does not endorse any complaints this morning. OBJECTIVE: Vital Signs Period Temp Pulse Resp BP Sys/Mcmullen Pulse Ox Last 24 Hr 97.8 F-99.1 F 78-99 20-20 133-145/68-79 91-100 GENERAL: The patient is awake, alert, oriented X0, in no acute distress. HEAD: Normocephalic, atraumatic. EYES: PERRL, extraocular movements intact, sclera anicteric, conjunctiva clear. ENT: Oropharynx clear, without erythema or exudates. Moist mucous membranes. NECK: Trachea midline. Supple. LUNGS: Breath sounds equal, faint crackles to auscultation bilaterally. No accessory muscle use. Remains on non-rebreather mask. HEART: Regular rate and rhythm. S1, S2 without murmur, rub or gallop. ABDOMEN: Soft, nondistended, nontender to palpation x4 quadrants. Normoactive bowel sounds x4 quadrants. Nephrostomy tube in situ. EXTREMITIES: 2+ radial, dorsalis pedis pulses bilaterally. Warm, well-perfused. 1+ edema bilaterally. NEUROLOGICAL: Unable to evaluate- patient does not cooperate with exam. SKIN: Warm, dry. Laboratory Results - last 24 hr 01/25/20 01/26/20 01/26/20 19:50 05:21 06:00 WBC 20.0 H RBC 2.50 L Hgb 8.5 L Hct 25.6 L MCV 102.5 H MCH 34.0 H MCHC 33.2 RDW 14.7 Plt Count 88 L D MPV 10.6 D-Dimer 2520 H Sodium 141 Potassium 4.0 Chloride 110 H Carbon Dioxide 23 Anion Gap 8 BUN 40.4 H Creatinine 1.1 Est GFR (CKD-EPI)AfAm 54.15 Est GFR (CKD-EPI)NonAf 46.72 Random Glucose 259 H Calcium 7.6 L Phosphorus 2.4 L Magnesium 2.1 Ferritin 1396.7 H Total Bilirubin 1.7 H AST 30 ALT 48 Alkaline Phosphatase 147 H Creatine Kinase 28 Total Protein 5.0 L Albumin 1.2 L Active Medications Generic Name Dose Route Start Last Admin Trade Name Freq PRN Reason Stop Dose Admin Ascorbic Acid 250 mg 01/19/20 22:00 01/26/20 10:02 Vitamin C - PO 250 mg BID [facility] Administration Chlorhexidine Gluconate 1 applic 01/17/20 22:00 01/25/20 22:10 Hibiclens For Decolonization - TP 1 applic HS [facility] Administration Furosemide 20 mg 01/20/20 10:45 01/26/20 10:02 Lasix Injection - IVPUSH 20 mg DAILY [facility] Administration Heparin Sodium (Porcine) 5,000 unit 01/23/20 12:00 01/26/20 10:02 Heparin - SQ 5,000 unit BID [facility] Administration Vancomycin HCl 1,000 mg in 250 mls @ 166.667 mls/hr 01/21/20 23:00 01/25/20 22:00 Vancomycin (Pre-Docked) IVPB 166.667 mls/hr Q24H [facility] Administration Protocol Piperacillin Sod/Tazobactam 100 mls @ 200 mls/hr 01/20/20 15:00 01/26/20 10:08 Sod 4.5 gm/ Dextrose IVPB 200 mls/hr Q6H-IV [facility] Administration Protocol Sodium Phosphate 20 mm/ 256.6667 mls @ 62.5 mls/hr 01/26/20 12:02 01/26/20 15:07 Dextrose IVPB 01/26/20 16:08 62.5 mls/hr ONCE ONE Administration Methylprednisolone Sodium Succinate 35 mg 01/21/20 10:52 01/26/20 10:02 Solu-Medrol - IVPUSH 35 mg BID [facility] Administration Metoprolol Tartrate 5 mg 01/17/20 05:02 Lopressor Injection - IVPUSH Q4H PRN TACHYCARDIA Nystatin 1 applic 01/23/20 16:15 01/26/20 10:03 Nystop Powder - TP 1 applic DAILY [facility] Administration Pantoprazole Sodium 40 mg 01/17/20 10:00 01/26/20 10:02 Protonix Iv IVPUSH 40 mg DAILY [facility] Administration Zinc Sulfate 220 mg 01/19/20 18:15 01/26/20 10:02 Orazinc - PO 220 mg DAILY [facility] Administration ASSESSMENT/PLAN: Patient is an 84 year old female with history of hypertension, major depression, and schizoaffective disorder (Aripiprazole, Fluoxetine, Mirtazapine) presents for acute mental status change. #Acute Metabolic Encephalopathy secondary to severe sepsis due to urinary tract infection -CT head without acute pathology. Cerebral atrophy, old left parietal infarct; chronic periventricular ischemic changes noted. -CT abdomen, pelvis with 1.4 cm partially obstructing calculus at right renal pelvis -UCx: proteus species, >100.000 CFU -Blood culture (01/14) growing Proteus in 2 sets. Repeat blood culture (01/17) negative for growth. -ID consult appreciated. Continue Vancomycin, Zosyn Hypoxia secondary to presumed COVID infection -Titrated down to high flow oxygen mask, currently saturating well. -Chest CT: Left lower lobe bronchiectasis and consolidation -Chest radiograph revelas small left pleural effusion and left lobe consolidation -Continue Vancomycin, Zosyn, ID consult appreciated. -COVID Abs positive, PCR neg x 3 however will treat as positive. -Solumedrol 35mg IV BID -IV Lasix for pleural effusion New Onset Paroxysmal afib w/ RVR -Currently rate controlled. Consider IV lopressor for rate control as BP can tolerate -Defer AC at this time given thrombocytopenia NSTEMI -EKG reveals Afib w/ RVR, left axis deviation. Inferior & anterior infract (noted on prior study) -Troponin down-trending -Cardio consult appreciated; not a candidate for stress or cardiac cath Hypertension -Currently holding home Amlodipine in setting of sepsis. DK, Hypernatremia- resolved -DK in setting of sepsis. Hypernatremia likely Iatrogenic in etiology. -Neprhrology consult appreciated. Continue Lasix Thrombocytopenia -2 units platelets given during this admission. -Likely secondary to severe sepsis. Prophylaxis -Heparin 5000 units subq TID -Protonix 40mg IV daily FEN -No IV fluids indicated -Follow BMP -Puree dysphagia diet Disposition -Continue care in medical- surgical floor. Visit type - Emergency Visit Emergency Visit: Yes ED Registration Date: 01/15/20 Care time: The patient presented to the Emergency Department on the above date and was hospitalized for further evaluation of their emergent condition. - New Patient This patient is new to me today: No - Critical Care Critical Care patient: No - Discharge Referral Referred to [facility] Med P.C.: No - Medication Review Med list reviewed for High Risk Meds patients 65 and older: Yes ATTENDING PHYSICIAN STATEMENT I saw and evaluated the patient. I reviewed the resident's note and discussed the case with the resident. I agree with the resident's findings and plan as documented. SUBJECTIVE: OBJECTIVE: ASSESSMENT AND PLAN:
[2020-01-26] MEDS: VANCOMYCIN 1 GRAM (PRE-DOCKED) 1,000 MG/250 ML BAG IVPB SCH (23:00)
[2020-01-27] MEDS ORDERED: PIPERACILLIN/TAZOBACTAM 4.5 GM VIAL IVPB ONE ×2 (03:32→08:28)
[2020-01-27] MEDS ORDERED: DEXTROSE 5%-WATER 100 ML IVPB ONE ×2 (03:32→08:28)
[2020-01-27] MEDS: methylPREDNISolone NA SUCC 40 MG/1 ML VIAL IVPUSH SCH ×3 (03:40→21:11)
[2020-01-27] MEDS: HEPARIN NA (PORCINE) 5,000 UNITS/ML 1ML VIAL SQ SCH ×2 (03:41→10:31)
[2020-01-27] MEDS: PIPERACILLIN/TAZOB 4.5 GM 4.5 GM in DEXTROSE 5%-WATER 100 ML IVPB SCH ×2 (03:43→08:32)
[2020-01-27] MEDS: ASCORBIC ACID 250 MG TABLET (FP) PO SCH ×3 (03:44→21:13)
[2020-01-27] MEDS: CHLORHEXIDINE GLUCONATE 4% CLEANSER FOR DECOLONIZATION TP SCH ×2 (03:46→21:13)
[2020-01-27 07:59] LABS: HEMATOCRIT 28.3 % (32.4-45.2); HEMOGLOBIN 9.4 GM/dL (10.7-15.3); MCH 34.1 pg (25.7-33.7); MCHC 33.3 g/dl (32.0-36.0); MEAN CELL VOLUME 102.5 fl (80-96); MEAN PLT VOLUME 10.6 fl (7.5-11.1); PLATELET COUNT 134 K/MM3 (134-434); RBC 2.77 M/mm3 (3.60-5.2); RDW 14.8 % (11.6-15.6); WHITE BLOOD COUNT 25.9 K/mm3 (4.0-10.0)
--- NOTE | 2020-01-27 08:01 | PN ---
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, Physician History of Present Illness: 84 Y/O Female patient with Bipolar disease, HTN from [facility]. She is presented into ER with confusion fever 102.4, hypoxic respiratory failure WBC 22.9 HB 13. Plt 27 BUN 95.4 Creat 2.9, lactate 3.9, trops 10 CT-Scan Rt Renal pelvis stone 1.4 cm with partial obstruction Pt was given empiric IV abx coverage with Vanc/Zosyn. Uro made aware with recommendation to make NPO after midnight, now in rapid afib. - Current Medication List Current Medications: Active Medications Ascorbic Acid (Vitamin C -) 250 mg PO BID [facility] Last Admin: 01/27/20 03:44 Dose: Not Given Documented by: Chlorhexidine Gluconate (Hibiclens For Decolonization -) 1 applic TP HS [facility] Last Admin: 01/27/20 03:46 Dose: 1 applic Documented by: Furosemide (Lasix Injection -) 20 mg IVPUSH DAILY [facility] Last Admin: 01/26/20 10:02 Dose: 20 mg Documented by: Heparin Sodium (Porcine) (Heparin -) 5,000 unit SQ BID [facility] Last Admin: 01/27/20 03:41 Dose: 5,000 unit Documented by: Vancomycin HCl (Vancomycin (Pre-Docked)) 1,000 mg in 250 mls @ 166.667 mls/hr IVPB Q24H [facility]; Protocol Last Admin: 01/26/20 23:00 Dose: 166.667 mls/hr Documented by: Piperacillin Sod/Tazobactam (Sod 4.5 gm/ Dextrose) 100 mls @ 200 mls/hr IVPB Q6H-IV [facility]; Protocol Last Admin: 01/27/20 03:43 Dose: 200 mls/hr Documented by: Methylprednisolone Sodium Succinate (Solu-Medrol -) 35 mg IVPUSH BID [facility] Last Admin: 01/27/20 03:40 Dose: 35 mg Documented by: Metoprolol Tartrate (Lopressor Injection -) 5 mg IVPUSH Q4H PRN PRN Reason: TACHYCARDIA Nystatin (Nystop Powder -) 1 applic TP DAILY [facility] Last Admin: 01/26/20 10:03 Dose: 1 applic Documented by: Pantoprazole Sodium (Protonix Iv) 40 mg IVPUSH DAILY [facility] Last Admin: 01/26/20 10:02 Dose: 40 mg Documented by: Zinc Sulfate (Orazinc -) 220 mg PO DAILY [facility] Last Admin: 01/26/20 10:02 Dose: 220 mg Documented by: - Objective Vital Signs: Vital Signs Temperature 97.8 F 01/27/20 06:30 Pulse Rate 117 H 01/27/20 06:30 Respiratory Rate 20 01/27/20 06:30 Blood Pressure 151/69 01/27/20 06:30 O2 Sat by Pulse Oximetry (%) 95 01/27/20 07:45 Eyes: Yes: WNL, Conjunctiva Clear, EOM Intact HENT: Yes: WNL, Atraumatic, Normocephalic Neck: Yes: WNL, Supple, Trachea Midline Cardiovascular: Yes: WNL, Regular Rate and Rhythm Respiratory: Yes: WNL, Regular, CTA Bilaterally Gastrointestinal: Yes: WNL, Normal Bowel Sounds Genitourinary: Yes: WNL Musculoskeletal: Yes: WNL Extremities: Yes: WNL Edema: No Integumentary: Yes: WNL Labs: INR, PTT INR 1.21 (0.83-1.09) H 01/25/20 10:50 Fibrinogen 463.0 mg/dL (238-498) 01/25/20 10:50 Problem List - Problems (1) Elevated liver enzymes Code(s): R74.8 - ABNORMAL LEVELS OF OTHER SERUM ENZYMES (2) NSTEMI (non-ST elevated myocardial infarction) Code(s): I21.4 - NON-ST ELEVATION (NSTEMI) MYOCARDIAL INFARCTION (3) Paroxysmal atrial fibrillation with RVR Code(s): I48.0 - PAROXYSMAL ATRIAL FIBRILLATION (4) Pneumonia Code(s): J18.9 - PNEUMONIA, UNSPECIFIED ORGANISM Qualifiers: Pneumonia type: due to unspecified organism Laterality: left Lung location: lower lobe of lung Qualified Code(s): J18.9 - Pneumonia, unspecified organism (5) Sepsis Code(s): A41.9 - SEPSIS, UNSPECIFIED ORGANISM Qualifiers: Sepsis type: sepsis due to unspecified organism Sepsis acute organ dysfunction status: with acute organ dysfunction Severe sepsis acute organ dysfunction type: acute renal failure Acute renal failure type: unspecified Severe sepsis shock status: without septic shock Qualified Code(s): A41.9 - Sepsis, unspecified organism; R65.20 - Severe sepsis without septic shock; N17.9 - Acute kidney failure, unspecified (6) Thrombocytopenia Code(s): D69.6 - THROMBOCYTOPENIA, UNSPECIFIED (7) UTI (urinary tract infection) Code(s): N39.0 - URINARY TRACT INFECTION, SITE NOT SPECIFIED Qualifiers: Urinary tract infection type: site unspecified Hematuria presence: with hematuria Qualified Code(s): N39.0 - Urinary tract infection, site not specified; R31.9 - Hematuria, unspecified (8) Anxiety Code(s): F41.9 - ANXIETY DISORDER, UNSPECIFIED (9) Contusion, chest wall Code(s): S20.219A - CONTUSION OF UNSPECIFIED FRONT WALL OF THORAX, INIT ENCNTR Qualifiers: Encounter type: initial encounter Laterality: left Qualified Code(s): S20.212A - Contusion of left front wall of thorax, initial encounter (10) Shortness of breath Code(s): R06.02 - SHORTNESS OF BREATH (11) Well adult Code(s): LSV3995 - Assessment/Plan Assessment/Plan 1. CAD, NSTEMI in context of: 2. Paroxysmal afib with RVR 3. Sepsis source with partially obstructive right renal pelvis stone, possible LLL PNA 4. Toxic metabolic encephelopathy 5. Acute on CKD 6. HTN 7.ECHO nl EF 8.Schizo affective ds, Non-verbal 1. Troponin is declining with supportive care. IV Lopressor as hemodynamics tolerate for rate-control; check ECG 2. Given obstructive nature of renal stone and ongoing sepsis source, would prefer percutaneous nephrostomy by IR as less invasive option if possible once rate-controlled with Rt URS, LASER and jj stent insertion once clinically stable 3. Continue empiric abx per C&S 4. Antiplatelets and anticoagulation on hold pending recovery of PLT>50 5. Due to Schizo affective ds, and patient being non-verbal she is a poor candidate for invasive cardiac w/u e.g. stress test c. cath. D/c telemetry.
[2020-01-27 08:12] LABS: ALBUMIN 1.3 g/dl (3.4-5.0); BILIRUBIN,TOTAL 2.7 mg/dL (0.2-1); CREATININE 1.1 mg/dL (0.55-1.3); MAGNESIUM 1.8 mg/dL (1.8-2.4); PHOSPHOROUS 3.4 mg/dL (2.5-4.9); POTASSIUM 3.5 mmol/L (3.5-5.1); TOT PROT 5.4 g/dl (6.4-8.2)
--- NOTE | 2020-01-27 08:45 | PN ---
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, Physician Chief Complaint: Pt on nonrebreather; eyes open; little response to verbal queries; does not follow verbal requests e.g. to move limbs. - Current Medication List Current Medications: Active Medications Ascorbic Acid (Vitamin C -) 250 mg PO BID [facility] Last Admin: 01/27/20 03:44 Dose: Not Given Documented by: Chlorhexidine Gluconate (Hibiclens For Decolonization -) 1 applic TP HS [facility] Last Admin: 01/27/20 03:46 Dose: 1 applic Documented by: Furosemide (Lasix Injection -) 20 mg IVPUSH DAILY [facility] Last Admin: 01/26/20 10:02 Dose: 20 mg Documented by: Heparin Sodium (Porcine) (Heparin -) 5,000 unit SQ BID [facility] Last Admin: 01/27/20 03:41 Dose: 5,000 unit Documented by: Vancomycin HCl (Vancomycin (Pre-Docked)) 1,000 mg in 250 mls @ 166.667 mls/hr IVPB Q24H [facility]; Protocol Last Admin: 01/26/20 23:00 Dose: 166.667 mls/hr Documented by: Piperacillin Sod/Tazobactam (Sod 4.5 gm/ Dextrose) 100 mls @ 200 mls/hr IVPB Q6H-IV [facility]; Protocol Last Admin: 01/27/20 08:32 Dose: 200 mls/hr Documented by: Magnesium Sulfate/Dextrose (Magnesium 1gm/D5w -) 1 gm IVPB ONCE ONE Stop: 01/27/20 09:01 Methylprednisolone Sodium Succinate (Solu-Medrol -) 35 mg IVPUSH BID [facility] Last Admin: 01/27/20 03:40 Dose: 35 mg Documented by: Metoprolol Tartrate (Lopressor Injection -) 5 mg IVPUSH Q4H PRN PRN Reason: TACHYCARDIA Nystatin (Nystop Powder -) 1 applic TP DAILY [facility] Last Admin: 01/26/20 10:03 Dose: 1 applic Documented by: Pantoprazole Sodium (Protonix Iv) 40 mg IVPUSH DAILY [facility] Last Admin: 01/26/20 10:02 Dose: 40 mg Documented by: Silver Sulfadiazine (Silvadene -) 1 applic TP DAILY [facility] Zinc Sulfate (Orazinc -) 220 mg PO DAILY [facility] Last Admin: 01/26/20 10:02 Dose: 220 mg Documented by: - Objective Vital Signs: Vital Signs Temperature 97.8 F 01/27/20 06:30 Pulse Rate 117 H 01/27/20 06:30 Respiratory Rate 20 01/27/20 06:30 Blood Pressure 151/69 01/27/20 06:30 O2 Sat by Pulse Oximetry (%) 95 01/27/20 07:45 Constitutional: Yes: Other Labs: CBC, BMP 01/27/20 06:50 01/27/20 06:50 INR, PTT INR 1.21 (0.83-1.09) H 01/25/20 10:50 Fibrinogen 463.0 mg/dL (238-498) 01/25/20 10:50 Assessment/Plan 1. CAD, NSTEMI in context of: 2. Paroxysmal afib with RVR 3. Sepsis source with partially obstructive right renal pelvis stone, possible LLL PNA 4. Toxic metabolic encephelopathy 5. Acute on CKD 6. HTN 7.ECHO nl EF 8.Schizo affective ds, Non-verbal 1. Troponin is declining with supportive care. IV Lopressor as hemodynamics tolerate for rate-control; check ECG 2. Given obstructive nature of renal stone and ongoing sepsis source, would prefer percutaneous nephrostomy by IR as less invasive option if possible once rate-controlled with Rt URS, LASER and jj stent insertion once clinically stable 3. Continue empiric abx per C&S 4. Antiplatelets and anticoagulation on hold pending recovery of PLT>50 5. Due to Schizo affective ds, and patient being non-verbal she is a poor candidate for invasive cardiac w/u e.g. stress test c. cath. D/c telemetry.
[2020-01-27] MEDS ORDERED: MAGNESIUM 1GM/D5W 100ML - 100 ML IVPB IVPB ONE (09:00)
--- NOTE | 2020-01-27 10:20 | PN ---
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: Selected Entries 01/24/20 01/24/20 01/24/20 00:21 04:15 08:50 Lunch Skin Risk Level Supper Total Score - Skin Risk Assessment Temperature Pulse Rate Blood Pressure O2 Sat by Pulse Oximetry (%) Oxygen Delivery Method Fraction of 90 94 93 Inspired Oxygen (FIO2) 01/24/20 01/24/20 01/24/20 09:00 15:32 16:00 Lunch NPO Skin Risk Level Supper Total Score - Skin Risk Assessment Temperature Pulse Rate Blood Pressure O2 Sat by Pulse Oximetry (%) Oxygen Delivery Method Fraction of 94 94 Inspired Oxygen (FIO2) 01/24/20 01/24/20 01/24/20 21:00 21:02 23:00 Lunch Skin Risk Level Supper 25% Total Score - Skin Risk Assessment Temperature Pulse Rate Blood Pressure O2 Sat by Pulse Oximetry (%) Oxygen Delivery High Flow O2 Method Fraction of 94 Inspired Oxygen (FIO2) 01/25/20 01/25/20 01/25/20 01:10 02:00 05:19 Lunch Skin Risk Level Supper Total Score - Skin Risk Assessment Temperature 97.8 F Pulse Rate 87 Blood Pressure 129/60 O2 Sat by Pulse 98 95 99 Oximetry (%) Oxygen Delivery Method Fraction of 94 93 Inspired Oxygen (FIO2) 01/25/20 01/25/20 01/25/20 06:01 07:47 07:49 Lunch Skin Risk Level High Risk Supper Total Score - 11 Skin Risk Assessment Temperature 97.9 F 97.9 F Pulse Rate 68 68 Blood Pressure 139/61 132/59 L O2 Sat by Pulse 100 100 100 Oximetry (%) Oxygen Delivery Method Fraction of Inspired Oxygen (FIO2) Laboratory Tests 01/24/20 05:50 WBC 19.6 H Selected Entries 01/25/20 01/25/20 01/25/20 01:10 02:00 05:19 Breakfast Temperature 97.8 F Pulse Rate 87 Blood Pressure 129/60 O2 Sat by Pulse 98 95 99 Oximetry (%) Fraction of 94 93 Inspired Oxygen (FIO2) 01/25/20 01/25/20 01/25/20 06:01 07:47 07:49 Breakfast Temperature 97.9 F 97.9 F Pulse Rate 68 68 Blood Pressure 139/61 132/59 L O2 Sat by Pulse 100 100 100 Oximetry (%) Fraction of Inspired Oxygen (FIO2) 01/25/20 01/25/20 08:15 10:42 Breakfast 100% Temperature Pulse Rate Blood Pressure O2 Sat by Pulse 97 Oximetry (%) Fraction of 93 Inspired Oxygen (FIO2) Laboratory Tests 01/15/20 01/20/20 01/21/20 14:00 09:00 15:11 WBC COVID-19 ([facility]) Not detected Not detected SARS-CoV-2 Ab Interp Reactive 01/23/20 01/23/20 01/24/20 10:00 11:33 05:50 WBC 24.4 H 19.6 H COVID-19 ([facility]ATHARINA) Not detected SARS-CoV-2 Ab Interp 01/25/20 10:50 WBC 23.5 H COVID-19 (KATHARINA) SARS-CoV-2 Ab Interp Selected Entries 01/25/20 01/25/20 01/25/20 02:00 06:01 07:47 Breakfast Lunch Skin Risk Level High Risk Supper Total Score - 11 Skin Risk Assessment Temperature 97.8 F 97.9 F 97.9 F Pulse Rate 87 68 68 Respiratory Rate Blood Pressure 129/60 139/61 132/59 L O2 Sat by Pulse Oximetry (%) Oxygen Delivery Method Fraction of Inspired Oxygen (FIO2) 01/25/20 01/25/20 01/25/20 10:42 14:36 14:37 Breakfast 75% Lunch 75% Skin Risk Level Supper Total Score - Skin Risk Assessment Temperature 98.2 F Pulse Rate 89 Respiratory Rate Blood Pressure 136/66 O2 Sat by Pulse Oximetry (%) Oxygen Delivery Method Fraction of Inspired Oxygen (FIO2) 01/25/20 01/25/20 01/25/20 18:34 19:04 22:00 Breakfast Lunch Skin Risk Level High Risk Supper 75% Total Score - 11 Skin Risk Assessment Temperature 98.1 F 98.2 F Pulse Rate 78 99 H Respiratory Rate Blood Pressure 135/79 133/75 O2 Sat by Pulse Oximetry (%) Oxygen Delivery Method Fraction of Inspired Oxygen (FIO2) 01/26/20 01/26/20 01/26/20 00:32 02:00 04:09 Breakfast Lunch Skin Risk Level Supper Total Score - Skin Risk Assessment Temperature 99.1 F Pulse Rate 89 Respiratory 20 Rate Blood Pressure 145/68 O2 Sat by Pulse 93 L 99 98 Oximetry (%) Oxygen Delivery Method Fraction of 95 95 Inspired Oxygen (FIO2) 01/26/20 01/26/20 01/26/20 06:00 07:58 07:59 Breakfast Lunch Skin Risk Level Supper Total Score - Skin Risk Assessment Temperature Pulse Rate 85 89 Respiratory 20 Rate Blood Pressure 139/68 O2 Sat by Pulse 97 97 Oximetry (%) Oxygen Delivery High Flow O2 Method Fraction of 95 Inspired Oxygen (FIO2) Laboratory Tests 01/24/20 01/25/20 01/26/20 05:50 10:50 05:21 WBC 19.6 H 23.5 H 20.0 H Selected Entries 01/26/20 01/26/20 01/26/20 02:00 06:00 07:58 Diet Tolerated Supper Temperature 99.1 F Pulse Rate 89 85 89 Blood Pressure 145/68 139/68 01/26/20 01/26/20 01/26/20 10:00 11:32 14:00 Diet Tolerated Supper Temperature 97.8 F 97.9 F Pulse Rate 85 85 90 Blood Pressure 143/72 137/70 01/26/20 01/26/20 01/26/20 18:32 22:00 23:51 Diet Tolerated Poor Supper 0 Temperature 97.5 F L 97.8 F Pulse Rate 81 74 Blood Pressure 131/70 107/58 L 01/27/20 01/27/20 02:00 06:30 Diet Tolerated Supper Temperature 975 F H 97.8 F Pulse Rate 86 117 H Blood Pressure 147/72 151/69 Laboratory Tests 01/25/20 01/26/20 01/27/20 10:50 05:21 06:50 WBC 23.5 H 20.0 H 25.9 H Tolerated diet today,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
[2020-01-27] MEDS: ZINC SULFATE 220 MG CAPSULE (FP) PO SCH (10:30)
[2020-01-27] MEDS: SILVER SULFADIAZINE 1% TOP CREAM 50 GM JAR TP SCH (10:30)
[2020-01-27] MEDS: FUROSEMIDE 40 MG/4 ML INJECTABLE VIAL IVPUSH SCH (10:30)
[2020-01-27] MEDS: NYSTATIN POWDER 100,000 UNITS/GM - 15 GM TOPICAL POWDER TP SCH (10:31)
[2020-01-27] MEDS: PANTOPRAZOLE SODIUM 40 MG VIAL IVPUSH SCH (10:31)
--- NOTE | 2020-01-27 13:06 | PN ---
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, Physician History of Present Illness: Pt seen and examined at bedside. No great change in status. - Current Medication List Current Medications: Active Medications Ascorbic Acid (Vitamin C -) 250 mg PO BID [facility] Last Admin: 01/27/20 10:30 Dose: 250 mg Documented by: Chlorhexidine Gluconate (Hibiclens For Decolonization -) 1 applic TP HS [facility] Last Admin: 01/27/20 03:46 Dose: 1 applic Documented by: Enoxaparin Sodium (Lovenox -) 60 mg SQ BID [facility] Furosemide (Lasix Injection -) 20 mg IVPUSH DAILY [facility] Last Admin: 01/27/20 10:30 Dose: 20 mg Documented by: Vancomycin HCl (Vancomycin (Pre-Docked)) 1,000 mg in 250 mls @ 166.667 mls/hr IVPB Q24H [facility]; Protocol Last Admin: 01/26/20 23:00 Dose: 166.667 mls/hr Documented by: Piperacillin Sod/Tazobactam (Sod 4.5 gm/ Dextrose) 100 mls @ 200 mls/hr IVPB Q6H-IV [facility]; Protocol Last Admin: 01/27/20 08:32 Dose: 200 mls/hr Documented by: Methylprednisolone Sodium Succinate (Solu-Medrol -) 35 mg IVPUSH BID [facility] Last Admin: 01/27/20 10:31 Dose: 35 mg Documented by: Metoprolol Tartrate (Lopressor Injection -) 5 mg IVPUSH Q4H PRN PRN Reason: TACHYCARDIA Nystatin (Nystop Powder -) 1 applic TP DAILY [facility] Last Admin: 01/27/20 10:31 Dose: 1 applic Documented by: Pantoprazole Sodium (Protonix Iv) 40 mg IVPUSH DAILY [facility] Last Admin: 01/27/20 10:31 Dose: 40 mg Documented by: Silver Sulfadiazine (Silvadene -) 1 applic TP DAILY [facility] Last Admin: 01/27/20 10:30 Dose: 1 applic Documented by: Zinc Sulfate (Orazinc -) 220 mg PO DAILY [facility] Last Admin: 01/27/20 10:30 Dose: 220 mg Documented by: - Objective Vital Signs: Vital Signs Temperature 99.9 F H 01/27/20 10:00 Pulse Rate 106 H 01/27/20 10:00 Respiratory Rate 01/27/20 10:00 Blood Pressure 111/55 L 01/27/20 10:00 O2 Sat by Pulse Oximetry (%) 95 01/27/20 09:00 Constitutional: Yes: Calm Eyes: Yes: Conjunctiva Clear HENT: Yes: Atraumatic Cardiovascular: Yes: S1, S2 Respiratory: Yes: On Venti-Mask Gastrointestinal: Yes: Normal Bowel Sounds, Soft Genitourinary: Yes: Incontinence Musculoskeletal: Yes: Muscle Weakness Edema: No Neurological: Yes: Lethargy Labs: CBC, BMP 01/27/20 06:50 01/27/20 06:50 INR, PTT INR 1.21 (0.83-1.09) H 01/25/20 10:50 Fibrinogen 463.0 mg/dL (238-498) 01/25/20 10:50 Problem List - Problems (1) DK (acute kidney injury) Code(s): N17.9 - ACUTE KIDNEY FAILURE, UNSPECIFIED (2) Hypernatremia Code(s): E87.0 - HYPEROSMOLALITY AND HYPERNATREMIA (3) NSTEMI (non-ST elevated myocardial infarction) Code(s): I21.4 - NON-ST ELEVATION (NSTEMI) MYOCARDIAL INFARCTION Assessment/Plan Current Medications Generic Name Dose Route Start Last Admin Trade Name Freq PRN Reason Stop Dose Admin Ascorbic Acid 250 mg 01/19/20 22:00 01/27/20 10:30 Vitamin C - PO 250 mg BID [facility] Administration Chlorhexidine Gluconate 1 applic 01/17/20 22:00 01/27/20 03:46 Hibiclens For Decolonization - TP 1 applic HS [facility] Administration Enoxaparin Sodium 60 mg 01/27/20 12:00 Lovenox - SQ BID [facility] Furosemide 20 mg 01/20/20 10:45 01/27/20 10:30 Lasix Injection - IVPUSH 20 mg DAILY [facility] Administration Vancomycin HCl 1,000 mg in 250 mls @ 166.667 mls/hr 01/21/20 23:00 01/26/20 23:00 Vancomycin (Pre-Docked) IVPB 166.667 mls/hr Q24H [facility] Administration Protocol Piperacillin Sod/Tazobactam 100 mls @ 200 mls/hr 01/20/20 15:00 01/27/20 08:32 Sod 4.5 gm/ Dextrose IVPB 200 mls/hr Q6H-IV [facility] Administration Protocol Methylprednisolone Sodium Succinate 35 mg 01/21/20 10:52 01/27/20 10:31 Solu-Medrol - IVPUSH 35 mg BID [facility] Administration Metoprolol Tartrate 5 mg 01/17/20 05:02 Lopressor Injection - IVPUSH Q4H PRN TACHYCARDIA Nystatin 1 applic 01/23/20 16:15 01/27/20 10:31 Nystop Powder - TP 1 applic DAILY [facility] Administration Pantoprazole Sodium 40 mg 01/17/20 10:00 01/27/20 10:31 Protonix Iv IVPUSH 40 mg DAILY [facility] Administration Silver Sulfadiazine 1 applic 01/27/20 10:00 01/27/20 10:30 Silvadene - TP 1 applic DAILY [facility] Administration Zinc Sulfate 220 mg 01/19/20 18:15 01/27/20 10:30 Orazinc - PO 220 mg DAILY [facility] Administration Impression 1. dk 2. hypernatremia 3. hypokalemia 4. sepsis 5. nstemi 6. gram neg bacteremia 7. htn 8. a-fib 9. thrombocytopenia Plan - cont to monitor volume status - cont lasix - pt remains on oxygen - lytes stable
[2020-01-27] MEDS: ENOXAPARIN NA (PORCINE) 60 MG/0.6 ML DISP.SYRIN SQ SCH ×2 (13:11→21:11)
--- NOTE | 2020-01-27 13:33 | PN ---
Teaching Attending Note Name of Resident: Brian Dodd ATTENDING PHYSICIAN STATEMENT I saw and evaluated the patient. I reviewed the resident's note and discussed the case with the resident. I agree with the resident's findings and plan as documented. SUBJECTIVE: Seen and examined at bedside. Condition stable. Still requiring NRB OBJ Last Vital Signs Temp Pulse Resp BP Pulse Ox 99.9 F H 106 H 20 111/55 L 95 01/27/20 10:00 01/27/20 10:00 01/27/20 10:00 01/27/20 10:00 01/27/20 09:00 PE: Per resident note Labs/Imaging: reviewed ASSESSMENT/PLAN 84-year-old male history of hypertension bipolar disorder admitted for severe sepsis to ICU in the setting of infected kidney stone and possible pneumonia. Pt was clinically improving on the floor then became hypoxic with + Covid AB negative PCRx3 #hypoxia with + Covid AB negative PCRx3 Clinically high concern for covid given fevers, bilateral infiltrates, elevated inflammatory markers, and high degree of hypoxia. Despite negative test x3 we are treating it is active COVID -covid AB+ -cont IV steroids -pulm on board start AC now that plts>100 #Severe sepsis: Proteus bacteremia In setting of infected obstructing kidney stone 1.4cm and possible pneumonia. Patient is now hemodynamically stable with improving white count status post Zosyn, right nephrostomy, and العلي catheter. Fevers are increasing since patient was downgraded to ceftriaxone from Zosyn. There may be a component of aspiration pneumonia. Will discuss switching back to Zosyn with ID -Troponin downtrending, DK resolved, continuing thrombocytopenia Urology on board, stent when stable #Hypernatremia: resolved Likely iatrogenic due to normal saline in setting of impaired kidney function due to sepsis and obstructive uropathy #Thrombocytopenia: improving Likely in the setting of severe sepsis. Patient's platelets were normal in 2018 Trend CBC #New onset atrial fibrillation In the setting of sepsis PRN IV metoprolol May require outpatient Holter monitoring to determine need for anticoagulation in the future #Prerenal and postrenal DK: Resolved
--- NOTE | 2020-01-27 13:42 | PN ---
Physical Exam: SUBJECTIVE: Patient seen and examined at bedside. She does not endorse any complaints. OBJECTIVE: Vital Signs Period Temp Pulse Resp BP Sys/Mcmullen Pulse Ox Last 24 Hr 97.5 F-975 F 74-117 20- 107-151/55-72 92-99 GENERAL: The patient is awake, alert, oriented X0, in no acute distress. HEAD: Normocephalic, atraumatic. EYES: PERRL, extraocular movements intact, sclera anicteric, conjunctiva clear. ENT: Oropharynx clear, without erythema or exudates. Moist mucous membranes. NECK: Trachea midline. Supple. LUNGS: Breath sounds equal, faint crackles to auscultation bilaterally. No accessory muscle use. Remains on non-rebreather mask. HEART: Regular rate and rhythm. S1, S2 without murmur, rub or gallop. ABDOMEN: Soft, nondistended, nontender to palpation x4 quadrants. Normoactive bowel sounds x4 quadrants. Nephrostomy tube in situ. EXTREMITIES: 2+ radial, dorsalis pedis pulses bilaterally. Warm, well-perfused. 1+ edema bilaterally. NEUROLOGICAL: Unable to evaluate- patient does not cooperate with exam. SKIN: Warm, dry. Laboratory Results - last 24 hr 01/27/20 01/27/20 01/27/20 06:50 06:50 06:50 WBC 25.9 H RBC 2.77 L Hgb 9.4 L Hct 28.3 L MCV 102.5 H MCH 34.1 H MCHC 33.3 RDW 14.8 Plt Count 134 D MPV 10.6 D-Dimer 4382 H Sodium 144 Potassium 3.5 Chloride 110 H Carbon Dioxide 23 Anion Gap 10 BUN 41.0 H Creatinine 1.1 Est GFR (CKD-EPI)AfAm 54.15 Est GFR (CKD-EPI)NonAf 46.72 Random Glucose 157 H Calcium 8.0 L Phosphorus 3.4 Magnesium 1.8 Ferritin 1755.0 H Total Bilirubin 2.7 H AST 30 ALT 48 Alkaline Phosphatase 150 H LD Total 299 H C-Reactive Protein 6.0 H Total Protein 5.4 L Albumin 1.3 L Active Medications Generic Name Dose Route Start Last Admin Trade Name Freq PRN Reason Stop Dose Admin Ascorbic Acid 250 mg 01/19/20 22:00 01/27/20 10:30 Vitamin C - PO 250 mg BID FERNANDO Administration Chlorhexidine Gluconate 1 applic 01/17/20 22:00 01/27/20 03:46 Hibiclens For Decolonization - TP 1 applic HS FERNANDO Administration Enoxaparin Sodium 60 mg 01/27/20 12:00 01/27/20 13:11 Lovenox - SQ 60 mg BID FERNANDO Administration Furosemide 20 mg 01/20/20 10:45 01/27/20 10:30 Lasix Injection - IVPUSH 20 mg DAILY FERNANDO Administration Vancomycin HCl 1,000 mg in 250 mls @ 166.667 mls/hr 01/21/20 23:00 01/26/20 23:00 Vancomycin (Pre-Docked) IVPB 166.667 mls/hr Q24H FERNANDO Administration Protocol Piperacillin Sod/Tazobactam 100 mls @ 200 mls/hr 01/20/20 15:00 01/27/20 08:32 Sod 4.5 gm/ Dextrose IVPB 200 mls/hr Q6H-IV FERNANDO Administration Protocol Methylprednisolone Sodium Succinate 35 mg 01/21/20 10:52 01/27/20 10:31 Solu-Medrol - IVPUSH 35 mg BID FERNANDO Administration Metoprolol Tartrate 5 mg 01/17/20 05:02 Lopressor Injection - IVPUSH Q4H PRN TACHYCARDIA Nystatin 1 applic 01/23/20 16:15 01/27/20 10:31 Nystop Powder - TP 1 applic DAILY FERNANDO Administration Pantoprazole Sodium 40 mg 01/17/20 10:00 01/27/20 10:31 Protonix Iv IVPUSH 40 mg DAILY FERNANDO Administration Silver Sulfadiazine 1 applic 01/27/20 10:00 01/27/20 10:30 Silvadene - TP 1 applic DAILY FERNANDO Administration Zinc Sulfate 220 mg 01/19/20 18:15 01/27/20 10:30 Orazinc - PO 220 mg DAILY FERNANDO Administration ASSESSMENT/PLAN: Patient is an 84 year old female with history of hypertension, major depression, and schizoaffective disorder (Aripiprazole, Fluoxetine, Mirtazapine) presents for acute mental status change. #Acute Metabolic Encephalopathy secondary to severe sepsis due to urinary tract infection -CT head without acute pathology. Cerebral atrophy, old left parietal infarct; chronic periventricular ischemic changes noted. -CT abdomen, pelvis with 1.4 cm partially obstructing calculus at right renal pelvis -UCx: proteus species, >100.000 CFU -Blood culture (01/14) growing Proteus in 2 sets. Repeat blood culture (01/17) negative for growth. -ID consult appreciated. Completed 7 days antibiotics (Vancomycin, Zosyn). Discontinued. Observe off antibiotics. Hypoxia secondary to presumed COVID infection -Titrated down to high flow oxygen mask, currently saturating well. -Chest CT: Left lower lobe bronchiectasis and consolidation -Chest radiograph revelas small left pleural effusion and left lobe consolidation -Continue Vancomycin, Zosyn, ID consult appreciated. -COVID Abs positive, PCR neg x 3 however will treat as positive. -Solumedrol 35mg IV BID -IV Lasix for pleural effusion New Onset Paroxysmal afib w/ RVR -Currently rate controlled. Consider IV lopressor for rate control as BP can tolerate -Defer AC at this time given thrombocytopenia NSTEMI -EKG reveals Afib w/ RVR, left axis deviation. Inferior & anterior infract (noted on prior study) -Troponin down-trending -Cardio consult appreciated; not a candidate for stress or cardiac cath Hypertension -Currently holding home Amlodipine in setting of sepsis. DK, Hypernatremia- resolved -DK in setting of sepsis. Hypernatremia likely Iatrogenic in etiology. -Neprhrology consult appreciated. Continue Lasix Thrombocytopenia -2 units platelets given during this admission. -Likely secondary to severe sepsis. Prophylaxis -Heparin 5000 units subq TID -Protonix 40mg IV daily FEN -No IV fluids indicated -Follow BMP -Puree dysphagia diet Disposition -Continue care in medical- surgical floor. Visit type - Emergency Visit Emergency Visit: Yes ED Registration Date: 01/15/20 Care time: The patient presented to the Emergency Department on the above date and was hospitalized for further evaluation of their emergent condition. - New Patient This patient is new to me today: No - Critical Care Critical Care patient: No - Discharge Referral Referred to [facility] No - Medication Review Med list reviewed for High Risk Meds patients 65 and older: Yes ATTENDING PHYSICIAN STATEMENT I saw and evaluated the patient. I reviewed the resident's note and discussed the case with the resident. I agree with the resident's findings and plan as documented. SUBJECTIVE: OBJECTIVE: ASSESSMENT AND PLAN:
--- NOTE | 2020-01-27 16:32 | PN ---
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 (short form) - Note 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: Awake in NAD on NC O2. Used NIPPV overnight. Less SOB. No CP. Intake & Output 01/24/20 01/25/20 01/26/20 01/27/20 23:59 23:59 23:59 23:59 Intake Total 630 1060 1250 470 Output Total 3386 931 3809 700 Balance -1120 360 -825 -230 Last Vital Signs Temp Pulse Resp BP Pulse Ox 99.2 F 89 22 H 124/68 99 01/27/20 14:15 01/27/20 14:15 01/27/20 14:15 01/27/20 14:15 01/27/20 15:45 Active Medications Ascorbic Acid (Vitamin C -) 250 mg PO BID [facility] Last Admin: 01/27/20 10:30 Dose: 250 mg Documented by: Chlorhexidine Gluconate (Hibiclens For Decolonization -) 1 applic TP HS [facility] Last Admin: 01/27/20 03:46 Dose: 1 applic Documented by: Enoxaparin Sodium (Lovenox -) 60 mg SQ BID [facility] Last Admin: 01/27/20 13:11 Dose: 60 mg Documented by: Furosemide (Lasix Injection -) 20 mg IVPUSH DAILY [facility] Last Admin: 01/27/20 10:30 Dose: 20 mg Documented by: Vancomycin HCl (Vancomycin (Pre-Docked)) 1,000 mg in 250 mls @ 166.667 mls/hr IVPB Q24H [facility]; Protocol Last Admin: 01/26/20 23:00 Dose: 166.667 mls/hr Documented by: Methylprednisolone Sodium Succinate (Solu-Medrol -) 35 mg IVPUSH BID [facility] Last Admin: 01/27/20 10:31 Dose: 35 mg Documented by: Metoprolol Tartrate (Lopressor Injection -) 5 mg IVPUSH Q4H PRN PRN Reason: TACHYCARDIA Nystatin (Nystop Powder -) 1 applic TP DAILY [facility] Last Admin: 01/27/20 10:31 Dose: 1 applic Documented by: Pantoprazole Sodium (Protonix Iv) 40 mg IVPUSH DAILY [facility] Last Admin: 01/27/20 10:31 Dose: 40 mg Documented by: Silver Sulfadiazine (Silvadene -) 1 applic TP DAILY [facility] Last Admin: 01/27/20 10:30 Dose: 1 applic Documented by: Zinc Sulfate (Orazinc -) 220 mg PO DAILY FERNANDO Last Admin: 01/27/20 10:30 Dose: 220 mg Documented by: Constitutional: Yes: NAD Eyes: Yes: WNL HENT: Yes: WNL Neck: Yes: WNL Cardiovascular: Yes: Pulse Irregular, S1, S2 Respiratory: Yes: Scattered rhonchi, No wheeze Gastrointestinal: Yes: Normal Bowel Sounds, Soft Extremities: Yes: WNL Edema: No Labs: Laboratory Results - last 24 hr 01/27/20 01/27/20 01/27/20 06:50 06:50 06:50 WBC 25.9 H RBC 2.77 L Hgb 9.4 L Hct 28.3 L MCV 102.5 H MCH 34.1 H MCHC 33.3 RDW 14.8 Plt Count 134 D MPV 10.6 D-Dimer 4382 H Sodium 144 Potassium 3.5 Chloride 110 H Carbon Dioxide 23 Anion Gap 10 BUN 41.0 H Creatinine 1.1 Est GFR (CKD-EPI)AfAm 54.15 Est GFR (CKD-EPI)NonAf 46.72 Random Glucose 157 H Calcium 8.0 L Phosphorus 3.4 Magnesium 1.8 Ferritin 1755.0 H Total Bilirubin 2.7 H AST 30 ALT 48 Alkaline Phosphatase 150 H LD Total 299 H C-Reactive Protein 6.0 H Total Protein 5.4 L Albumin 1.3 L Assessment/Plan Acute hypoxemic respiratory failure improving BILATERAL PNEUMONIA Suspected COVID-19 UTI/Nephrolithiasis Gram Negative Bacteremia Sepsis Acute on Chronic Renal Failure Thrombocytopenia Acute NSTEMI Paroxysmal Atrial Fibrillation HTN Pneumonia Hypernatremia improving - Supplemental O2 as needed - ABX per ID - medrol - S/P nephrostomy tube placement - monitor CBC - rate control - DVT prophylaxis - COVID ANTIBODY + - AC Dr Johnson
--- NOTE | 2020-01-27 17:19 | PN ---
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 (short form) - Note 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: remains on NRB awake and alert Vital Signs Period Temp Pulse Resp BP Sys/Mcmullen Pulse Ox Last 24 Hr 97.5 F-975 F 74-117 20-22 107-151/55-72 92-99 cor-rrr lungs decreased bs at bases abd soft,nt ext no edema +kline +PCN CBC, BMP 01/27/20 06:50 01/27/20 06:50 Microbiology 01/18/20 10:05 Blood - Peripheral Venous Blood Culture - Final NO GROWTH AFTER 5 DAYS INCUBATION 01/18/20 10:00 Blood - Peripheral Venous Blood Culture - Final NO GROWTH AFTER 5 DAYS INCUBATION 01/17/20 14:58 Urine - Urine Nephrostomy Tube Right Urine Culture - Final NO GROWTH OBTAINED 01/15/20 13:45 Blood - Peripheral Venous Blood Culture - Final Proteus Mirabilis 01/15/20 13:55 Blood - Peripheral Venous Blood Culture - Final Proteus Mirabilis 01/16/20 20:49 Urine For Antigen Detection Legionella Antigen - Final 01/16/20 20:49 Urine For Antigen Detection Streptococcus pneumoniae Antigen (M - Final 01/15/20 13:05 Urine - Urine - Catheterized Urine Culture - Final Proteus Mirabilis covid pcr negative covid antibody -positive Active Medications Ascorbic Acid (Vitamin C -) 250 mg PO BID [facility] Last Admin: 01/27/20 10:30 Dose: 250 mg Documented by: Chlorhexidine Gluconate (Hibiclens For Decolonization -) 1 applic TP HS [facility] Last Admin: 01/27/20 03:46 Dose: 1 applic Documented by: Enoxaparin Sodium (Lovenox -) 60 mg SQ BID [facility] Last Admin: 01/27/20 13:11 Dose: 60 mg Documented by: Furosemide (Lasix Injection -) 20 mg IVPUSH DAILY [facility] Last Admin: 01/27/20 10:30 Dose: 20 mg Documented by: Vancomycin HCl (Vancomycin (Pre-Docked)) 1,000 mg in 250 mls @ 166.667 mls/hr IVPB Q24H [facility]; Protocol Last Admin: 01/26/20 23:00 Dose: 166.667 mls/hr Documented by: Methylprednisolone Sodium Succinate (Solu-Medrol -) 35 mg IVPUSH BID [facility] Last Admin: 01/27/20 10:31 Dose: 35 mg Documented by: Metoprolol Tartrate (Lopressor Injection -) 5 mg IVPUSH Q4H PRN PRN Reason: TACHYCARDIA Nystatin (Nystop Powder -) 1 applic TP DAILY [facility] Last Admin: 01/27/20 10:31 Dose: 1 applic Documented by: Pantoprazole Sodium (Protonix Iv) 40 mg IVPUSH DAILY [facility] Last Admin: 01/27/20 10:31 Dose: 40 mg Documented by: Silver Sulfadiazine (Silvadene -) 1 applic TP DAILY [facility] Last Admin: 01/27/20 10:30 Dose: 1 applic Documented by: Zinc Sulfate (Orazinc -) 220 mg PO DAILY [facility] Last Admin: 01/27/20 10:30 Dose: 220 mg Documented by: imp/reccd hypoxia with pneumonia- ?aspiration- has completed 7 days of antibiotics , will d/c and observe PROTEUS bacteremia secondary to UTI- obstructive uropathy -s/p PCN thrombocytopenia secondary to infection DK resolved positive troponins new afib schizo-affective disorder dnr/dni noted covid antibody positive
[2020-01-28] MEDS ORDERED: PT OWN MED DRAWER 7, Y5N ONE (09:15)
[2020-01-28] MEDS: ENOXAPARIN NA (PORCINE) 60 MG/0.6 ML DISP.SYRIN SQ SCH ×2 (10:53→21:53)
[2020-01-28] MEDS: methylPREDNISolone NA SUCC 40 MG/1 ML VIAL IVPUSH SCH ×2 (10:54→21:53)
[2020-01-28] MEDS: ASCORBIC ACID 250 MG TABLET (FP) PO SCH ×2 (10:54→23:19)
[2020-01-28] MEDS: FUROSEMIDE 40 MG/4 ML INJECTABLE VIAL IVPUSH SCH (10:54)
[2020-01-28] MEDS: PANTOPRAZOLE SODIUM 40 MG VIAL IVPUSH SCH (10:54)
[2020-01-28] MEDS: ZINC SULFATE 220 MG CAPSULE (FP) PO SCH (10:54)
[2020-01-28] MEDS: SILVER SULFADIAZINE 1% TOP CREAM 50 GM JAR TP SCH (10:54)
[2020-01-28] MEDS: NYSTATIN POWDER 100,000 UNITS/GM - 15 GM TOPICAL POWDER TP SCH (10:55)
[2020-01-28] MEDS: ARIPiprazole 5 MG TABLET PO SCH (10:55)
[2020-01-28 11:48] LABS: HEMATOCRIT 31.3 % (32.4-45.2); MCH 33.8 pg (25.7-33.7); MCHC 32.1 g/dl (32.0-36.0); MEAN CELL VOLUME 105.2 fl (80-96); MEAN PLT VOLUME 10.9 fl (7.5-11.1); PLATELET COUNT 172 K/MM3 (134-434); RBC 2.97 M/mm3 (3.60-5.2); RDW 15.1 % (11.6-15.6)
[2020-01-28 11:52] LABS: WHITE BLOOD COUNT 30.9 K/mm3 (4.0-10.0)
[2020-01-28 12:15] LABS: ALBUMIN 1.5 g/dl (3.4-5.0); BILIRUBIN,TOTAL 1.3 mg/dL (0.2-1); BLOOD UREA NITROGEN 53.2 mg/dL (7-18); CALCIUM 8.3 mg/dL (8.5-10.1); CREATININE 1.4 mg/dL (0.55-1.3); MAGNESIUM 2.3 mg/dL (1.8-2.4); PHOSPHOROUS 4.6 mg/dL (2.5-4.9); POTASSIUM 3.6 mmol/L (3.5-5.1); TOT PROT 5.9 g/dl (6.4-8.2)
--- NOTE | 2020-01-28 12:50 | PN ---
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 (short form) - Note 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: UROLOGY NOTE 84 Y/O Female with hx of Rt renal stone S/P RT PCN and kline catheter. PCN drains bloody urine and kline catheter drains clear urine. WBC 30 HB 10.0 BUN 53.2 S.Creat 1.4 Renal u/s Rt renal stone 12 mm no hydro Plan: will follow for Rt ESWL when her medical condition allows
--- NOTE | 2020-01-28 13:55 | PN ---
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, Physician History of Present Illness: Pt seen and examined at bedside. She remains on oxygen. - Current Medication List Current Medications: Active Medications Aripiprazole (Abilify) 5 mg PO DAILY [facility] Last Admin: 01/28/20 10:55 Dose: 5 mg Documented by: Ascorbic Acid (Vitamin C -) 250 mg PO BID [facility] Last Admin: 01/28/20 10:54 Dose: 250 mg Documented by: Chlorhexidine Gluconate (Hibiclens For Decolonization -) 1 applic TP HS [facility] Last Admin: 01/27/20 21:13 Dose: 1 applic Documented by: Enoxaparin Sodium (Lovenox -) 60 mg SQ BID [facility] Last Admin: 01/28/20 10:53 Dose: 60 mg Documented by: Furosemide (Lasix Injection -) 20 mg IVPUSH DAILY [facility] Last Admin: 01/28/20 10:54 Dose: 20 mg Documented by: Methylprednisolone Sodium Succinate (Solu-Medrol -) 35 mg IVPUSH BID [facility] Last Admin: 01/28/20 10:54 Dose: 35 mg Documented by: Metoprolol Tartrate (Lopressor Injection -) 5 mg IVPUSH Q4H PRN PRN Reason: TACHYCARDIA Last Admin: 01/28/20 11:51 Dose: 5 mg Documented by: Nystatin (Nystop Powder -) 1 applic TP DAILY [facility] Last Admin: 01/28/20 10:55 Dose: 1 applic Documented by: Pantoprazole Sodium (Protonix Iv) 40 mg IVPUSH DAILY [facility] Last Admin: 01/28/20 10:54 Dose: 40 mg Documented by: Silver Sulfadiazine (Silvadene -) 1 applic TP DAILY [facility] Last Admin: 01/28/20 10:54 Dose: 1 applic Documented by: Zinc Sulfate (Orazinc -) 220 mg PO DAILY [facility] Last Admin: 01/28/20 10:54 Dose: 220 mg Documented by: - Objective Vital Signs: Vital Signs Temperature 97.8 F 01/28/20 10:00 Pulse Rate 97 H 01/28/20 13:03 Respiratory Rate 22 H 01/28/20 10:00 Blood Pressure 140/70 01/28/20 11:51 O2 Sat by Pulse Oximetry (%) 93 L 01/28/20 13:03 Constitutional: Yes: Cachectic, Mild Distress Cardiovascular: Yes: S1, S2 Respiratory: Yes: On Venti-Mask Gastrointestinal: Yes: Soft Genitourinary: Yes: العلي Present, Other (nephrostomy) Musculoskeletal: Yes: Muscle Weakness Edema: No Neurological: Yes: Other (awake) Labs: CBC, BMP 01/28/20 11:05 01/28/20 11:05 INR, PTT INR 1.21 (0.83-1.09) H 01/25/20 10:50 Fibrinogen 463.0 mg/dL (238-498) 01/25/20 10:50 Problem List - Problems (1) DK (acute kidney injury) Code(s): N17.9 - ACUTE KIDNEY FAILURE, UNSPECIFIED (2) Hypernatremia Code(s): E87.0 - HYPEROSMOLALITY AND HYPERNATREMIA (3) NSTEMI (non-ST elevated myocardial infarction) Code(s): I21.4 - NON-ST ELEVATION (NSTEMI) MYOCARDIAL INFARCTION Assessment/Plan Current Medications Generic Name Dose Route Start Last Admin Trade Name Freq PRN Reason Stop Dose Admin Aripiprazole 5 mg 01/28/20 10:00 01/28/20 10:55 Abilify PO 5 mg DAILY FERNANDO Administration Ascorbic Acid 250 mg 01/19/20 22:00 01/28/20 10:54 Vitamin C - PO 250 mg BID FERNANDO Administration Chlorhexidine Gluconate 1 applic 01/17/20 22:00 01/27/20 21:13 Hibiclens For Decolonization - TP 1 applic HS FERNANDO Administration Enoxaparin Sodium 60 mg 01/27/20 12:00 01/28/20 10:53 Lovenox - SQ 60 mg BID FERNANDO Administration Furosemide 20 mg 01/20/20 10:45 01/28/20 10:54 Lasix Injection - IVPUSH 20 mg DAILY FERNANDO Administration Methylprednisolone Sodium Succinate 35 mg 01/21/20 10:52 01/28/20 10:54 Solu-Medrol - IVPUSH 35 mg BID FERNANDO Administration Metoprolol Tartrate 5 mg 01/17/20 05:02 01/28/20 11:51 Lopressor Injection - IVPUSH 5 mg Q4H PRN Administration TACHYCARDIA Nystatin 1 applic 01/23/20 16:15 01/28/20 10:55 Nystop Powder - TP 1 applic DAILY FERNANDO Administration Pantoprazole Sodium 40 mg 01/17/20 10:00 01/28/20 10:54 Protonix Iv IVPUSH 40 mg DAILY FERNANDO Administration Silver Sulfadiazine 1 applic 01/27/20 10:00 01/28/20 10:54 Silvadene - TP 1 applic DAILY FERNANDO Administration Zinc Sulfate 220 mg 01/19/20 18:15 01/28/20 10:54 Orazinc - PO 220 mg DAILY FERNANDO Administration Impression 1. dk 2. hypernatremia 3. hypokalemia 4. sepsis 5. nstemi 6. gram neg bacteremia 7. htn 8. a-fib 9. thrombocytopenia Plan - follow cxr - hold lasix dose - sodium rising - monitor renal function - repeat labs in am - wbc rising
--- NOTE | 2020-01-28 14:05 | PN ---
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, Physician Chief Complaint: Pt with eyes open; little response to verbal queries; on O2. History of Present Illness: Ms. Bradford is a 84 yr old white woman with PM hx of bipolar disorder (non compliant to medications) who now presented to the ED from [place] for hypoxia, fever, AMS. The patient is usually alert and speaks, however she was nonresponsive; history is limited due to her clinical status. Upon arrival, pt noted to be febrile. Pt unable to give a history. Information taken from [place] paperwork.WBC 22.9 HB 13. Plt 27 BUN 95.4 Creat 2.9, lactate 3.9, trops 10 CT-Scan Rt Renal pelvis stone 1.4 cm with partial obstruction Pt was given empiric IV abx coverage with Vanc/Zosyn. Uro made aware with recommendation to make NPO after midnight, now in rapid afib. - Current Medication List Current Medications: Active Medications Aripiprazole (Abilify) 5 mg PO DAILY [facility] Last Admin: 01/28/20 10:55 Dose: 5 mg Documented by: Ascorbic Acid (Vitamin C -) 250 mg PO BID [facility] Last Admin: 01/28/20 10:54 Dose: 250 mg Documented by: Chlorhexidine Gluconate (Hibiclens For Decolonization -) 1 applic TP HS [facility] Last Admin: 01/27/20 21:13 Dose: 1 applic Documented by: Enoxaparin Sodium (Lovenox -) 60 mg SQ BID [facility] Last Admin: 01/28/20 10:53 Dose: 60 mg Documented by: Furosemide (Lasix Injection -) 20 mg IVPUSH DAILY [facility] Last Admin: 01/28/20 10:54 Dose: 20 mg Documented by: Methylprednisolone Sodium Succinate (Solu-Medrol -) 35 mg IVPUSH BID [facility] Last Admin: 01/28/20 10:54 Dose: 35 mg Documented by: Metoprolol Tartrate (Lopressor Injection -) 5 mg IVPUSH Q4H PRN PRN Reason: TACHYCARDIA Last Admin: 01/28/20 11:51 Dose: 5 mg Documented by: Nystatin (Nystop Powder -) 1 applic TP DAILY [facility] Last Admin: 01/28/20 10:55 Dose: 1 applic Documented by: Pantoprazole Sodium (Protonix Iv) 40 mg IVPUSH DAILY [facility] Last Admin: 01/28/20 10:54 Dose: 40 mg Documented by: Silver Sulfadiazine (Silvadene -) 1 applic TP DAILY [facility] Last Admin: 01/28/20 10:54 Dose: 1 applic Documented by: Zinc Sulfate (Orazinc -) 220 mg PO DAILY [facility] Last Admin: 01/28/20 10:54 Dose: 220 mg Documented by: - Objective Vital Signs: Vital Signs Temperature 97.8 F 01/28/20 10:00 Pulse Rate 97 H 01/28/20 13:03 Respiratory Rate 22 H 01/28/20 10:00 Blood Pressure 140/70 01/28/20 11:51 O2 Sat by Pulse Oximetry (%) 93 L 01/28/20 13:03 Constitutional: Yes: Anxious Eyes: Yes: WNL HENT: Yes: WNL Neck: Yes: WNL Cardiovascular: Yes: S1, S2 Respiratory: Yes: Regular Gastrointestinal: Yes: Soft Genitourinary: No: Anuria Breast(s): Yes: WNL Musculoskeletal: Yes: Muscle Weakness Extremities: Yes: Cool Edema: No Peripheral Pulses WNL: Yes Integumentary: Yes: WNL Neurological: Yes: Weakness Psychiatric: Yes: Other Labs: CBC, BMP 01/28/20 11:05 01/28/20 11:05 INR, PTT INR 1.21 (0.83-1.09) H 01/25/20 10:50 Fibrinogen 463.0 mg/dL (238-498) 01/25/20 10:50 Abnormal Lab Results 01/29/20 01/29/20 09:15 09:15 WBC 21.7 H RBC 2.58 L Hgb 9.2 L Hct 27.0 L MCV 104.6 H MCH 35.7 H Absolute Neuts (auto) 20.5 H Neutrophils % 94.8 H Neutrophils % (Manual) 93.0 H Lymphocytes % 2.7 L Lymphocytes % (Manual) 3.0 L D Monocytes % 1.8 L Monocytes % (Manual) 3 L D Magnesium 2.5 H - ....Imaging Chest X-ray: Image Reviewed EKG: Image Reviewed Assessment/Plan 1. CAD, NSTEMI in context of: 2. Paroxysmal afib with RVR 3. Sepsis source with partially obstructive right renal pelvis stone, possible LLL PNA 4. Toxic metabolic encephelopathy 5. Acute on CKD 6. HTN 7.ECHO nl EF 8.Schizo affective ds, Non-verbal 1. Troponin is declining with supportive care. IV Lopressor as hemodynamics tolerate for rate-control; check ECG 2. s\p nephrostomy tube 3. Continue empiric abx per C&S 4. On Lovenox for anticoagulation 5. Due to Schizo affective ds, and patient being non-verbal she is a poor candidate for invasive cardiac w/u e.g. stress test c. cath. Off telemetry.
--- NOTE | 2020-01-28 14:59 | PN ---
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 (short form) - Note 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: Lethargic. No significant change in overall condition. No acute events overnight. Alternating HFOT / NRBM> Intake & Output 01/25/20 01/26/20 01/27/20 01/28/20 23:59 23:59 23:59 23:59 Intake Total 1060 1250 820 Output Total 700 2075 1200 450 Balance 360 -825 -380 -450 Last Vital Signs Temp Pulse Resp BP Pulse Ox 97.8 F 97 H 22 H 140/70 93 L 01/28/20 10:00 01/28/20 13:03 01/28/20 10:00 01/28/20 11:51 01/28/20 13:03 Active Medications Aripiprazole (Abilify) 5 mg PO DAILY [facility] Last Admin: 01/28/20 10:55 Dose: 5 mg Documented by: Ascorbic Acid (Vitamin C -) 250 mg PO BID [facility] Last Admin: 01/28/20 10:54 Dose: 250 mg Documented by: Chlorhexidine Gluconate (Hibiclens For Decolonization -) 1 applic TP HS [facility] Last Admin: 01/27/20 21:13 Dose: 1 applic Documented by: Enoxaparin Sodium (Lovenox -) 60 mg SQ BID [facility] Last Admin: 01/28/20 10:53 Dose: 60 mg Documented by: Furosemide (Lasix Injection -) 20 mg IVPUSH DAILY [facility] Last Admin: 01/28/20 10:54 Dose: 20 mg Documented by: Methylprednisolone Sodium Succinate (Solu-Medrol -) 35 mg IVPUSH BID [facility] Last Admin: 01/28/20 10:54 Dose: 35 mg Documented by: Metoprolol Tartrate (Lopressor Injection -) 5 mg IVPUSH Q4H PRN PRN Reason: TACHYCARDIA Last Admin: 01/28/20 11:51 Dose: 5 mg Documented by: Nystatin (Nystop Powder -) 1 applic TP DAILY [facility] Last Admin: 01/28/20 10:55 Dose: 1 applic Documented by: Pantoprazole Sodium (Protonix Iv) 40 mg IVPUSH DAILY [facility] Last Admin: 01/28/20 10:54 Dose: 40 mg Documented by: Silver Sulfadiazine (Silvadene -) 1 applic TP DAILY [facility] Last Admin: 01/28/20 10:54 Dose: 1 applic Documented by: Zinc Sulfate (Orazinc -) 220 mg PO DAILY [facility] Last Admin: 01/28/20 10:54 Dose: 220 mg Documented by: Constitutional: Yes: Lethargic Eyes: Yes: WNL HENT: Yes: WNL Neck: Yes: WNL Cardiovascular: Yes: Pulse Irregular, S1, S2 Respiratory: Yes: Bilateral scattered rhonchi, No wheeze Gastrointestinal: Yes: Normal Bowel Sounds, Soft Extremities: Yes: WNL Edema: No Labs: Laboratory Results - last 24 hr 01/28/20 01/28/20 01/28/20 11:05 11:05 11:05 WBC 30.9 H* RBC 2.97 L Hgb 10.0 L Hct 31.3 L MCV 105.2 H MCH 33.8 H MCHC 32.1 RDW 15.1 Plt Count 172 D MPV 10.9 D-Dimer Sodium 146 H Potassium 3.6 Chloride 110 H Carbon Dioxide 22 Anion Gap 14 BUN 53.2 H Creatinine 1.4 H Est GFR (CKD-EPI)AfAm 40.45 Est GFR (CKD-EPI)NonAf 34.90 Random Glucose 220 H Calcium 8.3 L Phosphorus 4.6 Magnesium 2.3 Ferritin 1936.6 H Total Bilirubin 1.3 H AST 25 ALT 40 Alkaline Phosphatase 160 H LD Total 342 H C-Reactive Protein 10.7 H Total Protein 5.9 L Albumin 1.5 L 01/28/20 11:05 WBC RBC Hgb Hct MCV MCH MCHC RDW Plt Count MPV D-Dimer 2464 H Sodium Potassium Chloride Carbon Dioxide Anion Gap BUN Creatinine Est GFR (CKD-EPI)AfAm Est GFR (CKD-EPI)NonAf Random Glucose Calcium Phosphorus Magnesium Ferritin Total Bilirubin AST ALT Alkaline Phosphatase LD Total C-Reactive Protein Total Protein Albumin Assessment/Plan Acute hypoxemic respiratory failure BILATERAL PNEUMONIA Suspected COVID-19 UTI/Nephrolithiasis Gram Negative Bacteremia Sepsis Acute on Chronic Renal Failure Thrombocytopenia Acute NSTEMI Paroxysmal Atrial Fibrillation HTN Pneumonia Hypernatremia improving - HFOT / NRBM as tolerated - ABX per ID - Medrol - S/P nephrostomy tube placement - Monitor CBC - Rate control - DVT prophylaxis - COVID ANTIBODY + - AC Dr Johnson
--- NOTE | 2020-01-28 15:34 | PN ---
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 (short form) - Note 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: S: No acute events. Afebrile overnight. Otherwise clouded sensorium without lethargy Vital Signs Temperature 97.8 F 01/28/20 10:00 Pulse Rate 97 H 01/28/20 13:03 Respiratory Rate 22 H 01/28/20 10:00 Blood Pressure 140/70 01/28/20 11:51 O2 Sat by Pulse Oximetry (%) 93 L 01/28/20 13:03 PE: Gen: NAD, awake, alert HEENT: NC/At, KENNEDI, MMM LUNG: Scattered coarse rhonchi throughout. Alternating NRB and HFO2 CARD: Tachycardic with regular rhythm. No murmurs appreciated ABD: soft, NT/ND, + BS : Nephrostomy with some hematuria in collection bag. العلي with clear yellow urine EXT: Trace edema in lower extremities. Strong pulses CBC, BMP 01/28/20 11:05 01/28/20 11:05 Microbiology 01/18/20 10:05 Blood - Peripheral Venous Blood Culture - Final NO GROWTH AFTER 5 DAYS INCUBATION 01/18/20 10:00 Blood - Peripheral Venous Blood Culture - Final NO GROWTH AFTER 5 DAYS INCUBATION 01/17/20 14:58 Urine - Urine Nephrostomy Tube Right Urine Culture - Final NO GROWTH OBTAINED 01/15/20 13:45 Blood - Peripheral Venous Blood Culture - Final Proteus Mirabilis 01/15/20 13:55 Blood - Peripheral Venous Blood Culture - Final Proteus Mirabilis 01/16/20 20:49 Urine For Antigen Detection Legionella Antigen - Final 01/16/20 20:49 Urine For Antigen Detection Streptococcus pneumoniae Antigen (M - Final 01/15/20 13:05 Urine - Urine - Catheterized Urine Culture - Final Proteus Mirabilis Active Medications Aripiprazole (Abilify) 5 mg PO DAILY [facility] Last Admin: 01/28/20 10:55 Dose: 5 mg Documented by: Ascorbic Acid (Vitamin C -) 250 mg PO BID [facility] Last Admin: 01/28/20 10:54 Dose: 250 mg Documented by: Chlorhexidine Gluconate (Hibiclens For Decolonization -) 1 applic TP [facility] Last Admin: 01/27/20 21:13 Dose: 1 applic Documented by: Enoxaparin Sodium (Lovenox -) 60 mg SQ BID [facility] Last Admin: 01/28/20 10:53 Dose: 60 mg Documented by: Furosemide (Lasix Injection -) 20 mg IVPUSH DAILY [facility] Last Admin: 01/28/20 10:54 Dose: 20 mg Documented by: Methylprednisolone Sodium Succinate (Solu-Medrol -) 35 mg IVPUSH BID [facility] Last Admin: 01/28/20 10:54 Dose: 35 mg Documented by: Metoprolol Tartrate (Lopressor Injection -) 5 mg IVPUSH Q4H PRN PRN Reason: TACHYCARDIA Last Admin: 01/28/20 11:51 Dose: 5 mg Documented by: Nystatin (Nystop Powder -) 1 applic TP DAILY [facility] Last Admin: 01/28/20 10:55 Dose: 1 applic Documented by: Pantoprazole Sodium (Protonix Iv) 40 mg IVPUSH DAILY [facility] Last Admin: 01/28/20 10:54 Dose: 40 mg Documented by: Silver Sulfadiazine (Silvadene -) 1 applic TP DAILY [facility] Last Admin: 01/28/20 10:54 Dose: 1 applic Documented by: Zinc Sulfate (Orazinc -) 220 mg PO DAILY [facility] Last Admin: 01/28/20 10:54 Dose: 220 mg Documented by: Assessment and Plan: Acute hypoxia with COVID antibody positivity Severe sepsis 2/2 proteus bacteremia Obstructing nephrolithiasis Hypernatremia Thrombocytopenia New onset Afib --Continually increasing WBC --Whereas some elevation likely 2/2 corticosteroid use, elevation to this extend needs further investigation --CXR ordered: improved lung markings --No diarrhea to date --Will likely need CT chest and abdomen w/o contrast for infectious source investigation, however patient desaturates severely with movement --Without fevers --Pulmonology, ID, nephrology on board --Continue corticosteroids --Oxygen supplementation as tolerated; patient remains DNR/DNI --Lovenox 60 BID; monitor platelets and signs of worsening severe bleed --Hold lasix through next dose; likely patient overdiuresed acutely and will need to equilibrate --Urology on board; will need stenting when stabilizes --Afib in setting of sepsis; no acute telemetry events. Can discontinue telemetry monitoring per cardiology --PRN Lopressor IV for HR control -- May require outpatient Holter monitoring to determine need for anticoagulation in the future Dispo: Continue monitoring; supplemental oxygen Larry Navarro DO - IM
[2020-01-28] MEDS ORDERED: METOPROLOL TARTRATE 5 MG/5 ML VIAL IVPUSH PRN (19:57)
[2020-01-28] MEDS ORDERED: CHLORHEXIDINE GLUCONATE 4% CLEANSER FOR DECOLONIZATION TP SCH (22:00)
[2020-01-29 09:24] LABS: BASO % 0.7 % (0-2.0); HEMOGLOBIN 9.2 GM/dL (10.7-15.3); LYMPH % 2.7 % (8-40); MCH 35.7 pg (25.7-33.7); MCHC 34.1 g/dl (32.0-36.0); MEAN CELL VOLUME 104.6 fl (80-96); MEAN PLT VOLUME 10.6 fl (7.5-11.1); MONO % 1.8 % (3.8-10.2); NEUT % 94.8 % (42.8-82.8); PLATELET COUNT 137 K/MM3 (134-434); RBC 2.58 M/mm3 (3.60-5.2); RDW 14.9 % (11.6-15.6); WHITE BLOOD COUNT 21.7 K/mm3 (4.0-10.0)
[2020-01-29] MEDS ORDERED: PANTOPRAZOLE SODIUM 40 MG VIAL IVPUSH SCH (10:00)
[2020-01-29] MEDS ORDERED: FUROSEMIDE 40 MG/4 ML INJECTABLE VIAL IVPUSH SCH (10:00)
[2020-01-29 10:10] LABS: MAGNESIUM 2.5 mg/dL (1.8-2.4); PHOSPHOROUS 4.1 mg/dL (2.5-4.9)
[2020-01-29 10:40] LABS: ANISOCYTOSIS 1+; MACROCYTOSIS 1+; PLATELET ESTIMATE DECREASED
[2020-01-29] MEDS ORDERED: PT OWN MED DRAWER 7, Y5N ONE ×2 (10:40→21:03)
[2020-01-29] MEDS: ARIPiprazole 5 MG TABLET PO SCH (10:41)
[2020-01-29] MEDS: ENOXAPARIN NA (PORCINE) 60 MG/0.6 ML DISP.SYRIN SQ SCH ×2 (10:41→21:16)
[2020-01-29] MEDS: ZINC SULFATE 220 MG CAPSULE (FP) PO SCH (10:42)
[2020-01-29] MEDS: NYSTATIN POWDER 100,000 UNITS/GM - 15 GM TOPICAL POWDER TP SCH (10:43)
[2020-01-29] MEDS: ASCORBIC ACID 250 MG TABLET (FP) PO SCH ×2 (11:49→21:16)
--- NOTE | 2020-01-29 12:27 | PN ---
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, Physician History of Present Illness: Pt seen and examined at bedside. No great change in status. She still has increased oxygen requirements. - Current Medication List Current Medications: Active Medications Aripiprazole (Abilify) 5 mg PO DAILY [facility] Last Admin: 01/29/20 10:41 Dose: 5 mg Documented by: Ascorbic Acid (Vitamin C -) 250 mg PO BID [facility] Last Admin: 01/29/20 11:49 Dose: 250 mg Documented by: Chlorhexidine Gluconate (Hibiclens For Decolonization -) 1 applic TP HS [facility] Last Admin: 01/28/20 22:00 Dose: 1 applic Documented by: Enoxaparin Sodium (Lovenox -) 60 mg SQ BID [facility] Last Admin: 01/29/20 10:41 Dose: 60 mg Documented by: Furosemide (Lasix Injection -) 20 mg IVPUSH DAILY [facility] Methylprednisolone Sodium Succinate (Solu-Medrol -) 35 mg IVPUSH BID [facility] Last Admin: 01/28/20 21:53 Dose: 35 mg Documented by: Metoprolol Tartrate (Lopressor Injection -) 5 mg IVPUSH Q4H PRN PRN Reason: TACHYCARDIA Nystatin (Nystop Powder -) 1 applic TP DAILY [facility] Last Admin: 01/29/20 10:43 Dose: 1 applic Documented by: Pantoprazole Sodium (Protonix Iv) 40 mg IVPUSH DAILY [facility] Silver Sulfadiazine (Silvadene -) 1 applic TP DAILY [facility] Last Admin: 01/28/20 10:54 Dose: 1 applic Documented by: Zinc Sulfate (Orazinc -) 220 mg PO DAILY [facility] Last Admin: 01/29/20 10:42 Dose: 220 mg Documented by: - Objective Vital Signs: Vital Signs Temperature 98.7 F 01/29/20 06:44 Pulse Rate 76 01/29/20 06:44 Respiratory Rate 18 01/29/20 06:44 Blood Pressure 136/77 01/29/20 06:44 O2 Sat by Pulse Oximetry (%) 96 01/29/20 08:08 Constitutional: Yes: Calm Eyes: Yes: Conjunctiva Clear Cardiovascular: Yes: S1, S2 Respiratory: Yes: On Venti-Mask Gastrointestinal: Yes: Soft Genitourinary: Yes: العلي Present, Other (nephrostomy) Musculoskeletal: Yes: Muscle Weakness Edema: No Neurological: Yes: Confusion Labs: CBC, BMP 01/29/20 09:15 09/12/20 11:05 INR, PTT INR 1.21 (0.83-1.09) H 01/25/20 10:50 Fibrinogen 463.0 mg/dL (238-498) 01/25/20 10:50 Problem List - Problems (1) DK (acute kidney injury) Code(s): N17.9 - ACUTE KIDNEY FAILURE, UNSPECIFIED (2) Hypernatremia Code(s): E87.0 - HYPEROSMOLALITY AND HYPERNATREMIA (3) NSTEMI (non-ST elevated myocardial infarction) Code(s): I21.4 - NON-ST ELEVATION (NSTEMI) MYOCARDIAL INFARCTION Assessment/Plan Current Medications Generic Name Dose Route Start Last Admin Trade Name Freq PRN Reason Stop Dose Admin Aripiprazole 5 mg 01/28/20 10:00 01/29/20 10:41 Abilify PO 5 mg DAILY [facility] Administration Ascorbic Acid 250 mg 01/28/20 22:00 01/29/20 11:49 Vitamin C - PO 250 mg BID [facility] Administration Chlorhexidine Gluconate 1 applic 01/28/20 22:00 01/28/20 22:00 Hibiclens For Decolonization - TP 1 applic HS [facility] Administration Enoxaparin Sodium 60 mg 01/27/20 12:00 01/29/20 10:41 Lovenox - SQ 60 mg BID [facility] Administration Furosemide 20 mg 01/29/20 10:00 Lasix Injection - IVPUSH DAILY [facility] Methylprednisolone Sodium Succinate 35 mg 01/28/20 22:00 01/28/20 21:53 Solu-Medrol - IVPUSH 35 mg BID [facility] Administration Metoprolol Tartrate 5 mg 01/28/20 19:57 Lopressor Injection - IVPUSH Q4H PRN TACHYCARDIA Nystatin 1 applic 01/29/20 10:00 01/29/20 10:43 Nystop Powder - TP 1 applic DAILY [facility] Administration Pantoprazole Sodium 40 mg 01/29/20 10:00 Protonix Iv IVPUSH DAILY [facility] Silver Sulfadiazine 1 applic 01/27/20 10:00 01/28/20 10:54 Silvadene - TP 1 applic DAILY [facility] Administration Zinc Sulfate 220 mg 01/29/20 10:00 01/29/20 10:42 Orazinc - PO 220 mg DAILY [facility] Administration Impression 1. dk 2. hypernatremia 3. hypokalemia 4. sepsis 5. nstemi 6. gram neg bacteremia 7. htn 8. a-fib 9. thrombocytopenia Plan - no great change in status - wbc improving - check bmp - cont oxygen and monitor pulse ox - cont steroids
[2020-01-29] MEDS: SILVER SULFADIAZINE 1% TOP CREAM 50 GM JAR TP SCH (12:47)
--- NOTE | 2020-01-29 13:06 | PN ---
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 (short form) - Note 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: Lethargic. No significant change in overall condition. No acute events overnight. Intake & Output 01/26/20 01/27/20 01/28/20 01/29/20 23:59 23:59 23:59 23:59 Intake Total 1250 820 33 200 Output Total 2075 1200 900 850 Balance -825 -380 -867 -650 Last Vital Signs Temp Pulse Resp BP Pulse Ox 98.7 F 76 18 136/77 96 01/29/20 06:44 01/29/20 06:44 01/29/20 06:44 01/29/20 06:44 01/29/20 08:08 Active Medications Aripiprazole (Abilify) 5 mg PO DAILY [facility] Last Admin: 01/29/20 10:41 Dose: 5 mg Documented by: Ascorbic Acid (Vitamin C -) 250 mg PO BID [facility] Last Admin: 01/29/20 11:49 Dose: 250 mg Documented by: Chlorhexidine Gluconate (Hibiclens For Decolonization -) 1 applic TP HS [facility] Last Admin: 01/28/20 22:00 Dose: 1 applic Documented by: Enoxaparin Sodium (Lovenox -) 60 mg SQ BID [facility] Last Admin: 01/29/20 10:41 Dose: 60 mg Documented by: Furosemide (Lasix Injection -) 20 mg IVPUSH DAILY [facility] Last Admin: 01/29/20 12:45 Dose: 20 mg Documented by: Methylprednisolone Sodium Succinate (Solu-Medrol -) 35 mg IVPUSH BID [facility] Last Admin: 01/28/20 21:53 Dose: 35 mg Documented by: Metoprolol Tartrate (Lopressor Injection -) 5 mg IVPUSH Q4H PRN PRN Reason: TACHYCARDIA Nystatin (Nystop Powder -) 1 applic TP DAILY [facility] Last Admin: 01/29/20 10:43 Dose: 1 applic Documented by: Pantoprazole Sodium (Protonix Iv) 40 mg IVPUSH DAILY [facility] Silver Sulfadiazine (Silvadene -) 1 applic TP DAILY [facility] Last Admin: 01/29/20 12:47 Dose: 1 applic Documented by: Zinc Sulfate (Orazinc -) 220 mg PO DAILY [facility] Last Admin: 01/29/20 10:42 Dose: 220 mg Documented by: Constitutional: Yes: Lethargic Eyes: Yes: WNL HENT: Yes: WNL Neck: Yes: WNL Cardiovascular: Yes: Pulse Irregular, S1, S2 Respiratory: Yes: Bilateral scattered rhonchi, No wheeze Gastrointestinal: Yes: Normal Bowel Sounds, Soft Extremities: Yes: WNL Edema: No Labs: Laboratory Results - last 24 hr 01/29/20 01/29/20 09:15 09:15 WBC 21.7 H RBC 2.58 L Hgb 9.2 L Hct 27.0 L MCV 104.6 H MCH 35.7 H MCHC 34.1 RDW 14.9 Plt Count 137 D MPV 10.6 Absolute Neuts (auto) 20.5 H Neutrophils % 94.8 H Neutrophils % (Manual) 93.0 H Band Neutrophils % 0.0 Lymphocytes % 2.7 L Lymphocytes % (Manual) 3.0 L D Monocytes % 1.8 L Monocytes % (Manual) 3 L D Eosinophils % 0.0 D Eosinophils % (Manual) 0.0 Basophils % 0.7 D Basophils % (Manual) 0.0 Myelocytes % (Man) 0 Promyelocytes % (Man) 0 Blast Cells % (Manual) 0 Nucleated RBC % 0 Metamyelocytes 0 Hypochromia 0 Platelet Estimate Decreased Polychromasia 0 Poikilocytosis 0 Anisocytosis 1+ Macrocytosis 1+ Phosphorus 4.1 Magnesium 2.5 H Assessment/Plan Acute hypoxemic respiratory failure BILATERAL PNEUMONIA Suspected COVID-19 UTI/Nephrolithiasis Gram Negative Bacteremia Sepsis Acute on Chronic Renal Failure Thrombocytopenia Acute NSTEMI Paroxysmal Atrial Fibrillation HTN Pneumonia Hypernatremia improving - NRBM - ABX per ID - Medrol - S/P nephrostomy tube placement - Monitor CBC - Rate control - DVT prophylaxis - COVID ANTIBODY + - AC - DNR/DNI Dr Johnson
--- NOTE | 2020-01-29 16:17 | PN ---
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 (short form) - Note 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: S: No acute events. Afebrile overnight. No change in overall condition Vital Signs Temperature 98.7 F 01/29/20 06:44 Pulse Rate 76 01/29/20 06:44 Respiratory Rate 18 01/29/20 06:44 Blood Pressure 136/77 01/29/20 06:44 O2 Sat by Pulse Oximetry (%) 95 01/29/20 15:47 PE: Gen: NAD, awake, alert HEENT: NC/At, KENNEDI, MMM Neck: No JVD LUNG: Improved aeration at bases b/l. NRB with 98% SpO2 CARD: RRR. No murmurs appreciated ABD: soft, NT/ND, + BS : Nephrostomy with some hematuria in collection bag. العلي with clear yellow urine EXT: 2+ edema b/l upper and lower extremities without weeping. Upper extremities with multiple areas of ecchymosis from IV placement attempts. Strong pulses CBC, BMP 01/29/20 09:15 Active Medications Aripiprazole (Abilify) 5 mg PO DAILY [facility] Last Admin: 01/29/20 10:41 Dose: 5 mg Documented by: Ascorbic Acid (Vitamin C -) 250 mg PO BID [facility] Last Admin: 01/29/20 11:49 Dose: 250 mg Documented by: Enoxaparin Sodium (Lovenox -) 60 mg SQ BID [facility] Last Admin: 01/29/20 10:41 Dose: 60 mg Documented by: Furosemide (Lasix Injection -) 20 mg IVPUSH DAILY [facility] Last Admin: 01/29/20 12:45 Dose: 20 mg Documented by: Nystatin (Nystop Powder -) 1 applic TP DAILY [facility] Last Admin: 01/29/20 10:43 Dose: 1 applic Documented by: Pantoprazole Sodium (Protonix -) 40 mg PO DAILY [facility] Prednisone (Deltasone -) 40 mg PO BID [facility] Silver Sulfadiazine (Silvadene -) 1 applic TP DAILY [facility] Last Admin: 01/29/20 12:47 Dose: 1 applic Documented by: Zinc Sulfate (Orazinc -) 220 mg PO DAILY [facility] Last Admin: 01/29/20 10:42 Dose: 220 mg Documented by: Active Medications Aripiprazole (Abilify) 5 mg PO DAILY [facility] Last Admin: 01/29/20 10:41 Dose: 5 mg Documented by: Ascorbic Acid (Vitamin C -) 250 mg PO BID [facility] Last Admin: 01/29/20 11:49 Dose: 250 mg Documented by: Enoxaparin Sodium (Lovenox -) 60 mg SQ BID [facility] Last Admin: 01/29/20 10:41 Dose: 60 mg Documented by: Furosemide (Lasix Injection -) 20 mg IVPUSH DAILY [facility] Last Admin: 01/29/20 12:45 Dose: 20 mg Documented by: Nystatin (Nystop Powder -) 1 applic TP DAILY [facility] Last Admin: 01/29/20 10:43 Dose: 1 applic Documented by: Pantoprazole Sodium (Protonix -) 40 mg PO DAILY [facility] Prednisone (Deltasone -) 40 mg PO BID [facility] Silver Sulfadiazine (Silvadene -) 1 applic TP DAILY [facility] Last Admin: 01/29/20 12:47 Dose: 1 applic Documented by: Zinc Sulfate (Orazinc -) 220 mg PO DAILY [facility] Last Admin: 01/29/20 10:42 Dose: 220 mg Documented by: Assessment and Plan: Acute hypoxia with COVID antibody positivity Severe sepsis 2/2 proteus bacteremia Obstructing nephrolithiasis Hypernatremia Thrombocytopenia New onset Afib in setting of sepsis syndrome --Patient with improved oxygen requirements: using NRB with 97% SpO2 without need for HFO2 --Patient with difficulty with IV access due to edema; attempted U/S guidance and unable to place IV --Can switch Medrol to equivalent PO prednisone dose (40mg BID PO) for now --Pulmonology, ID, nephrology on board --Oxygen supplementation as tolerated; patient remains DNR/DNI --Lovenox 60 BID; monitor platelets and signs of worsening severe bleed --Holdin Lasix today due to elevation in Cr and BUN noted on previous BMP --Likely edema component of third-spacing/hypoalbuminemia and will need to assess daily for IV diuresis --Urology on board; will need stenting when stabilizes --Afib in setting of sepsis; monitor hemodynamics --May require outpatient Holter monitoring to determine need for anticoagulation in the future Dispo: Continue monitoring; supplemental oxygen Larry Navarro DO - IM
[2020-01-29] MEDS: methylPREDNISolone NA SUCC 40 MG/1 ML VIAL IVPUSH SCH (17:18)
[2020-01-29 18:38] LABS: ALBUMIN 1.4 g/dl (3.4-5.0); BILIRUBIN,TOTAL 0.9 mg/dL (0.2-1); BLOOD UREA NITROGEN 58.6 mg/dL (7-18); CREATININE 1.1 mg/dL (0.55-1.3); POTASSIUM 3.6 mmol/L (3.5-5.1); TOT PROT 5.4 g/dl (6.4-8.2)
[2020-01-29] MEDS: predniSONE 20 MG TABLET (UD) PO SCH (21:16)
--- NOTE | 2020-01-30 02:39 | PN ---
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, Physician Chief Complaint: Pt with eyes open; mumbles sounds, difficult to comprehend. History of Present Illness: Ms. Bradford is a 84 yr old white woman with PM hx of bipolar disorder (non compliant to medications) who now presented to the ED from [place] for hypoxia, fever, AMS. The patient is usually alert and speaks, however she was nonresponsive; history is limited due to her clinical status. Upon arrival, pt noted to be febrile. Pt unable to give a history. Information taken from [place] paperwork.WBC 22.9 HB 13. Plt 27 BUN 95.4 Creat 2.9, lactate 3.9, trops 10 CT-Scan Rt Renal pelvis stone 1.4 cm with partial obstruction Pt was given empiric IV abx coverage with Vanc/Zosyn. Uro made aware with recommendation to make NPO after midnight, now in rapid afib. - Current Medication List Current Medications: Active Medications Aripiprazole (Abilify) 5 mg PO DAILY [facility] Last Admin: 01/29/20 10:41 Dose: 5 mg Documented by: Ascorbic Acid (Vitamin C -) 250 mg PO BID [facility] Last Admin: 01/29/20 21:16 Dose: 250 mg Documented by: Enoxaparin Sodium (Lovenox -) 60 mg SQ BID [facility] Last Admin: 01/29/20 21:16 Dose: 60 mg Documented by: Furosemide (Lasix Injection -) 20 mg IVPUSH DAILY [facility] Last Admin: 01/29/20 12:45 Dose: 20 mg Documented by: Nystatin (Nystop Powder -) 1 applic TP DAILY [facility] Last Admin: 01/29/20 10:43 Dose: 1 applic Documented by: Pantoprazole Sodium (Protonix -) 40 mg PO DAILY [facility] Prednisone (Deltasone -) 40 mg PO BID [facility] Last Admin: 01/29/20 21:16 Dose: 40 mg Documented by: Silver Sulfadiazine (Silvadene -) 1 applic TP DAILY [facility] Last Admin: 01/29/20 12:47 Dose: 1 applic Documented by: Zinc Sulfate (Orazinc -) 220 mg PO DAILY [facility] Last Admin: 01/29/20 10:42 Dose: 220 mg Documented by: - Objective Vital Signs: Vital Signs Temperature 98.3 F 01/29/20 22:00 Pulse Rate 76 01/29/20 22:00 Respiratory Rate 20 01/29/20 22:00 Blood Pressure 119/58 L 01/29/20 22:00 O2 Sat by Pulse Oximetry (%) 95 01/29/20 22:00 Constitutional: Yes: Other Eyes: Yes: WNL HENT: Yes: WNL Neck: Yes: Decreased ROM Cardiovascular: Yes: S1, S2 Respiratory: Yes: Regular, Diminished Gastrointestinal: Yes: Soft Genitourinary: No: Anuria Musculoskeletal: Yes: Muscle Weakness Extremities: Yes: Cool Edema: Yes Edema: LLE: Trace, RLE: Trace Peripheral Pulses WNL: Yes Integumentary: Yes: Venous Stasis Changes Neurological: Yes: Alert, Weakness Psychiatric: Yes: Other Labs: CBC, BMP 01/29/20 09:15 01/29/20 09:15 INR, PTT INR 1.21 (0.83-1.09) H 01/25/20 10:50 Fibrinogen 463.0 mg/dL (238-498) 01/25/20 10:50 Abnormal Lab Results 01/29/20 01/29/20 09:15 09:15 WBC 21.7 H RBC 2.58 L Hgb 9.2 L Hct 27.0 L MCV 104.6 H MCH 35.7 H Absolute Neuts (auto) 20.5 H Neutrophils % 94.8 H Neutrophils % (Manual) 93.0 H Lymphocytes % 2.7 L Lymphocytes % (Manual) 3.0 L D Monocytes % 1.8 L Monocytes % (Manual) 3 L D Sodium 148 H Chloride 114 H Anion Gap 7 L BUN 58.6 H Random Glucose 180 H Calcium 8.0 L Magnesium 2.5 H Alkaline Phosphatase 145 H LD Total 326 H Total Protein 5.4 L Albumin 1.4 L - ....Imaging Chest X-ray: Image Reviewed EKG: Image Reviewed Assessment/Plan 1. CAD, NSTEMI in context of: 2. Paroxysmal afib with RVR 3. Sepsis source with partially obstructive right renal pelvis stone, possible LLL PNA 4. Toxic metabolic encephalopathy 5. Acute on CKD 6. HTN 7.ECHO nl EF 8.Schizo affective ds, Non-verbal 1. Troponin is declining with supportive care. IV Lopressor as hemodynamics tolerate for rate-control, with change to PO when able. 2. s/p nephrostomy tube 3. Continue empiric abx per C&S 4. On Lovenox for anticoagulation 5. Due to Schizo affective ds, and patient being non-verbal she is a poor candidate for invasive cardiac w/u e.g. stress test c. cath. Now off telemetry.
[2020-01-30 08:55] LABS: HEMATOCRIT 25.9 % (32.4-45.2); HEMOGLOBIN 8.7 GM/dL (10.7-15.3); MCH 35.4 pg (25.7-33.7); MCHC 33.4 g/dl (32.0-36.0); MEAN PLT VOLUME 10.3 fl (7.5-11.1); PLATELET COUNT 104 K/MM3 (134-434); RBC 2.45 M/mm3 (3.60-5.2); RDW 15.6 % (11.6-15.6); WHITE BLOOD COUNT 20.3 K/mm3 (4.0-10.0)
[2020-01-30 09:28] LABS: BLOOD UREA NITROGEN 67.6 mg/dL (7-18); CALCIUM 7.9 mg/dL (8.5-10.1); CREATININE 1.3 mg/dL (0.55-1.3); POTASSIUM 3.9 mmol/L (3.5-5.1)
--- NOTE | 2020-01-30 10:18 | PN ---
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 - Note 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: Selected Entries 01/29/20 01/29/20 01/29/20 04:21 06:44 08:08 Breakfast 25% Diet Tolerated Poor Skin Risk Level Supper Total Score - Skin Risk Assessment Pulse Rate Blood Pressure O2 Sat by Pulse 94 L 95 96 Oximetry (%) Oxygen Delivery Non-Rebreather Method Mask Oxygen Flow Rate 01/29/20 01/29/20 01/29/20 09:00 10:00 15:47 Breakfast Diet Tolerated Skin Risk Level High Risk Supper Total Score - 11 Skin Risk Assessment Pulse Rate Blood Pressure O2 Sat by Pulse 100 95 Oximetry (%) Oxygen Delivery Non-Rebreather Method Mask Oxygen Flow 15 Rate 01/29/20 01/29/20 01/29/20 20:22 20:23 21:41 Breakfast Diet Tolerated Well Skin Risk Level Supper 50% Total Score - Skin Risk Assessment Pulse Rate Blood Pressure O2 Sat by Pulse 92 L 99 Oximetry (%) Oxygen Delivery Non-Rebreather Method Mask Oxygen Flow 15 Rate 01/29/20 01/30/20 22:00 06:00 Breakfast Diet Tolerated Skin Risk Level High Risk Supper Total Score - 11 Skin Risk Assessment Pulse Rate 90 Blood Pressure 121/78 O2 Sat by Pulse 95 96 Oximetry (%) Oxygen Delivery Method Oxygen Flow Rate Laboratory Tests 01/27/20 01/28/20 01/29/20 06:50 11:05 09:15 WBC 25.9 H 30.9 H* 21.7 H 01/30/20 08:20 WBC 20.3 H on nrb. Case reviewed with nursing. Suggest mbs, when indicated.
--- NOTE | 2020-01-30 10:41 | PN ---
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, Physician History of Present Illness: 84 Y/O Female patient with Bipolar disease, HTN from [facility]. She is presented into ER with confusion fever 102.4, hypoxic respiratory failure WBC 22.9 HB 13. Plt 27 BUN 95.4 Creat 2.9, lactate 3.9, trops 10 CT-Scan Rt Renal pelvis stone 1.4 cm with partial obstruction Pt was given empiric IV abx coverage with Vanc/Zosyn. Uro made aware with recommendation to make NPO after midnight, now in rapid afib. - Current Medication List Current Medications: Active Medications Aripiprazole (Abilify) 5 mg PO DAILY [facility] Last Admin: 01/29/20 10:41 Dose: 5 mg Documented by: Ascorbic Acid (Vitamin C -) 250 mg PO BID [facility] Last Admin: 01/29/20 21:16 Dose: 250 mg Documented by: Enoxaparin Sodium (Lovenox -) 60 mg SQ BID [facility] Last Admin: 01/29/20 21:16 Dose: 60 mg Documented by: Furosemide (Lasix Injection -) 20 mg IVPUSH DAILY [facility] Last Admin: 01/29/20 12:45 Dose: 20 mg Documented by: Nystatin (Nystop Powder -) 1 applic TP DAILY [facility] Last Admin: 01/29/20 10:43 Dose: 1 applic Documented by: Pantoprazole Sodium (Protonix -) 40 mg PO DAILY [facility] Prednisone (Deltasone -) 40 mg PO BID [facility] Last Admin: 01/29/20 21:16 Dose: 40 mg Documented by: Silver Sulfadiazine (Silvadene -) 1 applic TP DAILY [facility] Last Admin: 01/29/20 12:47 Dose: 1 applic Documented by: Zinc Sulfate (Orazinc -) 220 mg PO DAILY [facility] Last Admin: 01/29/20 10:42 Dose: 220 mg Documented by: - Objective Vital Signs: Vital Signs Temperature 97.4 F L 01/30/20 06:00 Pulse Rate 90 01/30/20 06:00 Respiratory Rate 20 01/30/20 06:00 Blood Pressure 121/78 01/30/20 06:00 O2 Sat by Pulse Oximetry (%) 96 01/30/20 06:00 Eyes: Yes: WNL, Conjunctiva Clear, EOM Intact HENT: Yes: WNL, Atraumatic, Normocephalic Neck: Yes: WNL, Supple, Trachea Midline Cardiovascular: Yes: WNL, Regular Rate and Rhythm Respiratory: Yes: WNL, Regular, CTA Bilaterally Gastrointestinal: Yes: WNL, Normal Bowel Sounds Genitourinary: Yes: WNL Musculoskeletal: Yes: WNL Extremities: Yes: WNL Edema: No Integumentary: Yes: WNL Labs: CBC, BMP 01/30/20 08:20 01/30/20 08:20 INR, PTT INR 1.21 (0.83-1.09) H 01/25/20 10:50 Fibrinogen 463.0 mg/dL (238-498) 01/25/20 10:50 Problem List - Problems (1) Elevated liver enzymes Code(s): R74.8 - ABNORMAL LEVELS OF OTHER SERUM ENZYMES (2) NSTEMI (non-ST elevated myocardial infarction) Code(s): I21.4 - NON-ST ELEVATION (NSTEMI) MYOCARDIAL INFARCTION (3) Paroxysmal atrial fibrillation with RVR Code(s): I48.0 - PAROXYSMAL ATRIAL FIBRILLATION (4) Pneumonia Code(s): J18.9 - PNEUMONIA, UNSPECIFIED ORGANISM Qualifiers: Pneumonia type: due to unspecified organism Laterality: left Lung location: lower lobe of lung Qualified Code(s): J18.9 - Pneumonia, unspecified organism (5) Sepsis Code(s): A41.9 - SEPSIS, UNSPECIFIED ORGANISM Qualifiers: Sepsis type: sepsis due to unspecified organism Sepsis acute organ dysfunction status: with acute organ dysfunction Severe sepsis acute organ dysfunction type: acute renal failure Acute renal failure type: unspecified Severe sepsis shock status: without septic shock Qualified Code(s): A41.9 - Sepsis, unspecified organism; R65.20 - Severe sepsis without septic shock; N17.9 - Acute kidney failure, unspecified (6) Thrombocytopenia Code(s): D69.6 - THROMBOCYTOPENIA, UNSPECIFIED (7) UTI (urinary tract infection) Code(s): N39.0 - URINARY TRACT INFECTION, SITE NOT SPECIFIED Qualifiers: Urinary tract infection type: site unspecified Hematuria presence: with hematuria Qualified Code(s): N39.0 - Urinary tract infection, site not specified; R31.9 - Hematuria, unspecified (8) Anxiety Code(s): F41.9 - ANXIETY DISORDER, UNSPECIFIED (9) Contusion, chest wall Code(s): S20.219A - CONTUSION OF UNSPECIFIED FRONT WALL OF THORAX, INIT ENCNTR Qualifiers: Encounter type: initial encounter Laterality: left Qualified Code(s): S20.212A - Contusion of left front wall of thorax, initial encounter (10) Shortness of breath Code(s): R06.02 - SHORTNESS OF BREATH (11) Well adult Code(s): [id number] - Assessment/Plan 1. CAD, NSTEMI in context of: 2. Paroxysmal afib with RVR 3. Sepsis source with partially obstructive right renal pelvis stone, possible LLL PNA 4. Toxic metabolic encephalopathy 5. Acute on CKD 6. HTN 7.ECHO nl EF 8.Schizo affective ds, Non-verbal 1. Troponin is declining with supportive care. IV Lopressor as hemodynamics tolerate for rate-control, with change to PO when able. 2. s/p nephrostomy tube 3. Continue empiric abx per C&S 4. On Lovenox for anticoagulation 5. Due to Schizo affective ds, and patient being non-verbal she is a poor candidate for invasive cardiac w/u e.g. stress test c. cath. Now off telemetry.
[2020-01-30] MEDS ORDERED: PT OWN MED DRAWER 7, Y5N ONE (11:02)
[2020-01-30] MEDS: ZINC SULFATE 220 MG CAPSULE (FP) PO SCH (11:05)
[2020-01-30] MEDS: ARIPiprazole 5 MG TABLET PO SCH (11:05)
[2020-01-30] MEDS: predniSONE 20 MG TABLET (UD) PO SCH ×2 (11:05→21:05)
[2020-01-30] MEDS: NYSTATIN POWDER 100,000 UNITS/GM - 15 GM TOPICAL POWDER TP SCH (11:06)
[2020-01-30] MEDS: SILVER SULFADIAZINE 1% TOP CREAM 50 GM JAR TP SCH (11:06)
[2020-01-30] MEDS: PANTOPRAZOLE 40 MG TABLET PO SCH (11:06)
[2020-01-30] MEDS: ENOXAPARIN NA (PORCINE) 60 MG/0.6 ML DISP.SYRIN SQ SCH ×2 (11:06→21:04)
[2020-01-30] MEDS: ASCORBIC ACID 250 MG TABLET (FP) PO SCH ×2 (11:06→21:05)
--- NOTE | 2020-01-30 13:27 | PN ---
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 (short form) - Note 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: Lethargic. No significant change in overall condition. HFOT. No acute events overnight. Intake & Output 01/27/20 01/28/20 01/29/20 01/30/20 23:59 23:59 23:59 23:59 Intake Total 820 33 440 240 Output Total 6695 382 9155 300 Balance -380 -867 -1210 -60 Last Vital Signs Temp Pulse Resp BP Pulse Ox 98.3 F 85 20 146/85 95 01/30/20 10:00 01/30/20 10:15 01/30/20 10:00 01/30/20 10:00 01/30/20 10:15 Active Medications Aripiprazole (Abilify) 5 mg PO DAILY [facility] Last Admin: 01/30/20 11:05 Dose: 5 mg Documented by: Ascorbic Acid (Vitamin C -) 250 mg PO BID [facility] Last Admin: 01/30/20 11:06 Dose: 250 mg Documented by: Enoxaparin Sodium (Lovenox -) 60 mg SQ BID [facility] Last Admin: 01/30/20 11:06 Dose: 60 mg Documented by: Furosemide (Lasix Injection -) 20 mg IVPUSH DAILY [facility] Last Admin: 01/29/20 12:45 Dose: 20 mg Documented by: Dextrose/Sodium Chloride (D5-1/2ns -) 1,000 mls @ 100 mls/hr IV ASDIR [facility] Nystatin (Nystop Powder -) 1 applic TP DAILY [facility] Last Admin: 01/30/20 11:06 Dose: 1 applic Documented by: Pantoprazole Sodium (Protonix -) 40 mg PO DAILY [facility] Last Admin: 01/30/20 11:06 Dose: 40 mg Documented by: Prednisone (Deltasone -) 40 mg PO BID [facility] Last Admin: 01/30/20 11:05 Dose: 40 mg Documented by: Silver Sulfadiazine (Silvadene -) 1 applic TP DAILY [facility] Last Admin: 01/30/20 11:06 Dose: 1 applic Documented by: Zinc Sulfate (Orazinc -) 220 mg PO DAILY [facility] Last Admin: 01/30/20 11:05 Dose: 220 mg Documented by: Constitutional: Yes: Lethargic Eyes: Yes: WNL HENT: Yes: WNL Neck: Yes: WNL Cardiovascular: Yes: Pulse Irregular, S1, S2 Respiratory: Yes: Bilateral scattered rhonchi, No wheeze Gastrointestinal: Yes: Normal Bowel Sounds, Soft Extremities: Yes: WNL Edema: No Labs: Laboratory Results - last 24 hr 01/29/20 01/30/20 01/30/20 09:15 08:20 08:20 WBC 20.3 H RBC 2.45 L Hgb 8.7 L Hct 25.9 L MCV 106.0 H MCH 35.4 H MCHC 33.4 RDW 15.6 Plt Count 104 L D MPV 10.3 Sodium 148 H 149 H Potassium 3.6 3.9 Chloride 114 H 116 H Carbon Dioxide 27 25 Anion Gap 7 L 9 BUN 58.6 H 67.6 H Creatinine 1.1 1.3 Est GFR (CKD-EPI)AfAm 54.15 44.24 Est GFR (CKD-EPI)NonAf 46.72 38.17 Random Glucose 180 H 231 H Calcium 8.0 L 7.9 L Ferritin 1296.6 H Total Bilirubin 0.9 AST 19 ALT 34 Alkaline Phosphatase 145 H LD Total 326 H 339 H Total Protein 5.4 L Albumin 1.4 L Assessment/Plan Acute hypoxemic respiratory failure BILATERAL PNEUMONIA Suspected COVID-19 UTI/Nephrolithiasis Gram Negative Bacteremia Sepsis Acute on Chronic Renal Failure Thrombocytopenia Acute NSTEMI Paroxysmal Atrial Fibrillation HTN Pneumonia Hypernatremia improving - NRBM / HFOT - ABX per ID - Medrol - S/P nephrostomy tube placement - Monitor CBC - Rate control - DVT prophylaxis - COVID ANTIBODY + - AC - DNR/DNI Dr Johnson
[2020-01-30] MEDS ORDERED: DEXTROSE 5%-0.45% SALINE 1,000 ML IV SCH ×2 (13:30→14:04)
--- NOTE | 2020-01-30 14:03 | PN ---
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, Physician History of Present Illness: Pt seen and examined at bedside. No great change in status. - Current Medication List Current Medications: Active Medications Aripiprazole (Abilify) 5 mg PO DAILY [facility] Last Admin: 01/30/20 11:05 Dose: 5 mg Documented by: Ascorbic Acid (Vitamin C -) 250 mg PO BID [facility] Last Admin: 01/30/20 11:06 Dose: 250 mg Documented by: Enoxaparin Sodium (Lovenox -) 60 mg SQ BID [facility] Last Admin: 01/30/20 11:06 Dose: 60 mg Documented by: Furosemide (Lasix Injection -) 20 mg IVPUSH DAILY [facility] Last Admin: 01/29/20 12:45 Dose: 20 mg Documented by: Dextrose/Sodium Chloride (D5-1/2ns -) 1,000 mls @ 100 mls/hr IV ASDIR [facility] Nystatin (Nystop Powder -) 1 applic TP DAILY [facility] Last Admin: 01/30/20 11:06 Dose: 1 applic Documented by: Pantoprazole Sodium (Protonix -) 40 mg PO DAILY [facility] Last Admin: 01/30/20 11:06 Dose: 40 mg Documented by: Prednisone (Deltasone -) 40 mg PO BID [facility] Last Admin: 01/30/20 11:05 Dose: 40 mg Documented by: Silver Sulfadiazine (Silvadene -) 1 applic TP DAILY [facility] Last Admin: 01/30/20 11:06 Dose: 1 applic Documented by: Zinc Sulfate (Orazinc -) 220 mg PO DAILY [facility] Last Admin: 01/30/20 11:05 Dose: 220 mg Documented by: - Objective Vital Signs: Vital Signs Temperature 98.3 F 01/30/20 10:00 Pulse Rate 85 01/30/20 10:15 Respiratory Rate 20 01/30/20 10:00 Blood Pressure 146/85 01/30/20 10:00 O2 Sat by Pulse Oximetry (%) 95 01/30/20 10:15 Constitutional: Yes: Calm Eyes: Yes: Conjunctiva Clear HENT: Yes: Atraumatic Neck: Yes: Supple Cardiovascular: Yes: S1, S2 Respiratory: Yes: On Venti-Mask Gastrointestinal: Yes: Normal Bowel Sounds, Soft Genitourinary: Yes: العلي Present, Other (nephrostomy) Musculoskeletal: Yes: Muscle Weakness Edema: No Neurological: Yes: Oriented Psychiatric: Yes: Oriented Labs: CBC, BMP 01/30/20 08:20 01/30/20 08:20 INR, PTT INR 1.21 (0.83-1.09) H 01/25/20 10:50 Fibrinogen 463.0 mg/dL (238-498) 01/25/20 10:50 Problem List - Problems (1) DK (acute kidney injury) Code(s): N17.9 - ACUTE KIDNEY FAILURE, UNSPECIFIED (2) Hypernatremia Code(s): E87.0 - HYPEROSMOLALITY AND HYPERNATREMIA (3) NSTEMI (non-ST elevated myocardial infarction) Code(s): I21.4 - NON-ST ELEVATION (NSTEMI) MYOCARDIAL INFARCTION Assessment/Plan Current Medications Generic Name Dose Route Start Last Admin Trade Name Freq PRN Reason Stop Dose Admin Aripiprazole 5 mg 01/28/20 10:00 01/30/20 11:05 Abilify PO 5 mg DAILY [facility] Administration Ascorbic Acid 250 mg 01/28/20 22:00 01/30/20 11:06 Vitamin C - PO 250 mg BID [facility] Administration Enoxaparin Sodium 60 mg 01/27/20 12:00 01/30/20 11:06 Lovenox - SQ 60 mg BID [facility] Administration Furosemide 20 mg 01/29/20 10:00 01/29/20 12:45 Lasix Injection - IVPUSH 20 mg DAILY [facility] Administration Dextrose/Sodium Chloride 1,000 mls @ 100 mls/hr 01/30/20 13:30 D5-1/2ns - IV ASDIR [facility] Nystatin 1 applic 01/29/20 10:00 01/30/20 11:06 Nystop Powder - TP 1 applic DAILY [facility] Administration Pantoprazole Sodium 40 mg 01/30/20 10:00 01/30/20 11:06 Protonix - PO 40 mg DAILY [facility] Administration Prednisone 40 mg 01/29/20 22:00 01/30/20 11:05 Deltasone - PO 40 mg BID [facility] Administration Silver Sulfadiazine 1 applic 01/27/20 10:00 01/30/20 11:06 Silvadene - TP 1 applic DAILY [facility] Administration Zinc Sulfate 220 mg 01/29/20 10:00 01/30/20 11:05 Orazinc - PO 220 mg DAILY [facility] Administration Impression 1. dk 2. hypernatremia 3. hypokalemia 4. sepsis 5. nstemi 6. gram neg bacteremia 7. htn 8. a-fib 9. thrombocytopenia Plan - start d5w - repeat labs in am - if ng tube can use free water - monitor pulse ox - monitor sodium - discuss overall GOC with family
--- NOTE | 2020-01-30 14:19 | PN ---
Teaching Attending Note Name of Resident: Herbert Page ATTENDING PHYSICIAN STATEMENT I saw and evaluated the patient. I reviewed the resident's note and discussed the case with the resident. I agree with the resident's findings and plan as documented. SUBJECTIVE: Seen and examined at bedside. Worsening dehydration and hypernatremia. Not ta alberto enough PO. Will start D5 1/2 NS Still requiring NRB OBJ Last Vital Signs Temp Pulse Resp BP Pulse Ox 98.3 F 85 20 146/85 95 01/30/20 10:00 01/30/20 10:15 01/30/20 10:00 01/30/20 10:00 01/30/20 10:15 PE: Per resident note Labs/Imaging: reviewed ASSESSMENT/PLAN 84-year-old male history of hypertension bipolar disorder admitted for severe sepsis to ICU in the setting of infected kidney stone and possible pneumonia. Pt was clinically improving on the floor then became hypoxic with + Covid AB negative PCRx3 #hypoxia with + Covid AB negative PCRx3 Clinically high concern for covid given fevers, bilateral infiltrates, elevated inflammatory markers, and high degree of hypoxia. Despite negative test x3 we are treating it is active COVID -covid AB+ -cont IV steroids -pulm on board start AC now that plts>100 #Severe sepsis: Proteus bacteremia In setting of infected obstructing kidney stone 1.4cm and possible pneumonia. Patient is now hemodynamically stable with improving white count status post Zosyn, right nephrostomy, and العلي catheter. Fevers are increasing since patient was downgraded to ceftriaxone from Zosyn. There may be a component of aspiration pneumonia. Will discuss switching back to Zosyn with ID -Troponin downtrending, DK resolved, continuing thrombocytopenia Urology on board, stent when stable #Hypernatremia: Worsening Patient is not taking enough fluids p.o. to maintain hydration Start D5 half NS overnight #Thrombocytopenia: improving Likely in the setting of severe sepsis. Patient's platelets were normal in 2018 Trend CBC #New onset atrial fibrillation In the setting of sepsis PRN IV metoprolol May require outpatient Holter monitoring to determine need for anticoagulation in the future #Prerenal and postrenal DK: Resolved Disposition:. Patient with very poor long-term prognosis. Still with remaining infected kidney stone and multiple organ dysfunction, dementia, poor p.o. intake and hypoxia with likely COVID infection. Will discuss possibility we will discuss goals of care with family including possibility of inpatient hospice
--- NOTE | 2020-01-30 20:56 | PN ---
Physical Exam: SUBJECTIVE: Patient seen and examined. No acute events overnight. OBJECTIVE: Vital Signs Period Temp Pulse Resp BP Sys/Mcmullen Pulse Ox Last 24 Hr 97.4 F-98.6 F 76-115 20-24 118-147/58-85 92-96 GENERAL: The patient is awake, alert, in no acute distress. HEAD: Normal with no signs of trauma. EYES: PERRL, sclera anicteric, conjunctiva clear. ENT: Ears normal, nares patent, oropharynx clear without exudates, dry mucous membranes. NECK: Trachea midline, full range of motion, supple. LUNGS: Breath sounds equal, clear to auscultation bilaterally, no wheezes, no crackles, no accessory muscle use. HEART: Regular rate and rhythm, S1, S2 without murmur, rub or gallop. ABDOMEN: Soft, nontender, nondistended, normoactive bowel sounds, no guarding, no rebound. العلي noted with strawberry urine. Nephrostomy tube noted to have increased sanguinous drainage EXTREMITIES: 2+ dorsal pedal pulses, warm, no calf tendernesswell-perfused, Trace edema. NEUROLOGICAL: Limited as Pt. did not follow commands, gait not observed. PSYCH: Normal mood, normal affect. SKIN: Warm, dry Laboratory Results - last 24 hr 01/29/20 01/30/20 01/30/20 09:15 08:20 08:20 WBC 20.3 H RBC 2.45 L Hgb 8.7 L Hct 25.9 L MCV 106.0 H MCH 35.4 H MCHC 33.4 RDW 15.6 Plt Count 104 L D MPV 10.3 Sodium 149 H Potassium 3.9 Chloride 116 H Carbon Dioxide 25 Anion Gap 9 BUN 67.6 H Creatinine 1.3 Est GFR (CKD-EPI)AfAm 44.24 Est GFR (CKD-EPI)NonAf 38.17 Random Glucose 231 H Calcium 7.9 L Ferritin 1296.6 H LD Total 339 H C-Reactive Protein 8.7 H 6.6 H Active Medications Generic Name Dose Route Start Last Admin Trade Name Freq PRN Reason Stop Dose Admin Aripiprazole 5 mg 01/28/20 10:00 01/30/20 11:05 Abilify PO 5 mg DAILY [facility] Administration Ascorbic Acid 250 mg 01/28/20 22:00 01/30/20 11:06 Vitamin C - PO 250 mg BID [facility] Administration Enoxaparin Sodium 60 mg 01/27/20 12:00 01/30/20 11:06 Lovenox - SQ 60 mg BID [facility] Administration Furosemide 20 mg 01/29/20 10:00 01/29/20 12:45 Lasix Injection - IVPUSH 20 mg DAILY [facility] Administration Nystatin 1 applic 01/29/20 10:00 01/30/20 11:06 Nystop Powder - TP 1 applic DAILY [facility] Administration Pantoprazole Sodium 40 mg 01/30/20 10:00 01/30/20 11:06 Protonix - PO 40 mg DAILY [facility] Administration Prednisone 40 mg 01/29/20 22:00 01/30/20 11:05 Deltasone - PO 40 mg BID [facility] Administration Silver Sulfadiazine 1 applic 01/27/20 10:00 01/30/20 11:06 Silvadene - TP 1 applic DAILY [facility] Administration Zinc Sulfate 220 mg 01/29/20 10:00 01/30/20 11:05 Orazinc - PO 220 mg DAILY [facility] Administration ASSESSMENT/PLAN: Pt. is an 84 y.o. F w/ PMHx. of HTN, Major Depression, and Schizoaffective disorder (Aripiprazole, Fluoxetine, Mirtazapine) was brought in by EMS from [facility] for AMS. #Acute Metabolic Encephalopathy 2/2 Severe Sepsis 2/2 UTI -CTH: no acute findings; cerebral atrophy; old LEFT parietal infarct; chronic periventricular ischemic changes -Neuro checks -D/c IVF as Pt. is volume overloaded -CTAP: 1.4 cm partially obstructing calculus Right renal pelvis -s/p Vanc 1gm and Zosyn 3.375 in ED; now on Vanc and Zosyn -ID consult appreciated -UCx: proteus species, >100.000 CFU -blood culture growing Proteus in 2 sets, Rpt. BCx. Neg. to date -Pt. for ESWL per Urology when medically appropriate #Hypoxia 2/2/ Aspiration PNA vs. COVID vs. ARDS -c/w supplemental O2 to keep saturation above 90%--> now has improved to NRB -Chest CT: Left lower lobe bronchiectasis and consolidation, w/ interval development of small to moderate amount of free perihepatic intraperitoneal fluid. -CXR showing small left pleural effusion and Left Lobe consolidaiton -c/w Vanc and Zosyn, ID consult appreciated. -COVID Abs positive, PCR neg x 3, however will treat as positive. -Switched to Prednisone BID -c/w IV Lasix for pleural effusion -Daily inflammatory markers #New Onset Paroxysmal afib w/ RVR #NSTEMI #HTN -Troponin down trending -Platelets were less than 50k therefore AC was not started. -EKG: Afib w/ RVR, L axis deviation. Inferior & anterior infract (cited on/before 01/15/2020). ST & T wave abnormality, consider lateral ischemia -trops downtrending from 10.9 to 4.43 -IV lopressor for rate control as BP can tolerate -continue holding home Amlodipine 10 -cardio consult appreciated--> not a candidate for stress or cardiac cath,--> can transfer off telemetry #Hypernatremia -Iatrogenic in etiology initially, resolved and then because if decreased PO intake has become hypernatremic again -DC IVF -Advised night team to place NGT to give free water and f/u BMP a few hours after free water administration as RN and anesthesia have been unable achieve access -Neprhrology consult appreciated. #DK- now resolved s/p IVF #Thrombocytopenia. 2 units platelets given during this admission. likely secondary to severe sepsis Today 104K Prophylaxis DVT: Lovenox Therapeutic dose--> will c/w as Pt. has rgeater Risk from COVID sequelae then from bleeding at this point. HgB has remained above 8 but has been trending down over the last 2 days. Low threshold to hold AC and transfusion threshold is 8 GI: Protonix 40 IV FEN -encourage PO intake via NGT, Pt. is a difficult stick, consult to Vascular PAs for access, until then will treat -releted potassium and magnesium, f/u in AM and replete if needed -Dysphagia puree with honey thick liquids DISPO M/S Pt. may benefit from ?Inpatient hospice and needs family discussion DNR/DNI Visit type - Emergency Visit Emergency Visit: Yes ED Registration Date: 01/15/20 Care time: The patient presented to the Emergency Department on the above date and was hospitalized for further evaluation of their emergent condition. - New Patient This patient is new to me today: No - Critical Care Critical Care patient: No - Discharge Referral Referred to [facility] Med P.C.: No - Medication Review Med list reviewed for High Risk Meds patients 65 and older: Yes ATTENDING PHYSICIAN STATEMENT I saw and evaluated the patient. I reviewed the resident's note and discussed the case with the resident. I agree with the resident's findings and plan as documented. SUBJECTIVE: OBJECTIVE: ASSESSMENT AND PLAN:
[2020-01-31 09:00] LABS: ALBUMIN 1.4 g/dl (3.4-5.0); BILIRUBIN,TOTAL 1.2 mg/dL (0.2-1); BLOOD UREA NITROGEN 71.7 mg/dL (7-18); CALCIUM 7.9 mg/dL (8.5-10.1); CREATININE 1.4 mg/dL (0.55-1.3); MAGNESIUM 2.6 mg/dL (1.8-2.4); PHOSPHOROUS 3.2 mg/dL (2.5-4.9); POTASSIUM 4.1 mmol/L (3.5-5.1); TOT PROT 5.1 g/dl (6.4-8.2)
[2020-01-31] MEDS ORDERED: PT OWN MED DRAWER 7, Y5N ONE (10:09)
[2020-01-31] MEDS: ZINC SULFATE 220 MG CAPSULE (FP) PO SCH (10:13)
[2020-01-31] MEDS: NYSTATIN POWDER 100,000 UNITS/GM - 15 GM TOPICAL POWDER TP SCH (10:13)
[2020-01-31] MEDS: predniSONE 20 MG TABLET (UD) PO SCH ×2 (10:13→21:16)
[2020-01-31] MEDS: ASCORBIC ACID 250 MG TABLET (FP) PO SCH ×2 (10:13→21:16)
[2020-01-31] MEDS: PANTOPRAZOLE 40 MG TABLET PO SCH (10:13)
[2020-01-31] MEDS: ENOXAPARIN NA (PORCINE) 60 MG/0.6 ML DISP.SYRIN SQ SCH ×2 (10:14→21:16)
[2020-01-31] MEDS: ARIPiprazole 5 MG TABLET PO SCH (10:14)
[2020-01-31] MEDS: SILVER SULFADIAZINE 1% TOP CREAM 50 GM JAR TP SCH (10:14)
[2020-01-31 10:32] LABS: BASO % 0.2 % (0-2.0); EOS % 0.1 % (0-4.5); HEMATOCRIT 29.4 % (32.4-45.2); HEMOGLOBIN 9.8 GM/dL (10.7-15.3); LYMPH % 3.8 % (8-40); MCH 35.4 pg (25.7-33.7); MCHC 33.4 g/dl (32.0-36.0); MEAN CELL VOLUME 105.9 fl (80-96); MEAN PLT VOLUME 10.9 fl (7.5-11.1); MONO % 2.4 % (3.8-10.2); NEUT % 93.5 % (42.8-82.8); PLATELET COUNT 100 K/MM3 (134-434); RBC 2.78 M/mm3 (3.60-5.2); RDW 15.9 % (11.6-15.6); WHITE BLOOD COUNT 25.6 K/mm3 (4.0-10.0)
--- NOTE | 2020-01-31 11:25 | PN ---
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, CHANGE MANAGEMENT - Note 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: Selected Entries 01/29/20 01/29/20 01/29/20 04:21 06:44 08:08 Breakfast Lunch Supper Temperature Pulse Rate Blood Pressure O2 Sat by Pulse 94 L 95 96 Oximetry (%) Oxygen Delivery Non-Rebreather Method Mask 01/29/20 01/29/20 01/29/20 09:00 15:47 20:22 Breakfast Lunch Supper Temperature Pulse Rate Blood Pressure O2 Sat by Pulse 100 95 92 L Oximetry (%) Oxygen Delivery Non-Rebreather Method Mask 01/29/20 01/29/20 01/30/20 20:23 22:00 06:00 Breakfast Lunch Supper Temperature Pulse Rate Blood Pressure O2 Sat by Pulse 99 95 96 Oximetry (%) Oxygen Delivery Non-Rebreather Method Mask 01/30/20 01/30/20 01/30/20 09:00 10:00 10:15 Breakfast Lunch Supper Temperature Pulse Rate Blood Pressure O2 Sat by Pulse 96 95 95 Oximetry (%) Oxygen Delivery Non-Rebreather Non-Rebreather Method Mask Mask 01/30/20 01/30/20 01/30/20 11:15 14:21 18:57 Breakfast 25% Lunch 50% Supper Temperature Pulse Rate Blood Pressure O2 Sat by Pulse 92 L Oximetry (%) Oxygen Delivery Method 01/30/20 01/30/20 01/30/20 20:03 20:51 23:00 Breakfast Lunch Supper 50% Temperature Pulse Rate Blood Pressure O2 Sat by Pulse 96 93 L Oximetry (%) Oxygen Delivery Non-Rebreather Method Mask 01/31/20 01/31/20 01/31/20 02:00 06:00 09:08 Breakfast Lunch Supper Temperature 98.5 F 98.1 F Pulse Rate 103 H 92 H Blood Pressure 152/94 148/86 O2 Sat by Pulse 90 L 91 L Oximetry (%) Oxygen Delivery Method 01/31/20 09:22 Breakfast NPO Lunch Supper Temperature Pulse Rate Blood Pressure O2 Sat by Pulse Oximetry (%) Oxygen Delivery Method Laboratory Tests 01/29/20 01/30/20 01/31/20 09:15 08:20 10:15 WBC 21.7 H 20.3 H 25.6 H NGT for free water ordered. On NRB. NPO? Nutrition? Aspiration precautions, HOB elevated
[2020-01-31 12:31] LABS: ANISOCYTOSIS 1+; MACROCYTOSIS 1+; PLATELET ESTIMATE DECREASED; TARGET CELLS 1+
--- NOTE | 2020-01-31 12:51 | PN ---
Physical Exam: SUBJECTIVE: Patient seen and examined at bedside. No acute events overnight per nurse. Pt seen resting comfortably in bed. Currently on ventimask. OBJECTIVE: Vital Signs Period Temp Pulse Resp BP Sys/Mcmullen Pulse Ox Last 24 Hr 98.0 F-98.7 F 92-115 20-24 118-152/75-94 89-96 GENERAL: The patient is awake, alert, in no acute distress. HEAD: Normal with no signs of trauma. EYES: PERRL, sclera anicteric, conjunctiva clear. ENT: Ears normal, nares patent, oropharynx clear without exudates, dry mucous membranes. NECK: Trachea midline, full range of motion, supple. LUNGS: Breath sounds equal, clear to auscultation bilaterally, no wheezes, no crackles, no accessory muscle use. HEART: Regular rate and rhythm, S1, S2 without murmur, rub or gallop. ABDOMEN: Soft, nontender, nondistended, normoactive bowel sounds, no guarding, no rebound. العلي noted with strawberry urine. Nephrostomy tube noted to have increased sanguinous drainage EXTREMITIES: 2+ dorsal pedal pulses, warm, no calf tendernesswell-perfused, Trace edema. NEUROLOGICAL: Limited as Pt. did not follow commands, gait not observed. PSYCH: Normal mood, normal affect. SKIN: Warm, dry Laboratory Results - last 24 hr 01/29/20 01/30/20 01/31/20 09:15 08:20 08:00 WBC RBC Hgb Hct MCV MCH MCHC RDW Plt Count MPV Absolute Neuts (auto) Neutrophils % Lymphocytes % Monocytes % Eosinophils % Basophils % Nucleated RBC % D-Dimer Sodium 154 H Potassium 4.1 Chloride 119 H Carbon Dioxide 27 Anion Gap 8 BUN 71.7 H Creatinine 1.4 H Est GFR (CKD-EPI)AfAm 40.45 Est GFR (CKD-EPI)NonAf 34.90 Random Glucose 220 H Calcium 7.9 L Phosphorus 3.2 Magnesium 2.6 H Ferritin 1321.8 H Total Bilirubin 1.2 H AST 23 ALT 41 Alkaline Phosphatase 182 H LD Total 371 H C-Reactive Protein 8.7 H 6.6 H 6.3 H Total Protein 5.1 L Albumin 1.4 L 01/31/20 01/31/20 10:15 10:15 WBC 25.6 H RBC 2.78 L Hgb 9.8 L Hct 29.4 L MCV 105.9 H MCH 35.4 H MCHC 33.4 RDW 15.9 H Plt Count 100 L MPV 10.9 Absolute Neuts (auto) 24.0 H Neutrophils % 93.5 H Lymphocytes % 3.8 L D Monocytes % 2.4 L Eosinophils % 0.1 D Basophils % 0.2 Nucleated RBC % 0 D-Dimer 1477 H Sodium Potassium Chloride Carbon Dioxide Anion Gap BUN Creatinine Est GFR (CKD-EPI)AfAm Est GFR (CKD-EPI)NonAf Random Glucose Calcium Phosphorus Magnesium Ferritin Total Bilirubin AST ALT Alkaline Phosphatase LD Total C-Reactive Protein Total Protein Albumin Active Medications Generic Name Dose Route Start Last Admin Trade Name Freq PRN Reason Stop Dose Admin Aripiprazole 5 mg 01/28/20 10:00 01/31/20 10:14 Abilify PO 5 mg DAILY FERNANDO Administration Ascorbic Acid 250 mg 01/28/20 22:00 01/31/20 10:13 Vitamin C - PO 250 mg BID FERNANDO Administration Enoxaparin Sodium 60 mg 01/27/20 12:00 01/31/20 10:14 Lovenox - SQ 60 mg BID FERNANDO Administration Furosemide 20 mg 01/29/20 10:00 01/29/20 12:45 Lasix Injection - IVPUSH 20 mg DAILY FERNANDO Administration Nystatin 1 applic 01/29/20 10:00 01/31/20 10:13 Nystop Powder - TP 1 applic DAILY FERNANDO Administration Pantoprazole Sodium 40 mg 01/30/20 10:00 01/31/20 10:13 Protonix - PO 40 mg DAILY FERNANDO Administration Prednisone 40 mg 01/29/20 22:00 01/31/20 10:13 Deltasone - PO 40 mg BID FERNANDO Administration Silver Sulfadiazine 1 applic 01/27/20 10:00 01/31/20 10:14 Silvadene - TP 1 applic DAILY FERNANDO Administration Zinc Sulfate 220 mg 01/29/20 10:00 01/31/20 10:13 Orazinc - PO 220 mg DAILY FERNANDO Administration ASSESSMENT/PLAN: 84 y.o. F w/ PMHx. of HTN, Major Depression, and Schizoaffective disorder (Aripiprazole, Fluoxetine, Mirtazapine) was brought in by EMS from [facility] for AMS. #Acute Hypoxic Respiratory Failure; likely 2/2 COVID-19 Pneumonitis vs. Aspiration PNA vs. pleural effusion -Although COVID-19 negx3, clinically there is a high concern for COVID-19 pneumonitis given hypoxia, fever, elevated inflammatory markers and b/l infiltrates found on CT chest. -COVID Ab+ -Prednisone 40 BID -Pulm following -Full-dose Lovenox 60 mg BID SQ, Ascorbic acid 250 BID, Zinc 220 QD -Cont NRB; maintain SpO2 >90% -Daily inflammatory markers (d-dimer, Ferritin, CRP, LDH) -IV Lasix 20 mg QD #Severe Sepsis 2/2 UTI; 2/2 Proteus Bacteremia. Resolved. -CTH: no acute findings; cerebral atrophy; old LEFT parietal infarct; chronic periventricular ischemic changes -CTAP: 1.4 cm partially obstructing calculus Right renal pelvis -Received Vanc/Zosyn; was switched to Ceftriaxone -ID consult appreciated -BCx/UCx +Proteus; repeat cultures neg -Uro following; stent when stable #New Onset Paroxysmal afib w/ RVR; in setting of sepsis PRN IV metoprolol if needed May require outpatient Holter monitoring to determine need for anticoagulation in the future #HTN; Hold home Amlodipine for now #NSTEMI; Trops peaked -Per cardio, not a candidate for stress or cardiac cath -Monitor off tele -Platelets were less than 50k therefore AC was not started. -EKG: Afib w/ RVR, L axis deviation. Inferior & anterior infract (cited on/before 01/15/2020). ST & T wave abnormality, consider lateral ischemia #Hypernatremia; Worsening. Na 154 today. -Free water via NGt -Per nephro, start D5W -Cont to trend BMP (Na) #DK- now resolved s/p IVF #Thrombocytopenia; Received 2U platelets this admission. -Stable, today Pl 100 #Prophylaxis DVT: Lovenox 60 BID (given suspected COVID-19); Low threshold to hold AC due to thrombocytopenia. Transfusion threshold is 8 GI: Protonix 40 IV #FEN -encourage PO intake via NGT, Pt. is a difficult stick, consult to Vascular PAs for access, until then will treat -recheck lytes in AM -Dysphagia puree with honey thick liquids Dispo -Cont to monitor on med-surg -Will likely need in patient hospice; GOC to be discussed with family -DNR/DNI Visit type - Emergency Visit Emergency Visit: Yes ED Registration Date: 01/15/20 Care time: The patient presented to the Emergency Department on the above date and was hospitalized for further evaluation of their emergent condition. - New Patient This patient is new to me today: No - Critical Care Critical Care patient: No - Discharge Referral Referred to [facility] Med P.C.: No - Medication Review Med list reviewed for High Risk Meds patients 65 and older: Yes ATTENDING PHYSICIAN STATEMENT I saw and evaluated the patient. I reviewed the resident's note and discussed the case with the resident. I agree with the resident's findings and plan as documented. SUBJECTIVE: OBJECTIVE: ASSESSMENT AND PLAN:
--- NOTE | 2020-01-31 13:28 | PN ---
Teaching Attending Note Name of Resident: Lisbet Bullard ATTENDING PHYSICIAN STATEMENT I saw and evaluated the patient. I reviewed the resident's note and discussed the case with the resident. I agree with the resident's findings and plan as documented. SUBJECTIVE: Seen and examined at bedside. Dehydration and hypernatremia continue to worsen. NGT placed overnight. Patient to continue to see if 250 mL's of free water every 4 hours OBJ Last Vital Signs Temp Pulse Resp BP Pulse Ox 98.7 F 112 H 24 H 149/84 89 L 01/31/20 10:00 01/31/20 10:00 01/31/20 10:00 01/31/20 10:00 01/31/20 10:00 PE: Per resident note Labs/Imaging: reviewed ASSESSMENT/PLAN 84-year-old male history of hypertension bipolar disorder admitted for severe sepsis to ICU in the setting of infected kidney stone and possible pneumonia. Pt was clinically improving on the floor then became hypoxic with + Covid AB negative PCRx3 #hypoxia with + Covid AB negative PCRx3 Clinically high concern for covid given fevers, bilateral infiltrates, elevated inflammatory markers, and high degree of hypoxia. Despite negative test x3 we are treating it is active COVID -covid AB+ -cont IV steroids -pulm on board start AC now that plts>100 #Severe sepsis: Proteus bacteremia In setting of infected obstructing kidney stone 1.4cm and possible pneumonia. Patient is now hemodynamically stable with improving white count status post Zosyn, right nephrostomy, and العلي catheter. Fevers are increasing since patient was downgraded to ceftriaxone from Zosyn. There may be a component of aspiration pneumonia. Will discuss switching back to Zosyn with ID -Troponin downtrending, DK resolved, continuing thrombocytopenia Urology on board, stent when stable #Hypernatremia: Worsening Patient is not taking enough fluids p.o. to maintain hydration NGT placed overnight. Patient to continue to see if 250 mL's of free water jenna ry 4 hours #Thrombocytopenia: improving Likely in the setting of severe sepsis. Patient's platelets were normal in 2018 Trend CBC #New onset atrial fibrillation In the setting of sepsis PRN IV metoprolol May require outpatient Holter monitoring to determine need for anticoagulation in the future #Prerenal and postrenal DK: Resolved Disposition:. Patient with very poor long-term prognosis. Still with remaining infected kidney stone and multiple organ dysfunction, dementia, poor p.o. intake and hypoxia with likely COVID infection. Will discuss possibility we will discuss goals of care with family including possibility of inpatient hospice
--- NOTE | 2020-01-31 15:33 | PN ---
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, Physician History of Present Illness: Pt seen and examined at bedside. She is awake but not very responsive. - Current Medication List Current Medications: Active Medications Aripiprazole (Abilify) 5 mg PO DAILY [facility] Last Admin: 01/31/20 10:14 Dose: 5 mg Documented by: Ascorbic Acid (Vitamin C -) 250 mg PO BID [facility] Last Admin: 01/31/20 10:13 Dose: 250 mg Documented by: Enoxaparin Sodium (Lovenox -) 60 mg SQ BID [facility] Last Admin: 01/31/20 10:14 Dose: 60 mg Documented by: Furosemide (Lasix Injection -) 20 mg IVPUSH DAILY [facility] Last Admin: 01/29/20 12:45 Dose: 20 mg Documented by: Nystatin (Nystop Powder -) 1 applic TP DAILY [facility] Last Admin: 01/31/20 10:13 Dose: 1 applic Documented by: Pantoprazole Sodium (Protonix -) 40 mg PO DAILY [facility] Last Admin: 01/31/20 10:13 Dose: 40 mg Documented by: Prednisone (Deltasone -) 40 mg PO BID [facility] Last Admin: 01/31/20 10:13 Dose: 40 mg Documented by: Silver Sulfadiazine (Silvadene -) 1 applic TP DAILY [facility] Last Admin: 01/31/20 10:14 Dose: 1 applic Documented by: Zinc Sulfate (Orazinc -) 220 mg PO DAILY [facility] Last Admin: 01/31/20 10:13 Dose: 220 mg Documented by: - Objective Vital Signs: Vital Signs Temperature 98.0 F 01/31/20 14:26 Pulse Rate 97 H 01/31/20 14:26 Respiratory Rate 24 H 01/31/20 14:26 Blood Pressure 151/77 01/31/20 14:26 O2 Sat by Pulse Oximetry (%) 89 L 01/31/20 10:00 Constitutional: Yes: Calm Eyes: Yes: Conjunctiva Clear HENT: Yes: Atraumatic Cardiovascular: Yes: S1, S2 Respiratory: Yes: On Venti-Mask Gastrointestinal: Yes: Soft Genitourinary: Yes: العلي Present, Other (nephrostomy) Musculoskeletal: Yes: Muscle Weakness Edema: No Neurological: Yes: Confusion Labs: CBC, BMP 01/31/20 10:15 01/31/20 08:00 INR, PTT INR 1.21 (0.83-1.09) H 01/25/20 10:50 Fibrinogen 463.0 mg/dL (238-498) 01/25/20 10:50 Problem List - Problems (1) DK (acute kidney injury) Code(s): N17.9 - ACUTE KIDNEY FAILURE, UNSPECIFIED (2) Hypernatremia Code(s): E87.0 - HYPEROSMOLALITY AND HYPERNATREMIA (3) NSTEMI (non-ST elevated myocardial infarction) Code(s): I21.4 - NON-ST ELEVATION (NSTEMI) MYOCARDIAL INFARCTION Assessment/Plan Current Medications Generic Name Dose Route Start Last Admin Trade Name Freq PRN Reason Stop Dose Admin Aripiprazole 5 mg 01/28/20 10:00 01/31/20 10:14 Abilify PO 5 mg DAILY FERNANDO Administration Ascorbic Acid 250 mg 01/28/20 22:00 01/31/20 10:13 Vitamin C - PO 250 mg BID FERNANDO Administration Enoxaparin Sodium 60 mg 01/27/20 12:00 01/31/20 10:14 Lovenox - SQ 60 mg BID FERNANDO Administration Furosemide 20 mg 01/29/20 10:00 01/29/20 12:45 Lasix Injection - IVPUSH 20 mg DAILY FERNANDO Administration Nystatin 1 applic 01/29/20 10:00 01/31/20 10:13 Nystop Powder - TP 1 applic DAILY FERNANDO Administration Pantoprazole Sodium 40 mg 01/30/20 10:00 01/31/20 10:13 Protonix - PO 40 mg DAILY FERNANDO Administration Prednisone 40 mg 01/29/20 22:00 01/31/20 10:13 Deltasone - PO 40 mg BID FERNANDO Administration Silver Sulfadiazine 1 applic 01/27/20 10:00 01/31/20 10:14 Silvadene - TP 1 applic DAILY FERNANDO Administration Zinc Sulfate 220 mg 01/29/20 10:00 01/31/20 10:13 Orazinc - PO 220 mg DAILY FERNANDO Administration Impression 1. dk 2. hypernatremia 3. hypokalemia 4. sepsis 5. nstemi 6. gram neg bacteremia 7. htn 8. a-fib 9. thrombocytopenia Plan - cont free water - monitor sodium - monitor pulse ox - pt clinically doing poorly - discuss overall GOC - cont to monitor sodium
--- NOTE | 2020-01-31 15:36 | PN ---
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 (short form) - Note 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: Lethargic. General worsening of overall condition. No acute events overnight. Intake & Output 01/28/20 01/29/20 01/30/20 01/31/20 23:59 23:59 23:59 23:59 Intake Total 33 439 906 9741 Output Total 900 1650 600 350 Balance -867 -1210 -122 650 Last Vital Signs Temp Pulse Resp BP Pulse Ox 98.0 F 97 H 24 H 151/77 89 L 01/31/20 14:26 01/31/20 14:26 01/31/20 14:01/31/20 14:01/31/20 10:00 Active Medications Aripiprazole (Abilify) 5 mg PO DAILY [facility] Last Admin: 01/31/20 10:14 Dose: 5 mg Documented by: Ascorbic Acid (Vitamin C -) 250 mg PO BID [facility] Last Admin: 01/31/20 10:13 Dose: 250 mg Documented by: Enoxaparin Sodium (Lovenox -) 60 mg SQ BID [facility] Last Admin: 01/31/20 10:14 Dose: 60 mg Documented by: Furosemide (Lasix Injection -) 20 mg IVPUSH DAILY [facility] Last Admin: 01/29/20 12:45 Dose: 20 mg Documented by: Nystatin (Nystop Powder -) 1 applic TP DAILY [facility] Last Admin: 01/31/20 10:13 Dose: 1 applic Documented by: Pantoprazole Sodium (Protonix -) 40 mg PO DAILY [facility] Last Admin: 01/31/20 10:13 Dose: 40 mg Documented by: Prednisone (Deltasone -) 40 mg PO BID [facility] Last Admin: 01/31/20 10:13 Dose: 40 mg Documented by: Silver Sulfadiazine (Silvadene -) 1 applic TP DAILY [facility] Last Admin: 01/31/20 10:14 Dose: 1 applic Documented by: Zinc Sulfate (Orazinc -) 220 mg PO DAILY [facility] Last Admin: 01/31/20 10:13 Dose: 220 mg Documented by: Constitutional: Yes: Lethargic Eyes: Yes: WNL HENT: Yes: WNL Neck: Yes: WNL Cardiovascular: Yes: Pulse Irregular, S1, S2 Respiratory: Yes: Bilateral scattered rhonchi, No wheeze Gastrointestinal: Yes: Normal Bowel Sounds, Soft Extremities: Yes: WNL Edema: No Labs: Laboratory Results - last 24 hr 01/29/20 01/30/20 01/31/20 09:15 08:20 08:00 WBC RBC Hgb Hct MCV MCH MCHC RDW Plt Count MPV Absolute Neuts (auto) Neutrophils % Neutrophils % (Manual) Band Neutrophils % Lymphocytes % Lymphocytes % (Manual) Monocytes % Monocytes % (Manual) Eosinophils % Eosinophils % (Manual) Basophils % Basophils % (Manual) Myelocytes % (Man) Promyelocytes % (Man) Blast Cells % (Manual) Nucleated RBC % Metamyelocytes Hypochromia Platelet Estimate Polychromasia Poikilocytosis Anisocytosis Microcytosis Macrocytosis Target Cells D-Dimer Sodium 154 H Potassium 4.1 Chloride 119 H Carbon Dioxide 27 Anion Gap 8 BUN 71.7 H Creatinine 1.4 H Est GFR (CKD-EPI)AfAm 40.45 Est GFR (CKD-EPI)NonAf 34.90 Random Glucose 220 H Calcium 7.9 L Phosphorus 3.2 Magnesium 2.6 H Ferritin 1321.8 H Total Bilirubin 1.2 H AST 23 ALT 41 Alkaline Phosphatase 182 H LD Total 371 H C-Reactive Protein 8.7 H 6.6 H 6.3 H Total Protein 5.1 L Albumin 1.4 L 01/31/20 01/31/20 10:15 10:15 WBC 25.6 H RBC 2.78 L Hgb 9.8 L Hct 29.4 L MCV 105.9 H MCH 35.4 H MCHC 33.4 RDW 15.9 H Plt Count 100 L MPV 10.9 Absolute Neuts (auto) 24.0 H Neutrophils % 93.5 H Neutrophils % (Manual) 97.0 H Band Neutrophils % 1.0 Lymphocytes % 3.8 L D Lymphocytes % (Manual) 1.0 L D Monocytes % 2.4 L Monocytes % (Manual) 1 L Eosinophils % 0.1 D Eosinophils % (Manual) 0.0 Basophils % 0.2 Basophils % (Manual) 0.0 Myelocytes % (Man) 0 Promyelocytes % (Man) 0 Blast Cells % (Manual) 0 Nucleated RBC % 0 Metamyelocytes 0 Hypochromia 1+ Platelet Estimate Decreased Polychromasia 1+ Poikilocytosis 1+ Anisocytosis 1+ Microcytosis 0 Macrocytosis 1+ Target Cells 1+ D-Dimer 1477 H Sodium Potassium Chloride Carbon Dioxide Anion Gap BUN Creatinine Est GFR (CKD-EPI)AfAm Est GFR (CKD-EPI)NonAf Random Glucose Calcium Phosphorus Magnesium Ferritin Total Bilirubin AST ALT Alkaline Phosphatase LD Total C-Reactive Protein Total Protein Albumin Assessment/Plan Acute hypoxemic respiratory failure BILATERAL PNEUMONIA Suspected COVID-19 UTI/Nephrolithiasis Gram Negative Bacteremia Sepsis Acute on Chronic Renal Failure Thrombocytopenia Acute NSTEMI Paroxysmal Atrial Fibrillation HTN Pneumonia Hypernatremia improving - NRBM / HFOT tolerated - ABX per ID - Medrol - S/P nephrostomy tube placement - Monitor CBC - Rate control - DVT prophylaxis - COVID ANTIBODY + - AC - DNR/DNI - Consider hospice Dr Johnson
[2020-01-31 21:32] LABS: BLOOD UREA NITROGEN 71.5 mg/dL (7-18); CALCIUM 7.9 mg/dL (8.5-10.1); CREATININE 1.3 mg/dL (0.55-1.3); POTASSIUM 3.8 mmol/L (3.5-5.1)
--- NOTE | 2020-02-01 02:30 | PN ---
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, Physician Chief Complaint: Pt on non-rebreather; no response to verbal queries. History of Present Illness: Ms. Bradford is a 84 yr old white woman with PM hx of bipolar disorder (non compliant to medications) who now presented to the ED from [place] for hypoxia, fever, AMS. The patient is usually alert and speaks, however she was nonresponsive; history is limited due to her clinical status. Upon arrival, pt noted to be febrile. Pt unable to give a history. Information taken from [place] paperwork.WBC 22.9 HB 13. Plt 27 BUN 95.4 Creat 2.9, lactate 3.9, trops 10 CT-Scan Rt Renal pelvis stone 1.4 cm with partial obstruction Pt was given empiric IV abx coverage with Vanc/Zosyn. Uro made aware with recomm endation to make NPO after midnight, now in rapid afib. - Current Medication List Current Medications: Active Medications Aripiprazole (Abilify) 5 mg PO DAILY [facility] Last Admin: 01/31/20 10:14 Dose: 5 mg Documented by: Ascorbic Acid (Vitamin C -) 250 mg PO BID [facility] Last Admin: 01/31/20 21:16 Dose: 250 mg Documented by: Enoxaparin Sodium (Lovenox -) 60 mg SQ BID [facility] Last Admin: 01/31/20 21:16 Dose: 60 mg Documented by: Furosemide (Lasix Injection -) 20 mg IVPUSH DAILY [facility] Last Admin: 01/29/20 12:45 Dose: 20 mg Documented by: Nystatin (Nystop Powder -) 1 applic TP DAILY [facility] Last Admin: 01/31/20 10:13 Dose: 1 applic Documented by: Pantoprazole Sodium (Protonix -) 40 mg PO DAILY [facility] Last Admin: 01/31/20 10:13 Dose: 40 mg Documented by: Prednisone (Deltasone -) 40 mg PO BID [facility] Last Admin: 01/31/20 21:16 Dose: 40 mg Documented by: Silver Sulfadiazine (Silvadene -) 1 applic TP DAILY [facility] Last Admin: 01/31/20 10:14 Dose: 1 applic Documented by: Zinc Sulfate (Orazinc -) 220 mg PO DAILY [facility] Last Admin: 01/31/20 10:13 Dose: 220 mg Documented by: - Objective Vital Signs: Vital Signs Temperature 98.1 F 09/15/20 21:08 Pulse Rate 86 01/31/20 21:08 Respiratory Rate 24 H 01/31/20 21:08 Blood Pressure 141/78 01/31/20 21:08 O2 Sat by Pulse Oximetry (%) 98 02/01/20 00:11 Constitutional: Yes: Other Eyes: Yes: Other (opens spontaneiously) HENT: Yes: Normocephalic Neck: Yes: Decreased ROM Cardiovascular: Yes: S1, S2, S4 Respiratory: Yes: Diminished, On Venti-Mask, Tachypnea Gastrointestinal: Yes: Soft Genitourinary: No: Anuria Breast(s): Yes: WNL Musculoskeletal: Yes: Muscle Weakness Extremities: Yes: Cool Edema: Yes Edema: LLE: Trace, RLE: Trace Peripheral Pulses WNL: Yes Integumentary: Yes: WNL Neurological: Yes: Unresponsive, Weakness Psychiatric: Yes: Other Labs: CBC, BMP 01/31/20 10:15 01/31/20 20:35 INR, PTT INR 1.21 (0.83-1.09) H 01/25/20 10:50 Fibrinogen 463.0 mg/dL (238-498) 01/25/20 10:50 - ....Imaging Chest X-ray: Pending EKG: Image Reviewed Assessment/Plan 1. CAD, NSTEMI in context of: 2. Paroxysmal afib with RVR 3. Sepsis source with partially obstructive right renal pelvis stone, possible LLL PNA 4. Toxic metabolic encephalopathy 5. Acute on CKD 6. HTN 7.ECHO: nl LVEF, trace-mild MR; no pericardial effusion. 8.Schizo affective ds, Non-verbal COVID not detected. Start PO metoprolol tartrate 12.5 mg bid for HR control (PAF) and BP, and increase as tolerated. s/p nephrostomy tube On PO steroids F/u CXR, Is and Os, daily weight, electrolytes, BUN/Cr; attempt to discontinue furosemide as CHF improves, and avoid excessive dehydration. On Lovenox for anticoagulation; consider change to DOAC (f/u renal function). Due to Schizo affective ds, and patient being non-verbal she is a poor candidate for invasive cardiac w/u e.g. stress test c. cath. Now off telemetry.
[2020-02-01 09:08] LABS: HEMATOCRIT 28.8 % (32.4-45.2); HEMOGLOBIN 9.3 GM/dL (10.7-15.3); MCH 34.8 pg (25.7-33.7); MCHC 32.4 g/dl (32.0-36.0); MEAN CELL VOLUME 107.4 fl (80-96); MEAN PLT VOLUME 10.9 fl (7.5-11.1); PLATELET COUNT 71 K/MM3 (134-434); RBC 2.68 M/mm3 (3.60-5.2); RDW 16.1 % (11.6-15.6); WHITE BLOOD COUNT 24.4 K/mm3 (4.0-10.0)
[2020-02-01 09:35] LABS: POTASSIUM 3.9 mmol/L (3.5-5.1)
[2020-02-01 09:53] LABS: ALBUMIN 1.5 g/dl (3.4-5.0); BILIRUBIN,TOTAL 1.1 mg/dL (0.2-1); BLOOD UREA NITROGEN 75.2 mg/dL (7-18); CALCIUM 7.9 mg/dL (8.5-10.1); CREATININE 1.3 mg/dL (0.55-1.3); TOT PROT 5.5 g/dl (6.4-8.2)
--- NOTE | 2020-02-01 10:12 | PN ---
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, Physician - Current Medication List Current Medications: Active Medications Aripiprazole (Abilify) 5 mg PO DAILY [facility] Last Admin: 01/31/20 10:14 Dose: 5 mg Documented by: Ascorbic Acid (Vitamin C -) 250 mg PO BID [facility] Last Admin: 01/31/20 21:16 Dose: 250 mg Documented by: Enoxaparin Sodium (Lovenox -) 60 mg SQ BID [facility] Last Admin: 01/31/20 21:16 Dose: 60 mg Documented by: Furosemide (Lasix Injection -) 20 mg IVPUSH DAILY [facility] Last Admin: 01/29/20 12:45 Dose: 20 mg Documented by: Nystatin (Nystop Powder -) 1 applic TP DAILY [facility] Last Admin: 01/31/20 10:13 Dose: 1 applic Documented by: Pantoprazole Sodium (Protonix -) 40 mg PO DAILY [facility] Last Admin: 01/31/20 10:13 Dose: 40 mg Documented by: Prednisone (Deltasone -) 40 mg PO BID [facility] Last Admin: 01/31/20 21:16 Dose: 40 mg Documented by: Silver Sulfadiazine (Silvadene -) 1 applic TP DAILY [facility] Last Admin: 01/31/20 10:14 Dose: 1 applic Documented by: Zinc Sulfate (Orazinc -) 220 mg PO DAILY [facility] Last Admin: 01/31/20 10:13 Dose: 220 mg Documented by: - Objective Vital Signs: Vital Signs Temperature 97.8 F 02/01/20 06:00 Pulse Rate 87 02/01/20 06:00 Respiratory Rate 22 H 02/01/20 06:00 Blood Pressure 144/78 02/01/20 06:00 O2 Sat by Pulse Oximetry (%) 97 02/01/20 06:00 Labs: CBC, BMP 02/01/20 08:38 02/01/20 08:38 INR, PTT INR 1.21 (0.83-1.09) H 01/25/20 10:50 Fibrinogen 463.0 mg/dL (238-498) 01/25/20 10:50 Assessment/Plan Assessment/Plan A/P acute hypoxemic respiratory failure improving BILATERAL PNEUMONIA Suspected COVID-19 UTI/Nephrolithiasis Gram Negative Bacteremia Sepsis Acute on Chronic Renal Failure Thrombocytopenia Acute NSTEMI Paroxysmal Atrial Fibrillation HTN Pneumonia Hypernatremia improving - Titrate O2to maintain O2sat 90% or greater - antibiotics as per ID - medrol - monitor inflammatory markers - S/P nephrostomy tube placement - IVF - monitor urine output, creatinine - monitor CBC, coags,lytes,na - rate control - DVT prophylaxis - f/u chest x-rays - Repeat Covid pcr negative - COVID ANTIBODY + - AC DR CARBAJAL
--- NOTE | 2020-02-01 13:07 | PN ---
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, Physician History of Present Illness: Pt seen and examined at bedside. She is awake but not very interactive. - Current Medication List Current Medications: Active Medications Aripiprazole (Abilify) 5 mg PO DAILY [facility] Last Admin: 01/31/20 10:14 Dose: 5 mg Documented by: Ascorbic Acid (Vitamin C -) 250 mg PO BID [facility] Last Admin: 01/31/20 21:16 Dose: 250 mg Documented by: Enoxaparin Sodium (Lovenox -) 60 mg SQ BID [facility] Last Admin: 01/31/20 21:16 Dose: 60 mg Documented by: Furosemide (Lasix Injection -) 20 mg IVPUSH DAILY [facility] Last Admin: 01/29/20 12:45 Dose: 20 mg Documented by: Nystatin (Nystop Powder -) 1 applic TP DAILY [facility] Last Admin: 01/31/20 10:13 Dose: 1 applic Documented by: Pantoprazole Sodium (Protonix -) 40 mg PO DAILY [facility] Last Admin: 01/31/20 10:13 Dose: 40 mg Documented by: Prednisone (Deltasone -) 40 mg PO BID [facility] Last Admin: 01/31/20 21:16 Dose: 40 mg Documented by: Silver Sulfadiazine (Silvadene -) 1 applic TP DAILY [facility] Last Admin: 01/31/20 10:14 Dose: 1 applic Documented by: Zinc Sulfate (Orazinc -) 220 mg PO DAILY [facility] Last Admin: 01/31/20 10:13 Dose: 220 mg Documented by: - Objective Vital Signs: Vital Signs Temperature 97.8 F 02/01/20 06:00 Pulse Rate 87 02/01/20 06:00 Respiratory Rate 22 H 02/01/20 06:00 Blood Pressure 144/78 02/01/20 06:00 O2 Sat by Pulse Oximetry (%) 97 02/01/20 06:00 Constitutional: Yes: Calm Eyes: Yes: Conjunctiva Clear HENT: Yes: Atraumatic Cardiovascular: Yes: S1, S2 Respiratory: Yes: CTA Bilaterally Gastrointestinal: Yes: Soft Genitourinary: Yes: العلي Present, Other (nephrostomy) Musculoskeletal: Yes: Muscle Weakness Neurological: Yes: Confusion Labs: CBC, BMP 02/01/20 08:38 02/01/20 08:38 INR, PTT INR 1.21 (0.83-1.09) H 01/25/20 10:50 Fibrinogen 463.0 mg/dL (238-498) 01/25/20 10:50 Problem List - Problems (1) DK (acute kidney injury) Code(s): N17.9 - ACUTE KIDNEY FAILURE, UNSPECIFIED (2) Hypernatremia Code(s): E87.0 - HYPEROSMOLALITY AND HYPERNATREMIA (3) NSTEMI (non-ST elevated myocardial infarction) Code(s): I21.4 - NON-ST ELEVATION (NSTEMI) MYOCARDIAL INFARCTION Assessment/Plan Current Medications Generic Name Dose Route Start Last Admin Trade Name Freq PRN Reason Stop Dose Admin Aripiprazole 5 mg 01/28/20 10:00 01/31/20 10:14 Abilify PO 5 mg DAILY FERNANDO Administration Ascorbic Acid 250 mg 01/28/20 22:00 01/31/20 21:16 Vitamin C - PO 250 mg BID FERNANDO Administration Enoxaparin Sodium 60 mg 01/27/20 12:00 01/31/20 21:16 Lovenox - SQ 60 mg BID FERNANDO Administration Furosemide 20 mg 01/29/20 10:00 01/29/20 12:45 Lasix Injection - IVPUSH 20 mg DAILY [facility]ERNANDO Administration Nystatin 1 applic 01/29/20 10:00 01/31/20 10:13 Nystop Powder - TP 1 applic DAILY FERNANDO Administration Pantoprazole Sodium 40 mg 01/30/20 10:00 01/31/20 10:13 Protonix - PO 40 mg DAILY FERNANDO Administration Prednisone 40 mg 01/29/20 22:00 01/31/20 21:16 Deltasone - PO 40 mg BID FERNANDO Administration Silver Sulfadiazine 1 applic 01/27/20 10:00 01/31/20 10:14 Silvadene - TP 1 applic DAILY FERNANDO Administration Zinc Sulfate 220 mg 01/29/20 10:00 01/31/20 10:13 Orazinc - PO 220 mg DAILY FERNANDO Administration Impression 1. dk 2. hypernatremia 3. hypokalemia 4. sepsis 5. nstemi 6. gram neg bacteremia 7. htn 8. a-fib 9. thrombocytopenia Plan - cont free water via ng tube - volume status has become difficult to control - pulm input appreciated - monitor pulse ox - pt clinically doing poorly - discuss overall GOC - cont to monitor sodium
--- NOTE | 2020-02-01 13:20 | PN ---
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, Physician History of Present Illness: 84 Y/O Female patient with Bipolar disease, HTN from [facility]. She is presented into ER with confusion fever 102.4, hypoxic respiratory failure WBC 22.9 HB 13. Plt 27 BUN 95.4 Creat 2.9, lactate 3.9, trops 10 CT-Scan Rt Renal pelvis stone 1.4 cm with partial obstruction Pt was given empiric IV abx coverage with Vanc/Zosyn. Uro made aware with recommendation to make NPO after midnight, now in rapid afib. - Current Medication List Current Medications: Active Medications Aripiprazole (Abilify) 5 mg PO DAILY [facility] Last Admin: 01/31/20 10:14 Dose: 5 mg Documented by: Ascorbic Acid (Vitamin C -) 250 mg PO BID [facility] Last Admin: 01/31/20 21:16 Dose: 250 mg Documented by: Enoxaparin Sodium (Lovenox -) 60 mg SQ BID [facility] Last Admin: 01/31/20 21:16 Dose: 60 mg Documented by: Furosemide (Lasix Injection -) 20 mg IVPUSH DAILY [facility] Last Admin: 01/29/20 12:45 Dose: 20 mg Documented by: Nystatin (Nystop Powder -) 1 applic TP DAILY [facility] Last Admin: 01/31/20 10:13 Dose: 1 applic Documented by: Pantoprazole Sodium (Protonix -) 40 mg PO DAILY [facility] Last Admin: 01/31/20 10:13 Dose: 40 mg Documented by: Prednisone (Deltasone -) 40 mg PO BID [facility] Last Admin: 01/31/20 21:16 Dose: 40 mg Documented by: Silver Sulfadiazine (Silvadene -) 1 applic TP DAILY [facility] Last Admin: 01/31/20 10:14 Dose: 1 applic Documented by: Zinc Sulfate (Orazinc -) 220 mg PO DAILY [facility] Last Admin: 01/31/20 10:13 Dose: 220 mg Documented by: - Objective Vital Signs: Vital Signs Temperature 97.8 F 02/01/20 06:00 Pulse Rate 87 02/01/20 06:00 Respiratory Rate 22 H 02/01/20 06:00 Blood Pressure 144/78 02/01/20 06:00 O2 Sat by Pulse Oximetry (%) 97 02/01/20 06:00 Eyes: Yes: WNL, Conjunctiva Clear, EOM Intact HENT: Yes: WNL, Atraumatic, Normocephalic Neck: Yes: WNL, Supple, Trachea Midline Cardiovascular: Yes: WNL, Regular Rate and Rhythm Respiratory: Yes: WNL, Regular, CTA Bilaterally Gastrointestinal: Yes: WNL, Normal Bowel Sounds Genitourinary: Yes: WNL Musculoskeletal: Yes: WNL Extremities: Yes: WNL Edema: No Integumentary: Yes: WNL Labs: CBC, BMP 02/01/20 08:38 02/01/20 08:38 INR, PTT INR 1.21 (0.83-1.09) H 01/25/20 10:50 Fibrinogen 463.0 mg/dL (238-498) 01/25/20 10:50 Problem List - Problems (1) Elevated liver enzymes Code(s): R74.8 - ABNORMAL LEVELS OF OTHER SERUM ENZYMES (2) NSTEMI (non-ST elevated myocardial infarction) Code(s): I21.4 - NON-ST ELEVATION (NSTEMI) MYOCARDIAL INFARCTION (3) Paroxysmal atrial fibrillation with RVR Code(s): I48.0 - PAROXYSMAL ATRIAL FIBRILLATION (4) Pneumonia Code(s): J18.9 - PNEUMONIA, UNSPECIFIED ORGANISM Qualifiers: Pneumonia type: due to unspecified organism Laterality: left Lung location: lower lobe of lung Qualified Code(s): J18.9 - Pneumonia, unspecified organism (5) Sepsis Code(s): A41.9 - SEPSIS, UNSPECIFIED ORGANISM Qualifiers: Sepsis type: sepsis due to unspecified organism Sepsis acute organ dysfunction status: with acute organ dysfunction Severe sepsis acute organ dysfunction type: acute renal failure Acute renal failure type: unspecified Severe sepsis shock status: without septic shock Qualified Code(s): A41.9 - Sepsis, unspecified organism; R65.20 - Severe sepsis without septic shock; N17.9 - Acute kidney failure, unspecified (6) Thrombocytopenia Code(s): D69.6 - THROMBOCYTOPENIA, UNSPECIFIED (7) UTI (urinary tract infection) Code(s): N39.0 - URINARY TRACT INFECTION, SITE NOT SPECIFIED Qualifiers: Urinary tract infection type: site unspecified Hematuria presence: with hematuria Qualified Code(s): N39.0 - Urinary tract infection, site not specified; R31.9 - Hematuria, unspecified (8) Anxiety Code(s): F41.9 - ANXIETY DISORDER, UNSPECIFIED (9) Contusion, chest wall Code(s): S20.219A - CONTUSION OF UNSPECIFIED FRONT WALL OF THORAX, INIT ENCNTR Qualifiers: Encounter type: initial encounter Laterality: left Qualified Code(s): S20.212A - Contusion of left front wall of thorax, initial encounter (10) Shortness of breath Code(s): R06.02 - SHORTNESS OF BREATH (11) Well adult Code(s): IOU1599 - Assessment/Plan 1. CAD, NSTEMI in context of: 2. Paroxysmal afib with RVR 3. Sepsis source with partially obstructive right renal pelvis stone, possible LLL PNA 4. Toxic metabolic encephalopathy 5. Acute on CKD 6. HTN 7.ECHO: nl LVEF, trace-mild MR; no pericardial effusion. 8.Schizo affective ds, Non-verbal COVID not detected. Start PO metoprolol tartrate 12.5 mg bid for HR control (PAF) and BP, and increase as tolerated. s/p nephrostomy tube On PO steroids F/u CXR, Is and Os, daily weight, electrolytes, BUN/Cr; attempt to discontinue furosemide as CHF improves, and avoid excessive dehydration. On Lovenox for anticoagulation; consider change to DOAC (f/u renal function). Due to Schizo affective ds, and patient being non-verbal she is a poor candidate for invasive cardiac w/u e.g. stress test c. cath. Now off telemetry.
--- NOTE | 2020-02-01 13:55 | PN ---
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: Selected Entries 01/30/20 01/30/20 01/30/20 06:00 10:00 10:15 Breakfast Diet Tolerated Lunch Supper Temperature 97.4 F L 98.3 F Pulse Rate 90 94 H 85 Blood Pressure 121/78 146/85 O2 Sat by Pulse Oximetry (%) Oxygen Delivery Method 01/30/20 01/30/20 01/30/20 11:15 14:21 18:57 Breakfast 25% Diet Tolerated Fair Fair Lunch 50% Supper Temperature 98.0 F 98.3 F Pulse Rate 110 H 115 H Blood Pressure 147/75 118/82 O2 Sat by Pulse Oximetry (%) Oxygen Delivery Method 01/30/20 01/30/20 01/31/20 20:51 23:00 02:00 Breakfast Diet Tolerated Fair Lunch Supper 50% Temperature 98.6 F Pulse Rate 106 H Blood Pressure 147/78 O2 Sat by Pulse 90 L Oximetry (%) Oxygen Delivery Method 01/31/20 01/31/20 01/31/20 09:00 09:08 10:00 Breakfast Diet Tolerated Lunch Supper Temperature Pulse Rate Blood Pressure O2 Sat by Pulse 89 L 91 L 89 L Oximetry (%) Oxygen Delivery Non-Rebreather Method Mask 01/31/20 01/31/20 01/31/20 15:52 18:50 20:14 Breakfast Diet Tolerated Lunch Supper Temperature Pulse Rate Blood Pressure O2 Sat by Pulse 97 98 98 Oximetry (%) Oxygen Delivery Non-Rebreather Method Mask 01/31/20 01/31/20 02/01/20 21:00 21:08 00:11 Breakfast Diet Tolerated Lunch Supper Temperature Pulse Rate Blood Pressure O2 Sat by Pulse 96 96 98 Oximetry (%) Oxygen Delivery Non-Rebreather Method Mask 02/01/20 02/01/20 02/01/20 02:00 06:00 09:30 Breakfast 0 Diet Tolerated Lunch Supper Temperature 97.6 F 97.8 F Pulse Rate 82 87 Blood Pressure 144/51 L 144/78 O2 Sat by Pulse 86 L 97 Oximetry (%) Oxygen Delivery Method Laboratory Tests 01/31/20 02/01/20 10:15 08:38 WBC 25.6 H 24.4 H Pt has NGT for free water, po diet. Alert today. PO as tolerated. Seen by Palliative care.
[2020-02-01] MEDS ORDERED: PT OWN MED DRAWER 7, Y5N ONE ×2 (14:01→21:13)
--- NOTE | 2020-02-01 14:02 | PN ---
Teaching Attending Note Name of Resident: Jovita Patel ATTENDING PHYSICIAN STATEMENT I saw and evaluated the patient. I reviewed the resident's note and discussed the case with the resident. I agree with the resident's findings and plan as documented. SUBJECTIVE: Seen and examined at bedside. Sodium is slowly coming down. Discussed case with daughter. She confirmed that she would like her mother to be sent to hospice. Discussed with case management will call the daughter with options and further information OBJ Last Vital Signs Temp Pulse Resp BP Pulse Ox 98.7 F 112 H 24 H 149/84 89 L 01/31/20 10:00 01/31/20 10:00 01/31/20 10:00 01/31/20 10:01/31/20 10:00 PE: Per resident note Labs/Imaging: reviewed ASSESSMENT/PLAN 84-year-old male history of hypertension bipolar disorder admitted for severe sepsis to ICU in the setting of infected kidney stone and possible pneumonia. Pt was clinically improving on the floor then became hypoxic with + Covid AB negative PCRx3 #hypoxia with + Covid AB negative PCRx3 Clinically high concern for covid given fevers, bilateral infiltrates, elevated inflammatory markers, and high degree of hypoxia. Despite negative test x3 we are treating it is active COVID -covid AB+ -cont IV steroids -pulm on board start AC now that plts>100 #Severe sepsis: Proteus bacteremia In setting of infected obstructing kidney stone 1.4cm and possible pneumonia. Patient is now hemodynamically stable with improving white count status post Zosyn, right nephrostomy, and العلي catheter. Fevers are increasing since patient was downgraded to ceftriaxone from Zosyn. There may be a component of aspiration pneumonia. Will discuss switching back to Zosyn with ID -Troponin downtrending, DK resolved, continuing thrombocytopenia Urology on board, stent when stable #Hypernatremia: Improve Patient is not taking enough fluids p.o. to maintain hydration NGT placed overnight. Patient to continue to see if 250 mL's of free water every 4 hours #Thrombocytopenia: improving Likely in the setting of severe sepsis. Patient's platelets were normal in 2018 Trend CBC #New onset atrial fibrillation In the setting of sepsis PRN IV metoprolol #Prerenal and postrenal DK: Resolved Disposition:. Patient with very poor long-term prognosis. Still with remaining infected kidney stone and multiple organ dysfunction, dementia, poor p.o. intake and hypoxia with likely COVID infection. Daughter confirmed that she would like her mother to be sent to hospice. Discussed with case management will call the daughter with options and further information
[2020-02-01] MEDS: predniSONE 20 MG TABLET (UD) PO SCH ×2 (14:04→22:03)
[2020-02-01] MEDS: PANTOPRAZOLE 40 MG TABLET PO SCH (14:04)
[2020-02-01] MEDS: ARIPiprazole 5 MG TABLET PO SCH (14:04)
[2020-02-01] MEDS: ASCORBIC ACID 250 MG TABLET (FP) PO SCH ×2 (14:04→22:03)
[2020-02-01] MEDS: ZINC SULFATE 220 MG CAPSULE (FP) PO SCH (14:04)
[2020-02-01] MEDS: NYSTATIN POWDER 100,000 UNITS/GM - 15 GM TOPICAL POWDER TP SCH (14:04)
[2020-02-01] MEDS: ENOXAPARIN NA (PORCINE) 60 MG/0.6 ML DISP.SYRIN SQ SCH ×2 (14:05→22:02)
[2020-02-01] MEDS: SILVER SULFADIAZINE 1% TOP CREAM 50 GM JAR TP SCH (14:06)
--- NOTE | 2020-02-01 14:48 | PN ---
Physical Exam: SUBJECTIVE: Patient seen and examined at bedside no acute events overnight; patient had some slightly bloody urine draining from her kline though HgB remained stable' OBJECTIVE: Vital Signs Period Temp Pulse Resp BP Sys/Mcmullen Pulse Ox Last 24 Hr 97.6 F-98.6 F 78-101 20-24 140-145/51-78 86-98 GENERAL: The patient is awake,alert though not interactive; in NAD on ventimask EYES: PEERLA: EOMI no scleral icterus NECK: no JVD; no lymphadenopathy LUNGS: CTA b/l no rales, rhonchi or wheezing HEART: Regular rate and rhythm, S1, S2 without murmur, rub or gallop. ABDOMEN: Soft,No wincing upon palpation; +BS in all 4 quadrants EXTREMITIES: 2+ pulses, warm, well-perfused, no edema. PSYCH: Normal mood, normal affect. SKIN: Warm, dry, normal turgor, no rashes or lesions noted Laboratory Results - last 24 hr 01/31/20 02/01/20 02/01/20 20:35 08:38 08:38 WBC RBC Hgb Hct MCV MCH MCHC RDW Plt Count MPV D-Dimer 1240 H Sodium 152 H 154 H Potassium 3.8 3.9 Chloride 119 H 120 H Carbon Dioxide 30 26 Anion Gap 3 L 8 BUN 71.5 H 75.2 H Creatinine 1.3 1.3 Est GFR (CKD-EPI)AfAm 44.24 44.24 Est GFR (CKD-EPI)NonAf 38.17 38.17 Random Glucose 219 H 197 H Calcium 7.9 L 7.9 L Ferritin 1375.5 H Total Bilirubin 1.1 H AST 34 ALT 55 Alkaline Phosphatase 176 H C-Reactive Protein 7.3 H Total Protein 5.5 L Albumin 1.5 L 02/01/20 08:38 WBC 24.4 H RBC 2.68 L Hgb 9.3 L Hct 28.8 L MCV 107.4 H MCH 34.8 H MCHC 32.4 RDW 16.1 H Plt Count 71 L D MPV 10.9 D-Dimer Sodium Potassium Chloride Carbon Dioxide Anion Gap BUN Creatinine Est GFR (CKD-EPI)AfAm Est GFR (CKD-EPI)NonAf Random Glucose Calcium Ferritin Total Bilirubin AST ALT Alkaline Phosphatase C-Reactive Protein Total Protein Albumin Active Medications Generic Name Dose Route Start Last Admin Trade Name Freq PRN Reason Stop Dose Admin Aripiprazole 5 mg 01/28/20 10:00 02/01/20 14:04 Abilify PO 5 mg DAILY FERNANDO Administration Ascorbic Acid 250 mg 01/28/20 22:00 02/01/20 14:04 Vitamin C - PO 250 mg BID FERNANDO Administration Enoxaparin Sodium 60 mg 01/27/20 12:00 02/01/20 14:05 Lovenox - SQ 60 mg BID FERNANDO Administration Furosemide 20 mg 01/29/20 10:00 01/29/20 12:45 Lasix Injection - IVPUSH 20 mg DAILY FERNANDO Administration Nystatin 1 applic 01/29/20 10:00 02/01/20 14:04 Nystop Powder - TP 1 applic DAILY FERNANDO Administration Pantoprazole Sodium 40 mg 01/30/20 10:00 02/01/20 14:04 Protonix - PO 40 mg DAILY FERNANDO Administration Prednisone 40 mg 01/29/20 22:00 02/01/20 14:04 Deltasone - PO 40 mg BID FERNANDO Administration Silver Sulfadiazine 1 applic 01/27/20 10:00 02/01/20 14:06 Silvadene - TP 1 applic DAILY FERNANDO Administration Zinc Sulfate 220 mg 01/29/20 10:00 02/01/20 14:04 Orazinc - PO 220 mg DAILY FERNANDO Administration ASSESSMENT/PLAN: 84 y.o. F w/ PMHx. of HTN, Major Depression, and Schizoaffective disorder (Aripiprazole, Fluoxetine, Mirtazapine) was brought in by EMS from [facility] for AMS. #Acute Hypoxic Respiratory Failure; likely 2/2 COVID-19 Pneumonitis vs. Aspiration PNA vs. pleural effusion -Although COVID-19 negx3, clinically there is a high concern for COVID-19 pneumonitis given hypoxia, fever, elevated inflammatory markers and b/l infiltrates found on CT chest. -COVID Ab+ -Prednisone 40 BID -Pulm following - Lovenox 60 mg BID SQ, Ascorbic acid 250 BID, Zinc 220 QD -Cont NRB; maintain SpO2 >90% -Daily inflammatory markers (d-dimer, Ferritin, CRP, LDH) -IV Lasix 20 mg QD #Severe Sepsis 2/2 UTI; 2/2 Proteus Bacteremia. Resolved. -CTH: no acute findings; cerebral atrophy; old LEFT parietal infarct; chronic periventricular ischemic changes -CTAP: 1.4 cm partially obstructing calculus Right renal pelvis -Received Vanc/Zosyn; was switched to Ceftriaxone -ID consult appreciated -BCx/UCx +Proteus; repeat cultures neg -Uro following; stent when stable #New Onset Paroxysmal afib w/ RVR; in setting of sepsis PRN IV metoprolol if needed May require outpatient Holter monitoring to determine need for anticoagulation in the future #HTN; Hold home Amlodipine for now #NSTEMI; Trops peaked -Per cardio, not a candidate for stress or cardiac cath -Monitor off tele -Platelets were less than 50k therefore AC was not started. -EKG: Afib w/ RVR, L axis deviation. Inferior & anterior infract (cited on/before 01/15/2020). ST & T wave abnormality, consider lateral ischemia #Hypernatremia; Worsening. Na 154 today. -Free water via NGt -Per nephro, start D5W -Cont to trend BMP (Na) BID #DK- now resolved s/p IVF #Thrombocytopenia; Received 2U platelets this admission. -Stable, today Pl71; down from 100 #Prophylaxis DVT: Lovenox 60 BID (given suspected COVID-19); Low threshold to hold AC due to thrombocytopenia. Transfusion threshold is 8 GI: Protonix 40 IV #FEN -encourage PO intake via NGT, Pt. is a difficult stick, consult to Vascular PAs for access, until then will treat -recheck lytes in AM -Dysphagia puree with honey thick liquids Dispo -Cont to monitor on med-surg -daughter agreed to hospice care- case management aware and will start process -DNR/DNI Problem List - Problems (1) DK (acute kidney injury) Code(s): N17.9 - ACUTE KIDNEY FAILURE, UNSPECIFIED (2) Elevated liver enzymes Code(s): R74.8 - ABNORMAL LEVELS OF OTHER SERUM ENZYMES (3) NSTEMI (non-ST elevated myocardial infarction) Code(s): I21.4 - NON-ST ELEVATION (NSTEMI) MYOCARDIAL INFARCTION (4) Pneumonia Code(s): J18.9 - PNEUMONIA, UNSPECIFIED ORGANISM Qualifiers: Pneumonia type: due to unspecified organism Laterality: left Lung location: lower lobe of lung Qualified Code(s): J18.9 - Pneumonia, unspecified organism (5) Sepsis Code(s): A41.9 - SEPSIS, UNSPECIFIED ORGANISM Qualifiers: Sepsis type: sepsis due to unspecified organism Sepsis acute organ dysfunction status: with acute organ dysfunction Severe sepsis acute organ dysfunction type: acute renal failure Acute renal failure type: unspecified Severe sepsis shock status: without septic shock Qualified Code(s): A41.9 - Se psis, unspecified organism; R65.20 - Severe sepsis without septic shock; N17.9 - Acute kidney failure, unspecified (6) Thrombocytopenia Code(s): D69.6 - THROMBOCYTOPENIA, UNSPECIFIED Visit type - Emergency Visit Emergency Visit: Yes ED Registration Date: 01/15/20 Care time: The patient presented to the Emergency Department on the above date and was hospitalized for further evaluation of their emergent condition. - New Patient This patient is new to me today: Yes Date on this admission: 02/01/20 - Critical Care Critical Care patient: No - Medication Review Med list reviewed for High Risk Meds patients 65 and older: Yes ATTENDING PHYSICIAN STATEMENT I saw and evaluated the patient. I reviewed the resident's note and discussed the case with the resident. I agree with the resident's findings and plan as documented. SUBJECTIVE: OBJECTIVE: ASSESSMENT AND PLAN:
--- NOTE | 2020-02-01 19:58 | PN ---
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, Physician History of Present Illness: PULMONARY SLEEPING ON 100% NRM O2 SAT 99% - Current Medication List Current Medications: Active Medications Aripiprazole (Abilify) 5 mg PO DAILY [facility] Last Admin: 02/01/20 14:04 Dose: 5 mg Documented by: Ascorbic Acid (Vitamin C -) 250 mg PO BID [facility] Last Admin: 02/01/20 14:04 Dose: 250 mg Documented by: Enoxaparin Sodium (Lovenox -) 60 mg SQ BID [facility] Last Admin: 02/01/20 14:05 Dose: 60 mg Documented by: Furosemide (Lasix Injection -) 20 mg IVPUSH DAILY [facility] Last Admin: 01/29/20 12:45 Dose: 20 mg Documented by: Nystatin (Nystop Powder -) 1 applic TP DAILY [facility] Last Admin: 02/01/20 14:04 Dose: 1 applic Documented by: Pantoprazole Sodium (Protonix -) 40 mg PO DAILY [facility] Last Admin: 02/01/20 14:04 Dose: 40 mg Documented by: Prednisone (Deltasone -) 40 mg PO BID [facility] Last Admin: 02/01/20 14:04 Dose: 40 mg Documented by: Silver Sulfadiazine (Silvadene -) 1 applic TP DAILY [facility] Last Admin: 02/01/20 14:06 Dose: 1 applic Documented by: Zinc Sulfate (Orazinc -) 220 mg PO DAILY [facility] Last Admin: 02/01/20 14:04 Dose: 220 mg Documented by: - Objective Vital Signs: Vital Signs Temperature 98.6 F 02/01/20 18:58 Pulse Rate 99 H 02/01/20 18:58 Respiratory Rate 20 02/01/20 18:58 Blood Pressure 116/66 02/01/20 18:58 O2 Sat by Pulse Oximetry (%) 99 02/01/20 18:58 Constitutional: Yes: Well Nourished, Other (SLEEPEING) Eyes: Yes: WNL HENT: Yes: WNL Neck: Yes: WNL Cardiovascular: Yes: Regular Rate and Rhythm, S1, S2 Respiratory: Yes: Diminished Gastrointestinal: Yes: Normal Bowel Sounds, Soft Extremities: Yes: WNL Edema: No Labs: CBC, BMP 02/01/20 08:38 02/01/20 08:38 INR, PTT INR 1.21 (0.83-1.09) H 01/25/20 10:50 Fibrinogen 463.0 mg/dL (238-498) 01/25/20 10:50 Assessment/Plan Assessment/Plan A/P acute hypoxemic respiratory failure BILATERAL PNEUMONIA Suspected COVID-19 UTI/Nephrolithiasis Gram Negative Bacteremia resolved Acute on Chronic Renal Failure Thrombocytopenia Acute NSTEMI Paroxysmal Atrial Fibrillation HTN Pneumonia Hypernatremia improving - Titrate O2to maintain O2sat 90% or greater - lasix - prednisone - S/P nephrostomy tube placement - IVF - monitor urine output, creatinine - monitor CBC, coags,lytes,na - rate control - DVT prophylaxis - f/u chest x-rays - Repeat Covid pcr negative - COVID ANTIBODY + - AC DR CARBAJAL
[2020-02-02 09:03] LABS: BASO % 0.2 % (0-2.0); HEMATOCRIT 30.8 % (32.4-45.2); MCH 34.5 pg (25.7-33.7); MCHC 32.4 g/dl (32.0-36.0); MEAN CELL VOLUME 106.3 fl (80-96); MEAN PLT VOLUME 11.3 fl (7.5-11.1); MONO % 2.1 % (3.8-10.2); NEUT % 94.7 % (42.8-82.8); PLATELET COUNT 71 K/MM3 (134-434); RDW 16.2 % (11.6-15.6); WHITE BLOOD COUNT 22.2 K/mm3 (4.0-10.0)
[2020-02-02 09:22] LABS: ALBUMIN 1.6 g/dl (3.4-5.0); BILIRUBIN,TOTAL 1.9 mg/dL (0.2-1); BLOOD UREA NITROGEN 83.5 mg/dL (7-18); CALCIUM 7.9 mg/dL (8.5-10.1); CREATININE 1.4 mg/dL (0.55-1.3); MAGNESIUM 2.9 mg/dL (1.8-2.4); PHOSPHOROUS 4.1 mg/dL (2.5-4.9); POTASSIUM 3.9 mmol/L (3.5-5.1); TOT PROT 5.7 g/dl (6.4-8.2)
[2020-02-02] MEDS ORDERED: PT OWN MED DRAWER 7, Y5N ONE ×2 (09:44→21:28)
[2020-02-02] MEDS: predniSONE 20 MG TABLET (UD) PO SCH (10:10)
[2020-02-02] MEDS: ASCORBIC ACID 250 MG TABLET (FP) PO SCH ×2 (10:10→22:00)
[2020-02-02] MEDS: ZINC SULFATE 220 MG CAPSULE (FP) PO SCH (10:10)
[2020-02-02] MEDS: ARIPiprazole 5 MG TABLET PO SCH (10:10)
[2020-02-02] MEDS: PANTOPRAZOLE 40 MG TABLET PO SCH (10:10)
[2020-02-02] MEDS: NYSTATIN POWDER 100,000 UNITS/GM - 15 GM TOPICAL POWDER TP SCH (10:10)
[2020-02-02] MEDS: ENOXAPARIN NA (PORCINE) 60 MG/0.6 ML DISP.SYRIN SQ SCH ×2 (10:10→22:00)
[2020-02-02] MEDS: SILVER SULFADIAZINE 1% TOP CREAM 50 GM JAR TP SCH (10:11)
[2020-02-02 10:24] LABS: ANISOCYTOSIS 1+; MACROCYTOSIS 1+; PLATELET ESTIMATE DECREASED
--- NOTE | 2020-02-02 10:44 | PN ---
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 - Note 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: Selected Entries 02/01/20 02/01/20 02/01/20 09:30 14:42 23:00 Breakfast 0 Lunch 0 Supper 25% Temperature Pulse Rate Respiratory Rate Respiratory Depth Respiratory Effort Blood Pressure O2 Sat by Pulse Oximetry (%) Oxygen Delivery Method Oxygen Flow Rate 02/02/20 02/02/20 02/02/20 06:55 09:10 09:29 Breakfast Lunch Supper Temperature 96.7 F L Pulse Rate 95 H 87 Respiratory 22 H Rate Respiratory Normal Depth Respiratory Short of Breath Effort Blood Pressure 161/81 O2 Sat by Pulse 95 97 Oximetry (%) Oxygen Delivery Non-Rebreather Non-Rebreather Method Mask Mask Oxygen Flow 15 15 Rate Laboratory Tests 02/02/20 07:25 WBC 22.2 H Plan is for [facility] under comfort/hospice care Puree/honey thick liquid on tsp
--- NOTE | 2020-02-02 11:21 | PN ---
Teaching Attending Note Name of Resident: Jovita Patel ATTENDING PHYSICIAN STATEMENT I saw and evaluated the patient. I reviewed the resident's note and discussed the case with the resident. I agree with the resident's findings and plan as documented. SUBJECTIVE: OBJECTIVE: ASSESSMENT AND PLAN: ASSESSMENT/PLAN: 84 y.o. Female with PMHx notable for HTN, Major Depression, and Schizoaffective disorder (Aripiprazole, Fluoxetine, Mirtazapine) who was brought in by EMS from [facility] for respiratory failure. #Acute Hypoxic Respiratory Failure -COVID negative x 3 -continue with steroids for pneumonitis Prednisone 40 BID -Pulmonary following -IV Lasix 20 mg QD #Severe Sepsis 2/2 UTI; 2/2 Proteus Bacteremia. Resolved. -Antibiotics as per ID -Urology following; stent when stable #New Onset Paroxysmal afib w/ RVR; in setting of sepsis PRN IV metoprolol if needed #NSTEMI -Per cardio, not a candidate for stress or cardiac cath -Monitor off tele #Hypernatremia; Worsening. Na 155 today. -Free water via NGt -Per nephro, start D5W -Cont to trend BMP (Na) BID #DK- now resolved s/p IVF #Thrombocytopenia; Received 2U platelets this admission. -Stable #Prophylaxis DVT: Lovenox 60 BID (given suspected COVID-19); Low threshold to hold AC due to thrombocytopenia. Transfusion threshold is 8 GI: Protonix 40 IV Dispo- Poor prognosis
--- NOTE | 2020-02-02 12:57 | PN ---
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 (short form) - Note 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: Lethargic on 100% NRBM. General worsening of overall condition. No acute events overnight. Intake & Output 01/30/20 01/31/20 02/01/20 02/02/20 23:59 23:59 23:59 23:59 Intake Total 478 1750 500 Output Total 600 550 650 300 Balance -122 1200 -150 -300 Last Vital Signs Temp Pulse Resp BP Pulse Ox 96.7 F L 87 22 H 161/81 97 02/02/20 06:55 02/02/20 09:10 02/02/20 06:55 02/02/20 06:55 02/02/20 09:29 Active Medications Aripiprazole (Abilify) 5 mg PO DAILY [facility] Last Admin: 02/02/20 10:10 Dose: 5 mg Documented by: Ascorbic Acid (Vitamin C -) 250 mg PO BID [facility] Last Admin: 02/02/20 10:10 Dose: 250 mg Documented by: Enoxaparin Sodium (Lovenox -) 60 mg SQ BID [facility] Last Admin: 02/02/20 10:10 Dose: 60 mg Documented by: Furosemide (Lasix Injection -) 20 mg IVPUSH DAILY [facility] Last Admin: 01/29/20 12:45 Dose: 20 mg Documented by: Nystatin (Nystop Powder -) 1 applic TP DAILY [facility] Last Admin: 02/02/20 10:10 Dose: 1 applic Documented by: Pantoprazole Sodium (Protonix -) 40 mg PO DAILY [facility] Last Admin: 02/02/20 10:10 Dose: 40 mg Documented by: Prednisone (Deltasone -) 40 mg PO DAILY [facility] Silver Sulfadiazine (Silvadene -) 1 applic TP DAILY [facility] Last Admin: 02/02/20 10:11 Dose: 1 applic Documented by: Zinc Sulfate (Orazinc -) 220 mg PO DAILY [facility] Last Admin: 02/02/20 10:10 Dose: 220 mg Documented by: Constitutional: Yes: Lethargic Eyes: Yes: WNL HENT: Yes: WNL Neck: Yes: WNL Cardiovascular: Yes: Pulse Irregular, S1, S2 Respiratory: Yes: Bilateral scattered rhonchi, No wheeze Gastrointestinal: Yes: Normal Bowel Sounds, Soft Extremities: Yes: WNL Edema: No Labs: Laboratory Results - last 24 hr 02/01/20 02/02/20 02/02/20 08:38 07:25 07:25 WBC 22.2 H RBC 2.90 L Hgb 10.0 L Hct 30.8 L MCV 106.3 H MCH 34.5 H MCHC 32.4 RDW 16.2 H Plt Count 71 L MPV 11.3 H Absolute Neuts (auto) 21.0 H Neutrophils % 94.7 H Neutrophils % (Manual) 94.8 H Band Neutrophils % 0.0 Lymphocytes % 3.0 L D Lymphocytes % (Manual) 5.2 L D Monocytes % 2.1 L Monocytes % (Manual) 0 L D Eosinophils % 0.0 D Eosinophils % (Manual) 0.0 Basophils % 0.2 Basophils % (Manual) 0.0 Myelocytes % (Man) 0 Promyelocytes % (Man) 0 Blast Cells % (Manual) 0 Nucleated RBC % 0 Metamyelocytes 0 Hypochromia 0 Platelet Estimate Decreased Polychromasia 1+ Poikilocytosis 0 Anisocytosis 1+ Microcytosis 0 Macrocytosis 1+ D-Dimer Sodium 155 H Potassium 3.9 Chloride 120 H Carbon Dioxide 28 Anion Gap 7 L BUN 83.5 H Creatinine 1.4 H Est GFR (CKD-EPI)AfAm 40.45 Est GFR (CKD-EPI)NonAf 34.90 Random Glucose 193 H Calcium 7.9 L Phosphorus 4.1 Magnesium 2.9 H Ferritin Total Bilirubin 1.9 H AST 43 H ALT 73 H Alkaline Phosphatase 182 H LD Total 380 H 444 H C-Reactive Protein Total Protein 5.7 L Albumin 1.6 L 02/02/20 02/02/20 07:25 07:25 WBC RBC Hgb Hct MCV MCH MCHC RDW Plt Count MPV Absolute Neuts (auto) Neutrophils % Neutrophils % (Manual) Band Neutrophils % Lymphocytes % Lymphocytes % (Manual) Monocytes % Monocytes % (Manual) Eosinophils % Eosinophils % (Manual) Basophils % Basophils % (Manual) Myelocytes % (Man) Promyelocytes % (Man) Blast Cells % (Manual) Nucleated RBC % Metamyelocytes Hypochromia Platelet Estimate Polychromasia Poikilocytosis Anisocytosis Microcytosis Macrocytosis D-Dimer 1246 H Sodium Potassium Chloride Carbon Dioxide Anion Gap BUN Creatinine Est GFR (CKD-EPI)AfAm Est GFR (CKD-EPI)NonAf Random Glucose Calcium Phosphorus Magnesium Ferritin 1405.3 H Total Bilirubin AST ALT Alkaline Phosphatase LD Total C-Reactive Protein 5.9 H Total Protein Albumin Assessment/Plan Acute hypoxemic respiratory failure BILATERAL PNEUMONIA Suspected COVID-19 UTI/Nephrolithiasis Gram Negative Bacteremia Sepsis Acute on Chronic Renal Failure Thrombocytopenia Acute NSTEMI Paroxysmal Atrial Fibrillation HTN Pneumonia Hypernatremia improving - NRBM - ABX per ID - Noted Prednisone - DNR/DNI - Consider hospice Dr Johnson
--- NOTE | 2020-02-02 13:21 | PN ---
Physical Exam: SUBJECTIVE: Patient seen and examined at bedside; no acute events overnight patinet remains on NRB OBJECTIVE: Vital Signs Period Temp Pulse Resp BP Sys/Mcmullen Pulse Ox Last 24 Hr 96.7 F-98.7 F 87-101 20-22 116-161/66-81 95-99 GENERAL: The patient is awake, alert, not interactive on NRB EYES: PEERLA: EOMI no scleral icterus NECK: n jVD; no lymphadenopathy LUNGS: diminshed breath sounds at the bases HEART: Regular rate and rhythm, S1, S2 without murmur, rub or gallop. ABDOMEN: Soft, NT ND +BS EXTREMITIES: 2+ pulses, warm, well-perfused, no edema. PSYCH: Normal mood, normal affect. SKIN: Warm, dry, normal turgor, no rashes or lesions noted Laboratory Results - last 24 hr 02/01/20 02/02/20 02/02/20 08:38 07:25 07:25 WBC 22.2 H RBC 2.90 L Hgb 10.0 L Hct 30.8 L MCV 106.3 H MCH 34.5 H MCHC 32.4 RDW 16.2 H Plt Count 71 L MPV 11.3 H Absolute Neuts (auto) 21.0 H Neutrophils % 94.7 H Neutrophils % (Manual) 94.8 H Band Neutrophils % 0.0 Lymphocytes % 3.0 L D Lymphocytes % (Manual) 5.2 L D Monocytes % 2.1 L Monocytes % (Manual) 0 L D Eosinophils % 0.0 D Eosinophils % (Manual) 0.0 Basophils % 0.2 Basophils % (Manual) 0.0 Myelocytes % (Man) 0 Promyelocytes % (Man) 0 Blast Cells % (Manual) 0 Nucleated RBC % 0 Metamyelocytes 0 Hypochromia 0 Platelet Estimate Decreased Polychromasia 1+ Poikilocytosis 0 Anisocytosis 1+ Microcytosis 0 Macrocytosis 1+ D-Dimer Sodium 155 H Potassium 3.9 Chloride 120 H Carbon Dioxide 28 Anion Gap 7 L BUN 83.5 H Creatinine 1.4 H Est GFR (CKD-EPI)AfAm 40.45 Est GFR (CKD-EPI)NonAf 34.90 Random Glucose 193 H Calcium 7.9 L Phosphorus 4.1 Magnesium 2.9 H Ferritin Total Bilirubin 1.9 H AST 43 H ALT 73 H Alkaline Phosphatase 182 H LD Total 380 H 444 H C-Reactive Protein Total Protein 5.7 L Albumin 1.6 L 02/02/20 02/02/20 07:25 07:25 WBC RBC Hgb Hct MCV MCH MCHC RDW Plt Count MPV Absolute Neuts (auto) Neutrophils % Neutrophils % (Manual) Band Neutrophils % Lymphocytes % Lymphocytes % (Manual) Monocytes % Monocytes % (Manual) Eosinophils % Eosinophils % (Manual) Basophils % Basophils % (Manual) Myelocytes % (Man) Promyelocytes % (Man) Blast Cells % (Manual) Nucleated RBC % Metamyelocytes Hypochromia Platelet Estimate Polychromasia Poikilocytosis Anisocytosis Microcytosis Macrocytosis D-Dimer 1246 H Sodium Potassium Chloride Carbon Dioxide Anion Gap BUN Creatinine Est GFR (CKD-EPI)AfAm Est GFR (CKD-EPI)NonAf Random Glucose Calcium Phosphorus Magnesium Ferritin 1405.3 H Total Bilirubin AST ALT Alkaline Phosphatase LD Total C-Reactive Protein 5.9 H Total Protein Albumin Active Medications Generic Name Dose Route Start Last Admin Trade Name Freq PRN Reason Stop Dose Admin Aripiprazole 5 mg 01/28/20 10:00 02/02/20 10:10 Abilify PO 5 mg DAILY [facility] Administration Ascorbic Acid 250 mg 01/28/20 22:00 02/02/20 10:10 Vitamin C - PO 250 mg BID [facility] Administration Enoxaparin Sodium 60 mg 01/27/20 12:00 02/02/20 10:10 Lovenox - SQ 60 mg BID [facility] Administration Furosemide 20 mg 01/29/20 10:00 01/29/20 12:45 Lasix Injection - IVPUSH 20 mg DAILY [facility] Administration Morphine Sulfate 2 mg 02/02/20 12:58 Morphine Injection - SQ Q4H PRN PAIN LEVEL 4 - 6 Nystatin 1 applic 01/29/20 10:00 02/02/20 10:10 Nystop Powder - TP 1 applic DAILY [facility] Administration Pantoprazole Sodium 40 mg 01/30/20 10:00 02/02/20 10:10 Protonix - PO 40 mg DAILY [facility] Administration Silver Sulfadiazine 1 applic 01/27/20 10:00 02/02/20 10:11 Silvadene - TP 1 applic DAILY [facility] Administration Zinc Sulfate 220 mg 01/29/20 10:00 02/02/20 10:10 Orazinc - PO 220 mg DAILY [facility] Administration ASSESSMENT/PLAN: 84 y.o. F w/ PMHx. of HTN, Major Depression, and Schizoaffective disorder (Aripiprazole, Fluoxetine, Mirtazapine) was brought in by EMS from [facility] for AMS. #Acute Hypoxic Respiratory Failure; likely 2/2 COVID-19 Pneumonitis vs. Aspiration PNA vs. pleural effusion -Although COVID-19 negx3, clinically there is a high concern for COVID-19 pneum onitis given hypoxia, fever, elevated inflammatory markers and b/l infiltrates found on CT chest. -COVID Ab+ -Prednisone stopped today as per pulm -Pulm following - Lovenox 60 mg BID SQ, Ascorbic acid 250 BID, Zinc 220 QD -will downtitrate o2 since patient is going to inpatient hospice -morphine PRN for symptomatic relief #Severe Sepsis 2/2 UTI; 2/2 Proteus Bacteremia. Resolved. -CTAP: 1.4 cm partially obstructing calculus Right renal pelvis -Received Vanc/Zosyn; was switched to Ceftriaxone -ID consult appreciated #New Onset Paroxysmal afib w/ RVR; in setting of sepsis PRN IV metoprolol if needed #HTN; Hold home Amlodipine for now #NSTEMI; Trops peaked -Per cardio, not a candidate for stress or cardiac cath -Monitor off tele -Platelets were less than 50k therefore AC was not started. -EKG: Afib w/ RVR, L axis deviation. Inferior & anterior infract (cited on/before 01/15/2020). ST & T wave abnormality, consider lateral ischemia #Hypernatremia; improving. Na 152 today. -Free water via NGt -Per nephro, start D5W -will encourage PO intake #DK- now resolved s/p IVF #Prophylaxis DVT: Lovenox 60 BID (given suspected COVID-19); Low threshold to hold AC due to thrombocytopenia. Transfusion threshold is 8 GI: Protonix 40 IV #FEN -encourage PO intake via NGT, P -recheck lytes in AM -Dysphagia puree with honey thick liquids Dispo -Cont to monitor on med-surg -patient going to inpatient hospice tomorrow (02/02) -DNR/DNI Problem List - Problems (1) DK (acute kidney injury) Code(s): N17.9 - ACUTE KIDNEY FAILURE, UNSPECIFIED (2) Elevated liver enzymes Code(s): R74.8 - ABNORMAL LEVELS OF OTHER SERUM ENZYMES (3) NSTEMI (non-ST elevated myocardial infarction) Code(s): I21.4 - NON-ST ELEVATION (NSTEMI) MYOCARDIAL INFARCTION (4) Pneumonia Code(s): J18.9 - PNEUMONIA, UNSPECIFIED ORGANISM Qualifiers: Pneumonia type: due to unspecified organism Laterality: left Lung location: lower lobe of lung Qualified Code(s): J18.9 - Pneumonia, unspecified organism (5) Sepsis Code(s): A41.9 - SEPSIS, UNSPECIFIED ORGANISM Qualifiers: Sepsis type: sepsis due to unspecified organism Sepsis acute organ dysfunction status: with acute organ dysfunction Severe sepsis acute organ dysfunction type: acute renal failure Acute renal failure type: unspecified Severe sepsis shock status: without septic shock Qualified Code(s): A41.9 - Sepsis, unspecified organism; R65.20 - Severe sepsis without septic shock; N17.9 - Acute kidney failure, unspecified (6) Thrombocytopenia Code(s): D69.6 - THROMBOCYTOPENIA, UNSPECIFIED Visit type - Emergency Visit Emergency Visit: Yes ED Registration Date: 01/15/20 Care time: The patient presented to the Emergency Department on the above date and was hospitalized for further evaluation of their emergent condition. - New Patient This patient is new to me today: No - Critical Care Critical Care patient: No - Medication Review Med list reviewed for High Risk Meds patients 65 and older: Yes ATTENDING PHYSICIAN STATEMENT I saw and evaluated the patient. I reviewed the resident's note and discussed the case with the resident. I agree with the resident's findings and plan as documented. SUBJECTIVE: OBJECTIVE: ASSESSMENT AND PLAN:
[2020-02-02] MEDS ORDERED: MORPHINE SULFATE 2 MG/ML VIAL SQ PRN ×2 (13:56→17:58)
--- NOTE | 2020-02-02 15:12 | PN ---
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, Physician History of Present Illness: Pt seen and examined at bedside. No great change in status. - Current Medication List Current Medications: Active Medications Aripiprazole (Abilify) 5 mg PO DAILY [facility] Last Admin: 02/02/20 10:10 Dose: 5 mg Documented by: Ascorbic Acid (Vitamin C -) 250 mg PO BID [facility] Last Admin: 02/02/20 10:10 Dose: 250 mg Documented by: Enoxaparin Sodium (Lovenox -) 60 mg SQ BID [facility] Last Admin: 02/02/20 10:10 Dose: 60 mg Documented by: Furosemide (Lasix Injection -) 20 mg IVPUSH DAILY [facility] Last Admin: 01/29/20 12:45 Dose: 20 mg Documented by: Morphine Sulfate (Morphine Sulfate) 2 mg SQ Q4H PRN PRN Reason: PAIN LEVEL 4 - 6 Last Admin: 02/02/20 13:59 Dose: 2 mg Documented by: Nystatin (Nystop Powder -) 1 applic TP DAILY [facility] Last Admin: 02/02/20 10:10 Dose: 1 applic Documented by: Pantoprazole Sodium (Protonix -) 40 mg PO DAILY [facility] Last Admin: 02/02/20 10:10 Dose: 40 mg Documented by: Silver Sulfadiazine (Silvadene -) 1 applic TP DAILY [facility] Last Admin: 02/02/20 10:11 Dose: 1 applic Documented by: Zinc Sulfate (Orazinc -) 220 mg PO DAILY [facility] Last Admin: 02/02/20 10:10 Dose: 220 mg Documented by: - Objective Vital Signs: Vital Signs Temperature 98.4 F 02/02/20 14:45 Pulse Rate 96 H 02/02/20 14:45 Respiratory Rate 20 02/02/20 14:45 Blood Pressure 148/76 02/02/20 14:45 O2 Sat by Pulse Oximetry (%) 98 02/02/20 14:45 Constitutional: Yes: Calm Eyes: Yes: Conjunctiva Clear HENT: Yes: Atraumatic Neck: Yes: Supple Cardiovascular: Yes: S1, S2 Respiratory: Yes: On Venti-Mask Gastrointestinal: Yes: Soft Genitourinary: Yes: العلي Present, Other (nephrostomy) Musculoskeletal: Yes: Muscle Weakness Edema: No Neurological: Yes: Lethargy Labs: CBC, BMP 02/02/20 07:25 02/02/20 07:25 INR, PTT INR 1.21 (0.83-1.09) H 01/25/20 10:50 Fibrinogen 463.0 mg/dL (238-498) 01/25/20 10:50 Problem List - Problems (1) DK (acute kidney injury) Code(s): N17.9 - ACUTE KIDNEY FAILURE, UNSPECIFIED (2) Hypernatremia Code(s): E87.0 - HYPEROSMOLALITY AND HYPERNATREMIA (3) NSTEMI (non-ST elevated myocardial infarction) Code(s): I21.4 - NON-ST ELEVATION (NSTEMI) MYOCARDIAL INFARCTION Assessment/Plan Current Medications Generic Name Dose Route Start Last Admin Trade Name Freq PRN Reason Stop Dose Admin Aripiprazole 5 mg 01/28/20 10:00 02/02/20 10:10 Abilify PO 5 mg DAILY [facility] Administration Ascorbic Acid 250 mg 01/28/20 22:00 02/02/20 10:10 Vitamin C - PO 250 mg BID [facility] Administration Enoxaparin Sodium 60 mg 01/27/20 12:00 02/02/20 10:10 Lovenox - SQ 60 mg BID [facility] Administration Furosemide 20 mg 01/29/20 10:00 01/29/20 12:45 Lasix Injection - IVPUSH 20 mg DAILY [facility] Administration Morphine Sulfate 2 mg 02/02/20 13:56 02/02/20 13:59 Morphine Sulfate SQ 2 mg Q4H PRN Administration PAIN LEVEL 4 - 6 Nystatin 1 applic 01/29/20 10:00 02/02/20 10:10 Nystop Powder - TP 1 applic DAILY [facility] Administration Pantoprazole Sodium 40 mg 01/30/20 10:00 02/02/20 10:10 Protonix - PO 40 mg DAILY [facility] Administration Silver Sulfadiazine 1 applic 01/27/20 10:00 02/02/20 10:11 Silvadene - TP 1 applic DAILY [facility] Administration Zinc Sulfate 220 mg 01/29/20 10:00 02/02/20 10:10 Orazinc - PO 220 mg DAILY [facility] Administration Impression 1. dk 2. hypernatremia 3. hypokalemia 4. sepsis 5. nstemi 6. gram neg bacteremia 7. htn 8. a-fib 9. thrombocytopenia Plan - increase free water via ng tube - cont to monitor lytes - cont to monitor sodium - lasix held - repeat cxr in am - discuss GOC with family
--- NOTE | 2020-02-02 22:43 | HOSP ---
Physical Examination Vital Signs: Vital Signs Temperature 98.4 F 02/02/20 14:45 Pulse Rate 96 H 02/02/20 14:45 Respiratory Rate 20 02/02/20 14:45 Blood Pressure 148/76 02/02/20 14:45 O2 Sat by Pulse Oximetry (%) 98 02/02/20 14:45 Constitutional: Yes: Cachectic, Thin Cardiovascular: Yes: Other (Faint) Respiratory: Yes: Bradypnea Labs: CBC, BMP 02/02/20 07:25 02/02/20 07:25 Hospitalist Encounter Assessment: Paged due to patient's blood pressure 42/19 with heart rate 130bpm, later 60bpm on repeat blood pressure check. Patient in no acute distress on examination. Pulse ox machine unable to read patient's oxygenation. Patient's respiratory rate 6. Patient is DNR/DNI on comfort care. Patient has no IV access for fluids, but daughter per chart would like patient to be comfort care only with morphine if in pain. Chart says (02/01/2020): "DNR/DNI, no further labs tests, procedures. No artificial feeding, no IV, antibiotics to be determined and DNH". No IV access or central access was attempted at all based on this note's instructions. Patient under continued observation. Patient in no observable pain. Vitals: 42/19, 60bpm, respiratory rate: 6 breaths per minute General: No acute distress Heart: Faint S1, faint S2 Lungs: Decreased breath sounds. Moves abdomen up and down about every 10 seconds. Visit type - Medication Review Med list reviewed for High Risk Meds patients 65 and older: Yes - Emergency Visit Emergency Visit: No - New Patient This patient is new to me today: No - Critical Care Critical Care patient: No
[2020-02-03 00:38] VITALS: BP 50/17; PULSE 75; TEMP 96
--- NOTE | 2020-02-03 00:43 | HOSP ---
Physical Examination Vital Signs: Vital Signs Temperature 96 F L 02/02/20 22:00 Pulse Rate 75 02/02/20 22:00 Respiratory Rate 15 02/02/20 22:00 Blood Pressure 50/17 L 02/02/20 22:00 O2 Sat by Pulse Oximetry (%) 98 02/02/20 14:45 Labs: CBC, BMP 02/02/20 07:25 02/02/20 07:25 Hospitalist Encounter Assessment: Paged that patient . Patient seen and examined at bedside. Patient is DNR/DNI on comfort care. At bedside, the patient had negative doll's eyes test, negative corneal reflex test, no heart sounds, no pulse, no breathing, right eye more dilated than the left and both not reactive to light. Time of called at 23:37 02/02/2020. Patient's daughter called to inform her of the passing of her mother. Visit type - Medication Review Med list reviewed for High Risk Meds patients 65 and older: Yes - Emergency Visit Emergency Visit: No - New Patient This patient is new to me today: No - Critical Care Critical Care patient: No
[2020-02-03] MEDS ORDERED: predniSONE 20 MG TABLET (UD) PO SCH (10:00)
--- NOTE | 2020-02-03 14:03 | PN ---
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, Physician Chief Complaint: Pt on non-rebreather; no response to verbal queries; gutteral moan every 10-15 seconds. History of Present Illness: Ms. Bradford is an 84 yr old white woman with PM hx of bipolar disorder (non compliant to medications) who now presented to the ED from [place] for hypoxia, fever, AMS. The patient is usually alert and speaks, however she was nonresponsive; history is limited due to her clinical status. Upon arrival, pt noted to be febrile. Pt unable to give a history. Information taken from [place] paperwork.WBC 22.9 HB 13. Plt 27 BUN 95.4 Creat 2.9, lactate 3.9, trops 10 CT-Scan Rt Renal pelvis stone 1.4 cm with partial obstruction Pt was given empiric IV abx coverage with Vanc/Zosyn. Uro made aware with recommendation to make NPO after midnight, now in rapid afib. - Objective Vital Signs: Vital Signs Temperature 96 F L 02/02/20 22:00 Pulse Rate 75 02/02/20 22:00 Respiratory Rate 15 02/02/20 22:00 Blood Pressure 50/17 L 02/02/20 22:00 O2 Sat by Pulse Oximetry (%) 98 02/02/20 14:45 Constitutional: Yes: Other Eyes: Yes: WNL HENT: Yes: Other Neck: Yes: Decreased ROM Cardiovascular: Yes: S1, S2 Respiratory: Yes: Bradypnea, Diminished, Dullness, Poor Air Entry, SOB Gastrointestinal: Yes: Soft Genitourinary: Yes: العلي Present, Oliguria Breast(s): Yes: WNL Musculoskeletal: Yes: Muscle Weakness Extremities: Yes: Cool Edema: Yes Edema: LLE: 1+, RLE: 1+ Peripheral Pulses WNL: No Peripheral Pulses: Left Doralis Pedis: 1+, Right Dorsalis Pedis: 1+ Integumentary: Yes: Venous Stasis Changes Neurological: Yes: Unresponsive Psychiatric: Yes: Other Labs: CBC, BMP 02/02/20 07:25 02/02/20 07:25 INR, PTT INR 1.21 (0.83-1.09) H 01/25/20 10:50 Fibrinogen 463.0 mg/dL (238-498) 01/25/20 10:50 - ....Imaging Chest X-ray: Image Reviewed EKG: Image Reviewed Assessment/Plan 1. CAD, NSTEMI in context of: 2. Paroxysmal afib with RVR 3. Sepsis source with partially obstructive right renal pelvis stone, possible LLL PNA 4. Toxic metabolic encephalopathy 5. Acute on CKD 6. HTN 7.ECHO: nl LVEF, trace-mild MR; no pericardial effusion. 8.Schizo affective ds, Non-verbal Pt now with bradypnea; ?agonal breathing. Oliguria (though on IV furosemide; steroids). Remains leukocytotic; anemic; thrombocytopenic. f/u CXR. Poor prognosis; supportive care recommended.
== END 2020-02-02 23:37 | disposition expired | DRG 871 ==
LOC: JER 13:18 → JERBED 16:52 → JICU 23:33 → J4W 01-17 12:27 → J6S 01-28 18:33
PROVIDERS: ADMIT Internal Medicine; ATTEND Internal Medicine
PROC: 30233R1 Transfusion of Nonautologous Platelets into Peripheral Vein, Percutaneous Approach (ICD-10-PCS; 2020-01-16)
PROC: 0T9030Z Drainage of Right Kidney with Drainage Device, Percutaneous Approach (ICD-10-PCS; principal; 2020-01-17)
PROC: 0DH673Z Insertion of Infusion Device into Stomach, Via Natural or Artificial Opening (ICD-10-PCS; 2020-01-19)
DX: A41.59 Other Gram-negative sepsis (principal); I21.4 Non-ST elevation (NSTEMI) myocardial infarction; G93.41 Metabolic encephalopathy; J96.01 Acute respiratory failure with hypoxia; J18.9 Pneumonia, unspecified organism; N17.9 Acute kidney failure, unspecified; M62.82 Rhabdomyolysis; E87.0 Hyperosmolality and hypernatremia; E87.2 Acidosis; N20.2 Calculus of kidney with calculus of ureter; N39.0 Urinary tract infection, site not specified; J90 Pleural effusion, not elsewhere classified; R64 Cachexia; R41.82 Altered mental status, unspecified; N18.9 Chronic kidney disease, unspecified; R65.20 Severe sepsis without septic shock; I12.9 Hypertensive chronic kidney disease with stage 1 through stage 4 chronic kidney disease, or unspecified chronic kidney disease; I48.0 Paroxysmal atrial fibrillation; J47.9 Bronchiectasis, uncomplicated; D72.829 Elevated white blood cell count, unspecified; F25.9 Schizoaffective disorder, unspecified; F31.9 Bipolar disorder, unspecified; R00.0 Tachycardia, unspecified; I25.10 Atherosclerotic heart disease of native coronary artery without angina pectoris; N13.9 Obstructive and reflux uropathy, unspecified; R79.89 Other specified abnormal findings of blood chemistry; E87.6 Hypokalemia; E87.70 Fluid overload, unspecified; L89.151 Pressure ulcer of sacral region, stage 1; Z66 Do not resuscitate; Z68.25 Body mass index [BMI] 25.0-25.9, adult
CPT/HCPCS: 36415; 36430; 36511; 50432; 70450-TC; 71045-TC-FY; 71250-TC; 71275-TC; 74018-TC-FY; 74176-TC; 76098-TC-FY; 76775-TC; 76856-TC; 76942-TC; 80048; 80053; 81003; 82550; 82553; 82728; 82803; 83605; 83615; 83735; 84100; 84484; 85025; 85027; 85379; 85384; 85610; 85730; 86140; 86769; 86850; 86900; 86901; 87040; 87086; 87186; 87899; 93005; 93010; 93306-TC; 99285-25; A4358; C1729; C1769; G0480; J0131; J1644; P9034; P9038; Q9967; U0003